=== PATIENT | female | born 1970 | race African-American/Black ===

== ENCOUNTER → 2016-10-06 10:56 | Day surgery (SDC) | payer MEDICARE, MEDICAID ==
--- NOTE | 2016-09-28 13:04 | HP ---
PREOPERATIVE HISTORY AND PHYSICAL: DATE OF OFFICE VISIT/ENCOUNTER: 09/28/16 - [facility] DATE OF SURGERY/ADMISSION: 10/06/16 ATTENDING SURGEON: Livia Jones MD PROCEDURE: Left wrist de Quervain's release. CHIEF COMPLAINT: Left wrist pain. HISTORY OF PRESENT ILLNESS: This is a 46-year-old female who has had pain at the radial aspect of her left wrist for approximately 5 months now. She gets an increase in pain with any repetitive use of the wrist. She has tried wrist braces in the past with minimal success and she is interested in pursuing more definitive treatment for this problem at this time in the form of a left wrist de Quervain's release. PAST MEDICAL HISTORY: 1. Prediabetes. 2. Asthma. 3. Hypertension. 4. History of Trichomonas. 5. GERD. 6. Morbid obesity. 7. Sleep apnea for which she uses a CPAP at night. 8. Anxiety/depression. 9. History of heart murmur. PAST SURGICAL HISTORY: Cyst excision from left breast. MEDICATIONS: 1. Albuterol sulfate 4 times daily p.r.n. 2. Amlodipine besylate 10 mg 1-1/2 tabs daily. 3. Anoro Ellipta 62.5/25 mcg one puff daily. 4. Buspirone/HCl 7.5 mg b.i.d. 5. Hydrochlorothiazide 25 mg daily. 6. Ibuprofen 600 mg t.i.d. p.r.n. 7. Lexapro 20 mg one tab daily. 8. Lisinopril 20 mg daily. 9. Loratadine 10 mg daily. 10. Lotrisone cream 0.5% as directed p.r.n. 11. Meloxicam 15 mg daily. 12. MiraLAX 17 g daily. 13. Rozerem 8 mg daily. 14. Tizanidine HCl 4 mg t.i.d. 15. Trazodone HCl 50 mg q.h.s. p.r.n. 16. Vicoprofen 7.5/200 mg q.8 hours p.r.n. pain. ALLERGIES: 1. PENICILLIN causes throat swelling. 2. TRAMADOL causes hives. 3. SHELLFISH. FAMILY MEDICAL HISTORY: Significant for colon cancer. SOCIAL HISTORY: The patient is a retired school nurse. She is a current smoker and smokes approximately 5 cigarettes a day. She has been doing this for the past 20 years. She also uses marijuana on a daily basis. Denies alcohol use. REVIEW OF SYSTEMS: General: Negative for fevers, chills, or night sweats. No known anesthesia problems. HEENT: Negative for headache, lightheadedness, or syncopal episodes. Integumentary: Negative for abrasions, lesions, or open wounds. Cardiothoracic: Negative for chest pain, palpitations, or edema. Positive for hypertension. Pulmonary: Positive for asthma. Positive for shortness of breath with exertion. GI: Positive for GERD. Negative for nausea , vomiting, diarrhea, or constipation. : Negative for nocturia, urinary frequency, urgency, history of UTIs, or kidney problems. Musculoskeletal: Positive for current complaint. Positive for arthritis. Neurological: Positive for anxiety/depression. Negative for paresthesias, numbness, history of seizure, stroke, or epilepsy. Endocrine: Positive for prediabetes. Negative for thyroid issues. Hematologic: Negative for easy bruising, anemia, excessive bleeding, or history of DVT. Infectious Disease: Positive for history of MRSA. Negative for hepatitis C and HIV. PHYSICAL EXAMINATION GENERAL: Well-developed, well-nourished 46-year-old female, in no acute distress. VITAL SIGNS: Height 5 feet 9-3/4 inches, weight 441 pounds, pulse rate 78, blood pressure 170/100. Retaken blood pressure 144/98. HEENT: Normocephalic, atraumatic. Pupils are equal, round, and reactive to light and accommodation. Extraocular movements are intact. Throat is clear. NECK: Supple. No palpable lymph nodes. PULMONARY: Lungs are clear to auscultation bilaterally. No wheezes, rales, or rhonchi. CARDIOTHORACIC: Regular rate and rhythm. S1, S2. Faint ejection murmur detected. No rubs or gallops. No edema. ABDOMEN: Positive bowel sounds, soft, and nontender. MUSCULOSKELETAL: On exam of the left wrist, she has tenderness to palpation along the first dorsal compartment. Increased pain from abduction, particularly against resistance. Positive Jacki's test. NEUROLOGIC: Alert and oriented x3. Cranial nerves II through XII are intact. Sensation is intact to light touch. IMPRESSION: Left wrist de Quervain's tenosynovitis. PLAN: The patient is scheduled to undergo a left wrist de Quervain's release with Dr. Jones on 10/06/16. She will return to the office 10 to 14 days postop for followup and suture removal. She has a supply of Vicoprofen that she used for pain as prescribed by Dr. Torre and she will use that for postoperative pain management. Additional medications will be prescribed if and when necessary. JOSE GÓMEZ [id number]/[facility] #: [id number] MTDD
[~2016-10-06 10:56] MED LIST: Acetaminophen TAB* 325 MG PO PRN; Buffered Lidocaine 1% SYRIN* 3 ML/SYR SYRINGE INTRADERM ONE; DiMENhydriNATE IV* 50 MG/ML VIAL IV PUSH PRN; HYDROcodone/ACETAMIN 5-325 MG* 1 TAB ONE; KETAMINE HCL* 50 MG/ML 10 ML VIAL ONE; Lidocaine 1% INJ* 10 MG/ML 30 ML SDV ONE; Midazolam* 1 MG/ML 2 ML VIAL (2 MG) ONE; Ondansetron INJ* 2 MG/ML VIAL IV PRN; fentaNYL* 50 MCG/ML 2 ML VIAL (100 MCG VIAL) ONE
[2016-10-06 14:56] VITALS: BP 135/75
--- NOTE | 2016-10-07 04:33 | OP ---
CC: Livia Jones MD OPERATIVE NOTE: DATE OF OPERATION: 10/06/16 DATE OF : 72 SURGEON: Livia Jones MD PROFESSOR OF LANGUAGES: JOSE Fitzpatrick ANESTHESIA: Local MAC. PRE-OP DIAGNOSIS: Left de Quervain's tenosynovitis. POST-OP DIAGNOSIS: Left de Quervain's tenosynovitis. OPERATIVE PROCEDURE: Left de Quervain's release. ESTIMATED BLOOD LOSS: Zero. TOURNIQUET TIME: About 10 minutes. INDICATIONS FOR PROCEDURE: Ally is a 46-year-old female with pain on the radial aspect of her left wrist for the past several months. She has failed conservative treatment and presents for Left de Q uervain's release. DESCRIPTION OF PROCEDURE: The patient was brought to the operative room and was given sedation anes thetic and a local infiltration of 10 cc of 1% plain lidocaine on the radial aspect of her left wris t. The skin of her left hand and forearm was prepped and draped in the usual sterile fashion. The hand and forearm were exsanguinated and tourniquet elevated to 250 mmHg. An incision was made on th e radial aspect of the wrist centered at the radial styloid. We dissected bluntly through the subcu taneous tissue. The branches of the radial sensory nerve were located and retracted by the surgical scheduler, Karlene Mcghee. The first dorsal compartment was incised longitudinally, completely rel easing the APL and EPB tendons, which were in good condition. The wound was irrigated and skin edge was reapproximated with 4-0 nylon suture. The wound was dressed with Xeroform, 4x4, Webril, and an Jam wrap. The patient tolerated the procedure well and was brought to the recovery room in good co ndition. [id number]/[facility] #: [id number]
== END | disposition home or self-care (01) ==
LOC: OREAST 10:56
PROVIDERS: ATTEND Orthopaedic Surgery
DX: M65.4 Radial styloid tenosynovitis [de Quervain] (principal); R73.03 Prediabetes; J45.909 Unspecified asthma, uncomplicated; I10 Essential (primary) hypertension; E66.01 Morbid (severe) obesity due to excess calories; G47.33 Obstructive sleep apnea (adult) (pediatric); F17.210 Nicotine dependence, cigarettes, uncomplicated; F12.90 Cannabis use, unspecified, uncomplicated
CPT/HCPCS: J2001; J2250; J3010

== ENCOUNTER 2016-11-08 17:59 | Emergency (ER) | payer MEDICARE, MEDICAID ==
[2016-11-08] MEDS ORDERED: Sulfamethox/Trimethoprim DS 800/160* TAB PO ONE (18:42)
[2016-11-08] MEDS ORDERED: amLODIPine TAB* 5 MG PO ONE (18:42)
[2016-11-08] MEDS ORDERED: Lisinopril TAB* 10 MG PO ONE (18:42)
--- NOTE | 2016-11-08 18:42 | ED ---
Skin Complaint - HPI Summary HPI Summary: 46F presents with abscess to left breast. States had cystlike structure there for a while and seemed over the past three days to get bigger and hurt. She states she sterilized a needle and incised it and she got drainage from it. She states that it improved after incising it but states she still feels that there is something there. She denies any fever or spreading redness. She had normal mammogram a couple months ago. she takes hydrocodone for pain. She also states she has not taken two of her bp meds today as she ran out. She denies any chest pain, SOB, or headache. - History of Current Complaint Chief Complaint: EDRashSkinAbscess Time Seen by Provider: 11/08/16 18:14 Stated Complaint: POSS SKIN INFECTION Pain Intensity: 8 - Allergy/Home Medications Allergies/Adverse Reactions: Allergies Allergy/AdvReac Type Severity Reaction Status Date / Time Tramadol Allergy Severe Swelling Verified 10/06/16 11:24 Penicillins Allergy Difficulty Verified 10/06/16 11:24 Breathing/Wheezing Shrimp Allergy Severe Swelling Uncoded 10/06/16 11:24 Of Face,Lips,& Throat PMH/Surg Hx/FS Hx/Imm Hx Endocrine/Hematology History: Reports: Hx Thyroid Disease - being checked Denies: Hx Sickle Cell Disease - TRATE Comment Only: Hx Diabetes - PRE- NO MEDS Cardiovascular History: Reports: Hx Hypertension - ON DAILY MED Denies: Hx Pacemaker/ICD, Other Cardiovascular Problems/Disorders Respiratory History: Reports: Hx Asthma - ON DAILY & PRN INHALERS, Hx Sleep Apnea - BEEN TESTED, NO EQUIPMENT YET Denies: Other Respiratory Problems/Disorders History: Reports: Other Problems/Disorders - urine being checked for blood Musculoskeletal History: Reports: Hx Arthritis - GENERALIZED Denies: Other Musculoskeletal History Sensory History: Reports: Hx Contacts or Glasses - ONLY CONTACTS, WILL BRING CASE Denies: Hx Hearing Aid Opthamlomology History: Reports: Hx Contacts or Glasses - ONLY CONTACTS, WILL BRING CASE Neurological History: Reports: Hx Headaches - with high bp, Hx Migraine - with high bp Denies: Other Neuro Impairments/Disorders Psychiatric History: Reports: Hx Anxiety, Hx Depression Denies: Hx Panic Disorder - Surgical History Surgery Procedure, Year, and Place: EARLY CYST OF VAGINA, STATES REMOVED IN ER IN [facility] UNDER ANESTHESIA Hx Anesthesia Reactions: No - Immunization History Date of Tetanus Vaccine: Unknown Date of Influenza Vaccine: None Infectious Disease History: Yes Infectious Disease History: Denies: Traveled Outside the [place] in Last 30 Days - Family History Known Family History: Positive: None - Social History Alcohol Use: None Substance Use Type: Reports: Marijuana Substance Use Comment - Amount & Last Used: Marijuana Occ - Unknown last time, WILL REFRAIN 2 DAYS PREOP Smoking Status (MU): Light Every Day Tobacco Smoker Type: Cigarettes Amount Used/How Often: ABOUT 1/2 PPD 20 YRS Have You Smoked in the Last Year: Yes Review of Systems Negative: Fever Negative: Chest Pain Negative: Shortness Of Breath Positive: Other - draining abscess of left breast All Other Systems Reviewed And Are Negative: Yes Physical Exam Triage Information Reviewed: Yes Vital Signs On Initial Exam: Initial Vitals Temp Pulse Resp BP 97.4 F 91 20 191/107 11/08/16 18:01 11/08/16 18:01 11/08/16 18:01 11/08/16 18:01 Vital Signs Reviewed: Yes Appearance: Positive: Well-Appearing Skin: Positive: Other - 1/4 open draining abscess of left breast with small amount of pus present, area of edema surrounding open area Head/Face: Positive: Normal Head/Face Inspection Eyes: Positive: Normal, Conjunctiva Clear Respiratory/Lung Sounds: Positive: Clear to Auscultation, Breath Sounds Present Cardiovascular: Positive: Normal, RRR Diagnostics - Vital Signs Vital Signs Temp Pulse Resp BP Pulse Ox 11/08/16 18:33 97.4 F 91 20 191/107 98 11/08/16 18:01 97.4 F 91 20 191/107 - Laboratory Lab Statement: Any lab studies that have been ordered have been reviewed, and results considered in the medical decision making process. Course/Dx - Course Course Of Treatment: 46F presents with draining abscess of left breast. she incised it herself. states that improved with incision but now feels that getting worst. no fever or spreading redness. on exam has open area in middle of abscess with small amount of pustular drainage with some surrounding edema with no area of loculation felt. will treat with bactrim and have continue warm soaks. gave bp meds and pressure dropped. will have follow up with primary about bp. patient understands and agrees with plan - Differential Diagnoses - Skin Complaint Differential Diagnoses: Abscess, Cellulitis, Other - HTN - Diagnoses Provider Diagnoses: Abscess of left breast, Hypertension Discharge - Discharge Plan Condition: Good Disposition: HOME Prescriptions: Lisinopril TAB* [Prinivil TAB 10 MG*] 20 mg PO DAILY #14 tab Sulfamethox/Trimethoprim DS* [Bactrim DS 800/160 TAB*] 1 tab PO BID #19 tab amLODIPine TAB* [Norvasc 5 mg TAB*] 10 mg PO DAILY #14 tab Patient Education Materials: Abscess (ED) Referrals: Corey Torre MD [Primary Care Provider] - Additional Instructions: Follow up with primary for blood pressure Take bactrim twice a day for 10 days, first dose given in ED Place warm compresses on area Take normal pain medication Return to ED if develop any fever, spreading redness, or any new or worsening symptoms
[2016-11-08 19:21] VITALS: BP 173/99
== END 2016-11-08 19:19 | disposition home or self-care (01) ==
LOC: ED 17:59
DX: N61.1 Abscess of the breast and nipple (principal); I10 Essential (primary) hypertension; F17.210 Nicotine dependence, cigarettes, uncomplicated; Z88.0 Allergy status to penicillin; Z88.8 Allergy status to other drugs, medicaments and biological substances
CPT/HCPCS: 99282; A9270-GY

== ENCOUNTER 2017-12-26 07:32 | Inpatient (IN) | payer MEDICARE ==
[~2017-12-26 07:32] MED LIST changes: -Acetaminophen TAB* 325 MG PO PRN; +Buffered Lidocaine 0.9% SYRIN* 5 ML/SYR SYRINGE INTRADERM ONE; -Buffered Lidocaine 1% SYRIN* 3 ML/SYR SYRINGE INTRADERM ONE; +Bupivacaine 0.5% SDV PF* 30ML VIAL ONE; -DiMENhydriNATE IV* 50 MG/ML VIAL IV PUSH PRN; +Famotidine IV* 10 MG/ML 2 ML (20 mg) IV ONE; -HYDROcodone/ACETAMIN 5-325 MG* 1 TAB ONE; -KETAMINE HCL* 50 MG/ML 10 ML VIAL ONE; -Lidocaine 1% INJ* 10 MG/ML 30 ML SDV ONE; +Metoclopramide TAB* 10 MG PO ONE; -Midazolam* 1 MG/ML 2 ML VIAL (2 MG) ONE; -Ondansetron INJ* 2 MG/ML VIAL IV PRN; -fentaNYL* 50 MCG/ML 2 ML VIAL (100 MCG VIAL) ONE
[2017-12-26] MEDS ORDERED: Heparin VIAL(*) 5000 UNITS/ML VIAL (FIVE THOUSAND) ONE (08:19)
[2017-12-26] MEDS ORDERED: Metoclopramide TAB* 10 MG ONE (08:19)
[2017-12-26] MEDS ORDERED: Famotidine IV* 10 MG/ML 2 ML (20 mg) ONE (08:19)
[2017-12-26] MEDS ORDERED: Ciprofloxacin 400MG IVPREMIX(* 400 MG/200 ML BAG ONE (08:20)
[2017-12-26] MEDS ORDERED: Clindamycin 900 MG IVPREMIX(* 900 MG/50 ML SDV IV ONE (08:20)
[2017-12-26] MEDS ORDERED: fentaNYL* 50 MCG/ML 5 ML VIAL (250 MCG VIAL) ONE (08:22)
[2017-12-26] MEDS ORDERED: Lidocaine 2% PF * 5 ML VIAL ONE (08:22)
[2017-12-26] MEDS ORDERED: Rocuronium* 10 MG/ML VIAL ONE (08:22)
[2017-12-26] MEDS ORDERED: Ondansetron ODT TAB* 4 MG ONE (08:22)
[2017-12-26] MEDS ORDERED: Propofol* 10 MG/ML 20 ML BTL IV PUSH ONE ×2 (08:22→09:51)
[2017-12-26] MEDS ORDERED: Dexamethasone IV* 4 MG/ML 1 ML (4 MG) ONE (08:22)
[2017-12-26] MEDS ORDERED: Ketorolac INJ* 30 MG/ML 1 ML VIAL ONE (08:22)
[2017-12-26] MEDS ORDERED: Midazolam* 1 MG/ML 5 ML VIAL (5 MG) ONE (08:22)
[2017-12-26] MEDS ORDERED: Midazolam* 1 MG/ML 2 ML VIAL (2 MG) ONE (09:28)
[2017-12-26] MEDS ORDERED: EPHEDrine (Pressors)* 50 MG/ML VIAL ONE (09:41)
[2017-12-26] MEDS ORDERED: Bupivacaine 0.5% SDV PF* 30ML VIAL ONE (10:07)
[2017-12-26] MEDS ORDERED: fentaNYL* 50 MCG/ML 2 ML VIAL (100 MCG VIAL) ONE ×5 (10:09→12:35)
[2017-12-26] MEDS ORDERED: Metoprolol Tartrate IV* 1 MG/ML 5 ML VIAL ONE (10:18)
[2017-12-26] MEDS ORDERED: DiMENhydriNATE IV* 50 MG/ML VIAL IV PUSH PRN (10:23)
[2017-12-26] MEDS ORDERED: Ondansetron INJ* 2 MG/ML VIAL IV PRN ×2 (10:23→11:27)
[2017-12-26] MEDS ORDERED: Naloxone* 0.4 MG/ML 1 ML VIAL IV PRN (10:23)
[2017-12-26] MEDS ORDERED: Levalbuterol 1.25MG/0.5ML NEB INH PRN (10:23)
[2017-12-26] MEDS ORDERED: Labetalol IV* 5 MG/ML 20 ML VIAL ONE (10:58)
[2017-12-26] MEDS ORDERED: HYDROmorphone INJ* 2 MG/ML CARPUJECT SYRINGE IV PRN (11:27)
[2017-12-26] MEDS ORDERED: Acetaminophen ADULT LIQ* 650 MG/20.3 ML UDC PO PRN (11:27)
[2017-12-26] MEDS ORDERED: diPHENhydraMINE IV* 50 MG/ML 1 ml VIAL (BENADRYL) SLOW PUSH PRN (11:27)
--- NOTE | 2017-12-26 11:27 | BRIEFOPN ---
Brief Operative Note - Surgery Procedures: Procedures Pre-OP Diagnoses: Clinically severe obesity Post-op Diagnosis: same Procedure: Laparoscopic sleeve gastrectomy Surgeon: Salo Asst: Reyna Anethesia: SHONDA Purvis EBL: minimal IVF: 1500cc LR Specimen: portion of stomach Drains: none
[2017-12-26] MEDS ORDERED: Albuterol HFA INHALER* 8 gm MDI INH PRN (11:32)
[2017-12-26] MEDS: fentaNYL* 50 MCG/ML 2 ML VIAL (100 MCG VIAL) IV PRN ×5 (11:54→12:48)
[2017-12-26] MEDS ORDERED: HYDROmorphone INJ* 2 MG/ML CARPUJECT SYRINGE ONE (13:10)
[2017-12-26] MEDS ORDERED: Enalaprilat IV* 1.25 MG/ML 2 ML VIAL (2.5 MG) ONE (13:55)
[2017-12-26] MEDS: Ketorolac INJ* 30 MG/ML 1 ML VIAL IV PRN ×2 (16:02→22:55)
[2017-12-26] MEDS: Heparin VIAL(*) 5000 UNITS/ML VIAL (FIVE THOUSAND) SUBCUT SCH ×2 (16:03→23:00)
[2017-12-26] MEDS: HYDROmorphone INJ* 2 MG/ML CARPUJECT SYRINGE IV PRN (20:03)
[2017-12-26] MEDS: Ondansetron 40 MG VIAL* 2 MG/ML 20 ML VIAL IV PRN (20:10)
[2017-12-27] MEDS ORDERED: Ketorolac INJ* 30 MG/ML 1 ML VIAL IM PRN (01:05)
[2017-12-27] MEDS ORDERED: HYDROcodone/ACET. 7.5/325 LIQ* 15 ML UDC PO ONE ×2 (05:20)
[2017-12-27] MEDS: HYDROcodone/ACET. 7.5/325 LIQ* 15 ML UDC PO PRN ×3 (05:30→20:33)
[2017-12-27] MEDS: HYDROcodone/ACET. 7.5/325 LIQ* 15 ML UDC ONE ×2 (05:33→06:58)
--- NOTE | 2017-12-27 05:34 | PN ---
Progress Note - Progress Note Date of Service: 12/27/17 SOAP: Subjective: No iv access, c/o abdo and back pain Objective: af hr 100 attempted R IJ and SC access failed Assessment: POD1 sleeve gastrectomy, no iv access Plan: oral lortab IM toradol
[2017-12-27] MEDS: Heparin VIAL(*) 5000 UNITS/ML VIAL (FIVE THOUSAND) SUBCUT SCH ×3 (05:55→22:01)
--- NOTE | 2017-12-27 06:29 | OP ---
CC: Dr. Torre; [facility] * DATE OF OPERATION: 12/26/17 - ROOM #[id number] DATE OF : 72 SURGEON: Kemar Leong MD MECHANICAL MAINTENANCE SUPERVISOR: JOSE Bryant ANESTHESIOLOGIST: Roderick Purvis MD ANESTHESIA: General anesthesia. PRE-OP DIAGNOSES: 1. Clinically severe obesity. 2. Hypertension. 3. Obstructive sleep apnea. POST-OP DIAGNOSES: 1. Clinically severe obesity. 2. Hypertension. 3. Obstructive sleep apnea. OPERATIVE PROCEDURE: Laparoscopic sleeve gastrectomy. ESTIMATED BLOOD LOSS: Minimal. IV FLUIDS: 1500 cc of crystalloid fluid given. SPECIMEN: Portion of stomach. DESCRIPTION OF PROCEDURE: The patient was identified in the preoperative area. I discussed the case with her. Consent was signed, where she was marked, brought to the operating room, placed on the operating table in the supine position. Preoperative antibiotics were given. Sequential devices were placed on bilateral lower extremities. General anesthesia was induced. The patient's abdomen was prepped and draped in the standard surgical fashion. A time-out was performed. Folds of the umbilicus were elevated anteriorly and a Veress needle was inserted into the abdominal cavity, which was then allowed to insufflate to a pressure of 15 mmHg. The patient tolerated the insufflation well. A 12-mm trocar was then placed in the upper midline midway between the xiphoid and umbilicus. The laparoscope was inserted through this and there was no evidence of injury from the trocar insertion or from the Veress needle. Additional trocars were then placed in the following position: 5 mm in the left upper quadrant, 12 mm in the upper quadrant. Attention was then towards the liver. We were able to reflect this anteriorly and see the gastroesophageal fat pad. At this point, we proceeded on. Additional 5-mm trocars were placed in the left lateral side and a Cecelia retractor was inserted through a subxiphoid incision and the liver was retracted anterior into the right, exposing the gastroesophageal fat pad. This fat pad was grasped and retracted towards the right lower quadrant. Blunt and sharp dissection was carried out to expose the left tom. Attention was then turned towards the lesser curvature. We had decompressed the stomach and removed the OG tube. The pylorus was identified and approximately 6 cm proximal to this, along the greater curvature, a retrogastric tunnel was made. We took the greater curvature vasculature with LigaSure device right up to the angle of His where we had previously dissected. Posterior attachments were similarly taken until the stomach could be completely rotated along its axis. There was no evidence of a hiatal hernia. We also dissected the fat pad more laterally to the lesser curvature to assist with our immediate staple line later. Next, a sleeve stomach was created with 60-mm purple BRET stapling device with the reinforcement strips starting at 6 cm proximal to the pylorus on the greater curvature and extending this towards the incisura. Prior to stapling this, a 40- Mongolian bougie was inserted into the distal stomach. The sleeve stomach was completed with additional staple loads staying close to the bougie, which was then removed. Staple line looked intact without any corkscrewing and of appropriate size. There was some oozing at the very first staple line along the greater curvature and this was controlled with a single Endoclip. Next, the transected portion of the stomach was then placed in an endoscopic retrieval bag and brought out through the right upper quadrant port site and passed off as specimen. This port site was then reapproximated at the fascial layer with a 0 Polysorb suture. The abdomen was allowed to collapse. Trocars were removed under direct vision and all 4 skin incisions were reapproximated with 4-0 Monocryl subcuticular sutures. Steri-Strips and sterile dressing were applied. The patient tolerated the procedure well, was woken up in the OR and transferred to the PACU in stable condition. [id number]/[facility] #: [id number] AJAY
--- NOTE | 2017-12-27 08:15 | RAD ---
INDICATION: Attempted line placement COMPARISON: April 09, 2013 TECHNIQUE: An AP portable view obtained at 0546 hours is submitted. FINDINGS: Bones/Soft Tissues: There are no acute bony findings. Cardiomediastinal: The cardiomediastinal silhouette is enlarged. . Lungs: There is diffuse prominence of interstitium with early alveolar change in the lung bases. Pleura: There are no pleural effusions. Other: None IMPRESSION: MODERATE VASCULAR CONGESTIVE CHANGES. NO EVIDENCE OF PNEUMOTHORAX.
[2017-12-27] MEDS: HYDROmorphone INJ* 2 MG/ML CARPUJECT SYRINGE IV PRN ×2 (09:37→12:12)
[2017-12-27] MEDS: Ketorolac INJ* 30 MG/ML 1 ML VIAL IV PRN (09:37)
[2017-12-27] MEDS: Ondansetron 40 MG VIAL* 2 MG/ML 20 ML VIAL IV PRN ×2 (09:39→20:38)
--- NOTE | 2017-12-27 09:54 | PN ---
Progress Note - Progress Note Date of Service: 12/27/17 Note: S: POD #1. Lost IV access last pm; unsuccessful attempt to place central line; IV replaced this a.m.. Pain in abd and back; some nausea (had dry heaves once last night; no vomiting this a.m.). Has not had her UGI yet. O: Vital Signs - 8 hr 12/27/17 12/27/17 12/27/17 02:24 05:30 05:42 Temperature 98.6 F Pulse Rate 104 95 Respiratory 27 24 32 Rate Blood Pressure 137/102 165/85 (mmHg) O2 Sat by Pulse 97 95 Oximetry 12/27/17 12/27/17 12/27/17 07:30 08:19 08:56 Temperature 98.1 F Pulse Rate 92 Respiratory 28 18 Rate Blood Pressure 149/77 (mmHg) O2 Sat by Pulse 98 95 Oximetry 12/27/17 09:37 Temperature Pulse Rate Respiratory 28 Rate Blood Pressure (mmHg) O2 Sat by Pulse Oximetry Intake and Output Last 24 Hours 12/25/17 12/26/17 12/27/17 12/28/17 06:59 06:59 06:59 06:59 Intake Total 2697 Output Total 1725 Balance 972 Weight 440 lb Intake: IV Fluids 2677 LR 2677 Oral 20 Output: Urine 1725 Other: Estimated Void Large # Voids 1 Gen: NAD Heart: reg Lungs: few scattered wheezes; otherwise clear Abd: +BS; lap sites clean and dry under dsgs; soft; incisional tenderness only A: s/p lap sleeve gastrectomy P: UGI this a.m.
[2017-12-27] MEDS: D5W 1/2 NS KCl 20 Meq 1000 ML* 1,000 ML IV SCH ×2 (12:12→20:54)
--- NOTE | 2017-12-27 13:56 | RAD ---
INDICATION: Status post gastric sleeve surgery evaluate for leak. COMPARISON: Comparison is made with a prior upper GI series from June 16, 2016. Technique: An upper GI series exam was performed with Gastrografin contrast. Approximately 2.4 minutes of intermittent fluoroscopic guidance were used during the exam. Findings: The esophageal peristalsis appeared normal. There is suggestion of a small hiatal hernia. The patient is status post gastric sleeve procedure surgery. The gastric mucosal pattern appeared slightly irregular consistent with the patient's recent surgery. The stomach emptied normally. There is no evidence for free intraperitoneal spillage of contrast. IMPRESSION: STATUS POST GASTRIC SLEEVE SURGERY. NO EVIDENCE FOR INTRAPERITONEAL LEAKAGE OF CONTRAST. CPT II Codes: G9500
[2017-12-28] MEDS ORDERED: Scopolamine 1.5 mg* PATCH ONE (00:19)
[2017-12-28] MEDS: Ondansetron 40 MG VIAL* 2 MG/ML 20 ML VIAL IV PRN (00:22)
[2017-12-28] MEDS: Ketorolac INJ* 30 MG/ML 1 ML VIAL IV PRN (00:34)
[2017-12-28] MEDS ORDERED: Scopolamine 1.5 mg* PATCH TRANSDERM ONE (01:00)
[2017-12-28] MEDS ORDERED: Ondansetron 40 MG VIAL* 2 MG/ML 20 ML VIAL IV PRN (01:00)
[2017-12-28] MEDS ORDERED: Metoclopramide IV* 5 MG/ML 2 ML VIAL IV PRN (02:20)
[2017-12-28] MEDS ORDERED: Metoclopramide IV* 5 MG/ML 2 ML VIAL ONE (02:27)
[2017-12-28] MEDS: D5W 1/2 NS KCl 20 Meq 1000 ML* 1,000 ML IV SCH (05:08)
[2017-12-28] MEDS: Heparin VIAL(*) 5000 UNITS/ML VIAL (FIVE THOUSAND) SUBCUT SCH ×2 (06:10→13:24)
[2017-12-28] MEDS: HYDROcodone/ACET. 7.5/325 LIQ* 15 ML UDC PO PRN ×2 (07:27→13:23)
--- NOTE | 2017-12-28 10:05 | PN ---
Progress Note - Progress Note Date of Service: 12/28/17 Note: S: POD #2. Main complaint is nausea. She states she was nauseated and coughing all night. She has been ambulating and had a BM this a.m. as well as passing flatus. Her po intake is still low (2 cups- 30 cc- per hour). She would like to go home. O: Vital Signs - 8 hr 12/28/17 12/28/17 12/28/17 04:16 04:32 07:20 Temperature 97.5 F 98.4 F Pulse Rate 64 89 Respiratory 20 16 Rate Blood Pressure 121/78 147/86 (mmHg) O2 Sat by Pulse 98 97 Oximetry 12/28/17 12/28/17 07:27 07:32 Temperature Pulse Rate Respiratory 18 16 Rate Blood Pressure (mmHg) O2 Sat by Pulse 97 Oximetry Intake and Output Last 24 Hours 12/26/17 12/27/17 12/28/17 12/29/17 06:59 06:59 06:59 06:59 Intake Total 2697 2560 90 Output Total 1725 200 Balance 972 2360 90 Weight 440 lb Intake: IV Fluids 2677 2470 D5W 1/2 NS 20 meq KCL 2112 LR 2677 358 Oral 20 90 90 Output: Urine 1725 200 Other: Estimated Void Large Medium # Bowel Movements 0 # Voids 1 25 Gen: somewhat sleepy; NAD Heart: reg Lungs: clear Abd: lap sites clean, dry; +BS; soft; incisional tenderness only A: s/p lap sleeve gastectomy w/ ongoing nausea and lack of adequate po intake P: emphasized the importance of oral hydration in order for her to be discharged safely. I also reviewed her other discharge instruction. Poss d/c later today pending adequate intake.
[2017-12-28 12:18] VITALS: BP 155/98
[2017-12-31] MEDS ORDERED: Scopolamine PATCH Remove* 1 NOTE MISC PATCH OFF ONE (01:00)
--- NOTE | 2018-01-03 08:55 | DS ---
CC: [facility]; Dr. Corey Torre * DISCHARGE SUMMARY: DATE OF ADMISSION: 12/26/17 DATE OF DISCHARGE: 12/28/17 HOSPITAL COURSE: Ms. Hernandez is a 47-year-old female worked up as an outpatient with diagnosis of clinically severe obesity, presented on the same day of surgery and underwent laparoscopic sleeve gastrectomy on 12/26/17. The patient's postoperative course was eventful in that she had nausea and abdominal pain. This was treated with narcotics and antinausea medications. On postoperative day 0 to 1, the patient lost IV access and after multiple placements of IV that blew, the patient underwent an attempt at a central line placement. This was ultimately not performed as we were unable to get access. The patient was ultimately started on p.o. pain meds at that time. She underwent placement of a midline and spent another night in the hospital where she received IV fluids that had been lost during the previous course that was without IV access. The patient underwent an upper GI study on postoperative day 1, which was within normal limits, and the patient was started on p.o. intake. She tolerated this well. By postoperative day 2, the patient was discharged home for planned followup and close followup in our offices at [facility] metabolic and Bariatric Surgery. The patient's questions were answered and she underwent multiple discussions about what to expect and what diets to perform. I encouraged her not to smoke, although the patient told me that she would smoke anyhow; this is unfortunate. I discussed with her the need to quit smoking and the possibility of poor outcomes in this early postoperative course. The patient understood my concerns and answered my questions appropriately and was ultimately discharged home for close followup with us. [id number]/[facility] #: [id number] AJAY
== END 2017-12-28 14:05 | disposition home or self-care (01) | DRG 621 ==
LOC: AA 07:32 → SSU 14:41
PROVIDERS: ADMIT Surgery; ATTEND Surgery
PROC: 0DB64Z3 Excision of Stomach, Percutaneous Endoscopic Approach, Vertical (ICD-10-PCS; principal; 2017-12-26 09:15)
DX: E66.01 Morbid (severe) obesity due to excess calories (principal); K59.00 Constipation, unspecified; G89.29 Other chronic pain; M25.569 Pain in unspecified knee; M54.2 Cervicalgia; M54.9 Dorsalgia, unspecified; G47.33 Obstructive sleep apnea (adult) (pediatric); Z68.44 Body mass index [BMI] 60.0-69.9, adult; I10 Essential (primary) hypertension; D57.3 Sickle-cell trait; F41.9 Anxiety disorder, unspecified; E11.40 Type 2 diabetes mellitus with diabetic neuropathy, unspecified; F32.9 Major depressive disorder, single episode, unspecified; R11.0 Nausea; G43.909 Migraine, unspecified, not intractable, without status migrainosus; J45.909 Unspecified asthma, uncomplicated; M06.9 Rheumatoid arthritis, unspecified; M19.90 Unspecified osteoarthritis, unspecified site; Z87.891 Personal history of nicotine dependence; Z80.9 Family history of malignant neoplasm, unspecified; Z83.3 Family history of diabetes mellitus; Z82.49 Family history of ischemic heart disease and other diseases of the circulatory system; Z88.0 Allergy status to penicillin; Z88.6 Allergy status to analgesic agent; Z91.013 Allergy to seafood; Z81.8 Family history of other mental and behavioral disorders; Z83.49 Family history of other endocrine, nutritional and metabolic diseases; Z86.14 Personal history of Methicillin resistant Staphylococcus aureus infection; Z97.5 Presence of (intrauterine) contraceptive device
CPT/HCPCS: 43775; 71045; 74246; 81025; 87641; 88307; A9270-GY; J0744; J1100; J1170; J1644; J1885; J2250; J2704; J2765; J3010; J3490

== ENCOUNTER 2018-03-19 21:11 | Emergency (ER) | payer MEDICARE ==
[2018-03-19] MEDS ORDERED: Ondansetron ODT TAB* 4 MG PO ONE (22:39)
[2018-03-19] MEDS ORDERED: NS 0.9% 1000 ML* 1,000 ML IV ONE (22:39)
--- NOTE | 2018-03-19 23:14 | ED ---
Abdominal Pain/Female - HPI Summary HPI Summary: Patient with history of bariatric surgery with Dr. Leong 12/26/17 complains of nausea vomiting and abdominal cramping since surgery, but worse in the past 3 days. Patient states she has not been able to keep down solid foods or liquids for the past 2 days. Complains of normal bowel movements until today, today she had diarrhea 3 times. Abdominal pain is epigastric, intermittent, described as a burning cramp. Patient states she saw Dr. Leong 1.5 weeks ago and described same symptoms to him, and was told to drink more water. Patient denies fever, cough, sore throat, CP, SOB, change in urine, vaginal symptoms. Medical history is prediabetic, HTN, OA, carpal tunnel. Denies prior cardiac or pulmonary disease history. Abdominal/pelvic 6 surgical history is bariatric surgery. - History of Current Complaint Chief Complaint: EDNauseaVomitDiarrh Stated Complaint: VOMITING/BODY ACHES Time Seen by Provider: 03/19/18 22:16 Hx Obtained From: Patient Onset/Duration: Gradual Onset Timing: Intermittent Episode Lasting Severity Initially: Moderate Severity Currently: Moderate Pain Intensity: 9 Pain Scale Used: 0-10 Numeric Location: Epigastric Radiates: No Character: Burning, Cramping Aggravating Factor(s): Food Alleviating Factor(s): Nothing Associated Signs and Symptoms: Positive: Nausea, Vomiting, Diarrhea Allergies/Adverse Reactions: Allergies Allergy/AdvReac Type Severity Reaction Status Date / Time shrimp Allergy Severe Swelling Verified 03/19/18 21:22 Of Face,Lips,& Throat tramadol Allergy Severe Swelling Verified 03/19/18 21:22 Penicillins Allergy Difficulty Verified 03/19/18 21:22 Breathing PMH/Surg Hx/FS Hx/Imm Hx Endocrine/Hematology History: Reports: Hx Thyroid Disease - being checked Denies: Hx Anticoagulant Therapy, Hx Sickle Cell Disease - TRATE Comment Only: Hx Diabetes - PRE- NO MEDS Cardiovascular History: Reports: Hx Hypertension - ON DAILY MED Denies: Hx Cardiac Arrest, Hx Pacemaker/ICD, Other Cardiovascular Problems/ Disorders Respiratory History: Reports: Hx Asthma - ON DAILY & PRN INHALERS, Hx Sleep Apnea - BEEN TESTED, NO EQUIPMENT YET Denies: Other Respiratory Problems/Disorders GI History: Denies: Other GI Disorders History: Reports: Other Problems/Disorders - urine being checked for blood Denies: Hx Dialysis Musculoskeletal History: Reports: Hx Arthritis - GENERALIZED, Hx Tendonitis - left wrist Denies: Other Musculoskeletal History Sensory History: Reports: Hx Contacts or Glasses - ONLY CONTACTS, WILL BRING CASE Denies: Hx Hearing Aid Opthamlomology History: Reports: Hx Contacts or Glasses - ONLY CONTACTS, WILL BRING CASE Neurological History: Reports: Hx Headaches - with high bp, Hx Migraine - with high bp Denies: Other Neuro Impairments/Disorders Psychiatric History: Reports: Hx Anxiety, Hx Depression, Other Psychiatric Issues/Disorders [place] [facility] [place], see psychiatrist Denies: Hx Panic Disorder - Surgical History Surgery Procedure, Year, and Place: EARLY CYST OF VAGINA, LEFT WRIST Hx Anesthesia Reactions: No - Immunization History Date of Tetanus Vaccine: Unknown Date of Influenza Vaccine: None Immunizations Up to Date: Yes Infectious Disease History: No Infectious Disease History: Reports: 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, 10 yrs ago , Hx Shingles - x2 Denies: Traveled Outside the [place] in Last 30 Days - Family History Known Family History: Positive: None - Social History Alcohol Use: None Substance Use Type: Reports: Marijuana Substance Use Comment - Amount & Last Used: Marijuana Occ - Unknown last time, WILL REFRAIN 2 DAYS PREOP Smoking Status (MU): Light Every Day Tobacco Smoker Type: Cigarettes Amount Used/How Often: ABOUT 1/2 PPD 20 YRS Have You Smoked in the Last Year: Yes Review of Systems Constitutional: Negative Eyes: Negative ENT: Negative Cardiovascular: Negative Respiratory: Negative Positive: Abdominal Pain, Vomiting, Diarrhea, Nausea Genitourinary: Negative Musculoskeletal: Negative Skin: Negative Neurological: Negative Psychological: Normal All Other Systems Reviewed And Are Negative: Yes Physical Exam - Summary Physical Exam Summary: Abdomen diffusely mildly tender, worse in the epigastrium Triage Information Reviewed: Yes Vital Signs On Initial Exam: Initial Vitals Temp Pulse Resp BP Pulse Ox 98.8 F 106 16 145/90 97 03/19/18 21:19 03/19/18 21:19 03/19/18 21:19 03/19/18 21:19 03/19/18 21:19 Vital Signs Reviewed: Yes Appearance: Positive: Well-Appearing Skin: Positive: Warm Head/Face: Positive: Normal Head/Face Inspection Eyes: Positive: Normal Neck: Positive: Supple Respiratory/Lung Sounds: Positive: Clear to Auscultation Cardiovascular: Positive: Normal Abdomen Description: Positive: Other: Musculoskeletal: Positive: Normal Neurological: Positive: Normal Psychiatric: Positive: Normal AVPU Assessment: Alert - Johnie Coma Scale Best Eye Response: 4 - Spontaneous Best Motor Response: 6 - Obeys Commands Best Verbal Response: 5 - Oriented Coma Scale Total: 15 Diagnostics - Vital Signs Vital Signs Temp Pulse Resp BP Pulse Ox 03/19/18 21:19 98.8 F 106 16 145/90 97 - Laboratory Result Diagrams: 03/19/18 23:32 03/20/18 00:35 Lab Statement: Any lab studies that have been ordered have been reviewed, and results considered in the medical decision making process. - CT ab/pel CT Interpretation: No Acute Changes CT Interpretation Completed By: Radiologist Abdominal Pain Fem Course/Dx - Course Course Of Treatment: Patient with history of bariatric surgery with Dr. Leong complains of nausea vomiting and abdominal cramping since surgery, but worse in the past 3 days. Patient states she has not been able to keep down solid foods or liquids for the past 2 days. Complains of normal bowel movements until today, today she had diarrhea 3 times. Abdominal pain is epigastric, intermittent, described as a burning cramp. Patient states she saw Dr. Leong 1.5 weeks ago and described same symptoms to him, and was told to drink more water. Patient denies fever, cough, sore throat, CP, SOB, change in urine, vaginal symptoms. Medical history is prediabetic, HTN, OA, carpal tunnel. Denies prior cardiac or pulmonary disease history. Abdominal/pelvic 6 surgical history is bariatric surgery. Physical exam:Abdomen diffusely mildly tender, worse in the epigastrium. Discussed patient with Dr. Gaston who recommended discharge home. Vital signs normal. Other than hypokalemia, labs unremarkable. Patient given 40 meQ of potassium here in ED. CT abdomen and pelvis with IV and oral contrast negative. Radiology does recommend follow-up with gynecology for IUD position. No active N/V here in the ED. Follow-up with original surgeon Dr. Leong. Rx for Zofran ODT. - Diagnoses Provider Diagnoses: Nausea & vomiting, Diarrhea, Abdominal cramping Discharge - Sign-Out/Discharge Documenting (check all that apply): Patient Departure - Discharge Plan Condition: Stable Disposition: HOME Prescriptions: Ondansetron ODT TAB* [Zofran 4 MG Odt TAB*] 4 mg PO Q8H PRN 4 Days #14 tab.odt PRN Reason: Nausea Patient Education Materials: Acute Nausea and Vomiting (ED), Acute Diarrhea (ED ), Abdominal Pain (ED) Referrals: Corey Torre MD [Primary Care Provider] - Additional Instructions: Follow up with ITEM REPAIR MANAGER to check position of IUD per results of CT. Follow-up with surgeon Dr. Lehman for postsurgical nausea and vomiting. Return to the ED for any new or worsening symptoms - Billing Disposition and Condition Condition: STABLE Disposition: Home
[2018-03-19 23:25] LABS: EGFR Non-African American 111.9 (>60)
[2018-03-19 23:42] LABS: ABS Basophils 0.1 10^3/ul (0-0.2); ABS Eosinophils 0.3 10^3/ul (0-0.6); ABS Monocytes 0.8 10^3/ul (0-0.8); ABS Neutrophils 4.7 10^3/ul (1.5-7.7); ABS Nucleated RBC 0 10^3/ul; Eosinophil % 2.9 % (0-6); Hematocrit 47 % (35-47); Hemoglobin 15.5 g/dl (12.0-16.0); Lymphocyte % 40.1 % (25-47); Mean Corpuscular HGB Conc 33 g/dl (31-36); Mean Corpuscular Hemoglobin 29 pg (27-31); Mean Corpuscular Volume 87 fL (80-97); Mean Platelet Volume 9.8 um3 (7.4-10.4); Nucleated Red Blood Cells % 0.1; Platelet Count 236 10^3/ul (150-450); Red Blood Count 5.39 10^6/ul (4.00-5.40); Red Cell Distribution Width 14 % (10.5-15); White Blood Count 9.9 10^3/ul (3.5-10.8)
[2018-03-20] MEDS ORDERED: Iodixanol* (CONTRAST) 320 MG/ML 100 ML SDV IV ONE (00:32)
--- NOTE | 2018-03-20 00:37 | PN ---
Progress Note - Progress Note Date of Service: 03/20/18 Note: US guidance IV placement: Pt did not have IV access I was asked by JOSE Gonsales to do it with US guidance. I recognized the brachial vein on the right AC fossa. 18G angiocath placed good blood, return good flush. Total time 15 minutes.
[2018-03-20] MEDS ORDERED: Potassium Chlor TAB* 20 MEQ TAB.ER PO ONE (02:22)
--- NOTE | 2018-03-20 03:07 | RAD ---
EXAM: CT Abdomen and Pelvis With Intravenous Contrast CLINICAL HISTORY: 47 years old, female; Signs and symptoms; Nausea and vomiting; Prior surgery; Surgery date: 1-6 months; Surgery type: Nausea/vomiting HX of bariatric SX december 2017; Additional info: N/v, HX bariatric surgery TECHNIQUE: Axial computed tomography images of the abdomen and pelvis with intravenous contrast. All CT scans at this facility use at least one of these dose optimization techniques: automated exposure control; mA and/or kV adjustment per patient size (includes targeted exams where dose is matched to clinical indication); or iterative reconstruction. Coronal and sagittal reformatted images were created and reviewed. CONTRAST: 141 mL of VISIPAQUE 320 administered intravenously. COMPARISON: PELVIC US PELVIC 07/05/2016 1:31 PM FINDINGS: Lung bases: Unremarkable. No mass. No consolidation. ABDOMEN: Liver: Unremarkable. No mass. Gallbladder and bile ducts: Distended gallbladder. No gallstones. No ductal dilation. Pancreas: Mild atrophy of the pancreas. No ductal dilation. Spleen: Unremarkable. No splenomegaly. Adrenals: Nodule in the left adrenal gland measuring 15 mm. Kidneys and ureters: Multiple nonobstructing stones in bilateral kidneys, left greater than right measuring up to 3 mm. No evidence of hydronephrosis. 2 cysts arising from the right kidney, largest one is measuring approximately 8.0 x 7.3 cm, and smaller one is measuring 15 mm. Stomach and bowel: Status post gastric sleeve surgery. No obstruction. No mucosal thickening. Diverticulosis without any CT evidence of diverticulitis. PELVIS: Appendix: No findings to suggest acute appendicitis. Bladder: Unremarkable. No mass. Reproductive: IUD is appearing to be low in the position within the lower uterine segment/upper cervix. DISTRICT MANAGER [employer] consult is recommended. ABDOMEN and PELVIS: Intraperitoneal space: Unremarkable. No free air. No significant fluid collection. Bones/joints: Degenerative changes. No acute fracture. No dislocation. Soft tissues: Unremarkable. Vasculature: Unremarkable. No abdominal aortic aneurysm. Lymph nodes: Unremarkable. No enlarged lymph nodes. IMPRESSION: Diverticulosis without any CT evidence of diverticulitis. No bowel dilatation or obstruction. IUD is appearing to be low in the position within the lower uterine segment/upper cervix. DISTRICT MANAGER [employer] consult is recommended. Nephrolithiasis, left greater than right. No hydronephrosis. Right renal cysts.
[2018-03-20 03:12] VITALS: BP 129/76
[2018-03-20] MEDS ORDERED: HYDROcodone/ACET. 7.5/325 LIQ* 15 ML UDC PO ONE ×2 (03:17→03:35)
== END 2018-03-20 03:45 | disposition home or self-care (01) ==
LOC: ED 21:11
DX: R11.2 Nausea with vomiting, unspecified (principal); R19.7 Diarrhea, unspecified; R10.817 Generalized abdominal tenderness; K57.30 Diverticulosis of large intestine without perforation or abscess without bleeding; N20.0 Calculus of kidney; Z97.5 Presence of (intrauterine) contraceptive device; I10 Essential (primary) hypertension; J45.909 Unspecified asthma, uncomplicated; Z98.84 Bariatric surgery status; Z88.5 Allergy status to narcotic agent; Z88.0 Allergy status to penicillin; Z91.013 Allergy to seafood; F17.210 Nicotine dependence, cigarettes, uncomplicated
CPT/HCPCS: 36415; 74177; 80053; 83605; 83690; 84702; 85025; 86140; 99282; A9270-GY; Q9967

== ENCOUNTER 2018-03-21 15:26 | Observation (INO) | payer MEDICARE ==
[2018-03-21] MEDS: Ondansetron INJ* 2 MG/ML VIAL IV PRN ×2 (16:25→20:21)
[2018-03-21] MEDS: HYDROmorphone INJ1* 1 MG/ML SYRINGE IV PRN ×2 (16:29→20:23)
[2018-03-21 16:44] LABS: ABS Basophils 0.1 10^3/ul (0-0.2); ABS Eosinophils 0.3 10^3/ul (0-0.6); ABS Lymphocytes 4.1 10^3/ul (1.0-4.8); ABS Monocytes 0.6 10^3/ul (0-0.8); ABS Neutrophils 3.8 10^3/ul (1.5-7.7); ABS Nucleated RBC 0 10^3/ul; Eosinophil % 3.9 % (0-6); Hematocrit 46 % (35-47); Hemoglobin 15.3 g/dl (12.0-16.0); Lymphocyte % 45.8 % (25-47); Mean Corpuscular HGB Conc 33 g/dl (31-36); Mean Corpuscular Hemoglobin 29 pg (27-31); Mean Corpuscular Volume 88 fL (80-97); Mean Platelet Volume 9.8 um3 (7.4-10.4); Nucleated Red Blood Cells % 0.3; Platelet Count 262 10^3/ul (150-450); Red Blood Count 5.28 10^6/ul (4.00-5.40); Red Cell Distribution Width 14 % (10.5-15)
[2018-03-21 17:03] LABS: EGFR Non-African American 116.5 (>60)
--- NOTE | 2018-03-21 21:10 | HP ---
CC: Dr. Leong; Dr. Torre * ADMISSION HISTORY AND PHYSICAL: DATE OF ADMISSION: 03/21/18 This patient was a direct admit from the [facility] on 03/21/18. LOCATION: The patient was examined on the short-stay surgical stay unit, room 352. ATTENDING SURGEON: Juan Tejada MD * (dictated by Betina Hsu NP). CHIEF COMPLAINT: Abdominal pain, nausea, and vomiting. HISTORY OF PRESENT ILLNESS: The patient is a 47-year-old female who is status post laparoscopic sleeve gastrectomy, 12/26/[address] Leong. She presented to the [facility] Emergency Department on 03/19/18 with complaints of nausea, vomiting, and epigastric pain; she also reported watery diarrhea and body aches. She had a CAT scan of the abdomen and pelvis which revealed diverticulosis. No diverticulitis. There was no free air and no obstruction. Her white blood cell count at that time was 9.9, her potassium was 3.1 and she received 40 mEq of potassium orally in the emergency department and was discharged home. Today, she saw her primary care provider, Dr. Torre and was vomiting in his office and was told to contact Dr. Leong and was eventually seen by Dr. Tejada at [facility] today. She states that the last time she ate was yesterday and it consisted of a few grapes and 2 bites of a bison burger. She states that over the past 2 weeks, she has been able to eat less than 1 meal per day and she has been persistently vomiting. She reports that her urine is dark, but she denies any dysuria. She states that starting yesterday, she has been having frequent watery brown stools. At present, she describes her abdominal pain at 7/10 and she is retching and dry heaving. She was sent from [facility] to [facility] today for IV hydration and pain management. PAST MEDICAL HISTORY: Significant for obesity, hypertension, prediabetes, sleep apnea and use of CPAP, anxiety and depression, generalized osteoarthritis , and asthma. PAST SURGICAL HISTORY: Laparoscopic sleeve gastrectomy, 12/26/17; carpal tunnel release. MEDICATIONS: 1. Clonidine patch which she applies weekly and is prescribed by Dr. Torre for hypertension. 2. Omeprazole 20 mg p.o. daily. 3. Liquid hydrocodone/acetaminophen 1 tablespoon 4 times a day p.r.n. 4. Zofran oral dissolving tablets 4 mg every 8 hours p.r.n. 5. Albuterol inhaler, none for the past 6 months. 6. Ventolin inhaler used about 1 month ago. She states that she has not taken any of her current medications for 3 days and she removed the clonidine patch on 03/17/18 and has not replaced it. ALLERGIES: SHRIMP, TRAMADOL, and PENICILLIN, all cause anaphylaxis. FAMILY HISTORY: Significant for diabetes, hypertension, heart disease, and colon cancer. SOCIAL HISTORY: She lives with her daughter. She denies the use of alcohol. She smokes 1 to 2 cigarettes per day. She is a retired school nurse. REVIEW OF SYSTEMS: Constitutional: She reports chills at home. No fever. She feels more tired than usual. Since her surgery in December, she has lost 86 pounds. Respiratory: No recent asthma flare-ups. No chronic cough. She has resumed smoking on the order of 1 to 2 cigarettes per day. Cardiovascular: She is treated for hypertension. She denies any chest pain or palpitations. She denies any history of myocardial infarction. Endocrine: She is prediabetic. Her blood sugar in the emergency department on 03/19/18 was 105. She does not do fingersticks at home. She denies any thyroid disease. Gastrointestinal: As described in history of present illness. Genitourinary: No dysuria, but her urine is dark. Musculoskeletal: Osteoarthritis in most joints and her back. Neurologic: No seizure disorder, no blurred vision. Hematologic: No easy bruising or bleeding. General: No history of deep vein thrombosis or pulmonary embolism. No previous anesthesia complications. PHYSICAL EXAMINATION GENERAL SURVEY: The patient is a 47-year-old morbidly obese female complaining of abdominal pain and is dry heaving. VITAL SIGNS: Height 5 feet 9-3/4 inches, weight 366 pounds. Blood pressure 140 /77, pulse 80 and regular, respiratory rate 18, and temperature 98.9 tympanic, O2 saturation on room air 95%. HEENT: Dry mucous membranes. NECK: Supple. No cervical lymphadenopathy. LUNGS: Breath sounds bilaterally clear and equal. HEART: Regular rate and rhythm. No murmurs or rubs appreciated. ABDOMEN: Obese. Multiple well-healed surgical scars. Active bowel sounds. Soft, nondistended. Exquisitely tender in the mid abdomen about 6 cm above the umbilicus and there is an area of firmness; she is generally tender from the epigastrium to the umbilicus. No obvious umbilical hernia. No obvious organomegaly, but exam is limited by body habitus. PELVIC EXAM: Deferred. RECTAL EXAM: Deferred. EXTREMITIES: Full range of motion. No skin ulcerations. No edema. NEUROLOGIC: Alert and oriented x3. SKIN: Warm, dry, and intact. LABORATORY DATA: White blood count today is 9. Chemistries are pending. IMPRESSION: Dehydration and abdominal pain, 3 months status post laparoscopic sleeve gastrectomy. PLAN: Observation, admission to short-stay surgical unit for IV hydration, pain management, antiemetics as needed. She will be n.p.o. except for ice chips. Her labs will be repeated tomorrow morning and further planning will be per Dr. Tejada and Dr. Leong. TIME SPENT: Seventy five minutes with greater than 50% in [id number] history taking and coordination of care. STANISLAV HSU NP [id number]/[facility] #: [id number] AJAY
[2018-03-22] MEDS: Ondansetron INJ* 2 MG/ML VIAL IV PRN (00:19)
[2018-03-22] MEDS: HYDROmorphone INJ1* 1 MG/ML SYRINGE IV PRN ×5 (00:20→15:06)
[2018-03-22 06:13] LABS: Hematocrit 41 % (35-47); Hemoglobin 13.6 g/dl (12.0-16.0); Mean Corpuscular HGB Conc 33 g/dl (31-36); Mean Corpuscular Hemoglobin 29 pg (27-31); Mean Corpuscular Volume 88 fL (80-97); Mean Platelet Volume 9.4 um3 (7.4-10.4); Platelet Count 212 10^3/ul (150-450); Red Blood Count 4.68 10^6/ul (4.00-5.40); Red Cell Distribution Width 14 % (10.5-15); White Blood Count 7.7 10^3/ul (3.5-10.8)
[2018-03-22 06:32] LABS: EGFR Non-African American 124.2 (>60)
[2018-03-22 06:35] LABS: ABS Basophils 0.1 10^3/ul (0-0.2); ABS Eosinophils 0.5 10^3/ul (0-0.6); ABS Lymphocytes 3.8 10^3/ul (1.0-4.8); ABS Monocytes 0.6 10^3/ul (0-0.8); ABS Neutrophils 2.8 10^3/ul (1.5-7.7); ABS Nucleated RBC 0 10^3/ul; Eosinophil % 6.2 % (0-6); Lymphocyte % 49.3 % (25-47); Nucleated Red Blood Cells % 0.2
[2018-03-22] MEDS ORDERED: Metoclopramide IV* 5 MG/ML 2 ML VIAL ONE (09:02)
[2018-03-22] MEDS ORDERED: Metoclopramide IV* 5 MG/ML 2 ML VIAL IV PRN (09:08)
[2018-03-22] MEDS: KCL 20 MEQ/100 ML IVPREMIX* 20 MEQ/100 ML BAG IV SCH ×3 (10:10→14:45)
--- NOTE | 2018-03-22 10:57 | RAD ---
INDICATION: Dysphasia x2 months status post sleeve gastrectomy. COMPARISON: Comparison is made with a prior study from December 27, 2017. Technique: A contrast upper GI series examination was performed. Approximately 2.3 minutes of intermittent fluoroscopic guidance were used during the exam. Findings: The esophageal peristalsis appeared normal. The patient is status post sleeve gastrectomy. There is a normal There is narrowing of the body and fundus of the stomach consistent with a normal postoperative appearance. There was no significant hold up of barium at the surgical site. The stomach emptied normally. There was no evidence for inflammatory change. No gastroesophageal reflux was noted. IMPRESSION: STATUS POST SLEEVE GASTRECTOMY WITHOUT EVIDENCE FOR OBSTRUCTION OR REFLUX. CPT II Codes: G9500
--- NOTE | 2018-03-22 11:43 | DS ---
CC: [facility]; Primary Care Doctor DISCHARGE SUMMARY: DATE OF ADMISSION: DATE OF DISCHARGE: 03/22/18 HOSPITAL COURSE: Ms. Hernandez is 2 months status post sleeve gastrectomy, who lost over 80 poun ds, who presented to our offices yesterday with complaints of difficulty keeping solid down. She was felt to likely benefit from a workup including upper GI and significant hydration. She was admitted for this purpose. (Currently, the WIB system is down. I cannot review her entire hospitalization, rather doing th is from the known facts). The patient was admitted to our service, started on IV fluids, and maintained n.p.o. status with the exception of ice chips. Hospital day 2, the patient continued to feel this complaint of difficult ti me with solid foods and even some liquids, would not tolerate protein drinks. She could drink tea an d other liquids. Solid, she can take chicken, sometimes a burger, but it would give her nausea. The patient complains of not having any energy. She was not doing any exercise. She did deny any fevers or chills. Denied any shortness of breath or chest pain. No leg pain. She was not taking pain med ications. The patient was sent for an upper GI on hospital day 2. These images were reviewed as well as the di scussion with the radiologist showed quick good clearance of contrast and no evidence of hernia. The patient was started on liquids that she tolerated and plan was for discharge home. PHYSICAL EXAMINATION: Performed on the day of discharge. She was febrile. Vital signs stable. Muc ous membranes moist. Lungs: Clear. Abdomen: Soft, nondistended, nontender. Significant redundant skin. The patient is morbidly obese. Extremities: Within normal limits. IMPRESSION: Two months status post sleeve gastrectomy, significant weight loss and poor eating habit s. I would recommend patient try multiple different foods to see what works for her. I did not see any reason for any dysphagia looking at the upper GI and rather feel that the patient is taking diffe rent food types that she can no longer tolerate. I have asked her to quit smoking altogether. She s ays she is having 1 to 2 cigarettes a day. Recommended close followup in our offices. She will go b ack with all her regular home medications. The patient is aware of the plan. [id number]/[facility] #: [id number]
[2018-03-22 14:03] VITALS: BP 145/81
== END 2018-03-22 18:15 | disposition home or self-care (01) ==
LOC: INTOOBSV 15:52 → SSU 15:52
PROVIDERS: ADMIT Surgery; ATTEND Surgery
DX: R10.9 Unspecified abdominal pain (principal); R11.2 Nausea with vomiting, unspecified; Z98.84 Bariatric surgery status; Z88.0 Allergy status to penicillin; Z88.8 Allergy status to other drugs, medicaments and biological substances; Z79.899 Other long term (current) drug therapy; I10 Essential (primary) hypertension; E66.01 Morbid (severe) obesity due to excess calories; R73.03 Prediabetes; F41.9 Anxiety disorder, unspecified; F32.9 Major depressive disorder, single episode, unspecified; J45.909 Unspecified asthma, uncomplicated; M15.9 Polyosteoarthritis, unspecified; F17.210 Nicotine dependence, cigarettes, uncomplicated
CPT/HCPCS: 36415; 74246; 80048; 80053; 85025; 86140; 86703; 96365; 96366; 96375; 96376; G0378; J1170; J2405; J2765; J3480

== ENCOUNTER 2018-06-10 14:20 | Inpatient (IN) | payer MEDICARE ==
[2018-06-10] MEDS ORDERED: Thiamine IV 100 MG, Folic Acid IV* 1 MG, Multiple Vitamin IV ADULT* 10 ML in NS 0.9% 10... IV ONE (15:30)
[2018-06-10] MEDS: Ondansetron INJ* 2 MG/ML VIAL IV PRN (17:26)
[2018-06-10] MEDS: HYDROmorphone INJ1* 1 MG/ML SYRINGE IV PRN ×2 (17:27→23:39)
[2018-06-10] MEDS: Pantoprazole IV* 40 MG IV SCH (18:23)
[2018-06-10 19:39] LABS: ABS Basophils 0.1 10^3/ul (0-0.2); ABS Eosinophils 0.1 10^3/ul (0-0.6); ABS Lymphocytes 4.6 10^3/ul (1.0-4.8); ABS Monocytes 0.9 10^3/ul (0-0.8); ABS Neutrophils 3.4 10^3/ul (1.5-7.7); ABS Nucleated RBC 0 10^3/ul; Eosinophil % 1.3 %; Hematocrit 45 % (35-47); Lymphocyte % 50.5 %; Mean Corpuscular HGB Conc 33 g/dl (31-36); Mean Corpuscular Hemoglobin 29 pg (27-31); Mean Corpuscular Volume 88 fL (80-97); Mean Platelet Volume 9.4 fL (7.4-10.4); Nucleated Red Blood Cells % 0; Platelet Count 235 10^3/ul (150-450); Red Blood Count 5.14 10^6/ul (4.00-5.40); Red Cell Distribution Width 15 % (10.5-15)
[2018-06-10 19:59] LABS: EGFR Non-African American 153.9 (>60)
[2018-06-10] MEDS: Metoclopramide IV* 5 MG/ML 2 ML VIAL IV PRN (20:27)
[2018-06-11] MEDS: HYDROmorphone INJ1* 1 MG/ML SYRINGE IV PRN ×5 (04:36→23:09)
[2018-06-11] MEDS: Metoclopramide IV* 5 MG/ML 2 ML VIAL IV PRN (04:36)
[2018-06-11 05:33] LABS: ABS Basophils 0.1 10^3/ul (0-0.2); ABS Eosinophils 0.1 10^3/ul (0-0.6); ABS Lymphocytes 4.1 10^3/ul (1.0-4.8); ABS Monocytes 0.6 10^3/ul (0-0.8); ABS Neutrophils 2.8 10^3/ul (1.5-7.7); ABS Nucleated RBC 0 10^3/ul; Eosinophil % 1.8 %; Hematocrit 42 % (35-47); Lymphocyte % 53.6 %; Mean Corpuscular HGB Conc 33 g/dl (31-36); Mean Corpuscular Hemoglobin 29 pg (27-31); Mean Corpuscular Volume 87 fL (80-97); Mean Platelet Volume 9.3 fL (7.4-10.4); Nucleated Red Blood Cells % 0.5; Platelet Count 204 10^3/ul (150-450); Red Blood Count 4.84 10^6/ul (4.00-5.40); Red Cell Distribution Width 15 % (10.5-15); White Blood Count 7.6 10^3/ul (3.5-10.8)
[2018-06-11] MEDS: Heparin VIAL(*) 5000 UNITS/ML VIAL (FIVE THOUSAND) SUBCUT SCH ×3 (05:56→23:13)
[2018-06-11] MEDS ORDERED: Potassium Phosphate IV* 15 MMOLE in NS 0.9% 250 ML* 250 ML IVPB ONE (07:46)
[2018-06-11] MEDS ORDERED: Polyethylene Glycol 3350* 17 GM PACKET PO PRN (07:47)
[2018-06-11] MEDS: Pantoprazole IV* 40 MG IV SCH (08:11)
[2018-06-11] MEDS: Ondansetron INJ* 2 MG/ML VIAL IV PRN ×3 (08:22→23:10)
[2018-06-11] MEDS ORDERED: fentaNYL* 50 MCG/ML 2 ML VIAL (100 MCG VIAL) ONE (15:03)
[2018-06-11] MEDS ORDERED: Midazolam* 1 MG/ML 10 ML VIAL (10 MG) ONE (15:03)
[2018-06-11] MEDS: Albuterol HFA INHALER* 8 gm MDI INH SCH ×2 (16:03→20:06)
--- NOTE | 2018-06-11 16:48 | PN ---
Progress Note - Progress Note Date of Service: 06/11/18 SOAP: Subjective: Pt seen and examined. Feeling better, wants to go home. Objective: Temp Pulse Resp BP Pulse Ox 98.4 F 67 16 136/87 98 06/11/18 11:36 06/11/18 11:36 06/11/18 14:15 06/11/18 11:36 06/11/18 11:36 a andox3, nad lungs clear abdo: soft/ ND/NT Labs noted, vitamin levels P US gallbladder sludge Assessment: Dysphagia s/p sleeve Plan: EGD today smoking cessation f/u labs
[2018-06-11] MEDS: KCL 20 MEQ/100 ML IVPREMIX* 20 MEQ/100 ML BAG IV SCH (23:15)
[2018-06-12] MEDS: Albuterol HFA INHALER* 8 gm MDI INH SCH ×2 (01:21→07:33)
[2018-06-12] MEDS: KCL 20 MEQ/100 ML IVPREMIX* 20 MEQ/100 ML BAG IV SCH (03:26)
[2018-06-12] MEDS: HYDROmorphone INJ1* 1 MG/ML SYRINGE IV PRN ×2 (05:14→09:17)
[2018-06-12] MEDS: Heparin VIAL(*) 5000 UNITS/ML VIAL (FIVE THOUSAND) SUBCUT SCH (05:15)
[2018-06-12 07:48] LABS: EGFR Non-African American 139.2 (>60)
[2018-06-12 08:57] VITALS: BP 130/87
[2018-06-12] MEDS: Pantoprazole IV* 40 MG IV SCH (09:17)
--- NOTE | 2018-06-12 09:38 | PRO ---
DATE: 06/11/18 - ROOM #353 REFERRING PHYSICIANS: Kemar Leong, Corey Torre * PROCEDURE: Upper gastrointestinal endoscopy and CLOtest mid-gastric body. INDICATION: This 47-year-old woman 6 months out from a gastric sleeve, now has episodes where she says "I cannot keep anything down." She will have nausea and vomiting that becomes progressive. She says today she has not had anything to eat in 4/5 days. She has not had a bowel movement either, though she is passing flatus. She says she has had now 2 admissions dehydrated with nausea and vomiting. She smokes marijuana daily and also smokes cigarette. ENDOSCOPIST: Dr. Patel. MEDICATIONS: Midazolam 13, fentanyl 100. FINDINGS: She is a morbidly obese woman, stated weight 320 (greatest weight 450 ), in no distress. She is endeavoring to make humor to lighten the situation. She was positioned left side down and moderate sedation induced with sequential doses of midazolam and fentanyl. She tolerated the exam well. EGD: Larynx - symmetric, limited views. Esophagus - easily entered and the mucosa is normal in the upper, mid, and lower esophagus with the EG junction at 40. It does appear little loose, though there are no erosions or scars or Palencia's change. There was no sliding hiatal hernia. Gastric sleeve - a gentle S curve encountered initially, but then after full exam, linear views were obtained. On the greater curvature a surgical ridge can be seen. There is no blood present. Rugal folds are somewhat distorted, but appeared present. A CLOtest taken of distal gastric body. The antrum appears normal. Duodenum - the pylorus and bulb appeared normal with some mild prominence of Lamin's glands. The third portion of the duodenum, there is a mobile 10 to 12 -mm polyp with an opening on the end. The mucosa of its broad peduncle is smooth, colored c/w the rest of the duodenum and the head of the polyp is just minimally irritated and appears consistent with the stalk. Bile was seen discharging from the opposite wall and thus this structure was not the major papilla. It was freely movable without any induration or distortion of the underlying wall. It did not appear a mucosal biopsy would be of value. The fourth portion of the duodenum appears normal. IMPRESSION: 1. Loose diaphragmatic hiatus. 2. Status post gastric sleeve - appears appropriate without obstruction. 3. Duodenal polyp - would suggest a recheck in 6 months. 4. Episodes of nausea and vomiting - cannabis and irregular compliance with medications is suspected. [id number]/[facility] #: [id number] [facility]
--- NOTE | 2018-06-13 05:38 | DS ---
CC : Dr. Corey Torre; Dr. Jason Patel; [facility]. * DISCHARGE SUMMARY: DATE OF ADMISSION: 06/10/18 DATE OF DISCHARGE: 06/12/18 ATTENDING SURGEON: Dr. Kemar Leong.* (DICTATED BY JOSE TO) HOSPITAL COURSE: Please refer to admission history and physical for admission details. The patient was admitted with dysphagia and dehydration. She was hypokalemic which was repleted. She improved over the 48-hour period of admission. She underwent abdominal ultrasound which did show some gallbladder sludge. She also underwent EGD on 06/11/[address] Patel. Findings included loose hiatus, but without esophageal inflammation or erosions. There was also noted to be a duodenal polyp which will be observed and planned for a recheck in 6 months. Other pertinent lab work included a vitamin D level of 11.2 for which she will be prescribed replacement (vitamin D2 50,000 units once weekly x8 weeks). Dr. Leong also switched her oral liquid hydrocodone/ acetaminophen to tablet form (same dosage) and a prescription was e-sent to her pharmacy. [facility] I-STOP was checked. The patient will contact [facility] for followup with Dr. Leong and also Dr. Patel's office for followup as well as Dr. Torre's office for ongoing pain management. IMPRESSION: Abdominal pain with dysphagia of undetermined etiology, improved. PLAN: Home today, see above. JOSE TO [id number]/[facility] #: [id number] [facility]
== END 2018-06-12 13:30 | disposition home or self-care (01) | DRG 392 ==
LOC: SSU 15:15 → OBSVTOIN 06-11 17:00
PROVIDERS: ADMIT Surgery; ATTEND Surgery
PROC: 0DB68ZX Excision of Stomach, Via Natural or Artificial Opening Endoscopic, Diagnostic (ICD-10-PCS; principal; 2018-06-11)
DX: R13.10 Dysphagia, unspecified (principal); Z68.42 Body mass index [BMI] 45.0-49.9, adult; E66.01 Morbid (severe) obesity due to excess calories; E86.0 Dehydration; E87.6 Hypokalemia; G47.33 Obstructive sleep apnea (adult) (pediatric); F17.210 Nicotine dependence, cigarettes, uncomplicated; I10 Essential (primary) hypertension; F41.8 Other specified anxiety disorders; F12.90 Cannabis use, unspecified, uncomplicated; E10.9 Type 1 diabetes mellitus without complications; M19.90 Unspecified osteoarthritis, unspecified site; M06.9 Rheumatoid arthritis, unspecified; K31.7 Polyp of stomach and duodenum; J45.909 Unspecified asthma, uncomplicated; Z79.1 Long term (current) use of non-steroidal anti-inflammatories (NSAID); Z98.84 Bariatric surgery status; Z79.899 Other long term (current) drug therapy; Z88.8 Allergy status to other drugs, medicaments and biological substances; Z88.0 Allergy status to penicillin; Z91.013 Allergy to seafood
CPT/HCPCS: 36415; 76700; 80048; 80053; 82306; 82542; 82608; 82746; 83690; 84207; 84425; 85025; 86140; 87077; 94640; 99156; 99157; A9270-GY; G0378; J1170; J1644; J2250; J2405; J2765; J3010; J3411; J3480

== ENCOUNTER 2018-07-29 00:51 | Emergency (ER) | payer MEDICARE ==
[2018-07-29] MEDS ORDERED: Metoclopramide IV* 5 MG/ML 2 ML VIAL IV SLOW PU ONE (01:11)
[2018-07-29] MEDS ORDERED: Pantoprazole IV* 40 MG IV ONE (01:11)
--- NOTE | 2018-07-29 01:12 | ED ---
GI/ HPI - HPI Summary HPI Summary: Patient is a 47 y/o F presenting to ED via ambulance with complaints of vomiting blood about an hour ago today. She also states that some blood came out of her nose as well. Patient reports that she vomited about three tissues worth of blood. No other episodes of vomiting are reported. Last bowel movement was yesterday and brown colored. In room, she denies nausea. Hx of gastric sleeve, rheumatoid arthritis. Patient reports 4-5/10 abdominal pain, but she characterizes this as her chronic level of abdominal pain. Dr. Leong is surgeon , she does not have GI. Home medications and allergies are reviewed. - History of Current Complaint Chief Complaint: EDGeneral Time Seen by Provider: 07/29/18 00:54 Stated Complaint: BLOOD IN VOMIT Hx Obtained From: Patient Onset/Duration: Started Hours Ago - 1 Current Severity: Moderate - 4-5/10 abdominal pain that is chronic Pain Intensity: 8 Associated Signs and Symptoms: Positive: Hematemesis, Other: - POSITIVE - EPISTAXIS. Negative: Nausea, Blood-Streaked Stool, Black Tarry Stool, Bright Red Blood w/Stool, Blood w/Stool Aggravating Factor(s): Nothing Alleviating Factor(s): Nothing - Additional Pertinent History Primary Care Physician: [id number] - Allergy/Home Medications Allergies/Adverse Reactions: Allergies Allergy/AdvReac Type Severity Reaction Status Date / Time shrimp Allergy Severe Swelling Verified 03/19/18 21:22 Of Face,Lips,& Throat tramadol Allergy Severe Swelling Verified 03/19/18 21:22 Penicillins Allergy Difficulty Verified 03/19/18 21:22 Breathing PMH/Surg Hx/FS Hx/Imm Hx Endocrine/Hematology History: Reports: Hx Diabetes - PRE- NO MEDS, Hx Sickle Cell Disease - TRATE Denies: Hx Anticoagulant Therapy, Hx Thyroid Disease - being checked Cardiovascular History: Reports: Hx Hypercholesterolemia, Hx Hypertension - ON DAILY MED Denies: Hx Cardiac Arrest, Hx Pacemaker/ICD, Other Cardiovascular Problems/ Disorders Respiratory History: Reports: Hx Asthma - ON DAILY & PRN INHALERS, Hx Sleep Apnea - BEEN TESTED, NO EQUIPMENT YET Denies: Other Respiratory Problems/Disorders GI History: Denies: Other GI Disorders History: Reports: Other Problems/Disorders - urine being checked for blood Denies: Hx Dialysis, Hx Renal Disease Musculoskeletal History: Reports: Hx Arthritis - GENERALIZED, Hx Back Problems - cervical, Hx Tendonitis - left wrist Denies: Other Musculoskeletal History Sensory History: Reports: Hx Contacts or Glasses - ONLY CONTACTS, WILL BRING CASE Denies: Hx Hearing Aid Opthamlomology History: Reports: Hx Contacts or Glasses - ONLY CONTACTS, WILL BRING CASE Neurological History: Reports: Hx Headaches - with high bp, Hx Migraine - with high bp Denies: Other Neuro Impairments/Disorders Psychiatric History: Reports: Hx Anxiety, Hx Depression, Other Psychiatric Issues/Disorders - in [facility] after son was killed, see psychiatrist Denies: Hx Panic Disorder - Surgical History Surgery Procedure, Year, and Place: EARLY CYST OF VAGINA, LEFT WRIST- carpal tunnel, gastric sleeve 12/2017 Hx Anesthesia Reactions: No - Immunization History Date of Tetanus Vaccine: Unknown Date of Influenza Vaccine: None Infectious Disease History: No Infectious Disease History: Reports: 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, last one 3 years ago, Hx Shingles - x2 Denies: Traveled Outside the [place] in Last 30 Days - Family History Known Family History: Negative: Blood Disorder - Social History Alcohol Use: None Substance Use Type: Reports: Marijuana Substance Use Comment - Amount & Last Used: Marijuana for pain control and appetite Smoking Status (MU): Light Every Day Tobacco Smoker Type: Cigarettes Amount Used/How Often: ABOUT 5 cigarettes per day Have You Smoked in the Last Year: Yes Review of Systems Positive: Epistaxis Positive: Abdominal Pain - 4-5/10 abdominal pain that is chronic, Vomiting - HEMATEMESIS . Negative: Nausea All Other Systems Reviewed And Are Negative: Yes Physical Exam - Summary Physical Exam Summary: VITAL SIGNS: Reviewed. GENERAL: Patient is a well-developed and morbidly obese FEMALE who is lying comfortable in the stretcher. Patient is not in any acute respiratory distress. HEAD AND FACE: No signs of trauma. No ecchymosis, hematomas or skull depressions. No sinus tenderness. EYES: PERRLA, EOMI x 2, No injected conjunctiva, no nystagmus. EARS: Hearing grossly intact. Ear canals and tympanic membranes are within normal limits. MOUTH: Oropharynx within normal limits. NECK: Supple, trachea is midline, no adenopathy, no JVD, no carotid bruit, no c- spine tenderness, neck with full ROM. CHEST: Symmetric, no tenderness at palpation LUNGS: Clear to auscultation bilaterally. No wheezing or crackles. CVS: Regular rate and rhythm, S1 and S2 present, no murmurs or gallops appreciated. ABDOMEN: Soft, non-tender. No signs of distention. No rebound no guarding, and no masses palpated. Bowel sounds are normal. EXTREMITIES: FROM in all major joints, no edema, no cyanosis or clubbing. NEURO: Alert and oriented x 3. No acute neurological deficits. Speech is normal and follows commands. SKIN: Dry and warm Triage Information Reviewed: Yes Vital Signs On Initial Exam: Initial Vitals Temp Pulse Resp BP Pulse Ox 98.2 F 88 16 141/103 100 07/29/18 00:53 07/29/18 00:53 07/29/18 00:53 07/29/18 00:53 07/29/18 00:53 Vital Signs Reviewed: Yes Diagnostics - Vital Signs Vital Signs Temp Pulse Resp BP Pulse Ox 07/29/18 00:53 98.2 F 88 16 141/103 100 - Laboratory Result Diagrams: 07/29/18 01:42 07/29/18 01:42 Lab Statement: Any lab studies that have been ordered have been reviewed, and results considered in the medical decision making process. GIGU Course/Dx - Course Course Of Treatment: Patient is a 47 y/o F presenting to ED via ambulance with complaints of vomiting blood about an hour ago today. She also states that some blood came out of her nose as well. Patient reports that she vomited about three tissues worth of blood. No other episodes of vomiting are reported. Last bowel movement was yesterday and brown colored. In room, she denies nausea. Hx of gastric sleeve, rheumatoid arthritis. Patient reports 4-5/10 abdominal pain, but she characterizes this as her chronic level of abdominal pain. Dr. Leong is surgeon, she does not have GI. On physical exam, patient is noted to be morbidly obese. Results of labs and tests were discussed with parents, parents are agreeable with discharge. Patient is hemodynamically stable, labowrk is not consistent with GI bleed, patient at baseline. She will be discharged to home. - Diagnoses Provider Diagnoses: Nausea & vomiting Discharge - Sign-Out/Discharge Documenting (check all that apply): Patient Departure - discharge - Discharge Plan Condition: Stable Disposition: HOME Patient Education Materials: Acute Nausea and Vomiting (ED) Referrals: Corey Torre MD [Primary Care Provider] - 2 Days Additional Instructions: RETURN TO ED WITH ANY NEW OR WORSENING SYMPTOMS. FOLLOW UP WITH PRIMARY CARE PHYSICIAN WITHIN 2 DAYS. - Attestation Statements Document Initiated by Scribe: Yes Documenting Scribe: ANT DAVIS Provider For Whom Sanjivibestela is Documenting (Include Credential): LAURENCE LERNER MD Scribe Attestation: IANT, scribed for LAURENCE LERNER MD on 07/29/18 at 0309. Status of Scribe Document: Ready
[2018-07-29 01:52] LABS: ABS Basophils 0 10^3/ul (0-0.2); ABS Eosinophils 0.2 10^3/ul (0-0.6); ABS Lymphocytes 3.9 10^3/ul (1.0-4.8); ABS Monocytes 0.7 10^3/ul (0-0.8); ABS Neutrophils 2.6 10^3/ul (1.5-7.7); ABS Nucleated RBC 0 10^3/ul; Eosinophil % 2.7 %; Hematocrit 44 % (35-47); Hemoglobin 14.8 g/dl (12.0-16.0); Lymphocyte % 52.3 %; Mean Corpuscular HGB Conc 34 g/dl (31-36); Mean Corpuscular Hemoglobin 30 pg (27-31); Mean Corpuscular Volume 89 fL (80-97); Nucleated Red Blood Cells % 0.2; Platelet Count 248 10^3/ul (150-450); Red Blood Count 4.98 10^6/ul (4.00-5.40); Red Cell Distribution Width 15 % (10.5-15); White Blood Count 7.5 10^3/ul (3.5-10.8)
[2018-07-29 02:00] LABS: Activated Partial Thrombo Time 30.7 seconds (26.0-36.3); INR 1.06 (0.77-1.02)
[2018-07-29] MEDS ORDERED: Morphine VIAL* 4 MG/ML VIAL (1 ml vial) IV ONE (02:02)
[2018-07-29 02:11] LABS: ALT 10 U/L (7-52); AST 21 U/L (13-39); Albumin/Globulin Ratio 0.8 (1-3); Alkaline Phosphatase 104 U/L (34-104); Amylase 38 U/L (29-103); Anion Gap 6 mmol/L (2-11); BUN/Creatinine Ratio 8.2 (8-20); Blood Urea Nitrogen 4 mg/dL (6-24); CO2 Carbon Dioxide 35 mmol/L (22-32); Calcium 8.8 mg/dL (8.6-10.3); Chloride 100 mmol/L (101-111); Globulin 3.7 g/dL (2-4); Glucose 100 mg/dL (70-100); Magnesium 1.4 mg/dL (1.9-2.7); Potassium 3.3 mmol/L (3.5-5.0); Sodium 141 mmol/L (135-145); Total Protein 6.7 g/dL (6.4-8.9)
[2018-07-29] MEDS ORDERED: Potassium Chloride LIQUID* 20 MEQ PACKET PO ONE (02:30)
[2018-07-29 03:33] VITALS: BP 141/93
== END 2018-07-29 03:33 | disposition home or self-care (01) ==
LOC: ED 00:51
DX: K92.0 Hematemesis (principal); Z88.0 Allergy status to penicillin; R73.03 Prediabetes; F17.210 Nicotine dependence, cigarettes, uncomplicated; R10.9 Unspecified abdominal pain; R04.0 Epistaxis
CPT/HCPCS: 36415; 80053; 82150; 83690; 83735; 85025; 85610; 85730; 86850; 86900; 86901; 96374; 96375; 99283; A9270-GY; J2270; J2765

== ENCOUNTER 2018-08-23 00:13 | Emergency (ER) | payer MEDICARE ==
[2018-08-23] MEDS ORDERED: Ondansetron INJ* 2 MG/ML VIAL IV ONE (01:46)
[2018-08-23] MEDS ORDERED: NS 0.9% 1000 ML** 2,000 ML IV ONE (01:46)
--- NOTE | 2018-08-23 01:51 | ED ---
Abdominal Pain/Female - HPI Summary HPI Summary: 47-year-old female presents with complaints of 3 days of nausea and vomiting. Associated with general malaise, bloating, lightheadedness, and subjective fever at the onset of symptoms. States she has been unable to tolerate any PO solids or fluids as she vomits after any intake. Also reports constipation secondary to her decreased intake. She has a history of a gastric sleeve by Dr. Leong on 12/2017. Reports some generalized abdominal pain however states this is consistent with discomfort she has had since her surgery. Denies hematemasis , diarrhea, blood in stool, melena, dysuria, frequency, urgency, or hematuria. - History of Current Complaint Chief Complaint: EDNauseaVomitDiarrh Stated Complaint: NAUSEA/VOMITING Time Seen by Provider: 08/23/18 01:40 Hx Obtained From: Patient Pain Intensity: 10 Allergies/Adverse Reactions: Allergies Allergy/AdvReac Type Severity Reaction Status Date / Time shrimp Allergy Severe Swelling Verified 08/23/18 00:16 Of Face,Lips,& Throat tramadol Allergy Severe Swelling Verified 08/23/18 00:16 Penicillins Allergy Difficulty Verified 08/23/18 00:16 Breathing PMH/Surg Hx/FS Hx/Imm Hx Endocrine/Hematology History: Reports: Hx Diabetes - PRE- NO MEDS, Hx Sickle Cell Disease - TRATE Denies: Hx Anticoagulant Therapy, Hx Thyroid Disease - being checked Cardiovascular History: Reports: Hx Hypercholesterolemia, Hx Hypertension - ON DAILY MED Denies: Hx Cardiac Arrest, Hx Pacemaker/ICD, Other Cardiovascular Problems/ Disorders Respiratory History: Reports: Hx Asthma - ON DAILY & PRN INHALERS, Hx Sleep Apnea - BEEN TESTED, NO EQUIPMENT YET Denies: Other Respiratory Problems/Disorders GI History: Denies: Other GI Disorders History: Reports: Other Problems/Disorders - Microscopic hematuria Denies: Hx Dialysis, Hx Renal Disease Musculoskeletal History: Reports: Hx Arthritis - GENERALIZED, Hx Back Problems - cervical, Hx Tendonitis - left wrist Denies: Other Musculoskeletal History Sensory History: Reports: Hx Contacts or Glasses - ONLY CONTACTS, WILL BRING CASE Denies: Hx Hearing Aid Opthamlomology History: Reports: Hx Contacts or Glasses - ONLY CONTACTS, WILL BRING CASE Neurological History: Reports: Hx Headaches - with high bp, Hx Migraine - with high bp Denies: Other Neuro Impairments/Disorders Psychiatric History: Reports: Hx Anxiety, Hx Depression, Other Psychiatric Issues/Disorders - in [facility] [place] after son was killed, see psychiatrist Denies: Hx Panic Disorder - Surgical History Surgery Procedure, Year, and Place: EARLY CYST OF VAGINA, LEFT WRIST- carpal tunnel, gastric sleeve 12/2017 Hx Anesthesia Reactions: No - Immunization History Date of Tetanus Vaccine: Unknown Date of Influenza Vaccine: None Infectious Disease History: No Infectious Disease History: Reports: 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, last one 3 years ago, Hx Shingles - x2 Denies: Traveled Outside the [place] in Last 30 Days - Family History Known Family History: Positive: None Negative: Blood Disorder - Social History Occupation: Unemployed Lives: With Family Alcohol Use: None Substance Use Type: Reports: Marijuana Substance Use Comment - Amount & Last Used: Marijuana for pain control and appetite Smoking Status (MU): Light Every Day Tobacco Smoker Type: Cigarettes Amount Used/How Often: ABOUT 5 cigarettes per day Have You Smoked in the Last Year: Yes Review of Systems Positive: Other - lightheadedness. Negative: Fever, Chills Negative: Palpitations, Chest Pain Negative: Shortness Of Breath, Cough Positive: Abdominal Pain - Chronic, Vomiting, Nausea. Negative: Diarrhea Negative: dysuria, frequency, flank pain, hematuria, urgency Musculoskeletal: Negative Skin: Negative Negative: Headache All Other Systems Reviewed And Are Negative: Yes Physical Exam - Summary Physical Exam Summary: GENERAL APPEARANCE: Alert and cooperative, obese, -[place] female who appears to be in no acute distress. THROAT: Oral cavity and pharynx normal. No inflammation, swelling, exudate, or lesions. Teeth and gingiva in good general condition. NECK: Neck supple, non-tender without lymphadenopathy. CARDIAC: Normal S1 and S2. No S3, S4 or murmurs. Rhythm is regular. There is no peripheral edema, cyanosis or pallor. Extremities are warm and well perfused. Capillary refill is less than 2 seconds. LUNGS: Clear to auscultation without rales, rhonchi, wheezing or diminished breath sounds. ABDOMEN: Positive bowel sounds. Soft, nondistended. Mild generalized tenderness especially to lower abdomen. No guarding or rebound. No masses or hepatosplenomegally. No CVA tenderness. MUSKULOSKELETAL: ROM intact to all extremities. No joint erythema or tenderness. Normal muscular development. SKIN: Skin normal color, texture and turgor with no lesions or eruptions. Triage Information Reviewed: Yes Vital Signs On Initial Exam: Initial Vitals Temp Pulse Resp BP Pulse Ox 98.4 F 88 18 133/93 95 08/23/18 00:14 08/23/18 00:14 08/23/18 00:14 08/23/18 00:14 08/23/18 00:14 Vital Signs Reviewed: Yes Diagnostics - Vital Signs Vital Signs Temp Pulse Resp BP Pulse Ox 08/23/18 01:35 85 98 08/23/18 00:14 98.4 F 88 18 133/93 95 - Laboratory Result Diagrams: 08/23/18 01:57 08/23/18 01:57 Lab Statement: Any lab studies that have been ordered have been reviewed, and results considered in the medical decision making process. Re-Evaluation - Re-Evaluation First Eval Re-Evaluation Time: 06:30 Comment: Re-eval at 0630, discussed the CAT scan results with the patient. Patient likely has cholelithiasis without cholecystitis. Patient still states she has pain, mainly in the lower abd, leading me to think it is not due to her cholelithiasis. Patient states that she has not had a bowel movement for the last 3-4 days. She is likely constipation. Patient will be treated with magnesium citrate and dulcolax suppository. Abdominal Pain Fem Course/Dx - Course Course Of Treatment: 47-year-old female presents with complaints of 3 days of nausea and vomiting. Associated with general malaise, bloating, lightheadedness , and subjective fever at the onset of symptoms. States she has been unable to tolerate any PO solids or fluids as she vomits after any intake. Also reports constipation secondary to her decreased intake. She has a history of a gastric sleeve by Dr. Leong on 12/2017. Reports some generalized abdominal pain however states this is consistent with discomfort she has had since her surgery. Denies hematemasis, diarrhea, blood in stool, melena, dysuria, frequency, urgency, or hematuria. Afebrile. VSS. Labs were obtained showing evidence of dehydration and hypokalemia. Patient ordered IVF, KCl 10 meq IV x 2, KCl 40 meq PO, ondansetron 4 mg IV for nausea, and morphine 2 mg IV for pain. Will place order for CT abd/pelv to r/o obstruction. Nursing reports difficulty establishing IV therefore the above orders were still pending at time of sign out. Case discussed with Dr. Gaston and signed at to him at 02:40. - Diagnoses Differential Diagnosis: Positive: Bowel Obstruction, Constipation, Gall Bladder Disease, Pancreatitis, Renal Colic, Other - Gastric sleeve complication Provider Diagnoses: Abdominal pain, Cholelithiasis, Constipated Discharge - Sign-Out/Discharge Documenting (check all that apply): Sign-Out Patient Signing out patient TO: Viktor Gaston - Sign out at 02:40 Patient Received Moderate/Deep Sedation with Procedure: No - Discharge Plan Condition: Stable Disposition: HOME Patient Education Materials: Constipation (ED) Referrals: Jakob Eaton MD [Medical Doctor] - 08/26/18 Corey Torre MD [Primary Care Provider] - 2 Days Additional Instructions: Return to the ED for any new or worsening symptoms. - Billing Disposition and Condition Condition: STABLE Disposition: Home
[2018-08-23 02:06] LABS: ABS Basophils 0.1 10^3/ul (0-0.2); ABS Eosinophils 0 10^3/ul (0-0.6); ABS Monocytes 0.7 10^3/ul (0-0.8); ABS Neutrophils 3.8 10^3/ul (1.5-7.7); ABS Nucleated RBC 0 10^3/ul; Eosinophil % 0.5 %; Hematocrit 52 % (35-47); Hemoglobin 17.2 g/dl (12.0-16.0); Lymphocyte % 39.4 %; Mean Corpuscular HGB Conc 33 g/dl (31-36); Mean Corpuscular Hemoglobin 30 pg (27-31); Mean Corpuscular Volume 89 fL (80-97); Mean Platelet Volume 9.4 fL (7.4-10.4); Nucleated Red Blood Cells % 0.6; Platelet Count 271 10^3/ul (150-450); Red Blood Count 5.79 10^6/ul (4.00-5.40); Red Cell Distribution Width 15 % (10.5-15); White Blood Count 7.6 10^3/ul (3.5-10.8)
[2018-08-23 02:27] LABS: ALT 22 U/L (7-52); AST 36 U/L (13-39); Albumin 3.7 g/dL (3.2-5.2); Alkaline Phosphatase 77 U/L (34-104); Anion Gap 10 mmol/L (2-11); BUN/Creatinine Ratio 9.3 (8-20); Blood Urea Nitrogen 5 mg/dL (6-24); CO2 Carbon Dioxide 35 mmol/L (22-32); Calcium 9.1 mg/dL (8.6-10.3); Chloride 95 mmol/L (101-111); EGFR African American 147.1 (>60); EGFR Non-African American 121.5 (>60); Globulin 3.8 g/dL (2-4); Glucose 111 mg/dL (70-100); Potassium 2.8 mmol/L (3.5-5.0); Sodium 140 mmol/L (135-145); Total Protein 7.5 g/dL (6.4-8.9)
[2018-08-23] MEDS ORDERED: Morphine VIAL* 10 MG/ML 1 ML VIAL IV ONE (02:49)
[2018-08-23] MEDS ORDERED: Metoclopramide IV* 5 MG/ML 2 ML VIAL IV SLOW PU ONE (03:04)
[2018-08-23] MEDS ORDERED: Metoclopramide IV* 5 MG/ML 2 ML VIAL ONE (03:05)
[2018-08-23] MEDS: KCL 10 MEQ/50 ML IVPREMIX* 10 MEQ/50 ML BAG IV SCH ×2 (03:25→07:28)
[2018-08-23] MEDS ORDERED: Iodixanol* (CONTRAST) 320 MG/ML 100 ML SDV IV ONE (03:43)
[2018-08-23] MEDS: Potassium Chloride LIQUID* 20 MEQ PACKET PO ONE ×2 (03:44→07:30)
[2018-08-23] MEDS ORDERED: Bisacodyl SUPP* 10 MG SUPP PR ONE (06:29)
[2018-08-23] MEDS ORDERED: Magnesium CITRATE* 300 ML BTL PO ONE (06:29)
--- NOTE | 2018-08-23 06:41 | ED ---
Progress - Progress Note Progress Note: CT Abd/Pel reveals, per radiologist, IMPRESSION: 1. There is sludge noted within the gallbladder. 2. Status post gastric sleeve. ED physician has reviewed this report. Re-Evaluation - Re-Evaluation First Eval Re-Evaluation Time: 06:30 Comment: Re-eval at 0630, discussed the CAT scan results with the patient. Patient likely has cholelithiasis without cholecystitis. Patient still states she has pain, mainly in the lower abd, leading me to think it is not due to her cholelithiasis. Patient states that she has not had a bowel movement for the last 3-4 days. She is likely constipation. Patient will be treated with magnesium citrate and dulcolax suppository. Course/Dx - Course Course Of Treatment: Re-eval at 0630, discussed the CAT scan results with the patient. Patient likely has cholelithiasis without cholecystitis. Patient still states she has pain, mainly in the lower abd, leading me to think it is not due to her cholelithiasis. Patient states that she has not had a bowel movement for the last 3-4 days. She is likely constipation. Patient will be treated with magnesium citrate and dulcolax suppository. Patient will be discharged with a dx of abd pain, cholelithiasis, constipation. Patient is advised to follow up with Dr. Eaton (Surgery) on 08/26/2018. The patient is agreeable with this plan. - Diagnoses Provider Diagnoses: Abdominal pain, Cholelithiasis, Constipated Discharge - Sign-Out/Discharge Documenting (check all that apply): Patient Departure Patient Received Moderate/Deep Sedation with Procedure: No - Discharge Plan Condition: Stable Disposition: HOME Patient Education Materials: Constipation (ED) Referrals: Corey Torre MD [Primary Care Provider] - 2 Days Jakob Eaton MD [Medical Doctor] - 08/26/18 Additional Instructions: Return to the ED for any new or worsening symptoms. - Attestation Statements Document Initiated by Scribe: Yes Documenting Scribe: Caroline Bender Provider For Whom Guillermo is Documenting (Include Credential): Viktor Gaston MD Scribe Attestation: Mikael, Caroline Bender, scribed for Viktor Gaston MD on 08/23/18 at 0643. Status of Scribe Document: Ready
[2018-08-23 08:00] VITALS: BP 132/74
== END 2018-08-23 07:50 | disposition home or self-care (01) ==
LOC: ED 00:13
DX: R10.9 Unspecified abdominal pain (principal); K80.20 Calculus of gallbladder without cholecystitis without obstruction; K59.00 Constipation, unspecified
CPT/HCPCS: 36415; 74177; 80053; 83605; 83690; 85025; 99284; A9270-GY; J2270; J2405; J2765; J3480; Q9967

== ENCOUNTER 2018-09-09 02:12 | Inpatient (IN) | payer MEDICARE ==
[2018-09-09] MEDS ORDERED: Ketorolac INJ* 30 MG/ML 1 ML VIAL IV PUSH ONE (02:49)
--- NOTE | 2018-09-09 02:49 | ED ---
Neurological HPI - HPI Summary HPI Summary: This patient is a 48 year old F brought in by ambulance to ED with a chief complaint of weakness since about 30 minutes ago. The patient states that she was getting out of a hot tub when her knees collapsed and she couldnt get back up. Since the fall, she cannot bear her own weight. The CC is described as having pain everywhere, spasms in her abdomen, and the pain is like a sharp needle stick. The patient rates the pain 9/10 in severity. Symptoms aggravated by nothing. Symptoms alleviated by nothing. Patient reports numbness in bilateral hands and fingers. Patient denies urinary sx. She was in [place] and was admitted for 3 days last week (09/01-09/04) for vomiting. - History of Current Complaint Chief Complaint: EDWeakness Stated Complaint: BACK PAIN Time Seen by Provider: 09/09/18 02:21 Hx Obtained From: Patient Onset/Duration: Sudden Onset, Started minutes ago - 30 minutes ago, Still Present Timing: Constant Onset Severity: Severe Current Severity: Severe - 9/10 Neurological Deficit Location: RLE, LLE Pain Intensity: 9 Pain Scale Used: 0-10 Numeric Aggravating: Nothing Alleviating: Nothing Associated Signs and Symptoms: Positive: Weakness, Numbness - Additional Pertinent History Primary Care Physician: [id number] - Allergy/Home Medications Allergies/Adverse Reactions: Allergies Allergy/AdvReac Type Severity Reaction Status Date / Time shrimp Allergy Severe Swelling Verified 08/23/18 00:16 Of Face,Lips,& Throat tramadol Allergy Severe Swelling Verified 08/23/18 00:16 Penicillins Allergy Difficulty Verified 08/23/18 00:16 Breathing Home Medications: Home Medications HYDROcodone/ACET. 7.5/325 LIQ* [Lortab Elixir 7.5/325 per 15 ml *] 15 ml PO QID PRN 09/09/18 [History Confirmed 09/09/18] Pantoprazole Sodium [Protonix] 40 mg PO BID 09/09/18 [History Confirmed 09/09/18 ] Ranitidine TAB (NF) [Zantac TAB (NF)] 150 mg PO BID 09/09/18 [History Confirmed 09/09/18] Sucralfate TAB* [Carafate*] 1 gm PO QID 09/09/18 [History Confirmed 09/09/18] PMH/Surg Hx/FS Hx/Imm Hx Endocrine/Hematology History: Reports: Hx Diabetes - PRE- NO MEDS, Hx Sickle Cell Disease - TRATE Denies: Hx Anticoagulant Therapy, Hx Thyroid Disease - being checked Cardiovascular History: Reports: Hx Hypercholesterolemia, Hx Hypertension - ON DAILY MED Denies: Hx Cardiac Arrest, Hx Pacemaker/ICD, Other Cardiovascular Problems/ Disorders Respiratory History: Reports: Hx Asthma - ON DAILY & PRN INHALERS, Hx Sleep Apnea - BEEN TESTED, NO EQUIPMENT YET Denies: Other Respiratory Problems/Disorders GI History: Denies: Other GI Disorders History: Reports: Other Problems/Disorders - Microscopic hematuria Denies: Hx Dialysis, Hx Renal Disease Musculoskeletal History: Reports: Hx Arthritis - GENERALIZED, Hx Back Problems - cervical, Hx Tendonitis - left wrist Denies: Other Musculoskeletal History Sensory History: Reports: Hx Contacts or Glasses - ONLY CONTACTS, WILL BRING CASE Denies: Hx Hearing Aid Opthamlomology History: Reports: Hx Contacts or Glasses - ONLY CONTACTS, WILL BRING CASE Neurological History: Reports: Hx Headaches - with high bp, Hx Migraine - with high bp Denies: Other Neuro Impairments/Disorders Psychiatric History: Reports: Hx Anxiety, Hx Depression, Other Psychiatric Issues/Disorders - [place] [facility] [place], see psychiatrist Denies: Hx Panic Disorder - Surgical History Surgery Procedure, Year, and Place: EARLY CYST OF VAGINA, LEFT WRIST- carpal tunnel, gastric sleeve 12/2017 Hx Anesthesia Reactions: No - Immunization History Date of Tetanus Vaccine: Unknown Date of Influenza Vaccine: None Infectious Disease History: No Infectious Disease History: Reports: 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, last one 3 years ago, Hx Shingles - x2 Denies: Traveled Outside the [place] in Last 30 Days - Family History Known Family History: Negative: Blood Disorder - Social History Alcohol Use: None Substance Use Type: Reports: Marijuana Substance Use Comment - Amount & Last Used: Marijuana for pain control and appetite Smoking Status (MU): Light Every Day Tobacco Smoker Type: Cigarettes Amount Used/How Often: ABOUT 5 cigarettes per day Have You Smoked in the Last Year: Yes Review of Systems Positive: no symptoms reported Positive: Other - has pain everywhere and spasms in her abdomen Positive: Weakness - LE weakness, cannot bear her own weight, Numbness - bilateral hands and fingers All Other Systems Reviewed And Are Negative: Yes Physical Exam - Summary Physical Exam Summary: VITAL SIGNS: Reviewed. GENERAL: Patient is a well-developed and nourished FEMALE who is lying comfortable in the stretcher. Patient is not in any acute respiratory distress. HEAD AND FACE: No signs of trauma. No ecchymosis, hematomas or skull depressions. No sinus tenderness. EYES: PERRLA, EOMI x 2, No injected conjunctiva, no nystagmus. EARS: Hearing grossly intact. Ear canals and tympanic membranes are within normal limits. MOUTH: Oropharynx within normal limits. NECK: Supple, trachea is midline, no adenopathy, no JVD, no carotid bruit, no c- spine tenderness, neck with full ROM. CHEST: Symmetric, no tenderness at palpation LUNGS: Clear to auscultation bilaterally. No wheezing or crackles. CVS: Regular rate and rhythm, S1 and S2 present, no murmurs or gallops appreciated. ABDOMEN: Soft, non-tender. No signs of distention. No rebound no guarding, and no masses palpated. Bowel sounds are normal. EXTREMITIES: No edema, no cyanosis or clubbing. NEURO: Alert and oriented x 3. Speech is normal and follows commands. Has bilateral LE weakness. Bilateral LE sensory loss. Decreased sensation in upper extremities SKIN: Dry and warm Triage Information Reviewed: Yes Vital Signs On Initial Exam: Initial Vitals Temp Pulse Resp BP Pulse Ox 98.9 F 85 18 160/120 98 09/09/18 02:17 09/09/18 02:17 09/09/18 02:17 09/09/18 02:17 09/09/18 02:17 Vital Signs Reviewed: Yes Diagnostics - Vital Signs Vital Signs Temp Pulse Resp BP Pulse Ox 09/09/18 02:18 89 100 09/09/18 02:17 98.9 F 90 18 160/120 100 - Laboratory Result Diagrams: 09/09/18 02:59 09/09/18 04:20 Lab Statement: Any lab studies that have been ordered have been reviewed, and results considered in the medical decision making process. - CT L-spine CT CT Interpretation Completed By: Radiologist Summary of CT Findings: 1. No acute findings. 2. Congenital spinal canal stenosis with superimposed degenerative spondylosis result in diffuse severe central spinal canal stenosis and severe bilateral neural foraminal narrowing. Dr. Gaston has reviewed this radiology report. - EKG 0558 Cardiac Rate: NL - 84 BPM EKG Rhythm: Sinus Rhythm Summary of EKG Findings: ST depression in the antereseptal leads but also has non-specific T-wave changes. Re-Evaluation - Re-Evaluation First Eval Re-Evaluation Time: 05:42 Comment: The patient reports that she still cannot walk. Upon repeat exam, the patient was moving her legs while on the stretcher. Course/Dx - Course Assessment/Plan: This patient is a 48 year old F brought in by ambulance to ED with a chief complaint of weakness since about 30 minutes ago. The patient states that she was getting out of a hot tub when her knees collapsed and she couldnt get back up. Since the fall, she cannot bear her own weight. Post void residual is 0. In the ED course, the patient was given Toradol, potassium chloride, and magnesium sulfate. CT L-spine reveals 1. No acute findings. 2. Congenital spinal canal stenosis with superimposed degenerative spondylosis result in diffuse severe central spinal canal stenosis and severe bilateral neural foraminal narrowing. Spoke with Dr. Henry who accepts the patient for admission. EKG done at [address] depression in the antereseptal leads but also has non-specific T-wave changes. - Diagnoses Provider Diagnoses: Hypomagnesemia, Hypokalemia, Weakness - Physician Notifications Discussed Care Of Patient With: Raquel Henry Time Discussed With Above Provider: 05:46 Instructed by Provider To: Admit As Inpatient Discharge - Sign-Out/Discharge Documenting (check all that apply): Patient Departure - admit Patient Received Moderate/Deep Sedation with Procedure: No - Discharge Plan Condition: Stable Disposition: ADMITTED TO [facility] Referrals: Corey Torre MD [Primary Care Provider] - - Billing Disposition and Condition Condition: STABLE Disposition: Admitted to [facility] - Attestation Statements Document Initiated by Guillermo: Yes Documenting Scribe: Alexander Bender Provider For Whom Guillermo is Documenting (Include Credential): MD Sanjiv Arvizuibestela Attestation: Alexander Youssef scribed for Viktor Gaston MD on 09/09/18 at 0624. Scribe Documentation Reviewed: Yes Provider Attestation: The documentation as recorded by the Alexander renner accurately reflects the service I personally performed and the decisions made by me, Viktor Gaston MD Status of Scribe Document: Viewed
[2018-09-09 04:18] LABS: Urine Appearance Cloudy; Urine Bacteria Absent (Absent); Urine Bilirubin Negative (Negative); Urine Blood 1+ (Negative); Urine Color Amber; Urine Glucose Negative (Negative); Urine Ketones Negative (Negative); Urine Nitrite Negative (Negative); Urine Protein Negative (Negative); Urine Red Blood Cell Absent (Absent); Urine Specific Gravity 1.019 (1.010-1.030); Urine Squamous Epithelial Cell Present (Absent); Urine Urobilinogen Positive (Negative); Urine White Blood Cell Absent (Absent)
[2018-09-09 04:30] LABS: ABS Basophils 0.1 10^3/ul (0-0.2); ABS Eosinophils 0.1 10^3/ul (0-0.6); ABS Lymphocytes 2.4 10^3/ul (1.0-4.8); ABS Monocytes 0.9 10^3/ul (0-0.8); ABS Neutrophils 4.1 10^3/ul (1.5-7.7); ABS Nucleated RBC 0 10^3/ul; Eosinophil % 0.7 %; Hematocrit 44 % (35-47); Hemoglobin 14.5 g/dl (12.0-16.0); Lymphocyte % 31.6 %; Mean Corpuscular HGB Conc 33 g/dl (31-36); Mean Corpuscular Hemoglobin 29 pg (27-31); Mean Corpuscular Volume 89 fL (80-97); Mean Platelet Volume 8.5 fL (7.4-10.4); Nucleated Red Blood Cells % 0.2; Platelet Count 251 10^3/ul (150-450); Red Blood Count 4.97 10^6/ul (4.00-5.40); Red Cell Distribution Width 15 % (10.5-15); White Blood Count 7.5 10^3/ul (3.5-10.8)
[2018-09-09 04:36] LABS: INR 1.02 (0.77-1.02)
[2018-09-09 04:45] LABS: C Reactive Protein 9.6 mg/L (<8.01); Calcium 8.2 mg/dL (8.6-10.3); EGFR African American 176.2 (>60); EGFR Non-African American 145.6 (>60); Magnesium 1.2 mg/dL (1.9-2.7); Total Bilirubin 1.2 mg/dL (0.2-1.0)
[2018-09-09 04:50] LABS: Potassium 2.7 mmol/L (3.5-5.0)
[2018-09-09] MEDS ORDERED: KCL 10 MEQ/50 ML IVPREMIX* 10 MEQ/50 ML BAG IV ONE ×2 (04:51→05:49)
[2018-09-09] MEDS ORDERED: Magnesium Sulfate 2 GM IV* 2 GM/50 ML BAG IVPB ONE ×2 (04:52→07:45)
[2018-09-09] MEDS: Potassium Chlor TAB* 20 MEQ TAB.ER PO ONE ×2 (05:12→05:14)
[2018-09-09] MEDS ORDERED: Potassium Chloride LIQUID* 20 MEQ PACKET PO ONE ×2 (05:18→09:31)
[2018-09-09] MEDS ORDERED: Morphine VIAL* 10 MG/ML 1 ML VIAL IV ONE (08:13)
[2018-09-09] MEDS ORDERED: Ondansetron INJ* 2 MG/ML VIAL IV ONE (08:13)
[2018-09-09] MEDS ORDERED: Albuterol HFA INHALER* 8 gm MDI INH PRN (09:31)
[2018-09-09] MEDS ORDERED: Ondansetron ODT TAB* 4 MG PO PRN (09:32)
[2018-09-09] MEDS ORDERED: oxyCODONE TAB* 5 MG TAB PO PRN (09:44)
[2018-09-09] MEDS: KCL 20 MEQ/100 ML IVPREMIX* 20 MEQ/100 ML BAG IV SCH ×3 (09:58→15:15)
[2018-09-09] MEDS: Famotidine TAB* 20 MG PO SCH ×2 (12:23→21:14)
--- NOTE | 2018-09-09 13:23 | HP ---
HISTORY AND PHYSICAL: DATE OF ADMISSION: 09/09/18 ADMITTING PROVIDER: Khalif Parikh MD PRIMARY CARE PROVIDER: Dr. Torre. CHIEF COMPLAINT: Multiple recent falls; numbness from her lower face downward, which is new; abdominal tightness; chronic nausea and vomiting since her gastric bypass surgery. HISTORY OF PRESENT ILLNESS: Ally Elias is a 48-year-old female with past medical history of obesity, status post laparoscopic sleeve gastrectomy on 12/26/17; prediabetes; obstructive sleep apnea, on CPAP; anxiety and depression ; asthma; osteoarthritis in her bilateral knees. She has had multiple presentations to the emergency room for nausea, vomiting, and found to have electrolyte disturbances, these have not resulted in admissions. She recently was in [facility] between 09/01/18 and 09/04/18, again with vomiting and relates that she had what sounds like an EGD that found some pyloric stenosis and a hiatal hernia, the pyloric stenosis had a balloon procedure performed on it. Two days ago, she fell and again the day of presentation to the emergency room, she again fell transitioning from a walker to the car. She also attested to decreased sensation below her neck downward with numbness and tingling. She sat in a hot tub prior to the admission and upon exiting needed to be supported to the ground by her daughter due to her legs giving out. She was transported via EMS [place] [facility] [place] [facility] where she was found to have potassium of 2.7 and magnesium of 1.2. She had a CT of her lumbar spine without contrast which showed impression of congenital spinal canal stenosis with superimposed degenerative spondylosis resulted in diffuse severe central spinal canal stenosis and severe bilateral neural foraminal narrowing and she was referred to the hospitalist service for admission (though of note she initially wanted to be transported directly back to [facility] given recent admission there but after discussion with ED physician Dr. Garcia they decided to admit here, one reason being the potential need for Neurosurgery evaluation which is not available at [facility]). Neurosurgeon Dr. Pascal has been consulted for further evaluation of her falls, numbness and weakness. She has been refusing oral potassium supplementation given history of nausea and vomiting at [place] with these medications. She has gotten IV magnesium supplementation started. She denies any fevers, did have some shortness of breath and a thick productive cough. She is afebrile. Heart rate is high at 98. She is satting well on room air, but desatted when she was asleep and was put on supplemental oxygen. She is not tachypneic. No chest x-ray has been obtained yet, but that has just been ordered. PAST MEDICAL HISTORY: Obesity, status post sleeve gastrectomy in [place] [address] Leong; prediabetes; obstructive sleep apnea, on CPAP; anxiety; depression; asthma; osteoarthritis worse in the bilateral knees "with no cartilage." Current smoker. MEDICATIONS: Include: 1. MiraLAX 17 g p.o. daily p.r.n. 2. Hydrocodone/acetaminophen 7.5/325 mg liquid 15 mL p.o. 4 times a day. p.r.n. 3. Carafate 1 g p.o. 4 times a day. 4. Cholecalciferol 50,000 units p.o. weekly. 5. Epinephrine 1000 injection p.r.n. 6. ProAir 2 puffs inhaled daily with meals b.i.d. 7. Zantac 150 mg p.o. b.i.d. 8. Protonix 40 mg p.o. b.i.d. 9. Zofran 4 mg p.o. q.3 hours p.r.n. ALLERGIES: SHRIMP (angioedema), TRAMADOL (swelling of stomach), PENICILLIN ( hives, though is listed as difficulty breathing in the EMR). FAMILY HISTORY: Diabetes, hypertension, heart disease, and colon cancer. SOCIAL HISTORY: The patient is a current smoker. Denies drug or alcohol use. Smokes 3 to 4 cigarettes a day, trying to quit. Her medical surrogate is her daughter, Brian Elias. She desires to be a full code. REVIEW OF SYSTEMS: A complete 10-point review of systems is negative except as per HPI. PHYSICAL EXAMINATION GENERAL APPEARANCE: No acute distress. VITAL SIGNS: Temperature 98.9, heart rate between 85 and 98, respiratory rate between 14 and 21, satting 97% on room air, blood pressure 160/120, currently 153/107. HEENT: Normocephalic, atraumatic. Pupils are equal, round and reactive to light. Extraocular motions with left>right nystagmus with associated blurry vision. No oropharynx, lesions or erythema. NECK: Supple. No cervical lymphadenopathy. LUNGS: Anteriorly clear to auscultation without wheezing, rales or rhonchi. CARDIOVASCULAR: Regular rate and rhythm. No murmurs, rubs or gallops. ABDOMEN: Soft, nontender, but using heat pads and feels "numb" with spasming. No rebound, no guarding. EXTREMITIES: Warm, well perfused. No peripheral edema. NEURO: The patient attested numbness everywhere from face (V2,v3) all the way down to her toes. She is more numb in her calves and distal thighs than she is in her feet. She has brisk hip and knee flexion response to Babinski testing bilaterally. . Her channel lip wetter strength is 5/5 bilaterally. Nystagmus left more than right going as above with blurry vision. Otherwise, cranial nerves II through XII intact. DIAGNOSTIC STUDIES/LAB DATA: White count 7.5, hemoglobin 14.5, hematocrit 44, platelets 251. INR 1.02. Sodium 137, potassium 2.7, chloride 96, carbon dioxide 36, BUN 6, creatinine 0.46, glucose 100, magnesium 1.2. Total bili 1.20 , AST 21, ALT 25, alk phos 55. Troponin 0.00. CRP 9.6, albumin 3.0, lipase canceled. UA 1+ blood. Positive urobilinogen. Calcium oxalate present. Imaging: Lumbar spine without contrast showing degenerative spinal canal stenosis with superimposed degenerative spondylosis resulted in diffuse severe central spinal canal stenosis and severe bilateral neural foraminal narrowing. No acute findings. EKG demonstrates normal sinus rhythm, Q wave and T-wave inversions in III and aVF. She has some ST depressions at V1 through V2 with T- wave inversions. ASSESSMENT AND PLAN: Ally Elias is a 48-year-old female with past medical history of obesity, status post sleeve gastrectomy, but complicated by recurrent nausea, vomiting, electrolyte disturbances, and now recently what sounds like pyloric stenosis, status post balloon dilation approximately a week ago at [facility]. She is presenting with 2 recent falls and 2 days of worse numbness, tingling and decreased strength especially in the legs, but attests to numbness/paraesthesia from her neck and lower face downward. We have consulted with neurosurgeon, Dr. Pascal and he has agreed to see her. She likely will need further MRI spinal imaging but will defer to his evaluation. We are going to replace her electrolytes with aggressive magnesium and potassium supplementation. We will repeat the troponin. She attest to some shortness of breath, but denies chest pain, has some chronic ischemic changes on EKG. For her pain control, she said she does better with oxycodone tabs she originally had been getting rather than the Lortab liquid supplements. We will get Physical Therapy to see her. For DVT prophylaxis, heparin 5000 t.i.d. starting later today after neurosurgery evaluation for further imaging of the spine. For her obstructive sleep apnea, we will give her CPAP. Repeat BMP and magnesium labs in the afternoon. Continue her meds of Zofran, MiraLAX, ranitidine if available and Carafate. For her asthma, we will give her albuterol 2 puffs q.6 hours p.r.n. She will need a full liquid diet. She is a full code. Medical surrogate is her daughter, Brian Elias. [id number]/CPS #: [id number] AJAY
[2018-09-09] MEDS: Sucralfate TAB* 1 GM PO SCH ×3 (13:54→21:14)
[2018-09-09] MEDS: oxyCODONE TAB* 5 MG TAB PO PRN ×2 (17:26→21:17)
[2018-09-09 19:54] LABS: Calcium 8.1 mg/dL (8.6-10.3); EGFR Non-African American 132.2 (>60); Magnesium 1.8 mg/dL (1.9-2.7); Potassium 3.6 mmol/L (3.5-5.0)
[2018-09-09] MEDS: Heparin VIAL(*) 5000 UNITS/ML VIAL (FIVE THOUSAND) SUBCUT SCH (21:14)
[2018-09-10] MEDS: oxyCODONE TAB* 5 MG TAB PO PRN ×5 (02:27→22:04)
[2018-09-10] MEDS: Heparin VIAL(*) 5000 UNITS/ML VIAL (FIVE THOUSAND) SUBCUT SCH ×3 (05:59→22:16)
[2018-09-10] MEDS ORDERED: Magnesium Sulfate 2 GM IV* 2 GM/50 ML BAG IVPB ONE (07:09)
[2018-09-10 08:04] LABS: BUN/Creatinine Ratio 12.5 (8-20); EGFR Non-African American 171.1 (>60); Potassium 3.2 mmol/L (3.5-5.0)
[2018-09-10] MEDS: Famotidine TAB* 20 MG PO SCH ×2 (08:40→22:05)
[2018-09-10] MEDS: Sucralfate TAB* 1 GM PO SCH ×4 (08:41→22:04)
[2018-09-10] MEDS ORDERED: Potassium Chloride LIQUID* 20 MEQ PACKET PO ONE (10:00)
[2018-09-10] MEDS: KCL 20 MEQ/100 ML IVPREMIX* 20 MEQ/100 ML BAG IV SCH ×2 (10:28→14:22)
[2018-09-10] MEDS ORDERED: Thiamine IV* 500 MG in NS 0.9% 250 ML* 250 ML IV ONE (13:27)
--- NOTE | 2018-09-10 13:35 | PN ---
Subjective Date of Service: 09/10/18 Interval History: still with significant back pain and requesting more opiods often. spasming like pain in abdomen since yesterday numbness from neck down still. vomited once. Of not vitamin b1 was very low at 40 when checked back in Jun 2018, down from previous wnl in 2017 of 126. nystagmus continues. dysemetric with finger to nose. arms flailing all around eye closed pronator drift exam neurology consulted. thiamine 500mg IV ordered q8. Objective Active Medications: Albuterol (Ventolin Hfa Inhaler*) 2 puff INH Q6H PRN PRN Reason: SOB/WHEEZING Famotidine (Pepcid Tab*) 20 mg PO BID [facility]; Protocol Last Admin: 09/10/18 08:40 Dose: 20 mg Heparin Sodium (Porcine) (Heparin Vial(*)) 5,000 units SUBCUT Q8HR [facility] Last Admin: 09/10/18 12:25 Dose: 5,000 units Thiamine HCl 500 mg/ Sodium (Chloride) 255 mls @ 255 mls/hr IV ONCE ONE Stop: 09/10/18 14:26 Ondansetron HCl (Zofran Odt Tab*) 4 mg PO Q3HR PRN PRN Reason: NAUSEA/VOMITING Oxycodone HCl (Roxycodone Tab*) 5 mg PO Q4H PRN PRN Reason: PAIN Last Admin: 09/10/18 12:25 Dose: 5 mg Polyethylene Glycol/Electrolytes (Miralax*) 17 gm PO DAILY PRN PRN Reason: CONSTIPATION Sucralfate (Carafate*) 1 gm PO QID [facility] Last Admin: 09/10/18 12:25 Dose: 1 gm Vital Signs - 8 hr 09/10/18 09/10/18 09/10/18 07:52 08:40 11:23 Pulse Rate 83 Respiratory 18 16 16 Rate Blood Pressure 160/102 (mmHg) O2 Sat by Pulse 98 Oximetry 09/10/18 12:25 Pulse Rate Respiratory 18 Rate Blood Pressure (mmHg) O2 Sat by Pulse Oximetry Oxygen Devices in Use Now: Nasal Cannula Appearance: mild discomfort noted. frustrated. Eyes: No Scleral Icterus Ears/Nose/Mouth/Throat: NL Teeth, Lips, Gums Neck: NL Appearance and Movements; NL JVP Respiratory: Symmetrical Chest Expansion and Respiratory Effort, Clear to Auscultation Cardiovascular: NL Sounds; No Murmurs; No JVD Abdominal: NL Sounds; No Tenderness; No Distention, No Hepatosplenomegaly Extremities: No Edema Skin: No Rash or Ulcers Neurological: Alert and Oriented x 3, - - dysmetric on FTN b/l. horizontal nystagmus worse on rightward eye movements. numbness (not complete) near knees and stomach. worse dorsiflexion on left. Nutrition: Taking PO's Result Diagrams: 09/09/18 02:59 09/10/18 07:27 Additional Lab and Data: Laboratory Results - last 24 hr 09/10/18 09/10/18 07:27 13:34 Sodium 137 Potassium 3.2 L Chloride 96 L Carbon Dioxide 34 H Anion Gap 7 BUN 5 L Creatinine 0.40 L Est GFR ( Amer) 207.0 Est GFR (Non-Af Amer) 171.1 BUN/Creatinine Ratio 12.5 Glucose 92 Calcium 8.0 L Magnesium 2.0 Vitamin B12 594 Microbiology and Other Data: Microbiology 09/09/18 10:05 Sputum Expectorated Gram Stain - Final 09/09/18 20:02 Nasal Nasal Screen MRSA (PCR) - Final Mrsa Not Detected Assess/Plan/Problems-Billing Assessment: 48 year old female [facility] morbid obesity s/p sleeve gastrectomy December 2017, chronic back pains, lumbar stenosis, recurrentlnausea & electrolyte disturbance, recent pyloric stenosis balloon dilation(last week at [place], not yet confirmed). Presenting with 2 falls, acute and progressive numbness from shoulders down. Evidence of severe electrolyte and vitamin deficiencies concerning for thiamine associated paraesthesia, nystagmus. Getting IV thiamine load. some multilevel neuroforaminal narrowing and spinal stenosis. Unable to ambulate. - Patient Problems (1) Thiamine deficiency neuropathy Current Visit: Yes Status: Acute Code(s): E51.11 - DRY ALEXANDERIBERI SNOMED Code(s): 82698677 Comment: she had low levels of thiamine 40 back in June. It was normal ( 127)back in Mar 2017 and while taking a multivitamin per Dr. Rondon's note, did not containe thiamine. Greatly appreicate assistance of Dr. Rondon of Neurology. Starting IV thiamine 500mg IV q8 for 3 days, then 250mg IV q12 for 2 days then 100mg po daily. There was a shortage here in the hospital (only 900mg total but Fred had 5000mg total that pharmacy will attempt to acquire. Vitamin B6 supplementation for low level of that. f/u level that was drawn prior to supplementation. b12 okay. (2) Back pain Current Visit: Yes Status: Acute Code(s): M54.9 - DORSALGIA, UNSPECIFIED SNOMED Code(s): 723768581 Comment: oxycodone 5mg q4h prn. (3) Hypomagnesemia Current Visit: Yes Status: Acute Code(s): E83.42 - HYPOMAGNESEMIA SNOMED Code(s): 619143995 Comment: replete to >2. (4) Hypokalemia Current Visit: Yes Status: Acute Code(s): E87.6 - HYPOKALEMIA SNOMED Code( s): 66978906 Comment: Replete to >4 (5) Intestinal malabsorption following gastrectomy Current Visit: Yes Status: Acute Code(s): K91.2 - POSTSURGICAL MALABSORPTION , NOT ELSEWHERE CLASSIFIED; Z90.3 - ACQUIRED ABSENCE OF STOMACH [PART OF] SNOMED Code(s): 297602330 Comment: will need close follow-up with Dr. Leong as outpatient. Don't see that she followed up with him after the June discharge in [facility] records. (6) Nausea & vomiting Current Visit: Yes Status: Acute Code(s): R11.2 - NAUSEA WITH VOMITING, UNSPECIFIED SNOMED Code(s): 04671185 Comment: zofran prn. (7) Falls Current Visit: Yes Status: Acute Comment: f/u esteves spine MRI and MRI brain. PT f/u Neurosurgery recs. (8) Morbid obesity Current Visit: Yes Status: Acute Code(s): E66.01 - MORBID (SEVERE) OBESITY DUE TO EXCESS CALORIES SNOMED Code(s): 108980077 (9) DVT prophylaxis Current Visit: Yes Status: Acute Code(s): GZS2840 - SNOMED Code(s): 728957488 Comment: heparing 5000 TID (10) LEONARD (obstructive sleep apnea) Current Visit: Yes Status: Acute Code(s): G47.33 - OBSTRUCTIVE SLEEP APNEA ( ADULT) (PEDIATRIC) SNOMED Code(s): 34670509 Comment: CPAP if aggreeable. (11) Anxiety and depression Current Visit: Yes Status: Acute Code(s): F41.9 - ANXIETY DISORDER, UNSPECIFIED; F32.9 - MAJOR DEPRESSIVE DISORDER, SINGLE EPISODE, UNSPECIFIED SNOMED Code(s): 79754507 (12) Abdominal pain Current Visit: Yes Status: Acute Code(s): R10.9 - UNSPECIFIED ABDOMINAL PAIN SNOMED Code(s): 91112175 Comment: continue protonix, carafate, pepcid. try to get records from [facility] last week. more spasming like pain, potentilally related to paraesthesias. add senna cherelle and colace prn to miralax. last BM yesterday. (13) Unable to ambulate Current Visit: Yes Status: Acute Code(s): R26.2 - DIFFICULTY IN WALKING, NOT ELSEWHERE CLASSIFIED SNOMED Code(s): 688408500 Comment: continue PT, may need Herb and likely will need SNF f/u Neurosurgery recs and MRIs replete vitamins as above. Status and Disposition: medicine inpatient. will need IV thiamine for 5 days. Likely will need SNF placement. Attending: Khalif Parikh
[2018-09-10] MEDS ORDERED: oxyCODONE TAB* 5 MG TAB PO ONE (14:28)
--- NOTE | 2018-09-10 20:54 | CONSULT ---
Consult Consult: Neurosurgery Consult Date of Admission: 09/09/18 Date of Consult: 09/10/18 Referring Provider: Dr. Parikh Reason for Consult: Back pain and weakness HPI: This is a 48 year old female with past medical history significant for who presented to [facility] with complaint of recent onset weakness and falls. She states that over the past week she has been to the emergency department several times with nausea and vomiting and has also been admitted to [facility]. She states that 2 days ago, she began experiencing numbness/tingling in the bilateral feet which travelled up the legs, up the back and into the upper back and arms. She now complains of numbness/tingling sensation from the lips distally to the feet, pins and needles sensation in the lower extremities. She also reports back pain and travelling down the lower extremities, right equal to left. The pain travels up her back to the neck and to the occiput. She experiences occasional episodes of shooting pain in the arms which resolve without treatment. She reports numbness/tingling of all fingers and decreased dexterity and coordination. She reports weakness in the upper and lower extremities. In the past 1-2 weeks she has fallen 3 times, states that her legs just give out and she falls to the ground. Most recently, she was getting out of a jacuzzi tub when her legs gave out and she landed on her knees. She has typically been able to ambulate well with assistance of a walker until these recent falls and weakness. After the most recent fall, she presented to [facility] for evaluation. Reports dizziness related to vision but denies vision change or blurred vision. Past Medical History: 1. Obesity 2. Anxiety 3. Depression 4. Osteoarthritis 5. Sleep apnea Past Surgical History: 1. Sleeve gastrectomy- 2018 Dr. Leong Medications: Albuterol (Ventolin Hfa Inhaler*) 2 puff INH Q6H PRN PRN Reason: SOB/WHEEZING Famotidine (Pepcid Tab*) 20 mg PO BID [facility]; Protocol Last Admin: 09/10/18 08:40 Dose: 20 mg Heparin Sodium (Porcine) (Heparin Vial(*)) 5,000 units SUBCUT Q8HR [facility] Last Admin: 09/10/18 12:25 Dose: 5,000 units Thiamine HCl 500 mg/ Sodium (Chloride) 255 mls @ 255 mls/hr IV Q8HR [facility] Stop: 09/12/18 06:59 Ketorolac Tromethamine (Toradol Inj*) 15 mg IV PUSH Q6H PRN PRN Reason: PAIN Ondansetron HCl (Zofran Odt Tab*) 4 mg PO Q3HR PRN PRN Reason: NAUSEA/VOMITING Oxycodone HCl (Roxycodone Tab*) 5 mg PO Q4H PRN PRN Reason: PAIN Last Admin: 09/10/18 17:15 Dose: 5 mg Polyethylene Glycol/Electrolytes (Miralax*) 17 gm PO DAILY PRN PRN Reason: CONSTIPATION Pyridoxine HCl (Vitamin B6 Tab*) 100 mg PO DAILY [facility] Sucralfate (Carafate*) 1 gm PO QID [facility] Last Admin: 09/10/18 17:15 Dose: 1 gm Allergies: shrimp Allergy (Severe, Verified 08/23/18 00:16) Swelling Of Face,Lips,& Throat tramadol Allergy (Severe, Verified 08/23/18 00:16) Swelling Penicillins Allergy (Verified 08/23/18 00:16) Difficulty Breathing Social history: Patient is a current smoker. She is a Mandaeism. ROS: Reports dizziness related to vision, mild headache, shortness of breath, abdominal cramping, constipation. Denies fever, chills, recent illness, poor appetite, lightheadedness, blurred vision, slurred speech, tinnitus, hearing loss, chest pain, diarrhea, blood in stool Physical Exam: Vital Signs: Temp Pulse Resp BP Pulse Ox 98.0 F 90 20 143/83 98 09/10/18 19:46 09/10/18 19:46 09/10/18 19:46 09/10/18 19:46 09/10/18 19:46 General: Obese female, sitting up in bed, NAD HEENT: Head is normocephalic and atraumatic. PERRL, EOMI. Nystagmus with all directions of gaze, causes dizziness. Gross hearing intact. Moist mucus membranes. CV: Radial and pedal pulses intact and equal Lungs: Breathing is nonlabored. Productive cough Abdomen: The abdomen is obese, nondistended, nontender. Neuro: CN II-XII intact. Nystagmus with all directions of gaze, causes dizziness. Speech is clear. Able to answer questions appropriately. Strength upper extremities 4/5. 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 Dexterity of bilateral hands is poor. Strength lower extremities 3 to 5/5. Sensation diminished to upper and lower extremities bilaterally. Finger to nose coordination is slow and poor. No pronator drift. Hoffmans negative. DTR Extremities: No edema Assessment and Plan: This is a 48 year old female with history of sleeve gastrectomy in 2018 and recent onset numbness/tingling from the neck down and weakness causing falls. Weakness, numbness and nystagmus appreciated on exam. MRI brain, cervical, thoracic and lumbar have been ordered. Discussed the case with Dr. Pascal and Dr. Parikh. Recommend neurology consult, possible metabolic cause. Will follow up on MRIs.
--- NOTE | 2018-09-10 22:01 | CONS ---
NEUROLOGY CONSULTATION NOTE: DATE OF CONSULT: 09/10/18 CONSULTING PROVIDER: Dr. Khalif Parikh. REASON FOR CONSULT: Paresthesias. CHIEF COMPLAINT: Multiple recent falls, numbness in the lower extremities reaching up to the shoulder region bilaterally. HISTORY OF PRESENT ILLNESS: Mrs. Ally Gabriel is a pleasant 48-year-old right - handed female who is status post laparoscopic sleeve gastrectomy on 12/26/17, who lost over 200 pounds in less than 8 months, who also has obstructive sleep apnea, on CPAP, anxiety and depression, who presents with initially intermittent numbness and tingling sensation in the hands and feet, but over the last 48 hours, she has had constant paresthesias in the upper and lower extremities. Initially, the numbness started after she fell. She had a mechanical fall. It is unclear if the paresthesias started before the fall or subsequent to the fall. However, she does note a significant change of symptoms since the fall 2 days ago. The numbness initially started in the feet and rapidly ascended to the upper extremity. Her daughter stated that she has had abnormal movements of the eye before the fall, which was 3 days ago. Her eyes jerked right and left spontaneously. The patient does not take any vitamin supplementation in the past. She was recently, approximately 4 months ago, was put on a multivitamin that she was taking regularly, but it did not contain vitamin B1. Interestingly, her vitamin B1 was checked in June 2018 and it was significantly low at 40 and her pyridoxic acid was less than 2 on 09/23. She has a vitamin B12 level checked recently, which was 594. Her biggest concern today is the paresthesias. She denied any shortness of breath. She has significant weakness in the proximal lower extremities. She is unable to ambulate due to the severe weakness. She apparently went to [facility] in the past and then presented here to be evaluated for lumbar spine surgery given her spinal stenosis. The patient does complain of new back pain after her fall. She denied any loss of consciousness. She denied any head injuries. PAST MEDICAL HISTORY: Obesity, status post sleeve gastrectomy in December 2017, prediabetes, obstructive sleep apnea, anxiety, depression, asthma, osteoarthritis, and current ongoing smoking. MEDICATIONS: Include: 1. MiraLAX 17 g p.o. daily p.r.n. 2. Hydrocodone/acetaminophen 7.5/325 four times daily as needed. 3. Carafate 1 g p.o. 4 times a day. 4. Vitamin D supplements. 5. Epinephrine 1000 injection p.r.n. 6. ProAir 2 puffs inhaled with meals. 7. Zantac 150 mg p.o. b.i.d. 8. Protonix 40 mg p.o. b.i.d. 9. Zofran 4 mg p.o. every 3 hours p.r.n. ALLERGIES: To SHRIMP, TRAMADOL, PENICILLIN. FAMILY HISTORY: Diabetes, hypertension, and colon cancer. SOCIAL HISTORY: The patient is a smoker. She denied any alcohol use. Her daughter, Brian Elias, is the medical surrogate. REVIEW OF SYSTEMS: A 14-point review of systems was obtained, otherwise negative except for what is mentioned in the HPI. PHYSICAL EXAM: Vitals: Temperature of 98.0, pulse 90, respiratory rate 18, oxygen saturation 94, and blood pressure 143/83. General: Well-nourished, well -developed, obese female, in no acute distress. Head: Normocephalic, atraumatic. Eyes: Conjunctivae/corneas are clear. Neck: Supple and symmetrical, with no carotid bruits. Lungs are clear to auscultation bilaterally. Cardiovascular: Regular rate and rhythm, with normal S1, S2. Extremities: Normal range of motion. Skin: No skin lesions or laceration. Psychiatric: Affect is broad and normal mood. Neurological Examination: Mental Status: Awake, alert, oriented to person, place, time, and general circumstance. Speech and language including special naming, repetition, and comprehension were assessed and found to be normal. Cranial Nerves: She has constant horizontal nystagmus on both sides. Sensation is intact on her forehead, cheeks, and jaw bilaterally. Pupils are equal, round, and reactive to light. No facial asymmetry. Tongue is symmetrical and midline, with no atrophy or fasciculation. Motor Examination: She has proprioception loss in the upper extremities. She has neck extension that is 5, shoulder range of motion is full, shoulder abduction is 5/5, elbow flexion 5/5, extension 5/5, wrist flexion and extension 5/5, finger flexion and extension 4/5 bilaterally. Hip flexion is 2/2, abduction 4/4, knee flexion 4/4, extension 4/4, ankle dorsiflexion 4/4, plantarflexion 4/4, great toe extension 3/3. Reflexes trace throughout the brachioradialis, biceps, triceps, absent at the patella and ankle bilaterally, plantarflexor/flexor. Sensation is absent to vibration at the great toes and significantly diminished at the medial malleolus at 4 seconds bilaterally. She has intact proprioception at the great toes. Coordination: [id number] and rapid alternating movements are normal. Gait was not assessed. DIAGNOSTIC STUDIES/LAB DATA: She had labs, imaging, and other diagnostic tests and she had a CT of the lumbar spine completed on 09/09/18 that showed congenital spinal stenosis with superimposed degenerative spondylosis resulting in diffuse, severe central spinal canal stenosis and severe bilateral neuroforaminal narrowing. ASSESSMENT: 1. Ms. Gabriel is a 48-year-old very pleasant female who is status post gastric surgery, who has known vitamin B1 and B6 deficiency (from labs completed June 2018), who presents with acute to subacute onset of upper and lower extremity paresthesias as well as neurological findings of severe neuropathy and nystagmus on examination. I suspect the patient has vitamin B1 deficiency given the combination of ophthalmoparesis and severe neuropathy. Vitamin B6 deficiency is also playing a role here. Her lower extremity weakness that is proximal can also be related to her spinal stenosis, but clearly the proprioception loss in the upper extremities do not localize to the lumbar spine region. Therefore, the patient may have multiple comorbid processes that are contributing to her neurological deficits. I doubt that this is acute inflammatory demyelinating polyneuropathy given that she has a known nutritional deficiency. 2. Degenerative disk of the lumbar spine with severe spinal canal stenosis. 3. Obesity. 4. Anxiety and depression. PLAN/RECOMMENDATIONS: Please immediately start IV thiamine 500 mg every 8 hours for 3 consecutive days, then 250 mg every 12 hours for 2 consecutive days , and then continue 100 mg daily. Also, please start vitamin B6 supplements ( started her on pyridoxine 100 mg daily). Please order an MRI of the brain, cervical, lumbar, and thoracic spine to evaluate for demyelinating process, which I highly doubt she has, and also to assess the degree of lumbar spinal stenosis. The MRI of the brain will help evaluate for any white matter changes in the medial thalamus or the mammillary body consistent with our diagnosis of vitamin B1 deficiency. Repeat a vitamin B1 level (send before the thiamine infusion). Please continue neuro checks every 4 hours. This is an unfortunate diagnosis as nutritional neuropathy typically is an irreversible process despite adequate repletion. Unless she continues to progress or does not get better, then we will assess for doing a lumbar puncture to evaluate for an inflammatory neuropathy, but I doubt that this is going to be needed. Please consult Neurosurgery to help with the compression abnormality in the lumbar spine. We will closely monitor the patient with you. Defer the constipation to the primary team. TREATMENT PLAN: I spent a total of 75 minutes of which more than 50% was spent obtaining history, examining the patient, education and counseling, and discussing the treatment plan as mentioned above. [id number]/CPS #: [id number] MTDD
[2018-09-10] MEDS: Pyridoxine TAB* 50 MG PO SCH (22:05)
[2018-09-10] MEDS: Thiamine IV* 500 MG in NS 0.9% 250 ML* 250 ML IV SCH (22:59)
[2018-09-11] MEDS: Ketorolac INJ* 15 MG/ML 1 ML VIAL IV PUSH PRN ×2 (01:15→08:35)
[2018-09-11] MEDS: oxyCODONE TAB* 5 MG TAB PO PRN ×6 (03:33→21:26)
[2018-09-11] MEDS: Heparin VIAL(*) 5000 UNITS/ML VIAL (FIVE THOUSAND) SUBCUT SCH ×3 (05:39→21:30)
[2018-09-11] MEDS: Thiamine IV* 500 MG in NS 0.9% 250 ML* 250 ML IV SCH ×3 (05:39→21:30)
[2018-09-11 05:47] LABS: BUN/Creatinine Ratio 14.6 (8-20); Calcium 7.9 mg/dL (8.6-10.3); EGFR African American 201.2 (>60); EGFR Non-African American 166.3 (>60); Magnesium 1.7 mg/dL (1.9-2.7); Potassium 3.4 mmol/L (3.5-5.0)
[2018-09-11] MEDS ORDERED: Magnesium Sulfate IV* 3 GM in NS 0.9% 100 ML* 100 ML IVPB ONE (07:10)
--- NOTE | 2018-09-11 08:29 | PN ---
Progress Note - Progress Note Date of Service: 09/11/18 SOAP: Subjective: [Pt with numbness/tingling from mouth to toes Complains of pain in back up to occiput and occasionally in upper and lower extremities Has not been able to get up out of bed to ambulate Started treatment with thiamine yesterday Reports numbness/tingling unchanged. MRI brain, cervical, thoracic and lumbar obtained yesterday, reviewed ] Objective: [ Vital Signs: Temp Pulse Resp BP Pulse Ox 98.3 F 85 18 155/99 99 09/11/18 02:10 09/11/18 02:10 09/11/18 05:44 09/11/18 02:10 09/11/18 02:10 General: Sitting up on bedside, uncomfortable with pain. Neuro: Nystagmus, coordination and hand dexterity improving. Decreased sensation persistent. ] Assessment: [Pt with numbness/tingling from toes to mouth and history of sleeve gastrectomy in 2018, likely vitamin deficiency. MRI brain, cervical, thoracic and lumbar spine reviewed showing lumbar stenosis and degenerative disc disease, no explanation for the severity of her numbness. Discussed with the patient and her daughter.] Plan: [1. May follow up with Dr. Pascal outpatient for further evaluation and treatment of lumbar stenosis 2. PT evaluation ]
[2018-09-11] MEDS: Polyethylene Glycol 3350* 17 GM PACKET PO PRN (08:48)
[2018-09-11] MEDS: Potassium Chloride LIQUID* 20 MEQ PACKET PO SCH ×2 (08:48→14:45)
[2018-09-11] MEDS: Pyridoxine TAB* 50 MG PO SCH (08:52)
[2018-09-11] MEDS: Senna TAB PO SCH (08:52)
[2018-09-11] MEDS: Docusate CAP* 100 MG PO PRN ×2 (08:52→21:37)
[2018-09-11] MEDS: Sucralfate TAB* 1 GM PO SCH ×4 (08:52→21:27)
[2018-09-11] MEDS: Famotidine TAB* 20 MG PO SCH ×2 (08:52→21:27)
[2018-09-11] MEDS: Gabapentin CAP(*) 300 MG PO SCH ×2 (11:51→21:26)
[2018-09-11 12:09] LABS: C Reactive Protein 26.41 mg/L (<8.01)
[2018-09-11] MEDS ORDERED: Gabapentin CAP(*) 100 MG PO SCH ×2 (14:00→21:00)
--- NOTE | 2018-09-11 14:47 | PN ---
Subjective Date of Service: 09/11/18 Length of Stay: 2 Days Neurology is following for acute neuropathy. Interval History: The nystagmus improved significantly after IV thiamine treatment. She still reports "slight jerking of the eyes" when looking towards the left. Her pain is worse today. She has bilateral upper and lower extremity burning pins and needle type of pain. This is non-radiating and constant. She has muscle ache in the deltoids bilaterally. She has extremity spasms. She has chronic low back pain. NCS of the lower extremities and left arm- There is electrodiagnostic evidence of moderate, length-dependent, sensorimotor , axonal polyneuropathy without any conduction block or dispersion. Review of Systems: Denied CP, SOB, or palpitations. Objective Active Medications: Albuterol (Ventolin Hfa Inhaler*) 2 puff INH Q6H PRN PRN Reason: SOB/WHEEZING Docusate Sodium (Colace Cap*) 100 mg PO BID PRN PRN Reason: CONSTIPATION Last Admin: 09/11/18 08:52 Dose: 100 mg Famotidine (Pepcid Tab*) 20 mg PO BID [facility]; Protocol Last Admin: 09/11/18 08:52 Dose: 20 mg Gabapentin (Neurontin Cap(*)) 300 mg PO BID [facility] Last Admin: 09/11/18 11:51 Dose: 300 mg Heparin Sodium (Porcine) (Heparin Vial(*)) 5,000 units SUBCUT Q8HR [facility] Last Admin: 09/11/18 05:39 Dose: 5,000 units Heparin Sodium (Porcine) (Heparin Flush Picc/Ml/Cvc(*)) 1 - 3 ml FLUSH 0600, 1800 [facility]; Protocol Last Admin: 09/11/18 11:33 Dose: Not Given Thiamine HCl 500 mg/ Sodium (Chloride) 255 mls @ 255 mls/hr IV Q8HR [facility] Stop: 09/12/18 06:59 Last Admin: 09/11/18 05:39 Dose: 255 mls/hr Ketorolac Tromethamine (Toradol Inj*) 15 mg IV PUSH Q6H PRN PRN Reason: PAIN Last Admin: 09/11/18 08:35 Dose: 15 mg Ondansetron HCl (Zofran Odt Tab*) 4 mg PO Q3HR PRN PRN Reason: NAUSEA/VOMITING Oxycodone HCl (Roxycodone Tab*) 5 mg PO Q3H PRN PRN Reason: PAIN Last Admin: 09/11/18 11:46 Dose: 5 mg Polyethylene Glycol/Electrolytes (Miralax*) 17 gm PO DAILY PRN PRN Reason: CONSTIPATION Last Admin: 09/11/18 08:48 Dose: 17 gm Pyridoxine HCl (Vitamin B6 Tab*) 100 mg PO DAILY [facility] Last Admin: 09/11/18 08:52 Dose: 100 mg Senna (Senokot Tab*) 1 tab PO DAILY [facility] Last Admin: 09/11/18 08:52 Dose: 1 tab Sucralfate (Carafate*) 1 gm PO QID [facility] Last Admin: 09/11/18 08:52 Dose: 1 gm Vital Signs 09/10/18 09/10/18 09/10/18 14:56 15:20 17:14 Temperature 98.6 F Pulse Rate 91 Respiratory 16 18 16 Rate Blood Pressure 141/105 (mmHg) O2 Sat by Pulse 94 Oximetry 09/10/18 09/10/18 09/10/18 17:15 19:20 19:46 Temperature 98.0 F Pulse Rate 90 Respiratory 16 18 20 Rate Blood Pressure 143/83 (mmHg) O2 Sat by Pulse 98 Oximetry 09/10/18 09/10/18 09/11/18 22:04 23:49 00:16 Temperature 98.3 F Pulse Rate 83 Respiratory 18 18 16 Rate Blood Pressure 142/89 (mmHg) O2 Sat by Pulse 97 Oximetry 09/11/18 09/11/18 09/11/18 02:10 03:33 05:44 Temperature 98.3 F Pulse Rate 85 Respiratory 18 18 18 Rate Blood Pressure 155/99 (mmHg) O2 Sat by Pulse 99 Oximetry 09/11/18 09/11/18 09/11/18 06:32 08:00 08:34 Temperature 98.1 F Pulse Rate 92 Respiratory 18 16 14 Rate Blood Pressure 139/92 (mmHg) O2 Sat by Pulse 100 Oximetry 09/11/18 09/11/18 09/11/18 11:46 11:48 11:51 Temperature Pulse Rate Respiratory 14 14 14 Rate Blood Pressure (mmHg) O2 Sat by Pulse Oximetry 09/11/18 09/11/18 12:02 14:36 Temperature 98.3 F Pulse Rate 84 Respiratory 20 16 Rate Blood Pressure 148/99 (mmHg) O2 Sat by Pulse 97 Oximetry Intake and Output Last 24 Hours 09/09/18 09/10/18 09/11/18 09/12/18 06:59 06:59 06:59 06:59 Intake Total 50 940 765 975 Output Total 50 Balance 0 940 765 975 Weight 280 lb 284 lb 9.6 oz 284 lb 9.6 oz Intake: IV Fluids 50 350 255 IVPB 725 Oral 590 40 720 Output: Urine 50 Other: Estimated Void Medium # Voids 1 0 Oxygen Devices in Use Now: Nasal Cannula Neurology Exam: General: Well nourished, well developed, and in no acute distress HEENT: Normocephelic/atraumstic, sclera anicteric, mucous membranes moist Neck: Supple Chest: Clear to auscultation bilaterally Cardiovascular: Regular rate and rhythm without murmurs, rubs, gallops Extremities: No clubbing, cyanosis, or edema Neurological Findings: Awake, alert, and oriented to person, place, and time. Speech: fluent without dysarthric, repetition intact Cranial Nerve: PERRL, EOM intact, no facial asymmetry. She has a constant, rotatory, horizontal nystagmus towards the right. = Motor: 2/5 bilateral lower extremity proximal weakness. She has 4/5 strength in the distal lower extremity, 3/5 finger abduction, 4/5 wrist flexion and extension bilaterally. Reduced tone throughout. Sensation: distal to proximal sensory gradient demarcated at the knees bilaterally. Reflexes: trace throughout, and absent at the lower extremities bilaterally. Coordination: sensory proprioception loss in space but overall she is able to do finger to nose bilaterally. Absent vibration at the toes. Gait: n/a Result Diagrams: 09/09/18 02:59 09/11/18 04:58 Additional Lab and Data: Laboratory Results - last 24 hr 09/10/18 09/10/18 07:27 13:34 Sodium 137 Potassium 3.2 L Chloride 96 L Carbon Dioxide 34 H Anion Gap 7 BUN 5 L Creatinine 0.40 L Est GFR ( Amer) 207.0 Est GFR (Non-Af Amer) 171.1 BUN/Creatinine Ratio 12.5 Glucose 92 Calcium 8.0 L Magnesium 2.0 Vitamin B12 594 Microbiology and Other Data: Microbiology 09/09/18 10:05 Sputum Expectorated Gram Stain - Final 09/09/18 20:02 Nasal Nasal Screen MRSA (PCR) - Final Mrsa Not Detected Assessment/Plan 1. 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 NCS did not show any evidence of demyelinating neuropathy and normal F wave responses. It would be extremely unusual for her to have superimposed inflammatory neuropathy. The known low level of B1 and B6 in addition to the partial response to thiamine is diagnostic. We will closely monitor. 2. Degenerative disc disease of the L spine with multilevel spinal canal narrowing- neurosurgery recommends outpatient follow-up. 3. Elevated CRP- unclear etiology. The level was nearly normal few days ago. Unlikely to be vasculitic neuropathy given the diffuse onset of symptoms. Pending ESR. Recommendations: - Started gabapentin 300 mg twice daily. May increase the dose by 300 every 3 days until her pain improves. - Pending B1 level - Continue aggressive high dose thiamine supplementation via IV. - If symptoms progress, or she develops any respiratory insufficiency, then consider an LP to evaluate for elevated protein or infectious causes. She denied any shortness of breath. - Ordered ESR, copper, vitamin E, NAOMY, SSA-SSB, and Lyme - PT/OT evaluate and treat. She should get out of bed to chair 2-3 times a day. - Neuro checks every 4 hours. - Continue supportive care Time spent: 30 minutes of which >50% spent discussing counseling and education regarding the above mentioned diagnosis. Partial recovery may take up to 6 months.
--- NOTE | 2018-09-11 16:59 | PN ---
Subjective Date of Service: 09/11/18 Interval History: Pt complaint of pain in the arms, shoulders in addition to the back pain. As if returning sensation after slept on arm. Coughing up some yellow sputum. Does not feel like toradol was effective last night. Afebrile. No acute events overnight. Objective Active Medications: Albuterol (Ventolin Hfa Inhaler*) 2 puff INH Q6H PRN PRN Reason: SOB/WHEEZING Cyclobenzaprine HCl (Flexeril Tab*) 5 mg PO TID [facility] Docusate Sodium (Colace Cap*) 100 mg PO BID PRN PRN Reason: CONSTIPATION Last Admin: 09/11/18 08:52 Dose: 100 mg Famotidine (Pepcid Tab*) 20 mg PO BID [facility]; Protocol Last Admin: 09/11/18 08:52 Dose: 20 mg Gabapentin (Neurontin Cap(*)) 300 mg PO BID [facility] Last Admin: 09/11/18 11:51 Dose: 300 mg Heparin Sodium (Porcine) (Heparin Vial(*)) 5,000 units SUBCUT Q8HR [facility] Last Admin: 09/11/18 14:45 Dose: 5,000 units Heparin Sodium (Porcine) (Heparin Flush Picc/Ml/Cvc(*)) 1 - 3 ml FLUSH 0600, 1800 [facility]; Protocol Last Admin: 09/11/18 11:33 Dose: Not Given Thiamine HCl 500 mg/ Sodium (Chloride) 255 mls @ 255 mls/hr IV Q8HR [facility] Stop: 09/13/18 06:59 Last Admin: 09/11/18 15:15 Dose: 255 mls/hr Thiamine HCl 250 mg/ Sodium (Chloride) 102.5 mls @ 205 mls/hr IV Q12HR [facility] Stop: 09/15/18 09:29 Ketorolac Tromethamine (Toradol Inj*) 15 mg IV PUSH Q6H PRN PRN Reason: PAIN Last Admin: 09/11/18 08:35 Dose: 15 mg Ondansetron HCl (Zofran Odt Tab*) 4 mg PO Q3HR PRN PRN Reason: NAUSEA/VOMITING Oxycodone HCl (Roxycodone Tab*) 5 mg PO Q3H PRN PRN Reason: PAIN Last Admin: 09/11/18 14:45 Dose: 5 mg Polyethylene Glycol/Electrolytes (Miralax*) 17 gm PO DAILY PRN PRN Reason: CONSTIPATION Last Admin: 09/11/18 08:48 Dose: 17 gm Pyridoxine HCl (Vitamin B6 Tab*) 100 mg PO DAILY [facility] Last Admin: 09/11/18 08:52 Dose: 100 mg Senna (Senokot Tab*) 1 tab PO DAILY [facility] Last Admin: 09/11/18 08:52 Dose: 1 tab Sucralfate (Carafate*) 1 gm PO QID [facility] Last Admin: 09/11/18 14:45 Dose: 1 gm Vital Signs - 8 hr 09/11/18 09/11/18 09/11/18 11:46 11:48 11:51 Temperature Pulse Rate Respiratory 14 14 14 Rate Blood Pressure (mmHg) O2 Sat by Pulse Oximetry 09/11/18 09/11/18 09/11/18 12:02 13:19 14:36 Temperature 98.3 F 96.2 F Pulse Rate 84 100 Respiratory 20 16 Rate Blood Pressure 148/99 156/98 (mmHg) O2 Sat by Pulse 97 99 Oximetry 09/11/18 09/11/18 14:45 14:59 Temperature Pulse Rate 89 Respiratory 16 Rate Blood Pressure 146/100 (mmHg) O2 Sat by Pulse 100 Oximetry Oxygen Devices in Use Now: Nasal Cannula Appearance: NAD Ears/Nose/Mouth/Throat: NL Teeth, Lips, Gums Respiratory: Symmetrical Chest Expansion and Respiratory Effort, Clear to Auscultation Cardiovascular: NL Sounds; No Murmurs; No JVD, RRR Neurological: Alert and Oriented x 3, - - can barely feel moderate pressure touch in medial calves b/l. still flailing arms with pronator drift. Nutrition: Taking PO's Result Diagrams: 09/09/18 02:59 09/11/18 04:58 Additional Lab and Data: Laboratory Results - last 24 hr 09/11/18 09/11/18 04:58 04:58 ESR 3 Sodium 137 Potassium 3.4 L Chloride 97 L Carbon Dioxide 35 H Anion Gap 5 BUN 6 Creatinine 0.41 L Est GFR ( Amer) 201.2 Est GFR (Non-Af Amer) 166.3 BUN/Creatinine Ratio 14.6 Glucose 89 Calcium 7.9 L Magnesium 1.7 L C-Reactive Protein 26.41 H Microbiology and Other Data: Microbiology 09/09/18 10:05 Sputum Expectorated Gram Stain - Final 09/09/18 20:02 Nasal Nasal Screen MRSA (PCR) - Final Mrsa Not Detected Assess/Plan/Problems-Billing 1. 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 NCS did not show any evidence of demyelinating neuropathy and normal F wave responses. It would be extremely unusual for her to have superimposed inflammatory neuropathy. The known low level of B1 and B6 in addition to the partial response to thiamine is diagnostic. We will closely monitor. 2. Degenerative disc disease of the L spine with multilevel spinal canal narrowing- neurosurgery recommends outpatient follow-up. 3. Elevated CRP- unclear etiology. The level was nearly normal few days ago. Unlikely to be vasculitic neuropathy given the diffuse onset of symptoms. Pending ESR. Recommendations: - Started gabapentin 300 mg twice daily. May increase the dose by 300 every 3 days until her pain improves. - Pending B1 level - Continue aggressive high dose thiamine supplementation via IV. - If symptoms progress, or she develops any respiratory insufficiency, then consider an LP to evaluate for elevated protein or infectious causes. She denied any shortness of breath. - Ordered ESR, copper, vitamin E, NAOMY, SSA-SSB, and Lyme - PT/OT evaluate and treat. She should get out of bed to chair 2-3 times a day. - Neuro checks every 4 hours. - Continue supportive care Time spent: 30 minutes of which >50% spent discussing counseling and education regarding the above mentioned diagnosis. Partial recovery may take up to 6 months. - Patient Problems (1) Thiamine deficiency neuropathy Current Visit: Yes Status: Acute Code(s): E51.11 - DRY KETTYI SNOMED Code(s): 09421402 Comment: she had low levels of thiamine 40 back in June. It was normal ( 127)back in Mar 2017 and while taking a multivitamin per Dr. Rondon's note, did not containe thiamine. Greatly appreicate assistance of Dr. Rondon of Neurology. Starting IV thiamine 500mg IV q8 for 3 days, then 250mg IV q12 for 2 days then 100mg po daily. There was a shortage here in the hospital (only 900mg total but Fred had 5000mg total that pharmacy will attempt to acquire. Vitamin B6 supplementation for low level of that. f/u level that was drawn prior to supplementation. b12 okay. There is neuropathic component of pain, starting gabapentin 300mg BID can uptitrate in coming days. She also has requested muscle relaxer as she feels tight. adding flexeril 5mg TID EMG done today. no evidence of inflammatory polyneuropathy. (2) Back pain Current Visit: Yes Status: Acute Code(s): M54.9 - DORSALGIA, UNSPECIFIED SNOMED Code(s): 321510037 Comment: oxycodone 5mg q4h prn. (3) Hypomagnesemia Current Visit: Yes Status: Acute Code(s): E83.42 - HYPOMAGNESEMIA SNOMED Code(s): 774263314 Comment: replete to >2. (4) Hypokalemia Current Visit: Yes Status: Acute Code(s): E87.6 - HYPOKALEMIA SNOMED Code( s): 47613703 Comment: Replete to >4 (5) Intestinal malabsorption following gastrectomy Current Visit: Yes Status: Acute Code(s): K91.2 - POSTSURGICAL MALABSORPTION , NOT ELSEWHERE CLASSIFIED; Z90.3 - ACQUIRED ABSENCE OF STOMACH [PART OF] SNOMED Code(s): 789214675 Comment: will need close follow-up with Dr. Leong as outpatient. Don't see that she followed up with him after the June discharge [facility]. Dr. Rondon has added Copper and vitamin E levels. (6) Nausea & vomiting Current Visit: Yes Status: Acute Code(s): R11.2 - NAUSEA WITH VOMITING, UNSPECIFIED SNOMED Code(s): 08153696 Comment: zofran prn. improved (7) Falls Current Visit: Yes Status: Acute Comment: f/u esteves spine MRI and MRI brain. PT f/u Neurosurgery recs. (8) Morbid obesity Current Visit: Yes Status: Acute Code(s): E66.01 - MORBID (SEVERE) OBESITY DUE TO EXCESS CALORIES SNOMED Code(s): 281131890 (9) DVT prophylaxis Current Visit: Yes Status: Acute Code(s): ZPY2471 - SNOMED Code(s): 248905728 Comment: heparin 5000 TID (10) LEONARD (obstructive sleep apnea) Current Visit: Yes Status: Acute Code(s): G47.33 - OBSTRUCTIVE SLEEP APNEA ( ADULT) (PEDIATRIC) SNOMED Code(s): 27367846 Comment: CPAP if aggreeable. (11) Anxiety and depression Current Visit: Yes Status: Acute Code(s): F41.9 - ANXIETY DISORDER, UNSPECIFIED; F32.9 - MAJOR DEPRESSIVE DISORDER, SINGLE EPISODE, UNSPECIFIED SNOMED Code(s): 54917673 (12) Abdominal pain Current Visit: Yes Status: Acute Code(s): R10.9 - UNSPECIFIED ABDOMINAL PAIN SNOMED Code(s): 31588595 Comment: continue protonix, carafate, pepcid. [facility] more spasming like pain, potentilally related to paraesthesias. continue senna cherelle and colace prn to miralax. last BM 2 days ago (13) Unable to ambulate Current Visit: Yes Status: Acute Code(s): R26.2 - DIFFICULTY IN WALKING, NOT ELSEWHERE CLASSIFIED SNOMED Code(s): 518288095 Comment: continue PT, may need Herb and likely will need SNF f/u Neurosurgery recs and MRIs replete vitamins as above. PMRU referral placed. Status and Disposition: medicine inpatient. will need IV thiamine for 5 total days (through Sunday AM). Likely will need SNF vs PMRU placement.
[2018-09-11] MEDS: Cyclobenzaprine TAB* 10 MG PO SCH ×2 (17:58→21:27)
[2018-09-12] MEDS: oxyCODONE TAB* 5 MG TAB PO PRN ×3 (05:48→20:03)
[2018-09-12] MEDS: Heparin VIAL(*) 5000 UNITS/ML VIAL (FIVE THOUSAND) SUBCUT SCH ×2 (05:49→13:37)
[2018-09-12] MEDS: Thiamine IV* 500 MG in NS 0.9% 250 ML* 250 ML IV SCH ×3 (05:49→22:48)
[2018-09-12 07:30] LABS: BUN/Creatinine Ratio 19.5 (8-20); Calcium 8.1 mg/dL (8.6-10.3); EGFR African American 201.2 (>60); EGFR Non-African American 166.3 (>60); Magnesium 1.8 mg/dL (1.9-2.7); Potassium 4.2 mmol/L (3.5-5.0)
[2018-09-12] MEDS: Pyridoxine TAB* 50 MG PO SCH (07:35)
[2018-09-12] MEDS: Polyethylene Glycol 3350* 17 GM PACKET PO PRN (07:35)
[2018-09-12] MEDS: Gabapentin CAP(*) 300 MG PO SCH ×2 (07:35→20:04)
[2018-09-12] MEDS: Sucralfate TAB* 1 GM PO SCH ×4 (07:36→20:04)
[2018-09-12] MEDS: Cyclobenzaprine TAB* 10 MG PO SCH ×2 (07:36→13:34)
[2018-09-12] MEDS: Senna TAB PO SCH (07:36)
[2018-09-12] MEDS: Famotidine TAB* 20 MG PO SCH ×2 (07:36→20:04)
[2018-09-12] MEDS: Docusate CAP* 100 MG PO PRN (07:36)
--- NOTE | 2018-09-12 11:42 | PN ---
Subjective Date of Service: 09/12/18 Length of Stay: 3 Days Neurology is following for neuropathy. Interval History: She is sleepy this morning. She has no shortness of breath. She feels the same with more control of the burning pain. She has no headache or visual disturbance. She is coughing this morning. She has yellow colored phlegm. She is afebrile. I reviewed the MRI of the brain. There is subtle non-specific T2 hyperintensity in the white matter with some changes along the medial part of the thalamus. This is not clearly seen though. Review of Systems: Denied CP, SOB, or palpitations. Objective Active Medications: Albuterol (Ventolin Hfa Inhaler*) 2 puff INH Q6H PRN PRN Reason: SOB/WHEEZING Cyclobenzaprine HCl (Flexeril Tab*) 5 mg PO TID [facility] Last Admin: 09/12/18 07:36 Dose: 5 mg Docusate Sodium (Colace Cap*) 100 mg PO BID PRN PRN Reason: CONSTIPATION Last Admin: 09/12/18 07:36 Dose: 100 mg Famotidine (Pepcid Tab*) 20 mg PO BID [facility]; Protocol Last Admin: 09/12/18 07:36 Dose: 20 mg Gabapentin (Neurontin Cap(*)) 300 mg PO BID [facility] Last Admin: 09/12/18 07:35 Dose: 300 mg Heparin Sodium (Porcine) (Heparin Vial(*)) 5,000 units SUBCUT Q8HR [facility] Last Admin: 09/12/18 05:49 Dose: 5,000 units Heparin Sodium (Porcine) (Heparin Flush Picc/Ml/Cvc(*)) 1 - 3 ml FLUSH 0600, 1800 [facility]; Protocol Last Admin: 09/12/18 07:06 Dose: 1 ml Thiamine HCl 500 mg/ Sodium (Chloride) 255 mls @ 255 mls/hr IV Q8HR [facility] Stop: 09/13/18 06:59 Last Admin: 09/12/18 05:49 Dose: 255 mls/hr Thiamine HCl 250 mg/ Sodium (Chloride) 102.5 mls @ 205 mls/hr IV Q12HR [facility] Stop: 09/15/18 09:29 Ketorolac Tromethamine (Toradol Inj*) 15 mg IV PUSH Q6H PRN PRN Reason: PAIN Last Admin: 09/11/18 08:35 Dose: 15 mg Ondansetron HCl (Zofran Odt Tab*) 4 mg PO Q3HR PRN PRN Reason: NAUSEA/VOMITING Oxycodone HCl (Roxycodone Tab*) 5 mg PO Q3H PRN PRN Reason: PAIN Last Admin: 09/12/18 05:48 Dose: 5 mg Polyethylene Glycol/Electrolytes (Miralax*) 17 gm PO DAILY PRN PRN Reason: CONSTIPATION Last Admin: 09/12/18 07:35 Dose: 17 gm Pyridoxine HCl (Vitamin B6 Tab*) 100 mg PO DAILY [facility] Last Admin: 09/12/18 07:35 Dose: 100 mg Senna (Senokot Tab*) 1 tab PO DAILY [facility] Last Admin: 09/12/18 07:36 Dose: 1 tab Sucralfate (Carafate*) 1 gm PO QID [facility] Last Admin: 09/12/18 07:36 Dose: 1 gm Vital Signs 09/12/18 09/12/18 09/12/18 08:00 08:20 11:14 Temperature 98.1 F 97.1 F Pulse Rate 85 96 Respiratory 16 20 24 Rate Blood Pressure 150/99 140/103 (mmHg) O2 Sat by Pulse 100 98 Oximetry Intake and Output Last 24 Hours 09/10/18 09/11/18 09/12/18 09/13/18 06:59 06:59 06:59 06:59 Intake Total 606 682 8702 330 Balance 110 544 9290 330 Weight 284 lb 9.6 oz 284 lb 9.6 oz Intake: IV Fluids 350 315 NS (0.9%) 60 IVPB 725 560 Thiamine 560 Oral 746 43 7826 330 Other: Estimated Void Medium Large # Bowel Movements 1 Estimated Stool Amount Large # Voids 1 0 1 Oxygen Devices in Use Now: None Neurology Exam: General: Well nourished, well developed, and in no acute distress HEENT: Normocephelic/atraumatic, sclera anicteric, mucous membranes moist Neck: Supple Chest: Clear to auscultation bilaterally Cardiovascular: Regular rate and rhythm without murmurs, rubs, gallops Extremities: No clubbing, cyanosis, or edema. No hammer toes or high arches \ Neurological Findings: Awake, alert, and oriented to person, place, and time. Speech: fluent without dysarthric, repetition intact Cranial Nerve: PERRL, EOM intact, no facial asymmetry. Mild end gaze horizontal nystagmus to the left. Motor: 2/5 bilateral lower extremity proximal weakness. She has 4-/5 strength in the distal lower extremity. In the upper extremity, she has 4-/5 to shoulder abduction, 4/5 elbow flexion and extension, 4/5 wrist flexion and extension, and 3/5 finger abduction bilaterally. Reduced tone throughout. Sensation: distal to proximal sensory gradient demarcated at the knees bilaterally. Absent vibration at the toes. Intact vibration at the medial malleolus. Reflexes: trace throughout, and absent at the lower extremities bilaterally. Coordination: sensory proprioception loss in space but overall she is able to do finger to nose bilaterally. Absent vibration at the toes. Gait: n/a Result Diagrams: 09/09/18 02:59 09/12/18 06:49 Additional Lab and Data: Laboratory Results - last 24 hr 09/11/18 09/11/18 04:58 04:58 ESR 3 Sodium 137 Potassium 3.4 L Chloride 97 L Carbon Dioxide 35 H Anion Gap 5 BUN 6 Creatinine 0.41 L Est GFR ( Amer) 201.2 Est GFR (Non-Af Amer) 166.3 BUN/Creatinine Ratio 14.6 Glucose 89 Calcium 7.9 L Magnesium 1.7 L C-Reactive Protein 26.41 H Microbiology and Other Data: Microbiology 09/09/18 10:05 Sputum Expectorated Gram Stain - Final 09/09/18 20:02 Nasal Nasal Screen MRSA (PCR) - Final Mrsa Not Detected Assessment/Plan 1. 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 NCS did not show any evidence of demyelinating neuropathy and normal F wave responses. It would be extremely unusual for her to have a superimposed inflammatory neuropathy. The known low level of B1 and B6 in additifon to the partial response to thiamine is diagnostic. We will closely monitor. She appears to have increase in weakness in the proximal lower extremity, but I suspect this could be due to being slightly drowsy and not providing full effort on examination. 2. Degenerative disc disease of the L spine with multilevel spinal canal narrowing- neurosurgery recommends outpatient follow-up. 3. Elevated CRP- unclear etiology. Normal ESR. The level was nearly normal few days ago. Unlikely, to be vasculitic neuropathy given the diffuse onset of symptoms. Recommendations: - Continue gabapentin 300 mg twice daily. She seems more drowsy since starting gabapentin so I don't recommend increasing the dose. - Pending B1, vitamin E, NAOMY, SSA-SSB, and Lyme - Continue aggressive high dose thiamine supplementation via IV. After finishing the high dose thiamine, continue her on 100 mg PO daily. - If symptoms progress, or she develops any respiratory symptoms, then consider an LP to evaluate for elevated protein or infectious causes. She denied any shortness of breath at this time. Ordered NIF and FVC testing x 1 today to get a baseline. - PT/OT evaluate and treat. She should get out of bed to chair 2-3 times a day. - Neuro checks every 4 hours. - Continue supportive care Dr. Zamora will be covering the neurology service tomorrow. I will kindly ask him to see the patient and provide any further recommendations.
--- NOTE | 2018-09-12 16:03 | PN ---
Subjective Date of Service: 09/12/18 Interval History: Reports weakness "all over" but most pronounced in the legs, and she is still unable to walk. Also reports numbness everywhere but worse over fingers, buttocks, and legs. States that symptoms are always the worst upon wakening but begin to improve after bathing and moving around in the AM. Still with productive cough from "cold air" - denies fevers, dyspnea, chest pain. Objective Active Medications: Albuterol (Ventolin Hfa Inhaler*) 2 puff INH Q6H PRN PRN Reason: SOB/WHEEZING Enoxaparin Sodium (Lovenox(*)) 40 mg SUBCUT Q24H [facility] Famotidine (Pepcid Tab*) 20 mg PO BID [facility]; Protocol Last Admin: 09/12/18 07:36 Dose: 20 mg Gabapentin (Neurontin Cap(*)) 300 mg PO BID [facility] Last Admin: 09/12/18 07:35 Dose: 300 mg Thiamine HCl 500 mg/ Sodium (Chloride) 255 mls @ 255 mls/hr IV Q8HR [facility] Stop: 09/13/18 06:59 Last Admin: 09/12/18 13:34 Dose: 255 mls/hr Thiamine HCl 250 mg/ Sodium (Chloride) 102.5 mls @ 205 mls/hr IV Q12HR [facility] Stop: 09/15/18 09:29 Ketorolac Tromethamine (Toradol Inj*) 15 mg IV PUSH Q6H PRN PRN Reason: PAIN Last Admin: 09/11/18 08:35 Dose: 15 mg Ondansetron HCl (Zofran Odt Tab*) 4 mg PO Q6HR [facility] Oxycodone HCl (Roxycodone Tab*) 5 mg PO Q6H PRN PRN Reason: PAIN Polyethylene Glycol/Electrolytes (Miralax*) 17 gm PO DAILY PRN PRN Reason: CONSTIPATION Last Admin: 09/12/18 07:35 Dose: 17 gm Pyridoxine HCl (Vitamin B6 Tab*) 100 mg PO DAILY [facility] Last Admin: 09/12/18 07:35 Dose: 100 mg Senna (Senokot Tab*) 1 tab PO DAILY [facility] Last Admin: 09/12/18 07:36 Dose: 1 tab Sucralfate (Carafate*) 1 gm PO QID [facility] Last Admin: 09/12/18 13:35 Dose: 1 gm Vital Signs - 8 hr 09/12/18 09/12/18 09/12/18 08:00 08:20 09:30 Temperature 98.1 F Pulse Rate 85 Respiratory 16 20 16 Rate Blood Pressure 150/99 (mmHg) O2 Sat by Pulse 100 Oximetry 09/12/18 09/12/18 09/12/18 11:14 13:32 13:34 Temperature 97.1 F Pulse Rate 96 97 Respiratory 24 16 16 Rate Blood Pressure 140/103 147/100 (mmHg) O2 Sat by Pulse 98 100 Oximetry 09/12/18 13:35 Temperature Pulse Rate Respiratory 16 Rate Blood Pressure (mmHg) O2 Sat by Pulse Oximetry Oxygen Devices in Use Now: None Appearance: well appearing, reclining in bed, speaking in full sentences Ears/Nose/Mouth/Throat: Mucous Membranes Moist Neck: No Thyroid Enlargement, Masses Respiratory: Symmetrical Chest Expansion and Respiratory Effort, Clear to Auscultation Cardiovascular: NL Sounds; No Murmurs; No JVD, RRR Abdominal: NL Sounds; No Tenderness; No Distention Extremities: No Edema Neurological: Alert and Oriented x 3 - ankle flex/ex 2/5 b/l; LE hip flexion 1/ 5 b/l; elbow flex/ex 3/5 b/l Result Diagrams: 09/09/18 02:59 09/12/18 06:49 Assess/Plan/Problems-Billing Ms. Gabriel is a 48 year old woman with obesity s/p sleeve gastrectomy 12/2017 c /b recurrent nausea/vomiting and possibly pyloric stenosis?, LEONARD on CPAP, anxiety/depression, asthma, knee OA b/l, who presented with weakness, numbness, and inability to ambulate in the context of B1 deficiency and electrolyte abnormalities. - Patient Problems (1) Thiamine deficiency neuropathy Comment: Low levels of thiamine (40) back in June after DC outpatient vitamin. EMG without no evidence of inflammatory polyneuropathy. - appreicate assistance of Dr. Rondon of Neurology - continue IV thiamine 500mg IV q8 for 3 days total, then 250mg IV q12 for 2 days (finish 3/10 AM) then 100mg po daily - Vitamin B6 supplementation for low level as outpatient, level here pending ( drawn prior to supplementation) - cont gabapentin 300mg bid for neuropathic component of pain (chronic back pain ) - STOP STANDING CYCLOBENZAPRINE - could be contributing to weakness and drowsiness - Pending B1, vitamin E, NAOMY, copper, and Lyme - If symptoms progress, or she develops any respiratory symptoms, then consider an LP to evaluate for elevated protein or infectious causes. She denied any shortness of breath at this time. F/u NIF and FVC testing to get a baseline. - PT/OT evaluate and treat. She should get out of bed to chair 2-3 times a day. (2) Unable to ambulate Comment: - continue PT, may need Herb and likely will need SNF - replete vitamins as above. - PMRU referral placed. (3) Abdominal pain Current Visit: Yes Status: Acute Code(s): R10.9 - UNSPECIFIED ABDOMINAL PAIN SNOMED Code(s): 50138098 Comment: continue protonix, carafate, pepcid. try to get records from [place] [facility] last week. more spasming like pain, potentilally related to paraesthesias. continue senna / miralax (4) Hypokalemia Current Visit: Yes Comment: monitor BMP and replete K to >4 (5) Hypomagnesemia Current Visit: Yes Comment: replete to >2. (6) Intestinal malabsorption following gastrectomy Comment: - will need close follow-up with Dr. Leong as outpatient - Copper and vitamin E levels. (7) Morbid obesity Current Visit: Yes Comment: s/p sleeve gastrectomy, cont diet/exercise (8) Nausea & vomiting Current Visit: Yes Status: Acute Comment: largely resolve, can cont ondansetron prn (9) LEONARD (obstructive sleep apnea) Current Visit: Yes Comment: daughter brought in CPAP machine (10) DVT prophylaxis Current Visit: Yes Comment: switch to Lovenox daily Status and Disposition: medicine inpatient. will need IV thiamine for 5 total days (through 3/10 AM). Likely will need SNF vs PMRU placement given motor deficits.
[2018-09-12 16:25] LABS: Anti SSA/RO Antibody <0.2 U; SS-B/La Antibody 0.8 U
[2018-09-12] MEDS ORDERED: Ondansetron ODT TAB* 4 MG PO PRN (16:27)
[2018-09-12] MEDS ORDERED: Magnesium Sulfate 2 GM IV* 2 GM/50 ML BAG IVPB ONE (16:39)
[2018-09-12] MEDS ORDERED: Ondansetron ODT TAB* 4 MG PO SCH (18:00)
[2018-09-12 18:19] LABS: Copper Level 1.06 mcg/mL (0.75-1.45)
[2018-09-12] MEDS ORDERED: NS 0.9% 250 ML* 250 ML ONE (19:55)
[2018-09-12] MEDS: Enoxaparin(*) 40 MG/0.4 ML SYR SUBCUT SCH (20:03)
[2018-09-13] MEDS: oxyCODONE TAB* 5 MG TAB PO PRN ×4 (02:56→21:54)
[2018-09-13] MEDS: Thiamine IV* 500 MG in NS 0.9% 250 ML* 250 ML IV SCH (05:31)
[2018-09-13 07:34] LABS: BUN/Creatinine Ratio 19.1 (8-20); Calcium 8.1 mg/dL (8.6-10.3); EGFR African American 171.9 (>60); Magnesium 1.8 mg/dL (1.9-2.7); Potassium 4.3 mmol/L (3.5-5.0)
[2018-09-13] MEDS ORDERED: Magnesium Sulfate 2 GM IV* 2 GM/50 ML BAG IVPB ONE (08:17)
[2018-09-13] MEDS: Pyridoxine TAB* 50 MG PO SCH (09:06)
[2018-09-13] MEDS: Sucralfate TAB* 1 GM PO SCH ×4 (09:06→20:53)
[2018-09-13] MEDS: Famotidine TAB* 20 MG PO SCH ×2 (09:07→20:52)
[2018-09-13] MEDS: Senna TAB PO SCH (09:07)
[2018-09-13] MEDS: Calcium/Vitamin D TAB 250/125* TAB PO SCH ×2 (09:07→20:53)
[2018-09-13] MEDS: Gabapentin CAP(*) 300 MG PO SCH ×2 (09:08→20:53)
[2018-09-13] MEDS: Ketorolac INJ* 15 MG/ML 1 ML VIAL IV PUSH PRN ×3 (09:14→21:54)
[2018-09-13] MEDS ORDERED: Polyethylene Glycol 3350* 17 GM PACKET PO PRN (12:30)
[2018-09-13] MEDS ORDERED: Glycerin ADULT SUPP PR ONE (12:32)
--- NOTE | 2018-09-13 12:42 | PN ---
Subjective Interval History: Pt reports few small hard stools this AM and requests more laxatives - states she hasn't had a BM since before admission (although 1 "large" documented yesterday). Reports that she is surprised that she hasn't had to vomit in days - this makes her happy. Cough improved. Refuses to have IV placed or mid-line used for further IV vitamins - thinks they are painful to her muscles. Objective Active Medications: Albuterol (Ventolin Hfa Inhaler*) 2 puff INH Q6H PRN PRN Reason: SOB/WHEEZING Calcium/Vitamin D (Oscal D Tab 250/125*) 1 tab PO BID [facility] Last Admin: 09/13/18 09:07 Dose: 1 tab Enoxaparin Sodium (Lovenox(*)) 40 mg SUBCUT Q24H [facility] Last Admin: 09/12/18 20:03 Dose: 40 mg Famotidine (Pepcid Tab*) 20 mg PO BID [facility]; Protocol Last Admin: 09/13/18 09:07 Dose: 20 mg Gabapentin (Neurontin Cap(*)) 300 mg PO BID [facility] Last Admin: 09/13/18 09:08 Dose: 300 mg Guaifenesin/Dextromethorphan (Robitussin Dm Sugar Free*) 10 ml PO Q6H PRN PRN Reason: COUGH Ketorolac Tromethamine (Toradol Inj*) 15 mg IV PUSH Q6H PRN PRN Reason: PAIN Last Admin: 09/13/18 09:14 Dose: 15 mg Magnesium Oxide (Magox 400 Tab*) 800 mg PO DAILY [facility] Ondansetron HCl (Zofran Odt Tab*) 4 mg PO Q6HR PRN PRN Reason: NAUSEA Oxycodone HCl (Roxycodone Tab*) 5 mg PO Q6H PRN PRN Reason: PAIN Last Admin: 09/13/18 09:08 Dose: 5 mg Polyethylene Glycol/Electrolytes (Miralax*) 17 gm PO BID PRN PRN Reason: CONSTIPATION Pyridoxine HCl (Vitamin B6 Tab*) 100 mg PO DAILY [facility] Last Admin: 09/13/18 09:06 Dose: 100 mg Senna (Senokot Tab*) 1 tab PO DAILY [facility] Last Admin: 09/13/18 09:07 Dose: 1 tab Sucralfate (Carafate*) 1 gm PO QID [facility] Last Admin: 09/13/18 09:06 Dose: 1 gm Thiamine HCl (Vitamin B-1 Tab*) 100 mg PO DAILY [facility] Vital Signs - 8 hr 09/13/18 09/13/18 09/13/18 05:30 05:34 09:08 Temperature 98.6 F Pulse Rate 104 Respiratory 18 18 20 Rate Blood Pressure 120/87 (mmHg) O2 Sat by Pulse 86 Oximetry 09/13/18 09/13/18 09:16 11:30 Temperature 98.3 F Pulse Rate 95 98 Respiratory 18 Rate Blood Pressure 145/89 (mmHg) O2 Sat by Pulse 96 94 Oximetry Oxygen Devices in Use Now: None Appearance: well appearing reclined in chair Ears/Nose/Mouth/Throat: Mucous Membranes Moist Neck: No Thyroid Enlargement, Masses Respiratory: Clear to Auscultation Cardiovascular: NL Sounds; No Murmurs; No JVD, RRR Abdominal: NL Sounds; No Tenderness; No Distention - obese Extremities: No Edema Neurological: Alert and Oriented x 3 - 3/5 strength in LEs, 4/5 in UEs b/l Result Diagrams: 09/09/18 02:59 09/13/18 06:54 Additional Lab and Data: Laboratory Results - last 24 hr Assess/Plan/Problems-Billing Ms. Gabriel is a 48 year old woman with obesity s/p sleeve gastrectomy 12/2017 c /b recurrent nausea/vomiting and possibly pyloric stenosis resulting in micronutrient deficiencies, LEONARD on CPAP, anxiety/depression, asthma, knee OA b/l , who presented with weakness, numbness, and inability to ambulate in the context of B1 deficiency and electrolyte abnormalities. - Patient Problems (1) Thiamine deficiency neuropathy Comment: Low levels of thiamine (40) back in June after stopping outpatient oral supplements - level pending here. EMG without evidence of inflammatory polyneuropathy. - appreicate assistance of Dr. Rondon of Neurology - pt refusing IV thiamine and understands risks of doing so, will switch to PO 100mg bid (received thiamine 500mg IV for 7 doses) - Vitamin B6 supplementation for low level as outpatient - cont gabapentin 300mg bid for neuropathic component of pain (chronic back pain ) - If symptoms progress, or she develops any respiratory symptoms, then consider an LP to evaluate for elevated protein or infectious causes. She denied any shortness of breath at this time. F/u NIF and FVC testing to get a baseline. (2) Unable to ambulate Comment: - continue PT, vitamin supplementation - PMRU referral placed. (3) Abdominal pain Current Visit: Yes Status: Acute Code(s): R10.9 - UNSPECIFIED ABDOMINAL PAIN SNOMED Code(s): 46657675 Comment: - continue PPI, carafate, famotidine - cont bowel regimen - glycerine supp today for hard stools (4) Intestinal malabsorption following gastrectomy Comment: Vitamin B12 and copper normal. - will need close follow-up with Dr. Leong as outpatient - vitamin E level and B1 level pending - cont to supplement with Vit D, Ca, and Mg (5) Hypokalemia Current Visit: Yes Comment: Likely from poor PO and frequent vomiting since bariatric surgery. - monitor BMP and replete K to >4 (6) Morbid obesity Current Visit: Yes Comment: s/p sleeve gastrectomy, cont diet/exercise (7) Nausea & vomiting Current Visit: Yes Status: Acute Comment: largely resolved, can cont ondansetron prn (8) LEONARD (obstructive sleep apnea) Current Visit: Yes Comment: encourage nightly CPAP - poor adherence (9) DVT prophylaxis Current Visit: Yes Comment: Lovenox daily Status and Disposition: Medicine inpatient. No longer in IV medications - to rehab when accepted.
[2018-09-13] MEDS ORDERED: Magnesium Oxide TAB* 400 MG PO SCH (13:00)
[2018-09-13] MEDS ORDERED: Thiamine TAB* 100 MG TAB PO SCH (13:00)
--- NOTE | 2018-09-13 20:35 | CONS ---
CC: Dr. Leong * NEUROLOGY CONSULTATION FOLLOWUP: DATE OF FOLLOWUP: 09/13/18 HOSPITALIST: Dr. Parikh. LOCATION: She is an inpatient, 410. CHIEF COMPLAINT: Numbness and pain. INTERVAL HISTORY: Since yesterday, Ally notes some improvement in that she can lift her legs up. She still has a lot of pain in her feet and legs and her hands. She does not have any complaints about her vision. MEDICATIONS: Reviewed and she is on: 1. Thiamine 100 mg p.o. q. day, she refused IV thiamine. 2. Sucralfate 1 g p.o. q.i.d. 3. Pyridoxine 100 mg p.o. q. day. 4. Oxycodone 5 mg p.o. q.6 hours p.r.n. 5. Magnesium oxide 800 mg p.o. q. day. 6. Gabapentin 300 mg p.o. b.i.d. 7. Lovenox 40 mg subcu q.24 hours. 8. Pepcid 20 mg p.o. b.i.d. PHYSICAL EXAMINATION: She is obese. Temperature 98.6, blood pressure 129/87, heart rate 98 and regular. Respiratory rate is 16 and oxygen saturation is 95% on room air. Neurological Exam: Eye movements are a little bit saccadic, but is full and no nystagmus. Facial musculature is strong and speech is clear. Fine motor exam: She has resistive strength proximally and distally in the upper extremities. She has trace biceps reflexes, but I cannot get any other reflexes. She seems to have pseudoathetosis in the upper extremities and also some dysmetria on finger-to- nose maneuver bilaterally. Fairly inconsistent, however. She is alert but has a poor understanding of her syndrome. She talks about her hernia and some other issues and indicates that she was not aware that she was supposed to take vitamins. IMPRESSION: Wernicke's syndrome, which is resolving. She really should be on parenteral vitamins, but it looks like she did get at least five bags of 500 mg dose. I have put in orders to recheck her thiamine and vitamin B6 levels. Dr. Rondon will be back on service tomorrow. [id number]/[facility] #: [id number] [facility]
[2018-09-13] MEDS: Cyclobenzaprine TAB* 10 MG PO PRN (20:52)
[2018-09-13] MEDS: Enoxaparin(*) 40 MG/0.4 ML SYR SUBCUT SCH (20:52)
[2018-09-13] MEDS ORDERED: Thiamine IV* 250 MG in NS 0.9% 100 ML* 100 ML IV SCH (21:00)
[2018-09-14 00:21] LABS: Vitamin E 11.4 mg/L (5.5 - 17.0)
[2018-09-14] MEDS: oxyCODONE TAB* 5 MG TAB PO PRN ×3 (06:01→21:07)
[2018-09-14] MEDS: Ketorolac INJ* 15 MG/ML 1 ML VIAL IV PUSH PRN ×3 (06:01→21:08)
[2018-09-14 08:27] LABS: BUN/Creatinine Ratio 18.4 (8-20); Calcium 7.9 mg/dL (8.6-10.3); EGFR African American 163.8 (>60); EGFR Non-African American 135.4 (>60); Magnesium 1.6 mg/dL (1.9-2.7); Potassium 4.1 mmol/L (3.5-5.0)
[2018-09-14] MEDS: Gabapentin CAP(*) 300 MG PO SCH ×3 (09:16→21:08)
[2018-09-14] MEDS: Calcium/Vitamin D TAB 250/125* TAB PO SCH ×2 (09:16→21:07)
[2018-09-14] MEDS: Famotidine TAB* 20 MG PO SCH ×2 (09:17→21:07)
[2018-09-14] MEDS: Sucralfate TAB* 1 GM PO SCH ×4 (09:17→21:07)
[2018-09-14] MEDS: Senna TAB PO SCH (09:17)
[2018-09-14] MEDS: Cyclobenzaprine TAB* 10 MG PO PRN ×2 (09:17→17:41)
[2018-09-14] MEDS: Pyridoxine TAB* 50 MG PO SCH (09:18)
[2018-09-14] MEDS: Magnesium Oxide TAB* 400 MG PO SCH ×2 (11:53→21:07)
[2018-09-14] MEDS: Thiamine TAB* 100 MG TAB PO SCH ×2 (11:53→21:08)
--- NOTE | 2018-09-14 12:47 | PN ---
Subjective Date of Service: 09/14/18 Length of Stay: 5 Days Neurology is following for polyneuropathy. Interval History: Ms. Gabriel numbness and burning presentation persists in the hands. She is wearing a black glove to minimize the symptoms. She still has significant proximal lower extremity weakness. She had trouble standing today. Repeat thiamine level 31 (L). Review of Systems: Denied CP, SOB, or palpitations. Objective Active Medications: Albuterol (Ventolin Hfa Inhaler*) 2 puff INH Q6H PRN PRN Reason: SOB/WHEEZING Calcium/Vitamin D (Oscal D Tab 250/125*) 1 tab PO BID [facility] Last Admin: 09/14/18 09:16 Dose: 1 tab Cyclobenzaprine HCl (Flexeril Tab*) 10 mg PO TID PRN PRN Reason: SPASMS Last Admin: 09/14/18 09:17 Dose: 10 mg Enoxaparin Sodium (Lovenox(*)) 40 mg SUBCUT Q24H [facility] Last Admin: 09/13/18 20:52 Dose: 40 mg Famotidine (Pepcid Tab*) 20 mg PO BID [facility]; Protocol Last Admin: 09/14/18 09:17 Dose: 20 mg Gabapentin (Neurontin Cap(*)) 300 mg PO BID [facility] Last Admin: 09/14/18 09:16 Dose: 300 mg Guaifenesin/Dextromethorphan (Robitussin Dm Sugar Free*) 10 ml PO Q6H PRN PRN Reason: COUGH Ketorolac Tromethamine (Toradol Inj*) 15 mg IV PUSH Q6H PRN PRN Reason: PAIN Last Admin: 09/14/18 06:01 Dose: 15 mg Magnesium Oxide (Magox 400 Tab*) 800 mg PO BID [facility] Last Admin: 09/14/18 11:53 Dose: 800 mg Ondansetron HCl (Zofran Odt Tab*) 4 mg PO Q6HR PRN PRN Reason: NAUSEA Oxycodone HCl (Roxycodone Tab*) 5 mg PO Q6H PRN PRN Reason: PAIN Last Admin: 09/14/18 12:01 Dose: 5 mg Polyethylene Glycol/Electrolytes (Miralax*) 17 gm PO BID PRN PRN Reason: CONSTIPATION Pyridoxine HCl (Vitamin B6 Tab*) 100 mg PO DAILY [facility] Last Admin: 09/14/18 09:18 Dose: 100 mg Senna (Senokot Tab*) 1 tab PO DAILY [facility] Last Admin: 09/14/18 09:17 Dose: 1 tab Sucralfate (Carafate*) 1 gm PO QID [facility] Last Admin: 09/14/18 09:17 Dose: 1 gm Thiamine HCl (Vitamin B-1 Tab*) 100 mg PO BID [facility] Last Admin: 09/14/18 11:53 Dose: 100 mg Vital Signs 09/14/18 09/14/18 09/14/18 08:00 08:03 09:16 Temperature Pulse Rate Respiratory 20 20 20 Rate Blood Pressure (mmHg) O2 Sat by Pulse Oximetry 09/14/18 09/14/18 09/14/18 09:17 12:01 12:17 Temperature 98.2 F Pulse Rate 96 Respiratory 20 20 18 Rate Blood Pressure 140/99 (mmHg) O2 Sat by Pulse 100 Oximetry Intake and Output Last 24 Hours 09/12/18 09/13/18 09/14/18 09/15/18 06:59 06:59 06:59 07:59 Intake Total 2425 1610 1380 240 Output Total 200 Balance 2425 1610 1180 240 Intake: IV Fluids 315 NS (0.9%) 60 IVPB 560 Thiamine 560 Oral 1550 1610 1380 240 Output: Urine 200 Other: Estimated Void Large Medium Large Date of Last Bowel [id number] Movement # Bowel Movements 1 0 Estimated Stool Amount Large Small # Voids 1 3 1 Oxygen Devices in Use Now: None Neurology Exam: General: Well nourished, well developed, obese female in no acute distress. HEENT: Normocephelic/atraumatic, sclera anicteric, mucous membranes moist Neck: Supple Chest: Clear to auscultation bilaterally Cardiovascular: Regular rate and rhythm without murmurs, rubs, gallops Extremities: No clubbing, cyanosis, or edema Neurological Findings: Awake, alert, and oriented to person, place, and time. Speech: fluent without dysarthric, repetition intact Cranial Nerve: PERRL, EOM intact, no facial asymmetry. No nystagmus. Motor: 3-/5 bilateral lower extremity proximal weakness. She has 4/5 strength in the distal lower extremity, 3/5 finger abduction, 4/5 wrist flexion and extension bilaterally. Reduced tone throughout. Sensation: distal to proximal sensory gradient demarcated at the knees bilaterally. Reflexes: trace throughout, and absent at the lower extremities bilaterally. Coordination: sensory proprioception loss in space but overall she is able to do finger to nose bilaterally. Absent vibration at the toes. Gait: n/a Result Diagrams: 09/09/18 02:59 09/14/18 07:38 Additional Lab and Data: Assessment/Plan 1. Nutritional, painful, polyneuropathy due to vitamin B1 deficiency-Continue thiamine 100 mg and pyridoxine 100 mg daily. Increased gabapentin to 300 mg three times daily. May continue to increase gabapentin every 2 days until a maintenance dose of 600 mg three times daily, or the patient's painful paresthesia improves. Follow-up with neurology as an outpatient in 4-6 weeks. We will arrange an appointment. She will benefit from short term rehabilitation. 2. Degenerative disc disease of the L spine with multilevel spinal canal narrowing- neurosurgery recommends outpatient follow-up. I will sign off but please contact us for any questions or concerns.
--- NOTE | 2018-09-14 19:01 | PN ---
Subjective Interval History: Feeling stronger. Cough improved. Thiamine (taken on admission) resulted 31 -> neurology ok with patient on PO supplement now. Started on muscle relaxants overnight - will again DC. Not only are they not indicated for her complaint, but she continues to have muscle weakness and fatigue, which are know and common side effects of cyclobenzeprine. Objective Active Medications: Albuterol (Ventolin Hfa Inhaler*) 2 puff INH Q6H PRN PRN Reason: SOB/WHEEZING Calcium/Vitamin D (Oscal D Tab 250/125*) 1 tab PO BID [facility] Last Admin: 09/14/18 09:16 Dose: 1 tab Enoxaparin Sodium (Lovenox(*)) 40 mg SUBCUT Q24H [facility] Last Admin: 09/13/18 20:52 Dose: 40 mg Famotidine (Pepcid Tab*) 20 mg PO BID [facility]; Protocol Last Admin: 09/14/18 09:17 Dose: 20 mg Gabapentin (Neurontin Cap(*)) 300 mg PO TID [facility] Last Admin: 09/14/18 13:21 Dose: 300 mg Guaifenesin/Dextromethorphan (Robitussin Dm Sugar Free*) 10 ml PO Q6H PRN PRN Reason: COUGH Ketorolac Tromethamine (Toradol Inj*) 15 mg IV PUSH Q6H PRN PRN Reason: PAIN Last Admin: 09/14/18 15:38 Dose: 15 mg Magnesium Oxide (Magox 400 Tab*) 800 mg PO BID [facility] Last Admin: 09/14/18 11:53 Dose: 800 mg Ondansetron HCl (Zofran Odt Tab*) 4 mg PO Q6HR PRN PRN Reason: NAUSEA Oxycodone HCl (Roxycodone Tab*) 5 mg PO Q6H PRN PRN Reason: PAIN Last Admin: 09/14/18 12:01 Dose: 5 mg Polyethylene Glycol/Electrolytes (Miralax*) 17 gm PO BID PRN PRN Reason: CONSTIPATION Pyridoxine HCl (Vitamin B6 Tab*) 100 mg PO DAILY [facility] Last Admin: 09/14/18 09:18 Dose: 100 mg Senna (Senokot Tab*) 1 tab PO DAILY [facility] Last Admin: 09/14/18 09:17 Dose: 1 tab Sucralfate (Carafate*) 1 gm PO QID [facility] Last Admin: 09/14/18 17:41 Dose: 1 gm Thiamine HCl (Vitamin B-1 Tab*) 100 mg PO BID [facility] Last Admin: 09/14/18 11:53 Dose: 100 mg Vital Signs - 8 hr 09/14/18 09/14/18 09/14/18 11:30 12:01 12:17 Temperature 98.2 F Pulse Rate 96 Respiratory 20 20 18 Rate Blood Pressure 140/99 (mmHg) O2 Sat by Pulse 100 Oximetry 09/14/18 09/14/18 09/14/18 13:06 13:21 14:00 Temperature Pulse Rate Respiratory 20 20 20 Rate Blood Pressure (mmHg) O2 Sat by Pulse Oximetry 09/14/18 09/14/18 09/14/18 15:25 16:12 17:41 Temperature 98 F Pulse Rate 98 Respiratory 20 20 20 Rate Blood Pressure 151/81 (mmHg) O2 Sat by Pulse 91 Oximetry Oxygen Devices in Use Now: None Appearance: comfortable, NAD, reclining in chair Ears/Nose/Mouth/Throat: Mucous Membranes Moist Respiratory: Clear to Auscultation Abdominal: NL Sounds; No Tenderness; No Distention Extremities: No Edema Neurological: - - 3-4/5 strength bilateral LE, 3/5 finger abduction, 4/5 wrist flexion/extension bl; [id number] intact Result Diagrams: 09/09/18 02:59 09/14/18 07:38 Additional Lab and Data: Microbiology and Other Data: Microbiology 09/09/18 10:05 Sputum Expectorated Gram Stain - Final 09/09/18 20:02 Nasal Nasal Screen MRSA (PCR) - Final Mrsa Not Detected Assess/Plan/Problems-Billing Ms. Gabriel is a 48 year old woman with obesity s/p sleeve gastrectomy 12/2017 c /b recurrent nausea/vomiting and possibly pyloric stenosis resulting in micronutrient deficiencies, LEONARD on CPAP, anxiety/depression, asthma, knee OA b/l , who presented with weakness, numbness, and inability to ambulate in the context of B1 deficiency and electrolyte abnormalities. - Patient Problems (1) Thiamine deficiency neuropathy Comment: Thiamine level very low. EMG without evidence of inflammatory polyneuropathy. - appreicate assistance of Dr. Rondon of Neurology - now signed off an recommending GILMAR and f/u in Neuro clinic in 4-6 weeks - cont thiamine PO 100mg bid (received thiamine 500mg IV for 7 doses) - Vitamin B6 supplementation for low level as outpatient - cont gabapentin 300mg tid for neuropathic component of pain (chronic back pain ) - If symptoms progress, or she develops any respiratory symptoms, then consider an LP to evaluate for elevated protein or infectious causes. She denied any shortness of breath at this time. F/u NIF and FVC testing to get a baseline. (2) Unable to ambulate Comment: - continue PT, vitamin supplementation - PMRU referral placed. (3) Abdominal pain Comment: h/o possible pyloric stenosis after bariatric surgery? Nausea/vomiting resolved during admission. - continue PPI, carafate, famotidine - cont bowel regimen (4) Intestinal malabsorption following gastrectomy Comment: Vitamin B12 and copper normal. - will need close follow-up with Dr. Leong as outpatient - cont to supplement with Vit D, Ca, and Mg (5) Hypokalemia Comment: Likely from poor PO and frequent vomiting since bariatric surgery. - monitor BMP and replete K to >4 (6) Morbid obesity Comment: s/p sleeve gastrectomy, cont diet/exercise (7) LEONARD (obstructive sleep apnea) Comment: encourage nightly CPAP - poor adherence (8) DVT prophylaxis Comment: Lovenox daily Status and Disposition: Medicine inpatient. No longer in IV medications - to rehab when accepted. F/u in Neuro clinic.
[2018-09-14] MEDS: GuaiFENesin DM sugar free* 5 ML UDC PO PRN (21:06)
[2018-09-14] MEDS: Enoxaparin(*) 40 MG/0.4 ML SYR SUBCUT SCH (23:00)
[2018-09-15] MEDS: Ketorolac INJ* 15 MG/ML 1 ML VIAL IV PUSH PRN ×3 (05:43→22:19)
[2018-09-15] MEDS: Gabapentin CAP(*) 300 MG PO SCH (08:03)
[2018-09-15] MEDS: Senna TAB PO SCH (08:04)
[2018-09-15] MEDS: Magnesium Oxide TAB* 400 MG PO SCH ×2 (08:04→20:00)
[2018-09-15] MEDS: Calcium/Vitamin D TAB 250/125* TAB PO SCH ×2 (08:05→20:01)
[2018-09-15] MEDS: Sucralfate TAB* 1 GM PO SCH ×4 (08:05→20:01)
[2018-09-15] MEDS: Thiamine TAB* 100 MG TAB PO SCH ×2 (08:05→20:01)
[2018-09-15] MEDS: Famotidine TAB* 20 MG PO SCH ×2 (08:06→20:00)
[2018-09-15] MEDS: GuaiFENesin DM sugar free* 5 ML UDC PO PRN (08:08)
[2018-09-15] MEDS: Pyridoxine TAB* 50 MG PO SCH (08:10)
[2018-09-15 09:35] LABS: BUN/Creatinine Ratio 15.2 (8-20); Calcium 8.3 mg/dL (8.6-10.3); EGFR African American 176.2 (>60); EGFR Non-African American 145.6 (>60); Magnesium 1.6 mg/dL (1.9-2.7); Potassium 4.2 mmol/L (3.5-5.0)
--- NOTE | 2018-09-15 11:20 | PN ---
Subjective Date of Service: 09/15/18 Interval History: HD#5 on 09/15 48 year old woman with obesity s/p sleeve gastrectomy 12/2017 c/b recurrent nausea/vomiting and possibly pyloric stenosis resulting in micronutrient deficiencies, Overnight no acute events, VSS, good UOP and +BM in last 24 hours. Labs reviewed, stable chronic hypomag This morning seen at bedside with her daughter. Pt is up in chair and is tearful at time of interview from being overwhelmed but overall positive about getting treated, and having some relief of her dizziness. still has c/o blt hand parasthesias, worse in UE > LE. Also c/o some incontinence, 2/2 not being able to mobilize quickly. We discuss rehabilitation is the next step. Tolerating diet with minimal pain, though not ambulating at all. No CP, resp complaints. GI and MSK as per prior. Being evaluated for PMRU Objective Active Medications: Albuterol (Ventolin Hfa Inhaler*) 2 puff INH Q6H PRN PRN Reason: SOB/WHEEZING Calcium/Vitamin D (Oscal D Tab 250/125*) 1 tab PO BID [facility] Last Admin: 09/15/18 08:05 Dose: 1 tab Enoxaparin Sodium (Lovenox(*)) 40 mg SUBCUT Q24H [facility] Last Admin: 09/14/18 23:00 Dose: 40 mg Famotidine (Pepcid Tab*) 20 mg PO BID [facility]; Protocol Last Admin: 09/15/18 08:06 Dose: 20 mg Gabapentin (Neurontin Cap(*)) 300 mg PO TID [facility] Last Admin: 09/15/18 08:03 Dose: 300 mg Guaifenesin/Dextromethorphan (Robitussin Dm Sugar Free*) 10 ml PO Q6H PRN PRN Reason: COUGH Last Admin: 09/15/18 08:08 Dose: 10 ml Ketorolac Tromethamine (Toradol Inj*) 15 mg IV PUSH Q6H PRN PRN Reason: PAIN Last Admin: 09/15/18 05:43 Dose: 15 mg Magnesium Oxide (Magox 400 Tab*) 800 mg PO BID [facility] Last Admin: 09/15/18 08:04 Dose: 800 mg Ondansetron HCl (Zofran Odt Tab*) 4 mg PO Q6HR PRN PRN Reason: NAUSEA Oxycodone HCl (Roxycodone Tab*) 5 mg PO Q12H PRN PRN Reason: PAIN Last Admin: 09/14/18 21:07 Dose: 5 mg Polyethylene Glycol/Electrolytes (Miralax*) 17 gm PO BID PRN PRN Reason: CONSTIPATION Pyridoxine HCl (Vitamin B6 Tab*) 100 mg PO DAILY [facility] Last Admin: 09/15/18 08:10 Dose: 100 mg Senna (Senokot Tab*) 1 tab PO DAILY [facility] Last Admin: 09/15/18 08:04 Dose: 1 tab Sucralfate (Carafate*) 1 gm PO QID [facility] Last Admin: 09/15/18 08:05 Dose: 1 gm Thiamine HCl (Vitamin B-1 Tab*) 100 mg PO BID [facility] Last Admin: 09/15/18 08:05 Dose: 100 mg Vital Signs - 8 hr 09/15/18 09/15/18 09/15/18 03:25 08:00 08:02 Temperature 97.7 F 98.2 F Pulse Rate 96 106 Respiratory 16 18 20 Rate Blood Pressure 151/94 140/97 (mmHg) O2 Sat by Pulse 98 97 Oximetry 09/15/18 08:03 Temperature Pulse Rate Respiratory 20 Rate Blood Pressure (mmHg) O2 Sat by Pulse Oximetry Oxygen Devices in Use Now: None Appearance: Woman in no acute distress lying in chair Eyes: No Scleral Icterus, PERRLA Neck: NL Appearance and Movements; NL JVP Respiratory: Symmetrical Chest Expansion and Respiratory Effort, Clear to Auscultation Cardiovascular: NL Sounds; No Murmurs; No JVD, RRR Abdominal: - - Soft TTP epigastric NABS non distended Lymphatic: No Cervical Adenopathy Extremities: No Edema Neurological: Alert and Oriented x 3, - - 4/5 wrist flexion, finger strength 4/5 , sensation diminshed blt in distal ext Result Diagrams: 09/09/18 02:59 09/15/18 08:55 Additional Lab and Data: Microbiology and Other Data: Microbiology 09/09/18 10:05 Sputum Expectorated Gram Stain - Final 09/09/18 20:02 Nasal Nasal Screen MRSA (PCR) - Final Mrsa Not Detected Assess/Plan/Problems-Billing 48 year old woman with obesity s/p sleeve gastrectomy 12/2017 c/b recurrent nausea/vomiting and possibly pyloric stenosis resulting in micronutrient deficiencies, LEONARD on CPAP, anxiety/depression, asthma, knee OA b/l, who presented with weakness, numbness, and inability to ambulate in the context of B1 deficiency and electrolyte abnormalities. - Patient Problems (1) Intestinal malabsorption following gastrectomy Current Visit: Yes Status: Acute Code(s): K91.2 - POSTSURGICAL MALABSORPTION , NOT ELSEWHERE CLASSIFIED; Z90.3 - ACQUIRED ABSENCE OF STOMACH [PART OF] SNOMED Code(s): 954866356 Comment: Vitamin B12 and copper normal. - will need close follow-up with Dr. Leong as outpatient - cont to supplement with Vit D, Ca, and Mg (2) Thiamine deficiency neuropathy Current Visit: Yes Status: Acute Code(s): E51.11 - DRY BERIBERI SNOMED Code(s): 69206111 Comment: Thiamine level very low. EMG without evidence of inflammatory polyneuropathy. - appreicate assistance of Dr. Rondon of Neurology - now signed off an recommending GILMAR and f/u in Neuro clinic in 4-6 weeks - cont thiamine PO 100mg bid (received thiamine 500mg IV for 7 doses) - Vitamin B6 supplementation for low level as outpatient - cont gabapentin 300mg tid for neuropathic component of pain (chronic back pain ) - If symptoms progress, or she develops any respiratory symptoms, then consider an LP to evaluate for elevated protein or infectious causes. She denied any shortness of breath at this time. F/u NIF and FVC testing to get a baseline. (3) Hypomagnesemia Current Visit: Yes Status: Acute Code(s): E83.42 - HYPOMAGNESEMIA SNOMED Code(s): 461129997 Comment: replete to >2. Currently on 800 PO BID (4) Hypokalemia Current Visit: Yes Status: Acute Code(s): E87.6 - HYPOKALEMIA SNOMED Code( s): 56797904 Comment: Likely from poor PO and frequent vomiting since bariatric surgery. - monitor BMP and replete K to >4 (5) Distal paresthesia Current Visit: Yes Status: Acute Code(s): R20.2 - PARESTHESIA OF SKIN SNOMED Code(s): 94942089 Comment: Result of Vitamin Def. --Gababentin 300mg TID-> uptitrate to 400mg TID --Minimize narcotic --Capsacin cream to hands PRN --Consider Duloxetine if continues to bother her (6) Anxiety and depression Current Visit: Yes Status: Acute Code(s): F41.9 - ANXIETY DISORDER, UNSPECIFIED; F32.9 - MAJOR DEPRESSIVE DISORDER, SINGLE EPISODE, UNSPECIFIED SNOMED Code(s): 12450661 Comment: Not on any medications, consider Duloxetine for dual effect with parasthesia (7) Abdominal pain Current Visit: Yes Status: Acute Code(s): R10.9 - UNSPECIFIED ABDOMINAL PAIN SNOMED Code(s): 39259172 Comment: h/o possible pyloric stenosis after bariatric surgery? Nausea/ vomiting resolved during admission. - continue PPI, carafate, famotidine - cont bowel regimen (8) LEONARD (obstructive sleep apnea) Current Visit: Yes Status: Acute Code(s): G47.33 - OBSTRUCTIVE SLEEP APNEA ( ADULT) (PEDIATRIC) SNOMED Code(s): 13702932 Comment: encourage nightly CPAP - poor adherence (9) DVT prophylaxis Current Visit: Yes Status: Acute Code(s): YCD0489 - SNOMED Code(s): 640787473 Comment: Lovenox daily (10) Full code status Current Visit: Yes Status: Acute Code(s): Z78.9 - OTHER SPECIFIED HEALTH STATUS SNOMED Code(s): 951364328 Status and Disposition: Medicine inpatient. No longer in IV medications - to rehab when accepted. F/u in Neuro clinic.
[2018-09-15] MEDS: oxyCODONE TAB* 5 MG TAB PO PRN (12:07)
[2018-09-15] MEDS ORDERED: Capsaicin 0.025% CREAM* 60 GM TOPICAL PRN (12:36)
[2018-09-15] MEDS: Gabapentin CAP(*) 400 MG PO SCH ×2 (13:12→20:01)
[2018-09-15] MEDS ORDERED: Acetaminophen TAB* 325 MG PO PRN (18:23)
[2018-09-15] MEDS ORDERED: oxyCODONE TAB* 5 MG TAB PO PRN (18:25)
[2018-09-15] MEDS: Enoxaparin(*) 40 MG/0.4 ML SYR SUBCUT SCH (20:00)
[2018-09-16] MEDS ORDERED: HYDROmorphone INJ1* 1 MG/ML SYRINGE IV SLOW PU PRN (02:51)
[2018-09-16] MEDS: Ketorolac INJ* 15 MG/ML 1 ML VIAL IV PUSH PRN (06:09)
[2018-09-16] MEDS: GuaiFENesin DM sugar free* 5 ML UDC PO PRN (06:15)
[2018-09-16 07:00] LABS: BUN/Creatinine Ratio 15.6 (8-20); Calcium 8.1 mg/dL (8.6-10.3); EGFR African American 180.7 (>60); EGFR Non-African American 149.3 (>60); Magnesium 1.5 mg/dL (1.9-2.7); Phosphorus 3.3 mg/dL (2.5-5.0)
[2018-09-16] MEDS ORDERED: oxyCODONE TAB* 5 MG TAB PO PRN (08:18)
--- NOTE | 2018-09-16 08:22 | PN ---
Subjective Date of Service: 09/16/18 Interval History: HD#6 on 09/16 48 year old woman with obesity s/p sleeve gastrectomy 12/2017 c/b recurrent nausea/vomiting and possibly pyloric stenosis resulting in micronutrient deficiencies, Overnight no acute events, VSS, though HTN this morning, good UOP and +BM in last 24 hours. Got PRN dilaudid overnight for stomach pain, d/c this AM Labs reviewed, stable chronic hypomag This morning seen at bedside. Pt complains of pain and we reorient to goals of mobility. Will liberalize her PO pain medications but no further IV pain medications in prep for rehab. Expectant mgmt. Pain is in blt hands and feet also with chronic stomach pain 2/2 to her known pylorus. No further neuro c/o, no chest pain, GI as above, denies complaints. Being evaluated for PMRU, she is happy to accept. Objective Active Medications: Acetaminophen (Tylenol Tab*) 650 mg PO Q6H PRN PRN Reason: PAIN - ABDOMINAL Albuterol (Ventolin Hfa Inhaler*) 2 puff INH Q6H PRN PRN Reason: SOB/WHEEZING Calcium/Vitamin D (Oscal D Tab 250/125*) 1 tab PO BID [facility] Last Admin: 09/15/18 20:01 Dose: 1 tab Capsaicin (Zostrix 0.025% Cream*) 1 applic TOPICAL DAILY PRN PRN Reason: PAIN Last Admin: 09/16/18 03:28 Dose: 1 applic Enoxaparin Sodium (Lovenox(*)) 40 mg SUBCUT Q24H [facility] [place] Last Admin: 09/15/18 20:00 Dose: 40 mg Famotidine (Pepcid Tab*) 20 mg PO BID [facility]; Protocol Last Admin: 09/15/18 20:00 Dose: 20 mg Gabapentin (Neurontin Cap(*)) 400 mg PO TID [facility] [place] Last Admin: 09/15/18 20:01 Dose: 400 mg Guaifenesin/Dextromethorphan (Robitussin Dm Sugar Free*) 10 ml PO Q6H PRN PRN Reason: COUGH Last Admin: 09/16/18 06:15 Dose: 10 ml Hydromorphone HCl (Dilaudid Inj1s*) 0.5 mg IV SLOW PU Q6H PRN PRN Reason: PAIN Stop: 09/18/18 02:50 Last Admin: 09/16/18 03:29 Dose: 0.5 mg Ketorolac Tromethamine (Toradol Inj*) 15 mg IV PUSH Q6H PRN PRN Reason: PAIN Last Admin: 09/16/18 06:09 Dose: 15 mg Magnesium Oxide (Magox 400 Tab*) 800 mg PO BID [facility] [place] Last Admin: 09/15/18 20:00 Dose: 800 mg Ondansetron HCl (Zofran Odt Tab*) 4 mg PO Q6HR PRN PRN Reason: NAUSEA Oxycodone HCl (Roxycodone Tab*) 7.5 mg PO Q12H PRN PRN Reason: PAIN Last Admin: 09/15/18 20:02 Dose: 7.5 mg Polyethylene Glycol/Electrolytes (Miralax*) 17 gm PO BID PRN PRN Reason: CONSTIPATION Pyridoxine HCl (Vitamin B6 Tab*) 100 mg PO DAILY [facility] [place] Last Admin: 09/15/18 08:10 Dose: 100 mg Senna (Senokot Tab*) 1 tab PO DAILY [facility] [place] Last Admin: 09/15/18 08:04 Dose: 1 tab Sucralfate (Carafate*) 1 gm PO QID [facility] [place] Last Admin: 09/15/18 20:01 Dose: 1 gm Thiamine HCl (Vitamin B-1 Tab*) 100 mg PO BID [facility] [place] Last Admin: 09/15/18 20:01 Dose: 100 mg Vital Signs - 8 hr 09/16/18 09/16/18 03:29 03:53 Temperature 98.2 F Pulse Rate 108 Respiratory 18 20 Rate Blood Pressure 161/91 (mmHg) O2 Sat by Pulse 98 Oximetry Oxygen Devices in Use Now: None Appearance: labile woman on interview at times but no acute distress, obese, slightly disheveled Eyes: No Scleral Icterus, PERRLA Neck: NL Appearance and Movements; NL JVP, Trachea Midline Respiratory: Symmetrical Chest Expansion and Respiratory Effort, Clear to Auscultation Cardiovascular: NL Sounds; No Murmurs; No JVD, RRR Abdominal: - - TTP epigastric, soft ND Lymphatic: No Cervical Adenopathy Extremities: No Edema, - - 4/5 wrist flexion, 4/5 finger to finger strength Skin: No Rash or Ulcers Neurological: Alert and Oriented x 3 Result Diagrams: 09/09/18 02:59 09/16/18 06:24 Additional Lab and Data: Microbiology and Other Data: Microbiology 09/09/18 10:05 Sputum Expectorated Gram Stain - Final 09/09/18 20:02 Nasal Nasal Screen MRSA (PCR) - Final Mrsa Not Detected Assess/Plan/Problems-Billing 48 year old woman with obesity s/p sleeve gastrectomy 12/2017 c/b recurrent nausea/vomiting and possibly pyloric stenosis resulting in micronutrient deficiencies, LEONARD on CPAP, anxiety/depression, asthma, knee OA b/l, who presented with weakness, numbness, and inability to ambulate in the context of B1 deficiency and electrolyte abnormalities. - Patient Problems (1) Intestinal malabsorption following gastrectomy Current Visit: Yes Status: Acute Code(s): K91.2 - POSTSURGICAL MALABSORPTION , NOT ELSEWHERE CLASSIFIED; Z90.3 - ACQUIRED ABSENCE OF STOMACH [PART OF] SNOMED Code(s): 358821079 Comment: Vitamin B12 and copper normal. - will need close follow-up with Dr. Leong as outpatient - cont to supplement with Vit D, Ca, and Mg (2) Thiamine deficiency neuropathy Current Visit: Yes Status: Acute Code(s): E51.11 - DRY BERIBERI SNOMED Code(s): 45799638 Comment: Thiamine level very low. EMG without evidence of inflammatory polyneuropathy. - appreicate assistance of Dr. Rondon of Neurology - now signed off an recommending GILMAR and f/u in Neuro clinic in 4-6 weeks - cont thiamine PO 100mg bid (received thiamine 500mg IV for 7 doses) - Vitamin B6 supplementation for low level as outpatient - cont gabapentin 600mg tid for neuropathic component of pain (chronic back pain ) - If symptoms progress, or she develops any respiratory symptoms, then consider an LP to evaluate for elevated protein or infectious causes. She denied any shortness of breath at this time. F/u NIF and FVC testing to get a baseline. (3) Hypomagnesemia Current Visit: Yes Status: Acute Code(s): E83.42 - HYPOMAGNESEMIA SNOMED Code(s): 399803701 Comment: replete to >2. Currently on 800 PO BID, perpetual current hypomag and may continue to be so until other 'lyte abn improved (4) Hypokalemia Current Visit: Yes Status: Acute Code(s): E87.6 - HYPOKALEMIA SNOMED Code( s): 68887412 Comment: Likely from poor PO and frequent vomiting since bariatric surgery. - monitor BMP and replete K to >4 (5) Distal paresthesia Current Visit: Yes Status: Acute Code(s): R20.2 - PARESTHESIA OF SKIN SNOMED Code(s): 23047403 Comment: Result of Vitamin Def. --Gababentin 400mg TID-> uptitrate to 600mg TID, room to uptitrate PRN --Minimize narcotic, sto pIV and can try 7.5mg TID PRN --Capsacin cream to hands PRN --Trial Duloxetine (6) Anxiety and depression Current Visit: Yes Status: Acute Code(s): F41.9 - ANXIETY DISORDER, UNSPECIFIED; F32.9 - MAJOR DEPRESSIVE DISORDER, SINGLE EPISODE, UNSPECIFIED SNOMED Code(s): 16798068 Comment: Trial low dose Duloxetine 20mg (7) Abdominal pain Current Visit: Yes Status: Acute Code(s): R10.9 - UNSPECIFIED ABDOMINAL PAIN SNOMED Code(s): 56440837 Comment: h/o possible pyloric stenosis after bariatric surgery? Nausea/ vomiting resolved during admission. - continue carafate, famotidine - cont bowel regimen (8) Hypertension Current Visit: Yes Status: Acute Code(s): I10 - ESSENTIAL (PRIMARY) HYPERTENSION SNOMED Code(s): 33794898 Comment: Start Amlodipine 5mg PO daily on 09/16 (9) LEONARD (obstructive sleep apnea) Current Visit: Yes Status: Acute Code(s): G47.33 - OBSTRUCTIVE SLEEP APNEA ( ADULT) (PEDIATRIC) SNOMED Code(s): 05679765 Comment: encourage nightly CPAP - poor adherence (10) DVT prophylaxis Current Visit: Yes Status: Acute Code(s): WVF9874 - SNOMED Code(s): 770388923 Comment: Lovenox daily (11) Full code status Current Visit: Yes Status: Acute Code(s): Z78.9 - OTHER SPECIFIED HEALTH STATUS SNOMED Code(s): 357461138 Status and Disposition: To rehab when accepted. F/u in Neuro clinic.
[2018-09-16] MEDS: Gabapentin CAP(*) 400 MG PO SCH (08:58)
[2018-09-16] MEDS ORDERED: amLODIPine TAB* 5 MG PO SCH (09:00)
[2018-09-16 09:14] VITALS: BP 161/110
[2018-09-16] MEDS: Magnesium Oxide TAB* 400 MG PO SCH (09:45)
[2018-09-16] MEDS: Senna TAB PO SCH (09:46)
[2018-09-16] MEDS: Sucralfate TAB* 1 GM PO SCH (09:46)
[2018-09-16] MEDS: Thiamine TAB* 100 MG TAB PO SCH (09:48)
[2018-09-16] MEDS: Pyridoxine TAB* 50 MG PO SCH (09:48)
[2018-09-16] MEDS: Calcium/Vitamin D TAB 250/125* TAB PO SCH (09:48)
[2018-09-16] MEDS: Famotidine TAB* 20 MG PO SCH (10:15)
[2018-09-16] MEDS ORDERED: DULoxetine DR CAP* 20 MG CAP.DR PO SCH (11:00)
--- NOTE | 2018-09-16 12:53 | DS ---
DISCHARGE SUMMARY: DATE OF ADMISSION: 09/09/18 DATE OF DISCHARGE: 09/16/18 DISPOSITION: Stable to be discharged to [facility] Unit. PRIMARY CARE PROVIDER: Dr. Torre. PRIMARY DIAGNOSES: 1. Weakness secondary to vitamin B1 deficiency. 2 Vitamin B6 deficiency. 3. Status post gastric sleeve in December 2017. 4. Hypomagnesemia. 5. Hypokalemia. 6. Hypocalcemia. SECONDARY DIAGNOSES: 1. Degenerative disk disease. 2. Chronic lumbar back pain. 3. Obesity. 4. Anxiety. 5. Depression. MEDICATIONS ON DISCHARGE: 1. Acetaminophen 650 mg p.o. q.6 hours p.r.n. 2. Albuterol inhaler 2 puffs inhaled daily p.r.n. t.i.d. 3. Amlodipine 5 mg p.o. daily. 4. Calcium/vitamin D 250/125 one tab p.o. b.i.d. 5. Capsaicin cream 1 application topically to bilateral hands and feet p.r.n. t.i.d. 6. Duloxetine 20 mg p.o. daily. 7. Gabapentin 600 mg p.o. t.i.d. 8. Magnesium 800 mg p.o. b.i.d. 9. Ondansetron 4 mg p.o. q.4 hours p.r.n. 10. Oxycodone 7.5 mg p.o. q.8 hours. 11. Polyethylene glycol 17 g p.o. daily p.r.n. for constipation. 12. Paroxetine 100 mg p.o. daily. 13. Ranitidine 150 mg p.o. b.i.d. 14. Senna 1 tab p.o. daily. 15. Sucralfate 1 g p.o. 4 times a day. 16. Thiamine 100 mg p.o. b.i.d. 17. Epinephrine 1 dose injection daily p.r.n. for severe allergy. 18. Ergocalciferol 50,000 units p.o. weekly. New medications on this hospitalization include the addition of: 1. Amlodipine 5 mg p.o. daily. 2. Capsaicin cream to bilateral hands and feet. 3. Duloxetine 20 mg p.o. daily. 4. Gabapentin 600 mg p.o. t.i.d. 5. Calcium/vitamin D 250/125 one tab p.o. b.i.d. 6. Magnesium oxide 800 mg p.o. b.i.d. 7. Oxycodone 7.5 mg p.o. q.8 hours p.r.n. for severe pain. 8. Paroxetine 100 mg p.o. daily. 9. Thiamine 100 mg p.o. b.i.d. Changes of medication include also the discontinuation of: 1. Omeprazole 40 mg p.o. b.i.d. for possible contribution to vitamin B1 and B6 deficiency causing her weakness and paresthesias. 2. Discontinuation of home hydrocodone in favor of oxycodone. HOSPITAL COURSE AND PRESENTATION OF ILLNESS: A 48-year-old female with the above past medical history, presented to the emergency room on 09/09/18 with the chief complaint of progressive weakness, nausea, vomiting, and electrolyte disturbances. She had a history of multiple presentations for the same, although did not have focal weakness or vision changes. On this presentation, she had significant paresthesias and was unable to support herself from standing acutely. In the emergency room, she was found to have a potassium of 2.7 and a magnesium of 1.2. Other vitamin levels including thiamine, B1 and B6 were drawn, although she has known deficiencies in B6 from the past, although not B1. Neurology was consulted for her acute weakness, which showed degenerative spondylosis and diffuse central spinal canal stenosis, although no cord impingement. Neurosurgery was initially consulted in the emergency room, although they felt there was no acute surgical intervention. Patient had reported that she had been receiving her oral vitamin supplementation because she had nausea and vomiting as a side effect to these. She was admitted to the hospitalist service with a diagnosis of weakness and electrolyte disturbances along with persistent nausea and vomiting. Her hospital course by problem is as follows: 1. Electrolyte deficiencies secondary to gastric sleeve procedure done in December 2017. Patient is admittedly nonadherent to some of her oral supplementations secondary to recurrent nausea and vomiting likely from pyloric stenosis. Her B12 level was checked, which was 594. Her BUN level was checked and it was significantly low at 40. Her pyridoxic acid was less than 2 prior to this admission. Neurology was consulted. He felt that she had acute B1 deficiency given her combination of severe neuropathy and ophthalmoparesis. She was started on high dose IV thiamine and then transitioned to oral high dose thiamine, which will be continued on until levels are checked as an outpatient and show improvement. Furthermore, she had hypokalemia, hypomagnesemia, hypocalcemia and will be continued on higher dose supplementations and encouraged her to continue these oral supplementations in the setting of her recent gastric sleeve. Furthermore, her proton pump inhibitor was discontinued for thoughts that might have been contributing to her B6 or B1 deficiency. 2. Degenerative disk of the lumbar spine with severe spinal canal stenosis. Neurosurgery felt that there was no acute neurosurgical intervention, although she is willing to start physical therapy and will continue to follow with her chronic low back pain. She was started on duloxetine 20 mg p.o. daily, gabapentin t.i.d., as well as changes in her pain medications were made prior to her discharge to [facility] where her pain management may continue to be focused on with an emphasis on managing neuropathic pain. 3. Anxiety and depression. Mild anxiety and depression in this hospitalization. Although Cymbalta was started as above, it did not significantly get in the way of her care. 4. LEONARD. Patient is noncompliant on her CPAP at home and was encouraged to use here also. Continued to decline q.h.s. CPAP for known LEONARD. 5. Obesity with BMI of 42. Patient was continued to recommend post-gastric sleeve diet with frequent small meals and protein rich. She has continued to have trouble with this secondary to her recurrent nausea and vomiting. 6. Nausea and vomiting and likely pyloric stenosis. Famotidine and sucralfate were started Again, encouragement with dietary followup. She can follow with her bariatric surgeon as an outpatient to continue to try to optimize the outcomes of this procedure. She was tolerating p.o. and having normal bowel movements on the day of discharge with p.r.n. antiemetics and H2 blockers. On day of discharge, patient is accepted for continued rehabilitation in the setting of acute B1 deficiency as well as known electrolyte deficiencies contributing to acute weakness and chronic low back pain in the setting of severe spinal canal stenosis with no acute neurosurgical intervention to our [facility] unit which she happily accepts. Her family is in agreement with this plan. DATA COLLECTED ON THIS HOSPITALIZATION: A brain MRI was completed on 09/10/18. No acute intracranial abnormality and mild chronic small vessel ischemic disease was seen. Lumbar spine CT was done on 09/09/18, shows congenital spinal canal stenosis with superimposed degenerative spondylosis and diffuse severe central spinal canal stenosis and severe bilateral neural foraminal narrowing. Thoracic, lumbar and cervical spine MRI was completed on 09/10/18, which showed again mild multilevel cervical spondylopathy with no cord impingement. Chest x-ray was completed on 09/09/18, showed no evidence of acute intrathoracic disease. Labs done on the day of discharge include a BMP that show a chloride of 100, creatinine of 0.45, calcium at 8.1, which is considered her baseline and has been her baseline throughout this hospitalization and magnesium is 1.5. ITEMS TO FOLLOW UP ON POST DISCHARGE: 1. Electrolyte abnormalities. Patient will need repeat B12 and B1 levels in 1 to 2 months with outpatient primary care after she is stable from a rehabilitation standpoint. She will continue high dose supplementation. She understands this may need to be adjusted if further issues arrive or unable to obtain stable levels, could re-consult Neurology or discuss the role of IV infusions in the future. 2. Persistent nausea and vomiting and pyloric stenosis in the setting of gastric sleeve in December 2017. Patient will follow up with her outpatient bariatric surgeon and continue to attempt to adhere to the post-gastric sleeve diet, which includes frequent small protein-rich meals and small amounts of fluids. Continue her H2 blockers. Currently, her PPI has been discontinued in the setting of possible contribution to B1 or B6 deficiency. On the day of discharge, the patient is ambulating, tolerating p.o. and toileting herself. She is eager work with rehabilitation to continue increasing her strength. Her physical exam is documented in her progress note from 09/16/18, which is only remarkable for 4/5 strength in wrist flexion and [id number], but otherwise 5/5 strength. Her sensation is diminished bilaterally with distal portions of her limbs more affected than proximal. TIME SPENT: Forty-five minutes spent on the planning of this discharge though over half of that spent at the bedside of the patient providing direct patient care. She and her family are agreement with the plan to discharge to [facility] and have no further questions. If there are any questions about the care received during this hospitalization, please do not hesitate to reach out. [id number]/CPS #: [id number] [facility]
[2018-09-16] MEDS ORDERED: Gabapentin CAP(*) 300 MG PO SCH (14:00)
== END 2018-09-16 11:20 | DRG 394 ==
LOC: ED 02:12 → MED 09:29 → OBSVTOIN 09-11 10:02 → MED 09-16 09:11 → PMRU 09-16 09:11
PROVIDERS: ADMIT Internal Medicine; ATTEND Internal Medicine
PROC: 02HV33Z Insertion of Infusion Device into Superior Vena Cava, Percutaneous Approach (ICD-10-PCS; principal; 2018-09-11)
DX: K95.89 Other complications of other bariatric procedure (principal); E51.11 Dry beriberi; K91.2 Postsurgical malabsorption, not elsewhere classified; K31.1 Adult hypertrophic pyloric stenosis; Z68.41 Body mass index [BMI] 40.0-44.9, adult; E51.9 Thiamine deficiency, unspecified; Y65.8 Other specified misadventures during surgical and medical care; Y73.3 Surgical instruments, materials and gastroenterology and urology devices (including sutures) associated with adverse incidents; E53.1 Pyridoxine deficiency; D57.3 Sickle-cell trait; I10 Essential (primary) hypertension; E78.00 Pure hypercholesterolemia, unspecified; J45.909 Unspecified asthma, uncomplicated; G47.33 Obstructive sleep apnea (adult) (pediatric); F17.210 Nicotine dependence, cigarettes, uncomplicated; E83.42 Hypomagnesemia; E87.6 Hypokalemia; G62.9 Polyneuropathy, unspecified; H55.09 Other forms of nystagmus; R29.6 Repeated falls; G89.29 Other chronic pain; M48.061 Spinal stenosis, lumbar region without neurogenic claudication; E66.01 Morbid (severe) obesity due to excess calories; M47.816 Spondylosis without myelopathy or radiculopathy, lumbar region; R20.2 Paresthesia of skin; M17.0 Bilateral primary osteoarthritis of knee; G43.909 Migraine, unspecified, not intractable, without status migrainosus; F41.9 Anxiety disorder, unspecified; F32.9 Major depressive disorder, single episode, unspecified; Z98.84 Bariatric surgery status; Z88.6 Allergy status to analgesic agent; Z88.0 Allergy status to penicillin; Y92.9 Unspecified place or not applicable; Z80.0 Family history of malignant neoplasm of digestive organs; Z83.3 Family history of diabetes mellitus; Z82.49 Family history of ischemic heart disease and other diseases of the circulatory system; Z91.013 Allergy to seafood; Z86.14 Personal history of Methicillin resistant Staphylococcus aureus infection; E83.51 Hypocalcemia; Z91.14 Patient's other noncompliance with medication regimen
CPT/HCPCS: 36415; 70551; 71045; 72131; 72141; 72146; 72148; 80048; 80053; 81003; 81015; 82525; 82542; 82550; 82607; 83735; 83880; 84100; 84207; 84425; 84446; 84484; 85025; 85610; 85652; 86038; 86140; 86235; 86618; 87070; 87077; 87186; 87205; 87641; 93005; 94150; 95911; 99285; A9270-GY; G0378; G8978-GP-CM; G8979-GP-CI; G8987-GO-CL; G8988-GO-CI; J1170; J1644; J1650; J1885; J2270; J2405; J3411; J3475; J3480

== ENCOUNTER 2018-09-16 09:46 | Inpatient (IN) | payer MEDICARE ==
[2018-09-16] MEDS: Acetaminophen TAB* 325 MG PO PRN (13:40)
[2018-09-16] MEDS: Sucralfate TAB* 1 GM PO SCH ×3 (13:41→20:29)
[2018-09-16] MEDS: Gabapentin CAP(*) 400 MG PO SCH ×2 (13:41→20:30)
[2018-09-16] MEDS: oxyCODONE TAB* 5 MG TAB PO PRN (18:16)
[2018-09-16] MEDS ORDERED: Mouth Piece, Nicotine* 1 EACH CARTRIDGE INH ONE (19:30)
--- NOTE | 2018-09-16 19:42 | HP ---
ADMISSION HISTORY AND PHYSICAL: DATE OF ADMISSION: 09/16/18 REASON FOR ADMISSION: B1 deficiency neuropathy. HISTORY OF PRESENT ILLNESS: Ally Elias is a 48-year-old female. She has a history significant for obesity. In December of 2017, she had a laparoscopic sleeve gastrectomy done. She has had difficulties since the surgery with being able to eat properly and with nausea. She did have an upper GI done in March of 2018. She also had another procedure done in June. The patient developed some pins and needles in her feet in June. She had seen her primary care doctor. She was already taking pain medications because she has chronic pain in her neck as well as both knees. She was not allowed to take NSAIDs after her surgery and has osteoarthritis affecting both knees. The patient came to the hospital acutely on 09/09/18. At that time, she was having multiple falls at home and was having difficulty with nausea and vomiting. She was also having trouble with her memory. She came to the hospital and was admitted because of weakness in both lower extremities as well as numbness in both legs. She was admitted and had MRIs of her cervical, thoracic and lumbar spine as well as her brain. She had a neurology consultation done with Dr. Rondon. Dr. Rondon felt that the patient likely had a polyneuropathy secondary to vitamin B1 deficiency. The patient also had ophthalmoparesis. The patient' s MRIs did show that she had multilevel spondylopathy with possible compression of the bilateral L5 nerve roots. There was some concern for Guillain[place], so the patient had EMG studies done as well. EMG studies showed an extensive polyneuropathy, but the nerve conduction studies did not show any evidence of demyelinating neuropathy. Given that the patient had nystagmus, it was felt that the B1 deficiency likely explained her symptoms. She was given vitamin B1 infusions and her encephalopathy and nystagmus got better. The patient had some difficulties with pain and was started on gabapentin for this. She had previously been on opioids for pain in her knees and her back as mentioned and could not take NSAIDs because of her previous gastric sleeve. After supplementation with intravenous thiamine, the patient's B1 level still remained low. It was recommended that she continue on oral supplements indefinitely. The patient had weakness in both her legs and her arms as a result of her polyneuropathy. She was felt to have physical therapy and occupational therapy needs. She is now being admitted for inpatient rehab so that she might return to independent living. PAST MEDICAL HISTORY: Significant for obesity, prediabetes, and obstructive sleep apnea. She also has bilateral osteoarthritis of her knees as well as back pain. CURRENT MEDICATIONS: Include: 1. Norvasc. 2. Lovenox for DVT prophylaxis. 3. Pepcid. 4. Neurontin. 5. Magnesium oxide. 6. Oxycodone. 7. Vitamin B6. 8. Vitamin B1. 9. Carafate. ALLERGIES: To TRAMADOL and PENICILLIN. SOCIAL HISTORY: The patient lives in a 1-story apartment with her daughter. She was a smoker prior to admission, did not drink alcohol. She has not had a cigarette in a week. REVIEW OF SYSTEMS: The patient reports no current shortness of breath or chest pain. PHYSICAL EXAMINATION VITAL SIGNS: The patient's temperature is 98.2, blood pressure is 134/89, pulse is 100, respirations 16. HEENT: Her extraocular movements are intact. Tongue is midline. NECK: Supple. LUNGS: Sound clear to auscultation bilaterally. HEART: Sounds are regular. S1 and S2 were audible. ABDOMEN: Soft and nontender. EXTREMITIES: Peripheral pulses were intact. Muscle tone seemed to be normal. NEUROLOGIC: She had diminished sensation in her legs and in her hands. Muscle strength was about 4/5 throughout. FUNCTIONAL EXAM: She transfers with max assist. ASSESSMENT: 1. B1 deficiency polyneuropathy. 2. Status post gastric sleeve surgery. PLAN: Integrate her into a comprehensive and therapeutic rehab program with the following goals: 1. Physical Therapy will see the patient. They are going to work on functional transfer training, ambulation training with a walker. 2. Occupational Therapy will see the patient, work on her activities of daily living including toileting and toilet transfers. 3. Lovenox for DVT prophylaxis. 4. Adequate analgesia including gabapentin. She cannot have NSAIDs. She was on hydrocodone before, so we will continue the oxycodone she started upstairs. 5. Her bowels will be regulated. 6. Continue Pepcid and Carafate for her chronic nausea and vomiting. 7. shipping services sales representative will be closely involved to make sure that any services and equipment the patient requires are in place prior to discharge. 8. Family training as appropriate. 9. Home with appropriate services. ESTIMATED LENGTH OF STAY: 3 to 4 weeks. [id number]/CPS #: [id number] [facility]
[2018-09-16] MEDS: Famotidine TAB* 20 MG PO SCH (20:29)
[2018-09-16] MEDS: Magnesium Oxide TAB* 400 MG PO SCH (20:29)
[2018-09-16] MEDS: Thiamine TAB* 100 MG TAB PO SCH (20:29)
[2018-09-16] MEDS: Enoxaparin(*) 40 MG/0.4 ML SYR SUBCUT SCH (20:31)
[2018-09-16] MEDS: Nicotine Inhaler* 10 MG AMP INH PRN (20:31)
[2018-09-16] MEDS: Hydrocortisone SUPP* 25 MG SUPP (2.5%) PR PRN (22:23)
[2018-09-17] MEDS: oxyCODONE TAB* 5 MG TAB PO PRN ×5 (00:25→21:36)
[2018-09-17] MEDS: Acetaminophen TAB* 325 MG PO PRN ×4 (02:04→23:40)
[2018-09-17] MEDS: GuaiFENesin DM sugar free* 5 ML UDC PO PRN ×2 (04:18→18:10)
[2018-09-17] MEDS: amLODIPine TAB* 5 MG PO SCH (08:34)
[2018-09-17] MEDS: Gabapentin CAP(*) 400 MG PO SCH ×3 (08:34→19:47)
[2018-09-17] MEDS: Famotidine TAB* 20 MG PO SCH ×2 (08:34→19:48)
[2018-09-17] MEDS: Magnesium Oxide TAB* 400 MG PO SCH ×2 (08:35→19:47)
[2018-09-17] MEDS: Thiamine TAB* 100 MG TAB PO SCH ×2 (08:36→19:47)
[2018-09-17] MEDS: Pyridoxine TAB* 50 MG PO SCH (10:07)
[2018-09-17] MEDS: Sucralfate TAB* 1 GM PO SCH ×4 (10:07→19:47)
--- NOTE | 2018-09-17 12:42 | PMRUTEAM ---
PMRU: Team Meeting Current Status: Nursing: Current Status Skin Deviations [Chest Tele Rash rash] Bladder Current Status Continent - EZ stand to bathroom Bowel Current Status Continent - EZ stand to bathroom Nutrition Current Status Needs help opening items - no assistance needed with eating - eats most meals Medication Current Status Reinforcement needed for pain medication management Physical Therapy: Current Status Bed Mobility Assistance Mod Assist Transfer Mobility Assistance Independent Transfer/Bed Mobility EZ Stand Recommended Devices Ambulation Assistance Unable Ambulation Assistive Devices Rolling Walker Stairs Assistance Not Tested Wheelchair Distance (ft) 50 Occupational Therapy: Current Status Upper Body Dressing Supervision,Min Assist Lower Body Dressing Total Assist,2 Person Assist Bathing Mod Assist,2 Person Assist Toileting Total Assist,2 Person Assist Toilet Transfer Total Assist,2 Person Assist Eating Independent,Supervision Rec Therapy: Current Status Summary of Assessment and Recreation and leisure assessment complete and pt. Clinical Impression is aware of services. Pt. identified with numerous interests and excitement to engage in them prior on the unit. Pt. interested in regular recreation groups/sessions. Treatment Goals Pt. will engage in recreation and leisure while on the unit. Treatment Plan Provide services and encourage involvement. Social Work: Current Status Discharge Plan return home with home care svs and family support Potential for Family Training pt's daughter is involved and attentive Anticipated Discharge Home Destination Discharge With home care svs and family support Nutrition: Current Status Monitoring new adm; full nutrition assessment planned per protocol. Initial goals as outlined below. Goals: Physical Therapy: Initial Goals Bed Mobility Assistance Independent Transfer Mobility Assistance Independent Transfer/Bed Mobility Rolling Walker Recommended Devices Ambulation Independent Ambulation Recommended Devices Rolling Walker Ambulation Distance 150 Wheelchair Propulsion Ability Independent Stairs Assistance Independent Stair Recommended Devices Two Rails Number of Stairs 5 Physical Therapy: Updated Goals Transfer/Bed Mobility EZ Stand Recommended Devices Occupational Therapy: Initial Goals Goals to be Completed in (Days 21-28 ) Upper Body Bathing Routine Modified Independent with Lower Body Bathing Routine Supervision/Set Up Upper Body Dressing Routine Independent Lower Body Dressing Routine Minimal Contact Assist Toilet Hygeine and Clothing Minimal Contact Assist Management Routine Toilet Transfer Routine Supervision/Set Up Tub Transfer Routine Minimal Contact Assist Functional Transfers for ADL Supervision/Set Up Grooming Routine Modified Independent with Feeding Routine Modified Independent with Nursing: Goals Bladder Goal Independent Bowel Goal Independent Nutrition Goal Independent Medication Goal Independent with medications Nutrition: Goals Intervention Goals 1. Pt will tolerate PO without GI distress (N/V) 2. Intake will support planned wt loss while meeting protein needs 3. Electrolytes will remain WNL with appropriate repletion Social Work: Goals Discharge Plan return home with home care svs and family support Potential for Family Training pt's daughter is involved and attentive Anticipated Discharge Home Destination Discharge With home care svs and family support Care Plan: Care Plan Discharge Planning - Improve/Maintain Start: 09/16/18 19:35 Freq: DAILY Status: Active Target: Protocol: Activity Type Activity Date Activity User E-Sign Co-Sign Detail Recorded Client Recorded Date Recorded By Document 09/17/18 02:29 [id number] 09/17/18 02:30 [id number] 09/17/18 02:29 PMRU Outcome: Discharge Planning Update Patient Family No Outcome/Goals Demonstrates Understanding of Discharge Plan Education-Improve/Maintain Start: 09/16/18 19:35 Freq: QSHIFT Status: Active Target: Protocol: Activity Type Activity Date Activity User E-Sign Co-Sign Detail Recorded Client Recorded Date Recorded By Document 09/17/18 02:29 [id number] 09/17/18 02:30 [id number] 09/17/18 02:29 PMRU Outcome: Education Outcome/Goals Demonstrate/ Verbalize Understanding of Written Discharge Instructions Demonstrates Skills Encourage Questions /GI-Improve/Maintain Start: 09/16/18 19:35 Freq: QSHIFT Status: Active Target: Protocol: Activity Type Activity Date Activity User E-Sign Co-Sign Detail Recorded Client Recorded Date Recorded By Document 09/17/18 02:29 [id number] 09/17/18 02:30 [id number] 09/17/18 02:29 PMRU Outcome: Genitourinary/ Gastrointestinal Genitourinary- Outcome/Goals Maintain/ Achieve Urinary Continence Gastrointestinal-Outcome/Goals Maintain/ Achieve Bowel Regularity in Accordance with Pt's Baseline Prevent Constipation Mobility- Improve/Maintain Start: 09/16/18 19:20 Freq: DAILY Status: Active Target: Protocol: Activity Type Activity Date Activity User E-Sign Co-Sign Detail Recorded Client Recorded Date Recorded By Document 09/16/18 19:20 [id number] 09/16/18 19:21 [id number] 09/16/18 19:20 PMRU Outcome: Mobility Physical Therapy Evaluation and Yes Treatment Activity OOB with Assistance Yes WBAT Yes Device Yes Assistance Yes Patient to be seen 5x/wk for 60-120 min/ Therex day for: Mobility Training Gait Training W/C Mobility Balance Outcome/Goals Maintain/ Achieve Baseline Mobility Status Improve Mobility Status Demonstrates Proper Use of Assistive Devices Free from Complications of Immobility Bed Mobility Yes: independent Transfers Yes: independent with rollign walker Gait x ft Yes: independent with rolling walker 150' Up/Down Stairs Yes: independent up down 5 stairs with 2 rails. Neurological- Improve/Maintain Start: 09/16/18 19:35 Freq: QSHIFT Status: Active Target: Protocol: Activity Type Activity Date Activity User E-Sign Co-Sign Detail Recorded Client Recorded Date Recorded By Document 09/17/18 02:29 [id number] 09/17/18 02:30 [id number] 09/17/18 02:29 PMRU Outcome: Neurological Weakness/Aphasia Weakness Outcome/Goals Maintain/ Achieve Baseline Neurological Status Improve Neurological Status Maintain/ Improve Strength/ROM Safety- Improve/Maintain Start: 09/16/18 19:35 Freq: QSHIFT Status: Active Target: Protocol: Activity Type Activity Date Activity User E-Sign Co-Sign Detail Recorded Client Recorded Date Recorded By Document 09/17/18 02:29 [id number] 09/17/18 02:30 [id number] 09/17/18 02:29 PMRU Outcome: Safety Outcome/Goals Remain Free of Injury or Harm Prevent Falls/ Injury Medicine Note: Length of Stay: 30 days Anticipated Discharge Destination: Home Tentative Discharge Date: October 17, 2018 Discharged to: Home
--- NOTE | 2018-09-17 18:14 | PN ---
Progress Note Date of Service: 09/17/18 Note: JONH CAMARA was visited. Therapy notes read and reviewed. She was discussed in interdisciplinary team rounds. She has definitely made improvements since her B1 treatment. She does complain of knee pain bilaterally. She had fallen on her knees prior to admission. Current Medications: Active Medications Generic Name Dose Route Start Last Admin Trade Name Freq PRN Reason Stop Dose Admin Acetaminophen 650 mg 09/16/18 12:43 09/17/18 16:59 Tylenol Tab* PO 650 mg Q6H PRN Administration FEVER/PAIN Amlodipine Besylate 5 mg 09/17/18 09:00 09/17/18 08:34 Norvasc Tab* PO 5 mg DAILY JUAN Administration Enoxaparin Sodium 40 mg 09/16/18 20:00 09/16/18 20:31 Lovenox(*) SUBCUT 40 mg Q24H JUAN Administration Famotidine 20 mg 09/16/18 21:00 09/17/18 08:34 Pepcid Tab* PO 20 mg BID JUAN Administration Gabapentin 400 mg 09/16/18 14:00 09/17/18 13:44 Neurontin Cap(*) PO 400 mg TID JUAN Administration Guaifenesin/Dextromethorphan 10 ml 09/16/18 16:29 09/17/18 04:18 Robitussin Dm Sugar Free* PO 10 ml Q6H PRN Administration COUGH Hydrocortisone 25 mg 09/16/18 19:16 09/16/18 22:23 Anusol Hc Supp* [place] 25 mg BID PRN Administration hemorrhoid Magnesium Oxide 400 mg 09/16/18 21:00 09/17/18 08:35 Magox 400 Tab* PO 400 mg BID JUAN Administration Nicotine 10 mg 09/16/18 19:16 09/16/18 20:31 Nicotine Inhaler* INH 10 mg Q2H PRN Administration CRAVING Oxycodone HCl 5 mg 09/17/18 13:21 09/17/18 16:58 Roxycodone Tab* PO 5 mg Q4H PRN Administration PAIN - MODERATE TO SEVERE Pyridoxine HCl 100 mg 09/17/18 09:00 09/17/18 10:07 Vitamin B6 Tab* PO 100 mg DAILY JUAN Administration Sucralfate 1 gm 09/16/18 13:00 09/17/18 16:59 Carafate* PO 1 gm QID JUAN Administration Thiamine HCl 100 mg 09/16/18 21:00 09/17/18 08:36 Vitamin B-1 Tab* PO 100 mg BID JUAN Administration Vital Signs: Vital Signs Temp Pulse Resp BP Pulse Ox 98.2 F 102 18 152/96 99 09/17/18 06:43 09/17/18 06:43 09/17/18 16:58 09/17/18 06:43 09/17/18 08:00 Exam: HEENT: EOMI LUNGS: CLear bilaterally HEART: Regular rhythm ABDOMEN: Soft +BS EXTREMITIES: Pain over knees, Pulses intact NEUROLOGIC: A&O. Decreased sensation in hands and feet. Muscle strength about 4/ 5 in legs Assessment/Plan: 1. B1 Deficiency Polyneuropathy: Daily Thiamine. No longer encephalopathic. PT/ OT 2. S/P Gastric Sleeve: Eating better 3. Analgesia: Oxycodone/Gabapentin. May need to increase gabapentin to 600 4. DVT Prophylaxis: Lovenox 5. Advance Directives: Full code 09/17/18 18:14 09/17/18 18:16
[2018-09-17] MEDS: Enoxaparin(*) 40 MG/0.4 ML SYR SUBCUT SCH (19:50)
[2018-09-17] MEDS: Hydrocortisone SUPP* 25 MG SUPP (2.5%) PR PRN (21:38)
[2018-09-18] MEDS: oxyCODONE TAB* 5 MG TAB PO PRN ×5 (02:14→20:48)
[2018-09-18 05:30] LABS: ABS Basophils 0.1 10^3/ul (0-0.2); ABS Eosinophils 0.1 10^3/ul (0-0.6); ABS Monocytes 0.7 10^3/ul (0-0.8); ABS Nucleated RBC 0 10^3/ul; Eosinophil % 0.8 %; Hematocrit 41 % (35-47); Hemoglobin 13.3 g/dl (12.0-16.0); Lymphocyte % 58.8 %; Mean Corpuscular HGB Conc 33 g/dl (31-36); Mean Corpuscular Hemoglobin 29 pg (27-31); Mean Corpuscular Volume 90 fL (80-97); Mean Platelet Volume 8.2 fL (7.4-10.4); Nucleated Red Blood Cells % 0.2; Platelet Count 310 10^3/ul (150-450); Red Blood Count 4.51 10^6/ul (4.00-5.40); Red Cell Distribution Width 16 % (10.5-15); White Blood Count 6.7 10^3/ul (3.5-10.8)
[2018-09-18] MEDS: Acetaminophen TAB* 325 MG PO PRN ×3 (05:41→18:18)
[2018-09-18 05:52] LABS: Albumin 2.9 g/dL (3.2-5.2); BUN/Creatinine Ratio 17.1 (8-20); Calcium 8.3 mg/dL (8.6-10.3); EGFR African American 201.2 (>60); EGFR Non-African American 166.3 (>60); Potassium 4.1 mmol/L (3.5-5.0); Total Bilirubin 0.5 mg/dL (0.2-1.0); Total Protein 5.9 g/dL (6.4-8.9)
[2018-09-18] MEDS: Gabapentin CAP(*) 400 MG PO SCH ×3 (08:54→20:41)
[2018-09-18] MEDS: Famotidine TAB* 20 MG PO SCH ×2 (08:54→20:41)
[2018-09-18] MEDS: amLODIPine TAB* 5 MG PO SCH (08:54)
[2018-09-18] MEDS: Sucralfate TAB* 1 GM PO SCH ×4 (08:55→20:42)
[2018-09-18] MEDS: Thiamine TAB* 100 MG TAB PO SCH ×2 (08:55→20:44)
[2018-09-18] MEDS: Magnesium Oxide TAB* 400 MG PO SCH ×2 (08:55→20:42)
[2018-09-18] MEDS: Pyridoxine TAB* 50 MG PO SCH (08:55)
[2018-09-18] MEDS: GuaiFENesin DM sugar free* 5 ML UDC PO PRN (12:07)
[2018-09-18] MEDS ORDERED: Polyethylene Glycol 3350* 17 GM PACKET PO PRN (18:44)
--- NOTE | 2018-09-18 18:58 | PN ---
Progress Note Date of Service: 09/18/18 Note: JONH CAMARA was visited. Therapy notes read and reviewed. She notes constipation which is a problem. She tells me she normally takes Miralax scheduled at home. Current Medications: Active Medications Generic Name Dose Route Start Last Admin Trade Name Freq PRN Reason Stop Dose Admin Acetaminophen 650 mg 09/16/18 12:43 09/18/18 18:18 Tylenol Tab* PO 650 mg Q6H PRN Administration FEVER/PAIN Amlodipine Besylate 5 mg 09/17/18 09:00 09/18/18 08:54 Norvasc Tab* PO 5 mg DAILY JUAN Administration Cyclobenzaprine HCl 10 mg 09/18/18 18:56 Flexeril Tab* PO BID PRN SPASMS Docusate Sodium 100 mg 09/18/18 21:00 Colace Cap* PO BID JUAN Enoxaparin Sodium 40 mg 09/16/18 20:00 09/17/18 19:50 Lovenox(*) SUBCUT 40 mg Q24H JUAN Administration Famotidine 20 mg 09/16/18 21:00 09/18/18 08:54 Pepcid Tab* PO 20 mg BID JUAN Administration Gabapentin 400 mg 09/16/18 14:00 09/18/18 14:51 Neurontin Cap(*) PO 400 mg TID JUAN Administration Guaifenesin/Dextromethorphan 10 ml 09/16/18 16:29 09/18/18 12:07 Robitussin Dm Sugar Free* PO 10 ml Q6H PRN Administration COUGH Hydrocortisone 25 mg 09/16/18 19:16 09/17/18 21:38 Anusol Hc Supp* [place] 25 mg BID PRN Administration hemorrhoid Magnesium Oxide 400 mg 09/16/18 21:00 09/18/18 08:55 Magox 400 Tab* PO 400 mg BID JUAN Administration Nicotine 10 mg 09/16/18 19:16 09/16/18 20:31 Nicotine Inhaler* INH 10 mg Q2H PRN Administration CRAVING Oxycodone HCl 5 mg 09/17/18 13:21 09/18/18 16:57 Roxycodone Tab* PO 5 mg Q4H PRN Administration PAIN - MODERATE TO SEVERE Polyethylene Glycol/Electrolytes 17 gm 09/19/18 09:00 Miralax* PO DAILY JUAN Pyridoxine HCl 100 mg 09/17/18 09:00 03/13/19 08:55 Vitamin B6 Tab* PO 100 mg DAILY JUAN Administration Sucralfate 1 gm 09/16/18 13:00 09/18/18 16:57 Carafate* PO 1 gm QID JUAN Administration Thiamine HCl 100 mg 09/16/18 21:00 09/18/18 08:55 Vitamin B-1 Tab* PO 100 mg BID JUAN Administration Vital Signs: Vital Signs Temp Pulse Resp BP Pulse Ox 98.5 F 119 18 146/106 100 09/18/18 16:02 09/18/18 16:02 09/18/18 16:57 09/18/18 16:02 09/18/18 16:02 Lab Results: Laboratory Results - last 24 hr 09/18/18 09/18/18 04:50 04:50 WBC 6.7 RBC 4.51 Hgb 13.3 Hct 41 MCV 90 MCH 29 MCHC 33 RDW 16 H Plt Count 310 MPV 8.2 Neut % (Auto) 29.2 Lymph % (Auto) 58.8 Jay % (Auto) 10.1 Eos % (Auto) 0.8 Baso % (Auto) 1.1 Absolute Neuts (auto) 2.0 Absolute Lymphs (auto) 4.0 Absolute Monos (auto) 0.7 Absolute Eos (auto) 0.1 Absolute Basos (auto) 0.1 Absolute Nucleated RBC 0 Nucleated RBC % 0.2 Sodium 142 Potassium 4.1 Chloride 102 Carbon Dioxide 31 Anion Gap 9 BUN 7 Creatinine 0.41 L Est GFR ( Amer) 201.2 Est GFR (Non-Af Amer) 166.3 BUN/Creatinine Ratio 17.1 Glucose 87 Calcium 8.3 L Total Bilirubin 0.50 AST 36 ALT 28 Alkaline Phosphatase 74 Total Protein 5.9 L Albumin 2.9 L Globulin 3.0 Albumin/Globulin Ratio 1.0 Exam: HEENT: EOMI LUNGS: CLear bilaterally HEART: Regular rhythm ABDOMEN: Soft +BS EXTREMITIES: Pain over knees, Pulses intact NEUROLOGIC: A&O. Decreased sensation in hands and feet. Muscle strength about 4/ 5 in legs Assessment/Plan: 1. B1 Deficiency Polyneuropathy: Daily Thiamine. No longer encephalopathic. PT/ OT 2. S/P Gastric Sleeve: Eating better 3. Analgesia: Oxycodone/Gabapentin. May need to increase gabapentin to 600. Add flexeril 4. DVT Prophylaxis: Lovenox 5. Advance Directives: Full code 6. Constipation: Miralax and Colace 09/18/18 18:58
[2018-09-18] MEDS: Cyclobenzaprine TAB* 10 MG PO PRN (19:29)
--- NOTE | 2018-09-18 20:40 | PN ---
Progress Note - Progress Note Date of Service: 09/18/18 SOAP: Subjective: Pt seen and chart reviewed. Tolerating diet. Sitting with daughter. Hands continue to hurt. She is concerned that her fall to her knees may have led to a fracture and would like xrays Objective: af vss tolerating PO meds reviewed Assessment: Thiamine defiency 2ary to bariatric surgery; neurologic changes We talked about her admission in June after being seen in my office. SHe felt that I wasn't listening to her when she couldn't toelrate diet. Plan: Continue PO Will follow intermittently
[2018-09-18] MEDS: Docusate CAP* 100 MG PO SCH (20:42)
[2018-09-18] MEDS: Enoxaparin(*) 40 MG/0.4 ML SYR SUBCUT SCH (20:45)
[2018-09-19] MEDS: oxyCODONE TAB* 5 MG TAB PO PRN ×5 (01:09→21:52)
[2018-09-19] MEDS: Acetaminophen TAB* 325 MG PO PRN ×4 (01:24→23:32)
[2018-09-19] MEDS: GuaiFENesin DM sugar free* 5 ML UDC PO PRN ×2 (01:29→23:56)
[2018-09-19] MEDS: Cyclobenzaprine TAB* 10 MG PO PRN ×2 (05:21→19:32)
[2018-09-19] MEDS: Pyridoxine TAB* 50 MG PO SCH (08:16)
[2018-09-19] MEDS: amLODIPine TAB* 5 MG PO SCH (08:16)
[2018-09-19] MEDS: Famotidine TAB* 20 MG PO SCH ×2 (08:16→21:50)
[2018-09-19] MEDS: Docusate CAP* 100 MG PO SCH ×2 (08:16→21:49)
[2018-09-19] MEDS: Thiamine TAB* 100 MG TAB PO SCH ×2 (08:16→21:49)
[2018-09-19] MEDS: Magnesium Oxide TAB* 400 MG PO SCH ×2 (08:16→21:49)
[2018-09-19] MEDS: Gabapentin CAP(*) 400 MG PO SCH ×3 (08:17→21:50)
[2018-09-19] MEDS: Polyethylene Glycol 3350* 17 GM PACKET PO SCH (08:25)
[2018-09-19] MEDS: Sucralfate TAB* 1 GM PO SCH ×5 (09:00→23:32)
--- NOTE | 2018-09-19 18:28 | PN ---
Progress Note Date of Service: 09/19/18 Note: JONH CAMARA was visited. Therapy notes read and reviewed. She had a mildly productive cough this evening. I ordered a chest x-ray which was negative. No fever. Otherwise ok. She also had x-rays of her knees. Results pending. Current Medications: Active Medications Generic Name Dose Route Start Last Admin Trade Name Freq PRN Reason Stop Dose Admin Acetaminophen 650 mg 09/16/18 12:43 09/19/18 16:18 Tylenol Tab* PO 650 mg Q6H PRN Administration FEVER/PAIN Amlodipine Besylate 5 mg 09/17/18 09:00 09/19/18 08:16 Norvasc Tab* PO 5 mg DAILY JUAN Administration Cyclobenzaprine HCl 10 mg 09/18/18 18:56 09/19/18 05:21 Flexeril Tab* PO 10 mg BID PRN Administration SPASMS Docusate Sodium 100 mg 09/18/18 21:00 09/19/18 08:16 Colace Cap* PO 100 mg BID JUAN Administration Enoxaparin Sodium 40 mg 09/16/18 20:00 09/18/18 20:45 Lovenox(*) SUBCUT 40 mg Q24H JUAN Administration Famotidine 20 mg 09/16/18 21:00 09/19/18 08:16 Pepcid Tab* PO 20 mg BID JUAN Administration Gabapentin 400 mg 09/16/18 14:00 09/19/18 16:17 Neurontin Cap(*) PO 400 mg TID JUAN Administration Guaifenesin/Dextromethorphan 10 ml 09/16/18 16:29 09/19/18 01:29 Robitussin Dm Sugar Free* PO 10 ml Q6H PRN Administration COUGH Hydrocortisone 25 mg 09/16/18 19:16 09/17/18 21:38 Anusol Hc Supp* [place] 25 mg BID PRN Administration hemorrhoid Magnesium Oxide 400 mg 09/16/18 21:00 09/19/18 08:16 Magox 400 Tab* PO 400 mg BID JUAN Administration Nicotine 10 mg 09/16/18 19:16 09/16/18 20:31 Nicotine Inhaler* INH 10 mg Q2H PRN Administration CRAVING Oxycodone HCl 5 mg 09/17/18 13:21 09/19/18 17:56 Roxycodone Tab* PO 5 mg Q4H PRN Administration PAIN - MODERATE TO SEVERE Polyethylene Glycol/Electrolytes 17 gm 09/19/18 09:00 09/19/18 08:25 Miralax* PO Not Given DAILY [facility] Pyridoxine HCl 100 mg 09/17/18 09:00 09/19/18 08:16 Vitamin B6 Tab* PO 100 mg DAILY JUAN Administration Sucralfate 1 gm 09/19/18 11:30 09/19/18 16:18 Carafate* PO 1 gm 0630,1130,1630,2100 JUAN Administration Thiamine HCl 100 mg 09/16/18 21:00 09/19/18 08:16 Vitamin B-1 Tab* PO 100 mg BID JUAN Administration Vital Signs: Vital Signs Temp Pulse Resp BP Pulse Ox 98.4 F 116 16 133/75 100 09/19/18 16:27 09/19/18 16:27 09/19/18 18:16 09/19/18 16:27 09/19/18 17:30 Exam: HEENT: EOMI LUNGS: CLear bilaterally HEART: Regular rhythm ABDOMEN: Soft +BS EXTREMITIES: Pain over knees, Pulses intact NEUROLOGIC: A&O. Decreased sensation in hands and feet. Muscle strength about 4/ 5 in legs Assessment/Plan: 1. B1 Deficiency Polyneuropathy: Daily Thiamine. No longer encephalopathic. PT/ OT 2. S/P Gastric Sleeve: Eating better 3. Analgesia: Oxycodone/Gabapentin. Will increase gabapentin to 500 TID. Flexeril not all that effective 4. DVT Prophylaxis: Lovenox 5. Advance Directives: Full code 6. Constipation: Miralax and Colace 09/19/18 18:28 09/19/18 18:29
[2018-09-19] MEDS: Enoxaparin(*) 40 MG/0.4 ML SYR SUBCUT SCH (19:33)
[2018-09-19] MEDS ORDERED: Gabapentin CAP(*) 400 MG PO SCH (21:00)
[2018-09-19] MEDS: Gabapentin CAP(*) 100 MG PO SCH (21:49)
[2018-09-20] MEDS: oxyCODONE TAB* 5 MG TAB PO PRN ×5 (03:20→20:42)
[2018-09-20] MEDS: Acetaminophen TAB* 325 MG PO PRN ×3 (05:30→20:49)
[2018-09-20] MEDS: Sucralfate TAB* 1 GM PO SCH ×4 (06:18→21:11)
[2018-09-20] MEDS: Gabapentin CAP(*) 400 MG PO SCH ×3 (07:25→20:41)
[2018-09-20] MEDS: Gabapentin CAP(*) 100 MG PO SCH ×3 (07:26→20:40)
[2018-09-20] MEDS: Polyethylene Glycol 3350* 17 GM PACKET PO SCH (07:32)
[2018-09-20] MEDS: GuaiFENesin DM sugar free* 5 ML UDC PO PRN (07:59)
[2018-09-20] MEDS: Famotidine TAB* 20 MG PO SCH ×2 (08:01→20:41)
[2018-09-20] MEDS: Docusate CAP* 100 MG PO SCH ×2 (08:01→20:40)
[2018-09-20] MEDS: Pyridoxine TAB* 50 MG PO SCH (08:02)
[2018-09-20] MEDS: Magnesium Oxide TAB* 400 MG PO SCH ×2 (08:02→20:40)
[2018-09-20] MEDS: Thiamine TAB* 100 MG TAB PO SCH ×2 (08:02→20:40)
[2018-09-20] MEDS: amLODIPine TAB* 5 MG PO SCH (08:02)
--- NOTE | 2018-09-20 10:27 | PN ---
Progress Note Date of Service: 09/20/18 Note: JONH CAMARA was visited. Nursing and therapy notes read and reviewed. No chest pain, shortness of breath or abdominal pain. She thinks some sensation in her hands is improving and her arms are stronger. She expressed to OT some memory issues yesterday. Current Medications: Active Medications Generic Name Dose Route Start Last Admin Trade Name Freq PRN Reason Stop Dose Admin Acetaminophen 650 mg 09/16/18 12:43 09/20/18 05:30 Tylenol Tab* PO 650 mg Q6H PRN Administration FEVER/PAIN Amlodipine Besylate 5 mg 09/17/18 09:00 09/20/18 08:02 Norvasc Tab* PO 5 mg DAILY JUAN Administration Cyclobenzaprine HCl 10 mg 09/18/18 18:56 09/19/18 19:32 Flexeril Tab* PO 10 mg BID PRN Administration SPASMS Docusate Sodium 100 mg 09/18/18 21:00 09/20/18 08:01 Colace Cap* PO 100 mg BID JUAN Administration Enoxaparin Sodium 40 mg 09/16/18 20:00 09/19/18 19:33 Lovenox(*) SUBCUT 40 mg Q24H JUAN Administration Famotidine 20 mg 09/16/18 21:00 09/20/18 08:01 Pepcid Tab* PO 20 mg BID JUAN Administration Gabapentin 400 mg 09/19/18 21:00 09/20/18 07:25 Neurontin Cap(*) PO 400 mg TID JUAN Administration Gabapentin 100 mg 09/19/18 21:00 09/20/18 07:26 Neurontin Cap(*) PO 100 mg TID JUAN Administration Guaifenesin/Dextromethorphan 10 ml 09/16/18 16:29 09/20/18 07:59 Robitussin Dm Sugar Free* PO 10 ml Q6H PRN Administration COUGH Hydrocortisone 25 mg 09/16/18 19:16 09/17/18 21:38 Anusol Hc Supp* [place] 25 mg BID PRN Administration hemorrhoid Magnesium Oxide 400 mg 09/16/18 21:00 09/20/18 08:02 Magox 400 Tab* PO 400 mg BID JUAN Administration Nicotine 10 mg 09/16/18 19:16 09/16/18 20:31 Nicotine Inhaler* INH 10 mg Q2H PRN Administration CRAVING Oxycodone HCl 5 mg 09/17/18 13:21 09/20/18 07:25 Roxycodone Tab* PO 5 mg Q4H PRN Administration PAIN - MODERATE TO SEVERE Polyethylene Glycol/Electrolytes 17 gm 09/19/18 09:00 09/20/18 07:32 Miralax* PO 17 gm DAILY JUAN Administration Pyridoxine HCl 100 mg 09/17/18 09:00 09/20/18 08:02 Vitamin B6 Tab* PO 100 mg DAILY JUAN Administration Sucralfate 1 gm 09/19/18 11:30 09/20/18 06:18 Carafate* PO 1 gm 0630,1130,1630,2100 JUAN Administration Thiamine HCl 100 mg 09/16/18 21:00 09/20/18 08:02 Vitamin B-1 Tab* PO 100 mg BID JUAN Administration Vital Signs: Vital Signs Temp Pulse Resp BP Pulse Ox 98.5 F 107 16 152/72 97 09/20/18 04:20 09/20/18 04:20 09/20/18 07:26 09/20/18 05:45 09/20/18 04:20 Exam: GENERAL: No acute distress. alert and appropriate. LUNGS: clear to auscultation bilaterally HEART: Regular rate and rhythm ABDOMEN: + bowel sounds, soft, non-tender, non-distended EXTREMITIES: No edema. NEUROLOGIC: CN II-XII intact. Impaired sensation x4. Motor 4/5 BUE and BLE. Assessment/Plan: 1. Vitamin B1 Deficiency Polyneuropathy: Daily Thiamine. No longer encephalopathic but patient expresses some memory concerns. Will ask speech to evaluate. Continue PT/OT 2. S/P Gastric Sleeve: Eating better 3. Analgesia: Oxycodone/Gabapentin. Gabapentin to 500 TID. Flexeril prn. 4. DVT Prophylaxis: Lovenox 5. Advance Directives: Full code 6. Constipation: Miralax and Colace 09/20/18 10:27
[2018-09-20] MEDS: Enoxaparin(*) 40 MG/0.4 ML SYR SUBCUT SCH (20:39)
[2018-09-21] MEDS: oxyCODONE TAB* 5 MG TAB PO PRN ×4 (02:25→20:17)
[2018-09-21] MEDS: GuaiFENesin DM sugar free* 5 ML UDC PO PRN (02:28)
[2018-09-21] MEDS: Acetaminophen TAB* 325 MG PO PRN ×2 (02:30→08:44)
[2018-09-21] MEDS: Cyclobenzaprine TAB* 10 MG PO PRN ×2 (04:25→19:45)
[2018-09-21] MEDS: Sucralfate TAB* 1 GM PO SCH ×4 (06:35→20:17)
[2018-09-21] MEDS: amLODIPine TAB* 5 MG PO SCH (08:25)
[2018-09-21] MEDS: Pyridoxine TAB* 50 MG PO SCH (08:26)
[2018-09-21] MEDS: Magnesium Oxide TAB* 400 MG PO SCH ×2 (08:26→20:18)
[2018-09-21] MEDS: Docusate CAP* 100 MG PO SCH ×2 (08:26→20:17)
[2018-09-21] MEDS: Thiamine TAB* 100 MG TAB PO SCH ×2 (08:26→20:18)
[2018-09-21] MEDS: Famotidine TAB* 20 MG PO SCH ×2 (08:26→20:17)
[2018-09-21] MEDS: Gabapentin CAP(*) 100 MG PO SCH (08:27)
[2018-09-21] MEDS: Gabapentin CAP(*) 400 MG PO SCH (08:30)
[2018-09-21] MEDS ORDERED: Lidocaine 4% TOPICAL* 50 ML TOP.SOLN TOPICAL PRN (10:14)
--- NOTE | 2018-09-21 10:37 | PN ---
Progress Note Date of Service: 09/21/18 Note: JONH CAMARA was visited. Nursing and therapy notes read and reviewed. Did not sleep well last night due to shooting pains in her fingers. No chest pain, shortness of breath or abdominal pain. Does not feel sedated from gabapentin and she believes it works best when given with tylenol. She does not feel oxycodone helps at all. In the past had tongue swelling with tramadol. Tolerates flexeril. Current Medications: Active Medications Generic Name Dose Route Start Last Admin Trade Name Freq PRN Reason Stop Dose Admin Acetaminophen 650 mg 09/21/18 12:00 Tylenol Tab* PO 08,12,17,22 JUAN Amlodipine Besylate 5 mg 09/17/18 09:00 09/21/18 08:25 Norvasc Tab* PO 5 mg DAILY JUAN Administration Cyclobenzaprine HCl 10 mg 09/18/18 18:56 09/21/18 04:25 Flexeril Tab* PO 10 mg BID PRN Administration SPASMS Docusate Sodium 100 mg 09/18/18 21:00 09/21/18 08:26 Colace Cap* PO 100 mg BID JUAN Administration Enoxaparin Sodium 40 mg 09/16/18 20:00 09/20/18 20:39 Lovenox(*) SUBCUT 40 mg Q24H JUAN Administration Famotidine 20 mg 09/16/18 21:00 09/21/18 08:26 Pepcid Tab* PO 20 mg BID JUAN Administration Gabapentin 600 mg 09/21/18 12:00 Neurontin Cap(*) PO ,, JUAN Gabapentin 300 mg 09/21/18 17:00 Neurontin Cap(*) PO 1700 JUAN Guaifenesin/Dextromethorphan 10 ml 09/16/18 16:29 09/21/18 02:28 Robitussin Dm Sugar Free* PO 10 ml Q6H PRN Administration COUGH Hydrocortisone 25 mg 09/16/18 19:16 09/17/18 21:38 Anusol Hc Supp* [place] 25 mg BID PRN Administration hemorrhoid Lidocaine HCl 1 applic 09/21/18 10:14 Lidocaine 4% Topical* TOPICAL TID PRN hand pain Magnesium Oxide 400 mg 09/16/18 21:00 09/21/18 08:26 Magox 400 Tab* PO 400 mg BID JUAN Administration Nicotine 10 mg 09/16/18 19:16 09/16/18 20:31 Nicotine Inhaler* INH 10 mg Q2H PRN Administration CRAVING Oxycodone HCl 5 mg 09/17/18 13:21 09/21/18 06:35 Roxycodone Tab* PO 5 mg Q4H PRN Administration PAIN - MODERATE TO SEVERE Polyethylene Glycol/Electrolytes 17 gm 09/19/18 09:00 09/20/18 07:32 Miralax* PO 17 gm DAILY JUAN Administration Pyridoxine HCl 100 mg 09/17/18 09:00 09/21/18 08:26 Vitamin B6 Tab* PO 100 mg DAILY JUAN Administration Sucralfate 1 gm 09/19/18 11:30 09/21/18 06:35 Carafate* PO 1 gm 0630,1130,1630,2100 JUAN Administration Thiamine HCl 100 mg 09/16/18 21:00 09/21/18 08:26 Vitamin B-1 Tab* PO 100 mg BID JUAN Administration Vital Signs: Vital Signs Temp Pulse Resp BP Pulse Ox 98.2 F 108 18 152/82 99 09/21/18 05:42 09/21/18 05:42 09/21/18 08:30 09/21/18 05:42 09/21/18 05:42 Exam: GENERAL: No acute distress. alert and appropriate. LUNGS: clear to auscultation bilaterally HEART: Regular rate and rhythm ABDOMEN: + bowel sounds, soft, non-tender, non-distended EXTREMITIES: No edema. NEUROLOGIC: CN II-XII intact. Impaired sensation x4. Motor 4/5 BUE and BLE. Assessment/Plan: 1. Vitamin B1 Deficiency Polyneuropathy: Daily Thiamine. No longer encephalopathic but patient expresses some memory concerns. Pending speech evaluation. Continue PT/OT 2. S/P Gastric Sleeve: Eating better 3. Analgesia: Oxycodone/Gabapentin. Change gabapentin to QID dosing. Will give 3 doses today at 600mg and one at 300mg. If tolerated will increase to 600mg qid. Flexeril prn. Topical lidocaine to hands prn. Consider night amitriptyline (I d/w with pharmacist tramadol allergy. Since tolerating flexeril, unlikely allergic to TCA moieties in other meds) 4. DVT Prophylaxis: Lovenox 5. Advance Directives: Full code 6. Constipation: Miralax and Colace 09/21/18 10:35
[2018-09-21] MEDS: Polyethylene Glycol 3350* 17 GM PACKET PO SCH (10:42)
[2018-09-21] MEDS ORDERED: Lidocaine 2% JELLY* 6 ML JELLY TOPICAL PRN (10:54)
[2018-09-21] MEDS: Gabapentin CAP(*) 300 MG PO SCH ×2 (11:50→22:04)
[2018-09-21] MEDS: Acetaminophen TAB* 325 MG PO SCH ×3 (11:51→22:05)
[2018-09-21] MEDS ORDERED: Gabapentin CAP(*) 300 MG PO SCH (17:00)
[2018-09-21] MEDS: Enoxaparin(*) 40 MG/0.4 ML SYR SUBCUT SCH (20:19)
[2018-09-22] MEDS: oxyCODONE TAB* 5 MG TAB PO PRN ×5 (02:32→23:50)
[2018-09-22] MEDS: Cyclobenzaprine TAB* 10 MG PO PRN ×2 (03:58→20:19)
[2018-09-22] MEDS: Sucralfate TAB* 1 GM PO SCH ×4 (06:15→21:05)
[2018-09-22] MEDS: Gabapentin CAP(*) 300 MG PO SCH ×4 (07:46→21:52)
[2018-09-22] MEDS: Acetaminophen TAB* 325 MG PO SCH ×4 (07:46→21:51)
[2018-09-22] MEDS: Magnesium Oxide TAB* 400 MG PO SCH ×2 (08:09→21:05)
[2018-09-22] MEDS: Docusate CAP* 100 MG PO SCH ×2 (08:09→21:05)
[2018-09-22] MEDS: Pyridoxine TAB* 50 MG PO SCH (08:09)
[2018-09-22] MEDS: amLODIPine TAB* 5 MG PO SCH (08:10)
[2018-09-22] MEDS: Thiamine TAB* 100 MG TAB PO SCH ×2 (08:10→21:05)
[2018-09-22] MEDS: Famotidine TAB* 20 MG PO SCH ×2 (08:10→21:05)
[2018-09-22] MEDS: Polyethylene Glycol 3350* 17 GM PACKET PO SCH (08:12)
--- NOTE | 2018-09-22 10:38 | PN ---
Progress Note Date of Service: 09/22/18 Note: JONH CAMARA was visited. Therapy notes read and reviewed. She slept for a few solid hours last night. Gabapentin lasts longer when taken with tylenol. Yesterday jaw got stuck and painful. It is better now. Does not have normal sensation in mouth/teeth. Current Medications: Active Medications Generic Name Dose Route Start Last Admin Trade Name Freq PRN Reason Stop Dose Admin Acetaminophen 650 mg 09/21/18 12:00 09/22/18 07:46 Tylenol Tab* PO 650 mg 08,,, JUAN Administration Amlodipine Besylate 5 mg 09/17/18 09:00 09/22/18 08:10 Norvasc Tab* PO 5 mg DAILY JUAN Administration Cyclobenzaprine HCl 10 mg 09/18/18 18:56 09/22/18 03:58 Flexeril Tab* PO 10 mg BID PRN Administration SPASMS Docusate Sodium 100 mg 09/18/18 21:00 09/22/18 08:09 Colace Cap* PO 100 mg BID JUAN Administration Enoxaparin Sodium 40 mg 09/16/18 20:00 09/21/18 20:19 Lovenox(*) SUBCUT 40 mg Q24H JUAN Administration Famotidine 20 mg 09/16/18 21:00 09/22/18 08:10 Pepcid Tab* PO 20 mg BID JUAN Administration Gabapentin 600 mg 09/22/18 12:00 Neurontin Cap(*) PO ,,, JUAN Guaifenesin/Dextromethorphan 10 ml 09/16/18 16:29 09/21/18 02:28 Robitussin Dm Sugar Free* PO 10 ml Q6H PRN Administration COUGH Hydrocortisone 25 mg 09/16/18 19:16 09/17/18 21:38 Anusol Hc Supp* [place] 25 mg BID PRN Administration hemorrhoid Lidocaine HCl 1 applic 09/21/18 10:54 09/21/18 11:53 Lidocaine 2% Jelly* TOPICAL 1 applic TID PRN Administration hand pain Magnesium Oxide 400 mg 09/16/18 21:00 09/22/18 08:09 Magox 400 Tab* PO 400 mg BID JUAN Administration Nicotine 10 mg 09/16/18 19:16 09/16/18 20:31 Nicotine Inhaler* INH 10 mg Q2H PRN Administration CRAVING Oxycodone HCl 5 mg 09/17/18 13:21 09/22/18 06:17 Roxycodone Tab* PO 5 mg Q4H PRN Administration PAIN - MODERATE TO SEVERE Polyethylene Glycol/Electrolytes 17 gm 09/19/18 09:00 09/22/18 08:12 Miralax* PO Not Given DAILY JUAN Pyridoxine HCl 100 mg 09/17/18 09:00 09/22/18 08:09 Vitamin B6 Tab* PO 100 mg DAILY JUAN Administration Sucralfate 1 gm 09/19/18 11:30 09/22/18 06:15 Carafate* PO 1 gm 0630,1130,1630,2100 JUAN Administration Thiamine HCl 100 mg 09/16/18 21:00 09/22/18 08:10 Vitamin B-1 Tab* PO 100 mg BID JUAN Administration Vital Signs: Vital Signs Temp Pulse Resp BP Pulse Ox 98.3 F 104 18 148/99 94 09/22/18 06:16 09/22/18 06:16 09/22/18 10:22 09/22/18 06:16 09/22/18 06:16 Exam: GENERAL: No acute distress. alert and appropriate. LUNGS: clear to auscultation bilaterally HEART: Regular rhythm and has been slightly tachy. No change. ABDOMEN: + bowel sounds, soft, non-tender, non-distended EXTREMITIES: No edema. NEUROLOGIC: CN II-XII intact. Impaired sensation x4. Motor 4/5 BUE and BLE. Assessment/Plan: 1. Vitamin B1 Deficiency Polyneuropathy: Daily Thiamine. No longer encephalopathic but patient expresses some memory concerns. Pending speech evaluation. Continue PT/OT 2. S/P Gastric Sleeve: Eating better 3. Analgesia: Oxycodone/Gabapentin/Tylenol. Change gabapentin to 600mg QID dosing. Flexeril prn. Topical lidocaine to hands not that helpful so will d/c. Consider night amitriptyline (I d/w with pharmacist tramadol allergy. Since tolerating flexeril, unlikely allergic to TCA moieties in other meds) 4. DVT Prophylaxis: Lovenox 5. Advance Directives: Full code 6. Constipation: Miralax and Colace 09/22/18 10:37
[2018-09-22] MEDS: Enoxaparin(*) 40 MG/0.4 ML SYR SUBCUT SCH (19:29)
[2018-09-23] MEDS: Cyclobenzaprine TAB* 10 MG PO PRN ×2 (03:21→15:12)
[2018-09-23] MEDS: oxyCODONE TAB* 5 MG TAB PO PRN ×4 (04:04→19:28)
[2018-09-23] MEDS: Sucralfate TAB* 1 GM PO SCH ×4 (05:23→21:48)
[2018-09-23] MEDS: Acetaminophen TAB* 325 MG PO SCH ×4 (06:35→21:49)
[2018-09-23] MEDS: Gabapentin CAP(*) 300 MG PO SCH ×4 (06:35→21:49)
[2018-09-23] MEDS: amLODIPine TAB* 5 MG PO SCH (10:10)
[2018-09-23] MEDS: Famotidine TAB* 20 MG PO SCH ×2 (10:10→21:48)
[2018-09-23] MEDS: Docusate CAP* 100 MG PO SCH ×2 (10:10→21:48)
[2018-09-23] MEDS: Magnesium Oxide TAB* 400 MG PO SCH ×2 (10:10→21:48)
[2018-09-23] MEDS: Pyridoxine TAB* 50 MG PO SCH (10:11)
[2018-09-23] MEDS: Thiamine TAB* 100 MG TAB PO SCH ×2 (10:11→21:48)
[2018-09-23] MEDS: Polyethylene Glycol 3350* 17 GM PACKET PO SCH (10:20)
--- NOTE | 2018-09-23 17:24 | PN ---
Progress Note Date of Service: 09/23/18 Note: JONH CAMARA was visited. Therapy notes read and reviewed. She still complains of a burning pain in her fingers and her hands. Notes spasms in arms. Current Medications: Active Medications Generic Name Dose Route Start Last Admin Trade Name Freq PRN Reason Stop Dose Admin Acetaminophen 650 mg 09/21/18 12:00 09/23/18 16:48 Tylenol Tab* PO 650 mg ,,, JUAN Administration Amlodipine Besylate 5 mg 09/17/18 09:00 09/23/18 10:10 Norvasc Tab* PO 5 mg DAILY JUAN Administration Cyclobenzaprine HCl 10 mg 09/23/18 17:19 Flexeril Tab* PO Q8H PRN SPASMS Docusate Sodium 100 mg 09/18/18 21:00 09/23/18 10:10 Colace Cap* PO 100 mg BID JUAN Administration Enoxaparin Sodium 40 mg 09/16/18 20:00 09/22/18 19:29 Lovenox(*) SUBCUT 40 mg Q24H JUAN Administration Famotidine 20 mg 09/16/18 21:00 09/23/18 10:10 Pepcid Tab* PO 20 mg BID JUAN Administration Gabapentin 600 mg 09/22/18 12:00 09/23/18 16:48 Neurontin Cap(*) PO 600 mg ,,, JUAN Administration Guaifenesin/Dextromethorphan 10 ml 09/16/18 16:29 09/21/18 02:28 Robitussin Dm Sugar Free* PO 10 ml Q6H PRN Administration COUGH Hydrocortisone 25 mg 09/16/18 19:16 09/17/18 21:38 Anusol Hc Supp* [place] 25 mg BID PRN Administration hemorrhoid Magnesium Oxide 400 mg 09/16/18 21:00 09/23/18 10:10 Magox 400 Tab* PO 400 mg BID JUAN Administration Nicotine 10 mg 09/16/18 19:16 09/16/18 20:31 Nicotine Inhaler* INH 10 mg Q2H PRN Administration CRAVING Nortriptyline HCl 10 mg 09/23/18 21:00 Pamelor Cap* PO BEDTIME JUAN Oxycodone HCl 5 mg 09/17/18 13:21 09/23/18 15:07 Roxycodone Tab* PO 5 mg Q4H PRN Administration PAIN - MODERATE TO SEVERE Polyethylene Glycol/Electrolytes 17 gm 09/19/18 09:00 09/23/18 10:20 Miralax* PO 17 gm DAILY JUAN Administration Pyridoxine HCl 100 mg 09/17/18 09:00 09/23/18 10:11 Vitamin B6 Tab* PO 100 mg DAILY JUAN Administration Sucralfate 1 gm 09/23/18 16:00 09/23/18 16:44 Carafate* PO 1 gm 0630,1100,1600,2100 JUAN Administration Thiamine HCl 100 mg 09/16/18 21:00 09/23/18 10:11 Vitamin B-1 Tab* PO 100 mg BID JUAN Administration Vital Signs: Vital Signs Temp Pulse Resp BP Pulse Ox 98.5 F 115 16 142/97 100 09/23/18 16:15 09/23/18 16:15 09/23/18 16:48 09/23/18 16:15 09/23/18 16:15 Exam: GENERAL: No acute distress. alert and appropriate. LUNGS: clear to auscultation bilaterally HEART: Regular rhythm and has been slightly tachy. ABDOMEN: + bowel sounds, soft, non-tender, non-distended EXTREMITIES: No edema. NEUROLOGIC: CN II-XII intact. Impaired sensation in hands and feet, ankles. Motor 4+/5 BUE and BLE. Assessment/Plan: 1. Vitamin B1 Deficiency Polyneuropathy: Daily Thiamine. No longer encephalopathic . Speech found minor deficits with memory and attention. Continue PT/OT 2. S/P Gastric Sleeve: Eating better 3. Analgesia: Oxycodone/Gabapentin/Tylenol. Change gabapentin to 600mg QID dosing. Flexeril prn. Will try Pamelor at night 4. DVT Prophylaxis: Lovenox 5. Advance Directives: Full code 6. Constipation: Miralax and Colace 09/23/18 17:25 09/23/18 17:27
[2018-09-23] MEDS: Enoxaparin(*) 40 MG/0.4 ML SYR SUBCUT SCH (21:48)
[2018-09-23] MEDS: Nortriptyline CAP* 10 MG PO SCH (21:48)
[2018-09-24] MEDS: oxyCODONE TAB* 5 MG TAB PO PRN ×5 (00:05→20:16)
[2018-09-24] MEDS: Cyclobenzaprine TAB* 10 MG PO PRN ×3 (00:05→18:45)
[2018-09-24] MEDS: Sucralfate TAB* 1 GM PO SCH ×4 (06:16→20:16)
[2018-09-24] MEDS: Acetaminophen TAB* 325 MG PO SCH ×4 (07:54→21:55)
[2018-09-24] MEDS: Gabapentin CAP(*) 300 MG PO SCH ×4 (07:55→21:54)
[2018-09-24] MEDS: Famotidine TAB* 20 MG PO SCH ×2 (07:56→20:16)
[2018-09-24] MEDS: Magnesium Oxide TAB* 400 MG PO SCH ×2 (07:57→20:16)
[2018-09-24] MEDS: Thiamine TAB* 100 MG TAB PO SCH ×2 (07:57→20:16)
[2018-09-24] MEDS: Pyridoxine TAB* 50 MG PO SCH (07:57)
[2018-09-24] MEDS: amLODIPine TAB* 5 MG PO SCH (07:57)
[2018-09-24] MEDS: Docusate CAP* 100 MG PO SCH ×2 (07:57→20:16)
[2018-09-24] MEDS: Polyethylene Glycol 3350* 17 GM PACKET PO SCH ×2 (08:00→16:30)
--- NOTE | 2018-09-24 12:48 | PMRUTEAM ---
PMRU: Team Meeting Current Status: Nursing: Current Status Skin Deviations [Chest Tele Rash rash] Skin Deviation Description [ healed Chest Tele rash] Bladder Current Status Continent - EZ stand to bathroom Bowel Current Status Continent - EZ stand to bathroom Nutrition Current Status Needs help opening items - no assistance needed with eating - eats most meals Medication Current Status Reinforcement needed for pain medication management Physical Therapy: Current Status Bed Mobility Assistance Supervision Transfer Mobility Assistance Total Assist,2 or More Person Assist Transfer/Bed Mobility EZ Stand Recommended Devices Transfer Mobility Comment min to mod A x 1 to 2 sit to stand Ambulation Assistance Contact Guard Assist Ambulation Assistive Devices Rolling Walker Number of Feet Patient 35' and 40' using 4 wheeled cardiac w/w. Ambulated Ambulation Comment Ataxic modified reciprocal type gait. Stairs Assistance Not Tested Curb Not Tested Wheelchair Distance (ft) 50 Occupational Therapy: Current Status Upper Body Dressing Supervision Lower Body Dressing Min Assist,Mod Assist,2 Person Assist Lower Body Dressing Progress Darryl supine, modA with assist x 2 in standing Bathing Mod Assist,2 Person Assist Toileting Total Assist,2 Person Assist Toileting Progress assistance level varies Toilet Transfer Total Assist,2 Person Assist Toilet Transfer Progress EZ stand Shower Transfer Total Assist,2 Person Assist Shower Transfer Progress EZ stand w/c to/from shower chair Eating Supervision Rec Therapy: Current Status Summary of Assessment and Recreation therapy assessment complete and pt. is Clinical Impression aware of services. Pt. has been engaged in regular leisure activities in the afternoon with freelance writer and independently. Treatment Goals Pt. will engage in recreation and leisure while on the unit. Treatment Plan Provide services and encourage involvement. Social Work: Current Status Discharge Plan Return home with home care svs and family support Potential for Family Training pt's daughter is involved and supportive Anticipated Discharge Home Destination Discharge With home care svs and family support Nutrition: Current Status Monitoring pt w/variable po intake, but overall improving ( avg 85-90% for past three days). Regular diet appropriate, although she is within one year of gastric bypass, so low fat, low sugar foods should be encouraged (pt recently requested fried fish and Scottish fries from cafeteria, which was not allowed). Per original H&P, she was taking a multivitamin that did NOT contain thiamine (B1) post-bariatric surgery. Her levels of B1 and B6 were rather low on 06/10/18 (40, <2, respectively). She is now accepting appropriate supplementation daily (see above). Also consuming foods that contain both vitamins. Daily BMs since 09/19. Appears to be meeting goals as outlined below. Speech: Current Status Assessment Patient is progressing as expected. Patient acknowledged and demonstrated understanding of memory encoding techniques. Speech Current Status Goal 1 Mild Goals: Physical Therapy: Initial Goals Bed Mobility Assistance Independent Transfer Mobility Assistance Independent Transfer/Bed Mobility Rolling Walker Recommended Devices Ambulation Independent Ambulation Recommended Devices Rolling Walker Ambulation Distance 150 Wheelchair Propulsion Ability Independent Stairs Assistance Independent Stair Recommended Devices Two Rails Number of Stairs 5 Physical Therapy: Updated Goals Bed Mobility Assistance Independent Transfer Mobility Assistance Independent Transfer/Bed Mobility Rolling Walker,EZ Stand Recommended Devices Ambulation Assistance Independent Ambulation Distance (ft) 150 Wheelchair Propulsion Ability Independent Stairs Assistance Independent Stairs Recommended Devices Two Rails Number of Stairs 5 Occupational Therapy: Initial Goals Goals to be Completed in (Days 21-28 ) Upper Body Bathing Routine Modified Independent with Lower Body Bathing Routine Supervision/Set Up Upper Body Dressing Routine Independent Lower Body Dressing Routine Minimal Contact Assist Toilet Hygeine and Clothing Minimal Contact Assist Management Routine Toilet Transfer Routine Supervision/Set Up Tub Transfer Routine Minimal Contact Assist Functional Transfers for ADL Supervision/Set Up Grooming Routine Modified Independent with Feeding Routine Modified Independent with Nursing: Goals Bladder Goal Independent Bowel Goal Independent Nutrition Goal Independent Medication Goal Independent with medications Nutrition: Goals Intervention Goals 1. pt will tolerate po intake without GI distress (N/V) 2. adequate po intake to support planned wt loss while meeting protein needs 3. achieve and maintain serum electrolytes WNL 4. regulated bowel pattern without constipation ( or diarrhea) Speech: Goals Speech Goal 1 Memory Speech Evaluation Status Goal Mild 1 Speech Current Status Goal 1 Mild Goal 1 Comments Memory Goals: Long-Term Memory Goal: Pt will use compensatory strategies to encode and retrieve 5/5 new items after delay of 30 minutes, Independently, for independence in mobility safety, ADLs and community access. Status: progressing as expected Short-term Memory Goal: Pt will use compensatory strategies to encode and retrieve 4/4 new items after delay of 5 minutes, given Moderate skilled instruction and cueing. Status: progressing as expected STOCK RANCH SUPERVISOR presented auditory list of related word pairs and instructed patient in use of Immediate recall and Spaced retrieval method. Patient encoded and recalled 10 word pairs with 95% accuracy and moderate cueing, faded to 100% wiht minimal cueing . STOCK RANCH SUPERVISOR modified instruction for patient to encode 6 pictures by use of associated word or personal story, and Immediate and Spaced Retrieval. Patient encoded and recalled 5/6 I'ly and 6/6 given minimal cueing. Speech Goal 2 Problem solving Speech Goal 2 Comments Problem Solving Goals: Long-Term Goal: Pt will use compensatory strategies to solve moderately complex routine problems, with 100% accuracy, Independently, for personal safety and ADLs such as shopping, time and money management. Status: progressing as expected Short-Term Goal: Pt will use compensatory strategies to solve simple routine problems, with 80% accuracy, given Moderate skilled instruction and cueing, for personal safety and ADLs such as shopping, time and money management. Status: progressing as expected Social Work: Goals Discharge Plan Return home with home care svs and family support Potential for Family Training pt's daughter is involved and supportive Anticipated Discharge Home Destination Discharge With home care svs and family support Care Plan: Care Plan ADL's - Improve/Maintain Start: 09/16/18 19:35 Freq: DAILY Status: Active Target: Protocol: Activity Type Activity Date Activity User E-Sign Co-Sign Detail Recorded Client Recorded Date Recorded By Document 09/20/18 11:11 [id number] 09/20/18 11:11 [id number] 09/20/18 11:11 PMRU Outcome: ADL's/ADL Transfers Orders/Interventions Occupational Therapy Evaluation & Treatment Communication Tool in Patient Room Device Yes Address Deficits Secondary To: neuropathy Patient to receive OT 5x/wk for 60-120 Therex min/day Self Care Management Group Therapy UE/LE ADL's with Assist Yes: setup UB, Darryl LB ADL Transfers with Assist Yes: supervision Toileting: Transfers,Clothing Management Yes: Darryl ,Hygeine w/Assist Light Kitchen/Laundry w/Assist No Progression Toward Outcome/Goals Progressing Outcome/Goals Met Pt participated well in treatment session, did well with multiple transfers using EZ stand and completion of shower seated on shower bench this date. Communication-Improve/Maintain Start: 09/21/18 14:59 Freq: DAILY Status: Active Target: Protocol: Activity Type Activity Date Activity User E-Sign Co-Sign Detail Recorded Client Recorded Date Recorded By Document 09/22/18 23:09 [id number] [id number] 09/22/18 23:09 [id number] 09/22/18 23:09 PMRU Outcome: Communication/Cognitive Status Other Outcomes/Goals Memory Goals: Long-Term Memory Goal: Pt will use compensatory strategies to encode and retrieve 5/5 new items after delay of 30 minutes, Independently, for independence in mobility safety, ADLs and community access. Status: Goal established Short-term Memory Goal: Pt will use compensatory strategies to encode and retrieve 4/4 new items after delay of 5 minutes, given Moderate skilled instruction and cueing. Status: Goal establishedProb zev Solving Goals: Long-Term Goal: Pt will use compensatory strategies to solve moderately complex routine problems, with 100% accuracy, Independently, for personal safety and ADLs such as shopping, time and money management. Status: Goal established Short-Term Goal : Pt will use compensatory strategies to solve simple routine problems, with 80% accuracy, given Moderate skilled instruction and cueing, for personal safety and ADLs such as shopping, time and money management. Status: Goal established Progression Toward Outcomes/Goals Progressing Discharge Planning - Improve/Maintain Start: 09/16/18 19:35 Freq: DAILY Status: Active Target: Protocol: Activity Type Activity Date Activity User E-Sign Co-Sign Detail Recorded Client Recorded Date Recorded By Document 09/24/18 00:07 [id number] 09/24/18 00:07 [id number] 09/24/18 00:07 PMRU Outcome: Discharge Planning Update Patient Family No Outcome/Goals Demonstrates Understanding of Discharge Plan Progression Toward Outcome/Goals Progressing Education-Improve/Maintain Start: 09/16/18 19:35 Freq: QSHIFT Status: Active Target: Protocol: Activity Type Activity Date Activity User E-Sign Co-Sign Detail Recorded Client Recorded Date Recorded By Document 09/23/18 20:00 [id number] [email or web address] 09/23/18 20:37 [id number] 09/23/18 20:00 PMRU Outcome: Education Outcome/Goals Encourage Questions Progression Toward Outcome/Goals Progressing /GI-Improve/Maintain Start: 09/16/18 19:35 Freq: QSHIFT Status: Active Target: Protocol: Activity Type Activity Date Activity User E-Sign Co-Sign Detail Recorded Client Recorded Date Recorded By Document 09/23/18 20:00 [id number] 09/23/18 20:37 [id number] 09/23/18 20:00 PMRU Outcome: Genitourinary/ Gastrointestinal Genitourinary- Outcome/Goals Maintain/ Achieve Adequate Urinary Output Remain Free of Hospital- Acquired UTI Gastrointestinal-Outcome/Goals Maintain/ Achieve Bowel Regularity in Accordance with Pt's Baseline Prevent Constipation Progression Toward Outcome/Goals - Progressing Progression Toward Outcome/Goals - GI Progressing Mobility- Improve/Maintain Start: 09/16/18 19:20 Freq: DAILY Status: Active Target: Protocol: Activity Type Activity Date Activity User E-Sign Co-Sign Detail Recorded Client Recorded Date Recorded By Document 09/16/18 19:20 [id number] 09/16/18 19:21 [id number] 09/16/18 19:20 PMRU Outcome: Mobility Physical Therapy Evaluation and Yes Treatment Activity OOB with Assistance Yes WBAT Yes Device Yes Assistance Yes Patient to be seen 5x/wk for 60-120 min/ Therex day for: Mobility Training Gait Training W/C Mobility Balance Outcome/Goals Maintain/ Achieve Baseline Mobility Status Improve Mobility Status Demonstrates Proper Use of Assistive Devices Free from Complications of Immobility Bed Mobility Yes: independent Transfers Yes: independent with rollign walker Gait x ft Yes: independent with rolling walker 150' Up/Down Stairs Yes: independent up down 5 stairs with 2 rails. Neurological- Improve/Maintain Start: 09/16/18 19:35 Freq: QSHIFT Status: Active Target: Protocol: Activity Type Activity Date Activity User E-Sign Co-Sign Detail Recorded Client Recorded Date Recorded By Document 09/23/18 20:00 [id number] 09/23/18 20:37 [id number] 09/23/18 20:00 PMRU Outcome: Neurological Weakness/Aphasia Weakness Outcome/Goals Prevent Avoidable Neurological Decline Maintain/ Improve Strength/ROM Progression Toward Outcome/Goals Progressing Safety- Improve/Maintain Start: 09/16/18 19:35 Freq: QSHIFT Status: Active Target: Protocol: Activity Type Activity Date Activity User E-Sign Co-Sign Detail Recorded Client Recorded Date Recorded By Document 09/23/18 20:00 [id number] 09/23/18 20:37 [id number] 09/23/18 20:00 PMRU Outcome: Safety Outcome/Goals Remain Free of Injury or Harm Cooperates with Safety Measures for Least Restrictive Environment Prevent Falls/ Injury Progression Toward Outcome/Goals Progressing Medicine Note: Length of Stay: 3 1/2 weeks Anticipated Discharge Destination: Home Tentative Discharge Date: 10/17/18 Discharged to: Home
--- NOTE | 2018-09-24 17:11 | PN ---
Progress Note Date of Service: 09/24/18 Note: JONH CAMARA was visited. Therapy notes read and reviewed. She was discussed in interdisciplinary rounds. Continues to complain of hand pain and sometimes knee pain. Will add Voltaren Gel to the knees. On gabapentin and Pamelor for nerve pain. She is definitely getting stronger. Current Medications: Active Medications Generic Name Dose Route Start Last Admin Trade Name Freq PRN Reason Stop Dose Admin Acetaminophen 650 mg 09/21/18 12:00 09/24/18 17:05 Tylenol Tab* PO 650 mg ,,, JUAN Administration Amlodipine Besylate 5 mg 09/17/18 09:00 09/24/18 07:57 Norvasc Tab* PO 5 mg DAILY JUAN Administration Cyclobenzaprine HCl 10 mg 09/23/18 17:19 09/24/18 10:24 Flexeril Tab* PO 10 mg Q8H PRN Administration SPASMS Docusate Sodium 100 mg 09/18/18 21:00 09/24/18 07:57 Colace Cap* PO 100 mg BID JUAN Administration Enoxaparin Sodium 40 mg 09/16/18 20:00 09/23/18 21:48 Lovenox(*) SUBCUT 40 mg Q24H JUAN Administration Famotidine 20 mg 09/16/18 21:00 09/24/18 07:56 Pepcid Tab* PO 20 mg BID JUAN Administration Gabapentin 600 mg 09/22/18 12:00 09/24/18 17:03 Neurontin Cap(*) PO 600 mg ,,, JUAN Administration Guaifenesin/Dextromethorphan 10 ml 09/16/18 16:29 09/21/18 02:28 Robitussin Dm Sugar Free* PO 10 ml Q6H PRN Administration COUGH Hydrocortisone 25 mg 09/16/18 19:16 09/17/18 21:38 Anusol Hc Supp* [place] 25 mg BID PRN Administration hemorrhoid Magnesium Oxide 400 mg 09/16/18 21:00 09/24/18 07:57 Magox 400 Tab* PO 400 mg BID JUAN Administration Nicotine 10 mg 09/16/18 19:16 09/16/18 20:31 Nicotine Inhaler* INH 10 mg Q2H PRN Administration CRAVING Nortriptyline HCl 10 mg 09/23/18 21:00 09/23/18 21:48 Pamelor Cap* PO 10 mg BEDTIME JUAN Administration Oxycodone HCl 5 mg 09/17/18 13:21 09/24/18 15:36 Roxycodone Tab* PO 5 mg Q4H PRN Administration PAIN - MODERATE TO SEVERE Polyethylene Glycol/Electrolytes 17 gm 09/19/18 09:00 09/24/18 16:30 Miralax* PO 17 gm DAILY JUAN Administration Pyridoxine HCl 100 mg 09/17/18 09:00 09/24/18 07:57 Vitamin B6 Tab* PO 100 mg DAILY JUAN Administration Sucralfate 1 gm 09/23/18 16:00 09/24/18 16:29 Carafate* PO 1 gm 0630,1100,1600,2100 JUAN Administration Thiamine HCl 100 mg 09/16/18 21:00 09/24/18 07:57 Vitamin B-1 Tab* PO 100 mg BID JUAN Administration Vital Signs: Vital Signs Temp Pulse Resp BP Pulse Ox 97.6 F 113 16 122/94 99 09/24/18 16:54 09/24/18 16:54 09/24/18 17:03 09/24/18 16:54 09/24/18 16:54 Exam: GENERAL: No acute distress. alert and appropriate. LUNGS: clear to auscultation bilaterally HEART: Regular rhythm and has been slightly tachy. ABDOMEN: + bowel sounds, soft, non-tender, non-distended EXTREMITIES: No edema. NEUROLOGIC: CN II-XII intact. Impaired sensation in hands and feet, ankles. Motor 4+/5 BUE and BLE. Assessment/Plan: 1. Vitamin B1 Deficiency Polyneuropathy: Daily Thiamine. No longer encephalopathic . Speech found minor deficits with memory and attention. Continue PT/OT 2. S/P Gastric Sleeve: Eating better 3. Analgesia: Oxycodone/Gabapentin/Tylenol. Change gabapentin to 600mg QID dosing. Flexeril prn. Pamelor at night 4. DVT Prophylaxis: Lovenox 5. Advance Directives: Full code 6. Constipation: Miralax and Colace 09/24/18 17:11
[2018-09-24] MEDS: Enoxaparin(*) 40 MG/0.4 ML SYR SUBCUT SCH (20:16)
[2018-09-24] MEDS: Nortriptyline CAP* 10 MG PO SCH (20:16)
[2018-09-25] MEDS: Cyclobenzaprine TAB* 10 MG PO PRN ×2 (03:46→12:01)
[2018-09-25] MEDS: oxyCODONE TAB* 5 MG TAB PO PRN ×5 (03:46→22:58)
[2018-09-25] MEDS: Sucralfate TAB* 1 GM PO SCH ×4 (04:53→21:09)
[2018-09-25 05:23] LABS: Hematocrit 37 % (33-41); Hemoglobin 12.2 g/dL (12.0-16.0); Mean Corpuscular HGB Conc 33 g/dL (31-36); Mean Corpuscular Hemoglobin 30 pg (27-31); Mean Corpuscular Volume 91 fL (80-97); Mean Platelet Volume 7.9 fL (7.4-10.4); Platelet Count 334 10^3/uL (150-450); Red Blood Count 4.12 10^6 /uL (3.70-4.87); Red Cell Distribution Width 16 % (10.5-15); White Blood Count 6.8 10^3/uL (3.5-10.8)
[2018-09-25 05:33] LABS: Albumin/Globulin Ratio 1.1 (1-3); BUN/Creatinine Ratio 17.8 (8-20); Calcium 8.4 mg/dL (8.6-10.3); EGFR African American 180.7 (>60); EGFR Non-African American 149.3 (>60); Globulin 2.8 g/dL (2-4); Potassium 3.7 mmol/L (3.5-5.0); Total Bilirubin 0.5 mg/dL (0.2-1.0); Total Protein 5.8 g/dL (6.4-8.9)
[2018-09-25 05:40] LABS: ABS Basophils 0.1 10^3/ul (0-0.2); ABS Eosinophils 0.1 10^3/ul (0-0.6); ABS Lymphocytes 4.2 10^3/ul (1.0-4.8); ABS Monocytes 0.6 10^3/ul (0-0.8); ABS Neutrophils 1.8 10^3/ul (1.5-7.7); ABS Nucleated RBC 0 10^3/ul; Eosinophil % 1.5 %; Lymphocyte % 62.1 %; Nucleated Red Blood Cells % 0.1
[2018-09-25] MEDS: Gabapentin CAP(*) 300 MG PO SCH ×4 (06:29→21:10)
[2018-09-25] MEDS: Acetaminophen TAB* 325 MG PO SCH ×4 (06:30→21:10)
[2018-09-25] MEDS: amLODIPine TAB* 5 MG PO SCH (08:08)
[2018-09-25] MEDS: Magnesium Oxide TAB* 400 MG PO SCH ×2 (08:08→21:09)
[2018-09-25] MEDS: Docusate CAP* 100 MG PO SCH ×2 (08:08→21:09)
[2018-09-25] MEDS: Famotidine TAB* 20 MG PO SCH ×2 (08:08→21:09)
[2018-09-25] MEDS: Thiamine TAB* 100 MG TAB PO SCH ×2 (08:09→21:08)
[2018-09-25] MEDS: Pyridoxine TAB* 50 MG PO SCH (08:09)
[2018-09-25] MEDS: Polyethylene Glycol 3350* 17 GM PACKET PO SCH (08:11)
--- NOTE | 2018-09-25 17:56 | PN ---
Progress Note Date of Service: 09/25/18 Note: JONH CAMARA was visited. Therapy notes read and reviewed. Continuing to work hard. Tolerating Pamelor. Will increase to 25 mg at HS Current Medications: Active Medications Generic Name Dose Route Start Last Admin Trade Name Freq PRN Reason Stop Dose Admin Acetaminophen 650 mg 09/21/18 12:00 09/25/18 16:56 Tylenol Tab* PO 650 mg ,,, JUAN Administration Amlodipine Besylate 5 mg 09/17/18 09:00 09/25/18 08:08 Norvasc Tab* PO 5 mg DAILY JUAN Administration Cyclobenzaprine HCl 10 mg 09/23/18 17:19 09/25/18 12:01 Flexeril Tab* PO 10 mg Q8H PRN Administration SPASMS Docusate Sodium 100 mg 09/18/18 21:00 09/25/18 08:08 Colace Cap* PO 100 mg BID JUAN Administration Enoxaparin Sodium 40 mg 09/16/18 20:00 09/24/18 20:16 Lovenox(*) SUBCUT 40 mg Q24H JUAN Administration Famotidine 20 mg 09/16/18 21:00 09/25/18 08:08 Pepcid Tab* PO 20 mg BID JUAN Administration Gabapentin 600 mg 09/22/18 12:00 09/25/18 16:56 Neurontin Cap(*) PO 600 mg ,,, JUAN Administration Guaifenesin/Dextromethorphan 10 ml 09/16/18 16:29 09/21/18 02:28 Robitussin Dm Sugar Free* PO 10 ml Q6H PRN Administration COUGH Hydrocortisone 25 mg 09/16/18 19:16 09/17/18 21:38 Anusol Hc Supp* SD 25 mg BID PRN Administration hemorrhoid Magnesium Oxide 400 mg 09/16/18 21:00 09/25/18 08:08 Magox 400 Tab* PO 400 mg BID JUAN Administration Nicotine 10 mg 09/16/18 19:16 09/16/18 20:31 Nicotine Inhaler* INH 10 mg Q2H PRN Administration CRAVING Nortriptyline HCl 25 mg 09/25/18 21:00 Pamelor Cap* PO BEDTIME JUAN Oxycodone HCl 5 mg 09/17/18 13:21 09/25/18 14:16 Roxycodone Tab* PO 5 mg Q4H PRN Administration PAIN - MODERATE TO SEVERE Polyethylene Glycol/Electrolytes 17 gm 09/19/18 09:00 09/25/18 08:11 Miralax* PO Not Given DAILY JUAN Pyridoxine HCl 100 mg 09/17/18 09:00 09/25/18 08:09 Vitamin B6 Tab* PO 100 mg DAILY JUAN Administration Sucralfate 1 gm 09/23/18 16:00 09/25/18 16:14 Carafate* PO 1 gm 0630,1100,1600,2100 JUAN Administration Thiamine HCl 100 mg 09/16/18 21:00 09/25/18 08:09 Vitamin B-1 Tab* PO 100 mg BID JUAN Administration Vital Signs: Vital Signs Temp Pulse Resp BP Pulse Ox 98.6 F 116 18 140/102 99 09/25/18 15:13 09/25/18 15:13 09/25/18 16:56 09/25/18 15:13 09/25/18 15:41 Lab Results: Laboratory Results - last 24 hr 09/25/18 09/25/18 04:46 04:46 WBC 6.8 RBC 4.12 Hgb 12.2 Hct 37 MCV 91 MCH 30 MCHC 33 RDW 16 H Plt Count 334 MPV 7.9 Neut % (Auto) 26.2 Lymph % (Auto) 62.1 [place] % (Auto) 9.2 Eos % (Auto) 1.5 Baso % (Auto) 1.0 Absolute Neuts (auto) 1.8 Absolute Lymphs (auto) 4.2 Absolute Monos (auto) 0.6 Absolute Eos (auto) 0.1 Absolute Basos (auto) 0.1 Absolute Nucleated RBC 0 Nucleated RBC % 0.1 Sodium 137 Potassium 3.7 Chloride 102 Carbon Dioxide 32 Anion Gap 3 BUN 8 Creatinine 0.45 L Est GFR ( Amer) 180.7 Est GFR (Non-Af Amer) 149.3 BUN/Creatinine Ratio 17.8 Glucose 101 H Calcium 8.4 L Total Bilirubin 0.50 AST 33 ALT 27 Alkaline Phosphatase 73 Total Protein 5.8 L Albumin 3.0 L Globulin 2.8 Albumin/Globulin Ratio 1.1 Exam: GENERAL: No acute distress. alert and appropriate. LUNGS: clear to auscultation bilaterally HEART: Regular rhythm and has been slightly tachy. ABDOMEN: + bowel sounds, soft, non-tender, non-distended EXTREMITIES: No edema. NEUROLOGIC: CN II-XII intact. Impaired sensation in hands and feet, ankles. Motor 4+/5 BUE and BLE. Assessment/Plan: 1. Vitamin B1 Deficiency Polyneuropathy: Daily Thiamine. Continue PT/OT 2. S/P Gastric Sleeve: Eating better 3. Analgesia: Oxycodone/Gabapentin/Tylenol. Change gabapentin to 600mg QID dosing. Flexeril prn. Pamelor at night, increase to 25 mg 4. DVT Prophylaxis: Lovenox 5. Advance Directives: Full code 6. Constipation: Miralax and Colace 09/25/18 17:57
[2018-09-25] MEDS: Nortriptyline CAP* 25 MG PO SCH (21:09)
[2018-09-25] MEDS: Enoxaparin(*) 40 MG/0.4 ML SYR SUBCUT SCH (21:11)
[2018-09-26] MEDS: Cyclobenzaprine TAB* 10 MG PO PRN ×3 (00:16→20:01)
[2018-09-26] MEDS: Sucralfate TAB* 1 GM PO SCH ×4 (05:39→22:03)
[2018-09-26] MEDS: oxyCODONE TAB* 5 MG TAB PO PRN ×4 (05:39→20:00)
[2018-09-26] MEDS: Acetaminophen TAB* 325 MG PO SCH ×4 (09:16→22:03)
[2018-09-26] MEDS: Gabapentin CAP(*) 300 MG PO SCH ×4 (09:17→22:03)
[2018-09-26] MEDS: amLODIPine TAB* 5 MG PO SCH (09:18)
[2018-09-26] MEDS: Cholecalciferol TAB* 1000 UNITS PO SCH (09:19)
[2018-09-26] MEDS: Famotidine TAB* 20 MG PO SCH ×2 (09:19→21:12)
[2018-09-26] MEDS: Docusate CAP* 100 MG PO SCH ×2 (09:19→21:12)
[2018-09-26] MEDS: Magnesium Oxide TAB* 400 MG PO SCH ×2 (09:19→21:12)
[2018-09-26] MEDS: Thiamine TAB* 100 MG TAB PO SCH ×2 (09:20→21:12)
[2018-09-26] MEDS: Polyethylene Glycol 3350* 17 GM PACKET PO SCH (09:20)
[2018-09-26] MEDS: Pyridoxine TAB* 50 MG PO SCH (09:26)
--- NOTE | 2018-09-26 19:33 | PN ---
Progress Note Date of Service: 09/26/18 Note: JONH CAMARA was visited. Therapy notes read and reviewed. I observed the patient in the parallel bars and she was able to walk with pain. Able to stand for a few seconds with hands off the bars. Current Medications: Active Medications Generic Name Dose Route Start Last Admin Trade Name Freq PRN Reason Stop Dose Admin Acetaminophen 650 mg 09/21/18 12:00 09/26/18 17:33 Tylenol Tab* PO 650 mg ,,,22 JUAN Administration Amlodipine Besylate 5 mg 09/17/18 09:00 09/26/18 09:18 Norvasc Tab* PO 5 mg DAILY JUAN Administration Cholecalciferol 1,000 units 09/26/18 09:00 09/26/18 09:19 Vitamin D Tab* PO 1,000 units DAILY JUAN Administration Cyclobenzaprine HCl 10 mg 09/23/18 17:19 09/26/18 09:21 Flexeril Tab* PO 10 mg Q8H PRN Administration SPASMS Docusate Sodium 100 mg 09/18/18 21:00 09/26/18 09:19 Colace Cap* PO 100 mg BID JUAN Administration Enoxaparin Sodium 40 mg 09/16/18 20:00 09/25/18 21:11 Lovenox(*) SUBCUT 40 mg Q24H JUAN Administration Famotidine 20 mg 09/16/18 21:00 09/26/18 09:19 Pepcid Tab* PO 20 mg BID JUAN Administration Gabapentin 600 mg 09/22/18 12:00 09/26/18 17:34 Neurontin Cap(*) PO 600 mg ,,,22 JUAN Administration Guaifenesin/Dextromethorphan 10 ml 09/16/18 16:29 09/21/18 02:28 Robitussin Dm Sugar Free* PO 10 ml Q6H PRN Administration COUGH Hydrocortisone 25 mg 09/16/18 19:16 09/17/18 21:38 Anusol Hc Supp* SD 25 mg BID PRN Administration hemorrhoid Magnesium Oxide 400 mg 09/16/18 21:00 09/26/18 09:19 Magox 400 Tab* PO 400 mg BID JUAN Administration Nicotine 10 mg 09/16/18 19:16 09/16/18 20:31 Nicotine Inhaler* INH 10 mg Q2H PRN Administration CRAVING Nortriptyline HCl 25 mg 09/25/18 21:00 09/25/18 21:09 Pamelor Cap* PO 25 mg BEDTIME JUAN Administration Oxycodone HCl 5 mg 09/17/18 13:21 09/26/18 15:42 Roxycodone Tab* PO 5 mg Q4H PRN Administration PAIN - MODERATE TO SEVERE Polyethylene Glycol/Electrolytes 17 gm 09/19/18 09:00 09/26/18 09:20 Miralax* PO Not Given DAILY JUAN Pyridoxine HCl 100 mg 09/17/18 09:00 09/26/18 09:26 Vitamin B6 Tab* PO 100 mg DAILY JUAN Administration Sucralfate 1 gm 09/23/18 16:00 09/26/18 15:42 Carafate* PO 1 gm 0630,1100,1600,2100 JUAN Administration Thiamine HCl 100 mg 09/16/18 21:00 09/26/18 09:20 Vitamin B-1 Tab* PO 100 mg BID JUAN Administration Vital Signs: Vital Signs Temp Pulse Resp BP Pulse Ox 98.0 F 106 16 117/80 96 09/26/18 16:50 09/26/18 16:50 09/26/18 17:45 09/26/18 16:50 09/26/18 16:50 Exam: GENERAL: No acute distress. alert and appropriate. LUNGS: clear to auscultation bilaterally HEART: Regular rhythm and has been slightly tachy. ABDOMEN: + bowel sounds, soft, non-tender, non-distended EXTREMITIES: No edema. NEUROLOGIC: CN II-XII intact. Impaired sensation in hands and feet, ankles. Motor 4+/5 BUE and BLE. Assessment/Plan: 1. Vitamin B1 Deficiency Polyneuropathy: Daily Thiamine. Continue PT/OT 2. S/P Gastric Sleeve: Eating better 3. Analgesia: Oxycodone/Gabapentin/Tylenol. Change gabapentin to 600mg QID dosing. Flexeril prn. Pamelor at night, increase to 25 mg 4. DVT Prophylaxis: Lovenox 5. Advance Directives: Full code 6. Constipation: Miralax and Colace 09/26/18 19:33
[2018-09-26] MEDS: Enoxaparin(*) 40 MG/0.4 ML SYR SUBCUT SCH (20:03)
[2018-09-26] MEDS: Nortriptyline CAP* 25 MG PO SCH (21:12)
[2018-09-27] MEDS: oxyCODONE TAB* 5 MG TAB PO PRN ×5 (00:48→20:05)
[2018-09-27] MEDS: Cyclobenzaprine TAB* 10 MG PO PRN ×2 (05:22→13:25)
[2018-09-27] MEDS: Sucralfate TAB* 1 GM PO SCH ×4 (05:22→22:04)
[2018-09-27] MEDS: Acetaminophen TAB* 325 MG PO SCH ×4 (07:40→22:06)
[2018-09-27] MEDS: Gabapentin CAP(*) 300 MG PO SCH ×4 (07:41→22:05)
[2018-09-27] MEDS: Magnesium Oxide TAB* 400 MG PO SCH ×2 (09:12→22:04)
[2018-09-27] MEDS: Pyridoxine TAB* 50 MG PO SCH (09:12)
[2018-09-27] MEDS: Thiamine TAB* 100 MG TAB PO SCH ×2 (09:13→22:03)
[2018-09-27] MEDS: Famotidine TAB* 20 MG PO SCH ×2 (09:13→22:04)
[2018-09-27] MEDS: Docusate CAP* 100 MG PO SCH ×2 (09:13→22:04)
[2018-09-27] MEDS: Cholecalciferol TAB* 1000 UNITS PO SCH (09:13)
[2018-09-27] MEDS: amLODIPine TAB* 5 MG PO SCH (09:13)
[2018-09-27] MEDS: Polyethylene Glycol 3350* 17 GM PACKET PO SCH (11:24)
--- NOTE | 2018-09-27 20:05 | PN ---
Progress Note Date of Service: 09/27/18 Note: JONH CAMARA was visited. Therapy notes read and reviewed. She complains of pain in her fingertips and her chest and her jaw. She is having trouble sleeping. Current Medications: Active Medications Generic Name Dose Route Start Last Admin Trade Name Freq PRN Reason Stop Dose Admin Acetaminophen 650 mg 09/21/18 12:00 09/27/18 17:06 Tylenol Tab* PO 650 mg ,,, JUAN Administration Amlodipine Besylate 5 mg 09/17/18 09:00 09/27/18 09:13 Norvasc Tab* PO 5 mg DAILY JUAN Administration Cholecalciferol 1,000 units 09/26/18 09:00 09/27/18 09:13 Vitamin D Tab* PO 1,000 units DAILY JUAN Administration Cyclobenzaprine HCl 10 mg 09/23/18 17:19 09/27/18 13:25 Flexeril Tab* PO 10 mg Q8H PRN Administration SPASMS Docusate Sodium 100 mg 09/18/18 21:00 09/27/18 09:13 Colace Cap* PO 100 mg BID JUAN Administration Enoxaparin Sodium 40 mg 09/16/18 20:00 09/26/18 20:03 Lovenox(*) SUBCUT 40 mg Q24H JUAN Administration Famotidine 20 mg 09/16/18 21:00 09/27/18 09:13 Pepcid Tab* PO 20 mg BID JUAN Administration Gabapentin 600 mg 09/22/18 12:00 09/27/18 17:07 Neurontin Cap(*) PO 600 mg ,,, JUAN Administration Guaifenesin/Dextromethorphan 10 ml 09/16/18 16:29 09/21/18 02:28 Robitussin Dm Sugar Free* PO 10 ml Q6H PRN Administration COUGH Hydrocortisone 25 mg 09/16/18 19:16 09/17/18 21:38 Anusol Hc Supp* NE 25 mg BID PRN Administration hemorrhoid Magnesium Oxide 400 mg 09/16/18 21:00 09/27/18 09:12 Magox 400 Tab* PO 400 mg BID JUAN Administration Nicotine 10 mg 09/16/18 19:16 09/16/18 20:31 Nicotine Inhaler* INH 10 mg Q2H PRN Administration CRAVING Nortriptyline HCl 25 mg 09/25/18 21:00 09/26/18 21:12 Pamelor Cap* PO 25 mg BEDTIME JUAN Administration Oxycodone HCl 5 mg 09/17/18 13:21 09/27/18 16:05 Roxycodone Tab* PO 5 mg Q4H PRN Administration PAIN - MODERATE TO SEVERE Polyethylene Glycol/Electrolytes 17 gm 09/19/18 09:00 09/27/18 11:24 Miralax* PO Not Given DAILY JUAN Pyridoxine HCl 100 mg 09/17/18 09:00 09/27/18 09:12 Vitamin B6 Tab* PO 100 mg DAILY JUAN Administration Sucralfate 1 gm 09/23/18 16:00 09/27/18 16:06 Carafate* PO 1 gm 0630,1100,1600,2100 JUAN Administration Thiamine HCl 100 mg 09/16/18 21:00 09/27/18 09:13 Vitamin B-1 Tab* PO 100 mg BID JUAN Administration Vital Signs: Vital Signs Temp Pulse Resp BP Pulse Ox 98.6 F 115 16 123/86 100 09/27/18 14:56 09/27/18 14:56 09/27/18 17:07 09/27/18 14:56 09/27/18 14:56 Exam: GENERAL: No acute distress. alert and appropriate. LUNGS: clear to auscultation bilaterally HEART: Regular rhythm and has been slightly tachy. ABDOMEN: + bowel sounds, soft, non-tender, non-distended EXTREMITIES: No edema. NEUROLOGIC: CN II-XII intact. Impaired sensation in hands and feet, ankles. Motor 4+/5 BUE and BLE. Assessment/Plan: 1. Vitamin B1 Deficiency Polyneuropathy: Daily Thiamine. Continue PT/OT 2. S/P Gastric Sleeve: Eating better 3. Analgesia: Oxycodone/Gabapentin/Tylenol. Change gabapentin to 600mg QID dosing. Flexeril prn. Pamelor at night, increase to 50 mg 4. DVT Prophylaxis: Lovenox 5. Advance Directives: Full code 6. Constipation: Miralax and Colace 09/27/18 20:05
[2018-09-27] MEDS: Enoxaparin(*) 40 MG/0.4 ML SYR SUBCUT SCH (20:12)
[2018-09-27] MEDS: Nortriptyline CAP* 25 MG PO SCH (22:03)
[2018-09-28] MEDS: Cyclobenzaprine TAB* 10 MG PO PRN ×3 (02:25→18:55)
[2018-09-28] MEDS: oxyCODONE TAB* 5 MG TAB PO PRN ×4 (02:25→18:55)
[2018-09-28] MEDS: Sucralfate TAB* 1 GM PO SCH ×4 (06:06→20:55)
[2018-09-28] MEDS: Famotidine TAB* 20 MG PO SCH ×2 (08:08→20:53)
[2018-09-28] MEDS: Cholecalciferol TAB* 1000 UNITS PO SCH (08:08)
[2018-09-28] MEDS: Acetaminophen TAB* 325 MG PO SCH ×4 (08:09→22:15)
[2018-09-28] MEDS: Magnesium Oxide TAB* 400 MG PO SCH ×2 (08:09→20:53)
[2018-09-28] MEDS: Gabapentin CAP(*) 300 MG PO SCH ×4 (08:10→22:15)
[2018-09-28] MEDS: amLODIPine TAB* 5 MG PO SCH (08:10)
[2018-09-28] MEDS: Docusate CAP* 100 MG PO SCH ×2 (08:10→20:53)
[2018-09-28] MEDS: Polyethylene Glycol 3350* 17 GM PACKET PO SCH (08:10)
[2018-09-28] MEDS: Thiamine TAB* 100 MG TAB PO SCH ×2 (08:16→20:54)
[2018-09-28] MEDS: Pyridoxine TAB* 50 MG PO SCH (08:16)
--- NOTE | 2018-09-28 15:55 | PN ---
Progress Note Date of Service: 09/28/18 Note: JONH CAMARA was visited. Therapy notes read and reviewed. She notes again she has had a hard time sleeping. May try Methadone at night which might give her more relief from neuropathic pain. Current Medications: Active Medications Generic Name Dose Route Start Last Admin Trade Name Freq PRN Reason Stop Dose Admin Acetaminophen 650 mg 09/21/18 12:00 09/28/18 12:38 Tylenol Tab* PO 650 mg ,,, JUAN Administration Amlodipine Besylate 5 mg 09/17/18 09:00 09/28/18 08:10 Norvasc Tab* PO 5 mg DAILY JUAN Administration Cholecalciferol 1,000 units 09/26/18 09:00 09/28/18 08:08 Vitamin D Tab* PO 1,000 units DAILY JUAN Administration Cyclobenzaprine HCl 10 mg 09/23/18 17:19 09/28/18 11:08 Flexeril Tab* PO 10 mg Q8H PRN Administration SPASMS Docusate Sodium 100 mg 09/18/18 21:00 09/28/18 08:10 Colace Cap* PO 100 mg BID JUAN Administration Enoxaparin Sodium 40 mg 09/16/18 20:00 09/27/18 20:12 Lovenox(*) SUBCUT 40 mg Q24H JUAN Administration Famotidine 20 mg 09/16/18 21:00 09/28/18 08:08 Pepcid Tab* PO 20 mg BID JUAN Administration Gabapentin 600 mg 09/22/18 12:00 09/28/18 12:37 Neurontin Cap(*) PO 600 mg ,,, JUAN Administration Guaifenesin/Dextromethorphan 10 ml 09/16/18 16:29 09/21/18 02:28 Robitussin Dm Sugar Free* PO 10 ml Q6H PRN Administration COUGH Hydrocortisone 25 mg 09/16/18 19:16 09/17/18 21:38 Anusol Hc Supp* [place] 25 mg BID PRN Administration hemorrhoid Magnesium Oxide 400 mg 09/16/18 21:00 09/28/18 08:09 Magox 400 Tab* PO 400 mg BID JUAN Administration Nicotine 10 mg 09/16/18 19:16 09/16/18 20:31 Nicotine Inhaler* INH 10 mg Q2H PRN Administration CRAVING Nortriptyline HCl 50 mg 09/27/18 21:00 09/27/18 22:03 Pamelor Cap* PO 50 mg BEDTIME JUAN Administration Oxycodone HCl 5 mg 09/17/18 13:21 09/28/18 14:47 Roxycodone Tab* PO 5 mg Q4H PRN Administration PAIN - MODERATE TO SEVERE Polyethylene Glycol/Electrolytes 17 gm 09/19/18 09:00 09/28/18 08:10 Miralax* PO Not Given DAILY JUAN Pyridoxine HCl 100 mg 09/17/18 09:00 09/28/18 08:16 Vitamin B6 Tab* PO 100 mg DAILY JUAN Administration Sucralfate 1 gm 09/23/18 16:00 09/28/18 11:05 Carafate* PO 1 gm 0630,1100,1600,2100 JUAN Administration Thiamine HCl 100 mg 09/16/18 21:00 09/28/18 08:16 Vitamin B-1 Tab* PO 100 mg BID JUAN Administration Vital Signs: Vital Signs Temp Pulse Resp BP Pulse Ox 98.1 F 113 16 133/92 98 09/28/18 06:00 09/28/18 06:00 09/28/18 14:47 09/28/18 06:00 09/28/18 06:00 Exam: GENERAL: No acute distress. alert and appropriate. LUNGS: clear to auscultation bilaterally HEART: Regular rhythm and has been slightly tachy. ABDOMEN: + bowel sounds, soft, non-tender, non-distended EXTREMITIES: No edema. NEUROLOGIC: CN II-XII intact. Impaired sensation in hands and feet, ankles. Motor 4+/5 BUE and BLE. Assessment/Plan: 1. Vitamin B1 Deficiency Polyneuropathy: Daily Thiamine. Continue PT/OT 2. S/P Gastric Sleeve: Eating better 3. Analgesia: Oxycodone/Gabapentin/Tylenol. Gabapentin 600mg QID. Flexeril prn. Pamelor at night, increased to 50 mg 4. DVT Prophylaxis: Lovenox 5. Advance Directives: Full code 6. Constipation: Miralax and Colace 09/28/18 15:55
[2018-09-28] MEDS: Enoxaparin(*) 40 MG/0.4 ML SYR SUBCUT SCH (19:41)
[2018-09-28] MEDS: Nortriptyline CAP* 25 MG PO SCH (20:52)
[2018-09-29] MEDS: oxyCODONE TAB* 5 MG TAB PO PRN ×5 (00:50→19:22)
[2018-09-29] MEDS: Cyclobenzaprine TAB* 10 MG PO PRN ×2 (05:38→14:07)
[2018-09-29] MEDS: Sucralfate TAB* 1 GM PO SCH ×4 (05:39→20:31)
[2018-09-29] MEDS: Gabapentin CAP(*) 300 MG PO SCH ×4 (07:41→22:19)
[2018-09-29] MEDS: Acetaminophen TAB* 325 MG PO SCH ×4 (07:42→22:18)
[2018-09-29] MEDS: Polyethylene Glycol 3350* 17 GM PACKET PO SCH ×2 (08:04→08:15)
[2018-09-29] MEDS: Famotidine TAB* 20 MG PO SCH ×2 (08:05→20:31)
[2018-09-29] MEDS: Cholecalciferol TAB* 1000 UNITS PO SCH (08:05)
[2018-09-29] MEDS: amLODIPine TAB* 5 MG PO SCH (08:05)
[2018-09-29] MEDS: Magnesium Oxide TAB* 400 MG PO SCH ×2 (08:06→20:31)
[2018-09-29] MEDS: Docusate CAP* 100 MG PO SCH ×2 (08:06→20:32)
[2018-09-29] MEDS: Thiamine TAB* 100 MG TAB PO SCH ×2 (08:07→20:31)
[2018-09-29] MEDS: Pyridoxine TAB* 50 MG PO SCH (09:50)
--- NOTE | 2018-09-29 19:06 | PN ---
Progress Note Date of Service: 09/29/18 Note: JONH CAMARA was visited. Therapy notes read and reviewed. Still with a lot of pain in her hands and feet. The meds don't seem to be helping. Current Medications: Active Medications Generic Name Dose Route Start Last Admin Trade Name Freq PRN Reason Stop Dose Admin Acetaminophen 650 mg 09/21/18 12:00 09/29/18 17:12 Tylenol Tab* PO 650 mg ,,, JUAN Administration Amlodipine Besylate 5 mg 09/17/18 09:00 09/29/18 08:05 Norvasc Tab* PO 5 mg DAILY JUAN Administration Cholecalciferol 1,000 units 09/26/18 09:00 09/29/18 08:05 Vitamin D Tab* PO 1,000 units DAILY JUAN Administration Cyclobenzaprine HCl 10 mg 09/23/18 17:19 09/29/18 14:07 Flexeril Tab* PO 10 mg Q8H PRN Administration SPASMS Docusate Sodium 100 mg 09/18/18 21:00 09/29/18 08:06 Colace Cap* PO 100 mg BID JUAN Administration Enoxaparin Sodium 40 mg 09/16/18 20:00 09/28/18 19:41 Lovenox(*) SUBCUT 40 mg Q24H JUAN Administration Famotidine 20 mg 09/16/18 21:00 09/29/18 08:05 Pepcid Tab* PO 20 mg BID JUAN Administration Gabapentin 600 mg 09/22/18 12:00 09/29/18 17:11 Neurontin Cap(*) PO 600 mg ,,, JUAN Administration Guaifenesin/Dextromethorphan 10 ml 09/16/18 16:29 09/21/18 02:28 Robitussin Dm Sugar Free* PO 10 ml Q6H PRN Administration COUGH Hydrocortisone 25 mg 09/16/18 19:16 09/17/18 21:38 Anusol Hc Supp* [place] 25 mg BID PRN Administration hemorrhoid Magnesium Oxide 400 mg 09/16/18 21:00 09/29/18 08:06 Magox 400 Tab* PO 400 mg BID JUAN Administration Nicotine 10 mg 09/16/18 19:16 09/16/18 20:31 Nicotine Inhaler* INH 10 mg Q2H PRN Administration CRAVING Nortriptyline HCl 50 mg 09/27/18 21:00 09/28/18 20:52 Pamelor Cap* PO 50 mg BEDTIME JUAN Administration Oxycodone HCl 5 mg 09/17/18 13:21 09/29/18 14:07 Roxycodone Tab* PO 5 mg Q4H PRN Administration PAIN - MODERATE TO SEVERE Polyethylene Glycol/Electrolytes 17 gm 09/19/18 09:00 09/29/18 08:15 Miralax* PO Not Given DAILY JUAN Pyridoxine HCl 100 mg 09/17/18 09:00 09/29/18 09:50 Vitamin B6 Tab* PO 100 mg DAILY JUAN Administration Sucralfate 1 gm 09/23/18 16:00 09/29/18 16:24 Carafate* PO 1 gm 0630,1100,1600,2100 JUAN Administration Thiamine HCl 100 mg 09/16/18 21:00 09/29/18 08:07 Vitamin B-1 Tab* PO 100 mg BID JUAN Administration Vital Signs: Vital Signs Temp Pulse Resp BP Pulse Ox 98.4 F 113 18 130/94 99 09/29/18 16:25 09/29/18 16:25 09/29/18 17:17 09/29/18 16:25 09/29/18 17:17 Exam: GENERAL: No acute distress. alert and appropriate. LUNGS: clear to auscultation bilaterally HEART: Regular rhythm and has been slightly tachy. ABDOMEN: + bowel sounds, soft, non-tender, non-distended EXTREMITIES: No edema. NEUROLOGIC: CN II-XII intact. Impaired sensation in hands and feet, ankles. Motor 4+/5 BUE and BLE. Assessment/Plan: 1. Vitamin B1 Deficiency Polyneuropathy: Daily Thiamine. Continue PT/OT 2. S/P Gastric Sleeve: Eating better 3. Analgesia: Oxycodone/Gabapentin/Tylenol. Gabapentin 600mg QID. Flexeril prn. Pamelor at night, increased to 50 mg. She may benefit from methadone due to its NMDA activity. Will try it tonight 4. DVT Prophylaxis: Lovenox 5. Advance Directives: Full code 6. Constipation: Miralax and Colace 09/28/18 15:55 09/29/18 19:06
[2018-09-29] MEDS: Enoxaparin(*) 40 MG/0.4 ML SYR SUBCUT SCH (19:22)
[2018-09-29] MEDS: Methadone TAB* 10 MG PO SCH (20:32)
[2018-09-29] MEDS: Nortriptyline CAP* 25 MG PO SCH (20:35)
[2018-09-30] MEDS: Cyclobenzaprine TAB* 10 MG PO PRN ×2 (02:25→19:45)
[2018-09-30] MEDS: oxyCODONE TAB* 5 MG TAB PO PRN ×4 (02:25→19:39)
[2018-09-30] MEDS: Sucralfate TAB* 1 GM PO SCH ×4 (05:58→21:29)
[2018-09-30] MEDS: Cholecalciferol TAB* 1000 UNITS PO SCH (08:10)
[2018-09-30] MEDS: Pyridoxine TAB* 50 MG PO SCH (08:11)
[2018-09-30] MEDS: Magnesium Oxide TAB* 400 MG PO SCH ×2 (08:11→21:29)
[2018-09-30] MEDS: Thiamine TAB* 100 MG TAB PO SCH ×2 (08:11→21:29)
[2018-09-30] MEDS: amLODIPine TAB* 5 MG PO SCH (08:11)
[2018-09-30] MEDS: Famotidine TAB* 20 MG PO SCH ×2 (08:11→21:27)
[2018-09-30] MEDS: Methadone TAB* 10 MG PO SCH ×2 (08:11→21:25)
[2018-09-30] MEDS: Docusate CAP* 100 MG PO SCH ×2 (08:11→21:29)
[2018-09-30] MEDS: Gabapentin CAP(*) 300 MG PO SCH ×4 (08:14→21:30)
[2018-09-30] MEDS: Acetaminophen TAB* 325 MG PO SCH ×4 (08:14→21:26)
[2018-09-30] MEDS: Polyethylene Glycol 3350* 17 GM PACKET PO SCH (08:19)
--- NOTE | 2018-09-30 17:42 | PN ---
Progress Note Date of Service: 09/30/18 Note: JONH CAMARA was visited. Therapy notes read and reviewed. The methadone seems to have helped her pain more nataliia other things that have been tried Current Medications: Active Medications Generic Name Dose Route Start Last Admin Trade Name Freq PRN Reason Stop Dose Admin Acetaminophen 650 mg 09/21/18 12:00 09/30/18 16:10 Tylenol Tab* PO 650 mg ,,, JUAN Administration Amlodipine Besylate 5 mg 09/17/18 09:00 09/30/18 08:11 Norvasc Tab* PO 5 mg DAILY JUAN Administration Cholecalciferol 1,000 units 09/26/18 09:00 09/30/18 08:10 Vitamin D Tab* PO 1,000 units DAILY JUAN Administration Cyclobenzaprine HCl 10 mg 09/23/18 17:19 09/30/18 02:25 Flexeril Tab* PO 10 mg Q8H PRN Administration SPASMS Docusate Sodium 100 mg 09/18/18 21:00 09/30/18 08:11 Colace Cap* PO 100 mg BID JUAN Administration Enoxaparin Sodium 40 mg 09/16/18 20:00 09/29/18 19:22 Lovenox(*) SUBCUT 40 mg Q24H JUAN Administration Famotidine 20 mg 09/16/18 21:00 09/30/18 08:11 Pepcid Tab* PO 20 mg BID JUAN Administration Gabapentin 600 mg 09/22/18 12:00 09/30/18 16:09 Neurontin Cap(*) PO 600 mg ,,, JUAN Administration Guaifenesin/Dextromethorphan 10 ml 09/16/18 16:29 09/21/18 02:28 Robitussin Dm Sugar Free* PO 10 ml Q6H PRN Administration COUGH Hydrocortisone 25 mg 09/16/18 19:16 09/17/18 21:38 Anusol Hc Supp* [place] 25 mg BID PRN Administration hemorrhoid Magnesium Oxide 400 mg 09/16/18 21:00 09/30/18 08:11 Magox 400 Tab* PO 400 mg BID JUAN Administration Methadone HCl 5 mg 09/29/18 21:00 09/30/18 08:11 Dolophine Tab* PO 5 mg BID JUAN Administration Nicotine 10 mg 09/16/18 19:16 09/16/18 20:31 Nicotine Inhaler* INH 10 mg Q2H PRN Administration CRAVING Nortriptyline HCl 50 mg 09/27/18 21:00 09/29/18 20:35 Pamelor Cap* PO 50 mg BEDTIME JUAN Administration Oxycodone HCl 5 mg 09/17/18 13:21 09/30/18 11:25 Roxycodone Tab* PO 5 mg Q4H PRN Administration PAIN - MODERATE TO SEVERE Polyethylene Glycol/Electrolytes 17 gm 09/19/18 09:00 09/30/18 08:19 Miralax* PO Not Given DAILY JUAN Pyridoxine HCl 100 mg 09/17/18 09:00 09/30/18 08:11 Vitamin B6 Tab* PO 100 mg DAILY JUAN Administration Sucralfate 1 gm 09/23/18 16:00 09/30/18 16:09 Carafate* PO 1 gm 0630,1100,1600,2100 JUAN Administration Thiamine HCl 100 mg 09/16/18 21:00 09/30/18 08:11 Vitamin B-1 Tab* PO 100 mg BID JUAN Administration Vital Signs: Vital Signs Temp Pulse Resp BP Pulse Ox 98.7 F 112 18 138/98 99 09/30/18 15:59 09/30/18 15:59 09/30/18 16:09 09/30/18 15:59 09/30/18 16:36 Exam: GENERAL: No acute distress. alert and appropriate. LUNGS: clear to auscultation bilaterally HEART: Regular rhythm and has been slightly tachy. ABDOMEN: + bowel sounds, soft, non-tender, non-distended EXTREMITIES: No edema. NEUROLOGIC: CN II-XII intact. Impaired sensation in hands and feet, ankles. Motor 4+/5 BUE and BLE. Assessment/Plan: 1. Vitamin B1 Deficiency Polyneuropathy: Daily Thiamine. Continue PT/OT 2. S/P Gastric Sleeve: Eating better 3. Analgesia: Oxycodone/Gabapentin/Tylenol. Methadone 5 BID 4. DVT Prophylaxis: Lovenox 5. Advance Directives: Full code 6. Constipation: Miralax and Colace 09/30/18 17:42
[2018-09-30] MEDS: Enoxaparin(*) 40 MG/0.4 ML SYR SUBCUT SCH (19:41)
[2018-09-30] MEDS: Nortriptyline CAP* 25 MG PO SCH (21:27)
[2018-10-01] MEDS: oxyCODONE TAB* 5 MG TAB PO PRN ×5 (01:12→18:40)
[2018-10-01] MEDS: Cyclobenzaprine TAB* 10 MG PO PRN ×3 (05:55→22:19)
[2018-10-01] MEDS: Sucralfate TAB* 1 GM PO SCH ×4 (05:55→20:15)
[2018-10-01] MEDS: Cholecalciferol TAB* 1000 UNITS PO SCH (08:29)
[2018-10-01] MEDS: Thiamine TAB* 100 MG TAB PO SCH ×2 (08:30→20:15)
[2018-10-01] MEDS: Pyridoxine TAB* 50 MG PO SCH (08:30)
[2018-10-01] MEDS: Famotidine TAB* 20 MG PO SCH ×2 (08:30→20:14)
[2018-10-01] MEDS: Docusate CAP* 100 MG PO SCH ×2 (08:30→20:14)
[2018-10-01] MEDS: Magnesium Oxide TAB* 400 MG PO SCH ×2 (08:30→20:15)
[2018-10-01] MEDS: Acetaminophen TAB* 325 MG PO SCH ×4 (08:30→21:51)
[2018-10-01] MEDS: amLODIPine TAB* 5 MG PO SCH (08:30)
[2018-10-01] MEDS: Methadone TAB* 10 MG PO SCH ×2 (08:31→20:13)
[2018-10-01] MEDS: Gabapentin CAP(*) 300 MG PO SCH ×4 (08:31→21:50)
[2018-10-01] MEDS: Polyethylene Glycol 3350* 17 GM PACKET PO SCH (08:32)
--- NOTE | 2018-10-01 12:58 | PMRUTEAM ---
PMRU: Team Meeting Current Status: Nursing: Current Status Skin Deviations [Chest Tele Rash rash] Skin Deviation Description [ Skin intact Chest Tele rash] Bladder Current Status Continent - Two assist to bathroom with wheelchair to follow Bowel Current Status Continent - Two assist to bathroom wheelchair to follow Nutrition Current Status Independent Medication Current Status Can verbalize information about medication schedule Physical Therapy: Current Status Bed Mobility Assistance Independent Transfer Mobility Assistance Contact Guard Assist,Min Assist,2 or More Person Assist Transfer/Bed Mobility Rolling Walker Recommended Devices Transfer Mobility Comment min to mod A x 1 to 2 sit to stand Ambulation Assistance Contact Guard Assist,2 or More Person Assist Ambulation Assistive Devices Rolling Walker Number of Feet Patient 150 Ambulated Ambulation Comment Ataxic modified reciprocal type gait. Stairs Assistance Not Tested Curb Not Tested Wheelchair Distance (ft) 50 Occupational Therapy: Current Status Upper Body Dressing Supervision Lower Body Dressing Min Assist,2 Person Assist Lower Body Dressing Progress Darryl supine, modA with assist x 2 in standing Bathing Mod Assist Toileting Total Assist,2 Person Assist Toileting Progress assistance level varies Toilet Transfer Min Assist,2 Person Assist Toilet Transfer Progress SPT to commode vs. walking to bathroom with w/c follow Shower Transfer Min Assist,2 Person Assist Shower Transfer Progress SPT w/c to/from shower bench Eating Independent Rec Therapy: Current Status Summary of Assessment and Pt. has been very active in recreation both Clinical Impression independently and with her daughter and/or staff. Pt. has primarily been beading, creating bracelets to sell at a "street fair" style event she is coordinating with staff to plan. Pt. is highly motivated. Treatment Goals Pt. will continue engaging in recreation while on the unit. Treatment Plan Continue providing recreation services. Social Work: Current Status Discharge Plan return home with home care svs and family support Potential for Family Training pt's daughter is involved and attentive Anticipated Discharge Home Destination Discharge With VNS and family support Nutrition: Current Status Monitoring Eating 75-100% of meals independently; regular BMS noted q2-3 days - last BM 09/29. Receives colace and Miralax daily; Miralax declined by pt this morning. Appears to be making progress/meeting goals - will continue to follow, but no changes to suggest at this time. Speech: Current Status Assessment Patient demonstrated verbal understanding and independent use of compensatory strategies to encode and recall new information; and to read, summarize, and later recall main points of written information. In initial testing, patient had demonstrated mild cognitive deficits in attention, memory, and visuospatial skills. Patient had generally been quick and accurate, but made intermittent errors related to impulsivity. During this week, patient has demonstrated the ability to show restraint, and learn and consistently follow safety precautions and sequences accurately. 3 days pf treatment were provided as per plan of care, and patient has met her goals. Discharge speech therapy. Speech Current Status Goal 1 Mild Goals: Physical Therapy: Initial Goals Bed Mobility Assistance Independent Transfer Mobility Assistance Independent Transfer/Bed Mobility Rolling Walker Recommended Devices Ambulation Independent Ambulation Recommended Devices Rolling Walker Ambulation Distance 150 Wheelchair Propulsion Ability Independent Stairs Assistance Independent Stair Recommended Devices Two Rails Number of Stairs 5 Physical Therapy: Updated Goals Bed Mobility Assistance Independent Transfer Mobility Assistance Independent Transfer/Bed Mobility Rolling Walker,EZ Stand Recommended Devices Ambulation Assistance Independent Ambulation Distance (ft) 150 Wheelchair Propulsion Ability Independent Stairs Assistance Independent Stairs Recommended Devices Two Rails Number of Stairs 5 Occupational Therapy: Initial Goals Goals to be Completed in (Days 21-28 ) Upper Body Bathing Routine Modified Independent with Lower Body Bathing Routine Supervision/Set Up Upper Body Dressing Routine Independent Lower Body Dressing Routine Minimal Contact Assist Toilet Hygeine and Clothing Minimal Contact Assist Management Routine Toilet Transfer Routine Supervision/Set Up Tub Transfer Routine Minimal Contact Assist Functional Transfers for ADL Supervision/Set Up Grooming Routine Modified Independent with Feeding Routine Modified Independent with Nursing: Goals Bladder Goal Independent Bowel Goal Independent Nutrition Goal Independent Medication Goal Independent with medications Nutrition: Goals Intervention Goals 1. pt will tolerate po intake without GI distress (N/V) 2. adequate po intake to support planned wt loss while meeting protein needs 3. achieve and maintain serum electrolytes WNL 4. regulated bowel pattern without constipation ( or diarrhea) Speech: Goals Speech Goal 1 Memory Speech Evaluation Status Goal Mild 1 Speech Current Status Goal 1 Mild Goal 1 Comments Memory Goals: Long-Term Memory Goal: Pt will use compensatory strategies to encode and retrieve 5/5 new items after delay of 30 minutes, Independently, for independence in mobility safety, ADLs and community access. Status: Met Short-term Memory Goal: Pt will use compensatory strategies to encode and retrieve 4/4 new items after delay of 5 minutes, given Moderate skilled instruction and cueing. Status: Met WHALE FISHERMAN I'ly recalled two methods of attending to new information to encode and recall, as previously instructed. Patient I'ly verbalized the reading comprehension and retention strategy of briefly summarizing aloud after reading each 2-3 sentences . Speech Goal 2 Problem solving Speech Goal 2 Comments Problem Solving Goals: Long-Term Goal: Pt will use compensatory strategies to solve moderately complex routine problems, with 100% accuracy, Independently, for personal safety and ADLs such as shopping, time and money management. Status: Met Short-Term Goal: Pt will use compensatory strategies to solve simple routine problems, with 80% accuracy, given Moderate skilled instruction and cueing, for personal safety and ADLs such as shopping, time and money management. Status: Met. WHALE FISHERMAN addressed visuospatial skills bu introducing the puzzle game of Hex. Hex requires patient to connect a line of Xs across a field of hexagonal spaces, while preventing her opponent from doong so first. Given 4 games on 3x3 and 4x4 salazar, patient quickly recognized and followed a winning strategy. When first advanced to a 4x4 game, patient placed Xs that allowed her opponent to win , but patient never repeated her errors and demonstrated the ability to win each time she moved first. Social Work: Goals Discharge Plan return home with home care svs and family support Potential for Family Training pt's daughter is involved and attentive Anticipated Discharge Home Destination Discharge With VNS and family support Care Plan: Care Plan ADL's - Improve/Maintain Start: 09/16/18 19:35 Freq: DAILY Status: Active Target: Protocol: Activity Type Activity Date Activity User E-Sign Co-Sign Detail Recorded Client Recorded Date Recorded By Document 09/30/18 15:55 [id number] 09/30/18 15:55 [id number] 09/30/18 15:55 PMRU Outcome: ADL's/ADL Transfers Orders/Interventions Occupational Therapy Evaluation & Treatment Communication Tool in Patient Room Device Yes Address Deficits Secondary To: neuropathy Patient to receive OT 5x/wk for 60-120 Therex min/day Self Care Management Group Therapy UE/LE ADL's with Assist Yes: setup UB, Darryl LB ADL Transfers with Assist Yes: supervision Toileting: Transfers,Clothing Management Yes: Darryl ,Hygeine w/Assist Light Kitchen/Laundry w/Assist No Progression Toward Outcome/Goals Progressing Outcome/Goals Met Pt participated well in treatment session, able to complete shower transfer with Darryl x 2 instead of EZ stand and tolerated well. Communication-Improve/Maintain Start: 09/21/18 14:59 Freq: DAILY Status: Active Target: Protocol: Activity Type Activity Date Activity User E-Sign Co-Sign Detail Recorded Client Recorded Date Recorded By Document 10/01/18 03:37 [id number] 10/01/18 03:38 [id number] 10/01/18 03:37 PMRU Outcome: Communication/Cognitive Status Outcome/Goals Makes Needs Known Effectively Other Outcomes/Goals Memory Goals: Long-Term Memory Goal: Pt will use compensatory strategies to encode and retrieve 5/5 new items after delay of 30 minutes, Independently, for independence in mobility safety, ADLs and community access. Status: Met Short-term Memory Goal: Pt will use compensatory strategies to encode and retrieve 4/4 new items after delay of 5 minutes, given Moderate skilled instruction and cueing. Status: Met WHALE FISHERMAN I'ly recalled two methods of attending to new information to encode and recall, as previously instructed. Patient I'ly verbalized the reading comprehension and retention strategy of briefly summarizing aloud after reading each 2- 3 sentences. Problem Solving Goals: Long-Term Goal: Pt will use compensatory strategies to solve moderately complex routine problems, with 100% accuracy, Independently, for personal safety and ADLs such as shopping, time and money management. Status: Met Short-Term Goal : Pt will use compensatory strategies to solve simple routine problems, with 80% accuracy, given Moderate skilled instruction and cueing, for personal safety and ADLs such as shopping, time and money management. Status: Met. WHALE FISHERMAN addressed visuospatial skills bu introducing the puzzle game of Hex. Hex requires patient to connect a line of Xs across a field of hexagonal spaces, while preventing her opponent from doong so first. Given 4 games on 3x3 and 4x4 salazar, patient quickly recognized and followed a winning strategy. When first advanced to a 4x4 game, patient placed Xs that allowed her opponent to win, but patient never repeated her errors and demonstrated the ability to win each time she moved first . Progression Toward Outcomes/Goals Progressing Discharge Planning - Improve/Maintain Start: 09/16/18 19:35 Freq: DAILY Status: Active Target: Protocol: Activity Type Activity Date Activity User E-Sign Co-Sign Detail Recorded Client Recorded Date Recorded By Document 10/01/18 03:37 [id number] 10/01/18 03:38 [id number] 10/01/18 03:37 PMRU Outcome: Discharge Planning Update Patient Family No Outcome/Goals Demonstrates Understanding of Discharge Plan Progression Toward Outcome/Goals Progressing Education-Improve/Maintain Start: 09/16/18 19:35 Freq: QSHIFT Status: Active Target: Protocol: Activity Type Activity Date Activity User E-Sign Co-Sign Detail Recorded Client Recorded Date Recorded By Document 10/01/18 03:37 [id number] [id number] 10/01/18 03:38 [id number] 10/01/18 03:37 PMRU Outcome: Education Outcome/Goals Demonstrate/ Verbalize Understanding of Written Discharge Instructions Demonstrates Skills Encourage Questions Progression Toward Outcome/Goals Progressing /GI-Improve/Maintain Start: 09/16/18 19:35 Freq: QSHIFT Status: Active Target: Protocol: Activity Type Activity Date Activity User E-Sign Co-Sign Detail Recorded Client Recorded Date Recorded By Document 10/01/18 03:37 [id number] [id number] 10/01/18 03:38 [id number] 10/01/18 03:37 PMRU Outcome: Genitourinary/ Gastrointestinal Genitourinary- Outcome/Goals Maintain/ Achieve Adequate Urinary Output Remain Free of Hospital- Acquired UTI Gastrointestinal-Outcome/Goals Maintain/ Achieve Bowel Regularity in Accordance with Pt's Baseline Prevent Constipation Progression Toward Outcome/Goals - Progressing Progression Toward Outcome/Goals - GI Progressing Outcome/Goals Met Comment pt up to BR Mobility- Improve/Maintain Start: 09/16/18 19:20 Freq: DAILY Status: Active Target: Protocol: Activity Type Activity Date Activity User E-Sign Co-Sign Detail Recorded Client Recorded Date Recorded By Document 09/16/18 19:20 [id number] 09/16/18 19:21 [id number] 09/16/18 19:20 PMRU Outcome: Mobility Physical Therapy Evaluation and Yes Treatment Activity OOB with Assistance Yes WBAT Yes Device Yes Assistance Yes Patient to be seen 5x/wk for 60-120 min/ Therex day for: Mobility Training Gait Training W/C Mobility Balance Outcome/Goals Maintain/ Achieve Baseline Mobility Status Improve Mobility Status Demonstrates Proper Use of Assistive Devices Free from Complications of Immobility Bed Mobility Yes: independent Transfers Yes: independent with rollign walker Gait x ft Yes: independent with rolling walker 150' Up/Down Stairs Yes: independent up down 5 stairs with 2 rails. Neurological- Improve/Maintain Start: 09/16/18 19:35 Freq: QSHIFT Status: Active Target: Protocol: Activity Type Activity Date Activity User E-Sign Co-Sign Detail Recorded Client Recorded Date Recorded By Document 10/01/18 03:37 [id number] 10/01/18 03:38 [id number] 10/01/18 03:37 PMRU Outcome: Neurological Weakness/Aphasia Weakness Outcome/Goals Improve Neurological Status Prevent Avoidable Neurological Decline Maintain/ Improve Strength/ROM Progression Toward Outcome/Goals Progressing Safety- Improve/Maintain Start: 09/16/18 19:35 Freq: QSHIFT Status: Active Target: Protocol: Activity Type Activity Date Activity User E-Sign Co-Sign Detail Recorded Client Recorded Date Recorded By Document 10/01/18 03:37 [id number] 10/01/18 03:38 [id number] 10/01/18 03:37 PMRU Outcome: Safety Outcome/Goals Remain Free of Injury or Harm Cooperates with Safety Measures for Least Restrictive Environment Prevent Falls/ Injury Progression Toward Outcome/Goals Progressing Medicine Note: Length of Stay: 2 weeks, 2 days Anticipated Discharge Destination: Home Tentative Discharge Date: 10/17/18 Discharged to: Home
--- NOTE | 2018-10-01 17:37 | PN ---
Progress Note Date of Service: 10/01/18 Note: JONH CAMARA was visited. Therapy notes read and reviewed. She was discussed in interdisciplinary team rounds. She is tolerating the Methadone. She is still having pain. Will increase to TID Current Medications: Active Medications Generic Name Dose Route Start Last Admin Trade Name Freq PRN Reason Stop Dose Admin Acetaminophen 650 mg 09/21/18 12:00 10/01/18 16:51 Tylenol Tab* PO 650 mg ,,, JUAN Administration Amlodipine Besylate 5 mg 09/17/18 09:00 10/01/18 08:30 Norvasc Tab* PO 5 mg DAILY JUAN Administration Cholecalciferol 1,000 units 09/26/18 09:00 10/01/18 08:29 Vitamin D Tab* PO 1,000 units DAILY JUAN Administration Cyclobenzaprine HCl 10 mg 09/23/18 17:19 10/01/18 14:20 Flexeril Tab* PO 10 mg Q8H PRN Administration SPASMS Docusate Sodium 100 mg 09/18/18 21:00 10/01/18 08:30 Colace Cap* PO 100 mg BID JUAN Administration Enoxaparin Sodium 40 mg 09/16/18 20:00 09/30/18 19:41 Lovenox(*) SUBCUT 40 mg Q24H JUAN Administration Famotidine 20 mg 09/16/18 21:00 10/01/18 08:30 Pepcid Tab* PO 20 mg BID JUAN Administration Gabapentin 600 mg 09/22/18 12:00 10/01/18 16:52 Neurontin Cap(*) PO 600 mg ,,, JUAN Administration Guaifenesin/Dextromethorphan 10 ml 09/16/18 16:29 09/21/18 02:28 Robitussin Dm Sugar Free* PO 10 ml Q6H PRN Administration COUGH Hydrocortisone 25 mg 09/16/18 19:16 09/17/18 21:38 Anusol Hc Supp* [place] 25 mg BID PRN Administration hemorrhoid Magnesium Oxide 400 mg 09/16/18 21:00 10/01/18 08:30 Magox 400 Tab* PO 400 mg BID JUAN Administration Methadone HCl 5 mg 09/29/18 21:00 10/01/18 08:31 Dolophine Tab* PO 5 mg BID JUAN Administration Nicotine 10 mg 09/16/18 19:16 09/16/18 20:31 Nicotine Inhaler* INH 10 mg Q2H PRN Administration CRAVING Nortriptyline HCl 50 mg 09/27/18 21:00 09/30/18 21:27 Pamelor Cap* PO 50 mg BEDTIME JUAN Administration Oxycodone HCl 5 mg 09/17/18 13:21 10/01/18 14:17 Roxycodone Tab* PO 5 mg Q4H PRN Administration PAIN - MODERATE TO SEVERE Polyethylene Glycol/Electrolytes 17 gm 09/19/18 09:00 10/01/18 08:32 Miralax* PO Not Given DAILY JUAN Pyridoxine HCl 100 mg 09/17/18 09:00 10/01/18 08:30 Vitamin B6 Tab* PO 100 mg DAILY JUAN Administration Sucralfate 1 gm 09/23/18 16:00 10/01/18 16:52 Carafate* PO 1 gm 0630,1100,1600,2100 JUAN Administration Thiamine HCl 100 mg 09/16/18 21:00 10/01/18 08:30 Vitamin B-1 Tab* PO 100 mg BID JUAN Administration Vital Signs: Vital Signs Temp Pulse Resp BP Pulse Ox 98.1 F 110 18 144/103 100 10/01/18 14:42 10/01/18 14:42 10/01/18 16:57 10/01/18 14:42 10/01/18 17:12 Exam: GENERAL: No acute distress. alert and appropriate. LUNGS: clear to auscultation bilaterally HEART: Regular rhythm and has been slightly tachy. ABDOMEN: + bowel sounds, soft, non-tender, non-distended EXTREMITIES: No edema. NEUROLOGIC: CN II-XII intact. Impaired sensation in hands and feet, ankles. Motor 4+/5 BUE and BLE. Assessment/Plan: 1. Vitamin B1 Deficiency Polyneuropathy: Daily Thiamine. Continue PT/OT 2. S/P Gastric Sleeve: Eating better 3. Analgesia: Oxycodone/Gabapentin/Tylenol. Methadone 5 BID 4. DVT Prophylaxis: Lovenox 5. Advance Directives: Full code 6. Constipation: Miralax and Colace 10/01/18 17:38
[2018-10-01] MEDS: Nortriptyline CAP* 25 MG PO SCH (20:14)
[2018-10-01] MEDS: Enoxaparin(*) 40 MG/0.4 ML SYR SUBCUT SCH (20:16)
[2018-10-02] MEDS: oxyCODONE TAB* 5 MG TAB PO PRN ×3 (03:35→23:37)
[2018-10-02] MEDS: Sucralfate TAB* 1 GM PO SCH ×4 (04:49→21:15)
[2018-10-02 05:17] LABS: ABS Basophils 0.1 10^3/ul (0-0.2); ABS Eosinophils 0.1 10^3/ul (0-0.6); ABS Lymphocytes 3.2 10^3/ul (1.0-4.8); ABS Monocytes 0.6 10^3/ul (0-0.8); ABS Neutrophils 4.7 10^3/ul (1.5-7.7); ABS Nucleated RBC 0 10^3/ul; Eosinophil % 1.1 %; Hematocrit 39 % (33-41); Hemoglobin 12.8 g/dL (12.0-16.0); Lymphocyte % 36.8 %; Mean Corpuscular HGB Conc 33 g/dL (31-36); Mean Corpuscular Hemoglobin 30 pg (27-31); Mean Corpuscular Volume 91 fL (80-97); Mean Platelet Volume 8.3 fL (7.4-10.4); Nucleated Red Blood Cells % 0.1; Platelet Count 365 10^3/uL (150-450); Red Blood Count 4.29 10^6 /uL (3.70-4.87); Red Cell Distribution Width 16 % (10.5-15); White Blood Count 8.7 10^3/uL (3.5-10.8)
[2018-10-02 05:33] LABS: Albumin 3.5 g/dL (3.2-5.2); Albumin/Globulin Ratio 1.2 (1-3); BUN/Creatinine Ratio 19.1 (8-20); Calcium 8.9 mg/dL (8.6-10.3); EGFR African American 171.9 (>60); Potassium 3.8 mmol/L (3.5-5.0); Total Bilirubin 0.5 mg/dL (0.2-1.0); Total Protein 6.5 g/dL (6.4-8.9)
[2018-10-02] MEDS: Cyclobenzaprine TAB* 10 MG PO PRN ×2 (06:20→23:38)
[2018-10-02] MEDS: Thiamine TAB* 100 MG TAB PO SCH ×2 (08:08→21:15)
[2018-10-02] MEDS: Docusate CAP* 100 MG PO SCH ×2 (08:08→21:15)
[2018-10-02] MEDS: amLODIPine TAB* 5 MG PO SCH (08:08)
[2018-10-02] MEDS: Magnesium Oxide TAB* 400 MG PO SCH ×2 (08:08→21:15)
[2018-10-02] MEDS: Famotidine TAB* 20 MG PO SCH ×2 (08:08→21:15)
[2018-10-02] MEDS: Pyridoxine TAB* 50 MG PO SCH (08:09)
[2018-10-02] MEDS: Cholecalciferol TAB* 1000 UNITS PO SCH (08:09)
[2018-10-02] MEDS: Gabapentin CAP(*) 300 MG PO SCH ×4 (08:10→22:09)
[2018-10-02] MEDS: Methadone TAB* 10 MG PO SCH ×3 (08:10→21:14)
[2018-10-02] MEDS: Acetaminophen TAB* 325 MG PO SCH ×4 (08:29→22:08)
[2018-10-02] MEDS: Polyethylene Glycol 3350* 17 GM PACKET PO SCH (08:30)
--- NOTE | 2018-10-02 20:30 | PN ---
Progress Note Date of Service: 10/02/18 Note: JONH CAMARA was visited. Therapy notes read and reviewed. She says she is still in pain but she seems to be doing better Current Medications: Active Medications Generic Name Dose Route Start Last Admin Trade Name Freq PRN Reason Stop Dose Admin Acetaminophen 650 mg 09/21/18 12:00 10/02/18 16:21 Tylenol Tab* PO 650 mg 08,,17,22 JUAN Administration Amlodipine Besylate 5 mg 09/17/18 09:00 10/02/18 08:08 Norvasc Tab* PO 5 mg DAILY JUAN Administration Cholecalciferol 1,000 units 09/26/18 09:00 10/02/18 08:09 Vitamin D Tab* PO 1,000 units DAILY JUAN Administration Cyclobenzaprine HCl 10 mg 09/23/18 17:19 10/02/18 06:20 Flexeril Tab* PO 10 mg Q8H PRN Administration SPASMS Docusate Sodium 100 mg 09/18/18 21:00 10/02/18 08:08 Colace Cap* PO 100 mg BID JUAN Administration Enoxaparin Sodium 40 mg 09/16/18 20:00 10/01/18 20:16 Lovenox(*) SUBCUT 40 mg Q24H JUAN Administration Famotidine 20 mg 09/16/18 21:00 10/02/18 08:08 Pepcid Tab* PO 20 mg BID JUAN Administration Gabapentin 600 mg 09/22/18 12:00 10/02/18 16:22 Neurontin Cap(*) PO 600 mg 08,,17,22 JUAN Administration Guaifenesin/Dextromethorphan 10 ml 09/16/18 16:29 09/21/18 02:28 Robitussin Dm Sugar Free* PO 10 ml Q6H PRN Administration COUGH Hydrocortisone 25 mg 09/16/18 19:16 09/17/18 21:38 Anusol Hc Supp* [place] 25 mg BID PRN Administration hemorrhoid Magnesium Oxide 400 mg 09/16/18 21:00 10/02/18 08:08 Magox 400 Tab* PO 400 mg BID JUAN Administration Methadone HCl 5 mg 10/01/18 21:00 10/02/18 14:20 Dolophine Tab* PO 5 mg TID JUAN Administration Nicotine 10 mg 09/16/18 19:16 09/16/18 20:31 Nicotine Inhaler* INH 10 mg Q2H PRN Administration CRAVING Nortriptyline HCl 50 mg 09/27/18 21:00 10/01/18 20:14 Pamelor Cap* PO 50 mg BEDTIME JUAN Administration Oxycodone HCl 5 mg 09/17/18 13:21 10/02/18 09:21 Roxycodone Tab* PO 5 mg Q4H PRN Administration PAIN - MODERATE TO SEVERE Polyethylene Glycol/Electrolytes 17 gm 09/19/18 09:00 10/02/18 08:30 Miralax* PO Not Given DAILY JUAN Pyridoxine HCl 100 mg 09/17/18 09:00 10/02/18 08:09 Vitamin B6 Tab* PO 100 mg DAILY JUAN Administration Sucralfate 1 gm 09/23/18 16:00 10/02/18 16:21 Carafate* PO 1 gm 0630,1100,1600,2100 JUAN Administration Thiamine HCl 100 mg 09/16/18 21:00 10/02/18 08:08 Vitamin B-1 Tab* PO 100 mg BID JUAN Administration Vital Signs: Vital Signs Temp Pulse Resp BP Pulse Ox 98.0 F 109 16 141/100 98 10/02/18 16:26 10/02/18 16:26 10/02/18 19:02 10/02/18 16:26 10/02/18 17:58 Lab Results: Laboratory Results - last 24 hr 10/02/18 10/02/18 04:43 04:43 WBC 8.7 RBC 4.29 Hgb 12.8 Hct 39 MCV 91 MCH 30 MCHC 33 RDW 16 H Plt Count 365 MPV 8.3 Neut % (Auto) 54.3 Lymph % (Auto) 36.8 Sharkey % (Auto) 7.1 Eos % (Auto) 1.1 Baso % (Auto) 0.7 Absolute Neuts (auto) 4.7 Absolute Lymphs (auto) 3.2 Absolute Monos (auto) 0.6 Absolute Eos (auto) 0.1 Absolute Basos (auto) 0.1 Absolute Nucleated RBC 0 Nucleated RBC % 0.1 Sodium 139 Potassium 3.8 Chloride 101 Carbon Dioxide 32 Anion Gap 6 BUN 9 Creatinine 0.47 L Est GFR ( Amer) 171.9 Est GFR (Non-Af Amer) 142.0 BUN/Creatinine Ratio 19.1 Glucose 125 H Calcium 8.9 Total Bilirubin 0.50 AST 25 ALT 24 Alkaline Phosphatase 72 Total Protein 6.5 Albumin 3.5 Globulin 3.0 Albumin/Globulin Ratio 1.2 Exam: GENERAL: No acute distress. alert and appropriate. LUNGS: clear to auscultation bilaterally HEART: Regular rhythm and has been slightly tachy. ABDOMEN: + bowel sounds, soft, non-tender, non-distended EXTREMITIES: No edema. NEUROLOGIC: CN II-XII intact. Impaired sensation in hands and feet, ankles. Motor 4+/5 BUE and BLE. Assessment/Plan: 1. Vitamin B1 Deficiency Polyneuropathy: Daily Thiamine. Continue PT/OT 2. S/P Gastric Sleeve: Eating better 3. Analgesia: Oxycodone/Gabapentin/Tylenol. Methadone 5 BID 4. DVT Prophylaxis: Lovenox 5. Advance Directives: Full code 6. Constipation: Miralax and Colace 10/02/18 20:31
[2018-10-02] MEDS: Nortriptyline CAP* 25 MG PO SCH (21:15)
[2018-10-02] MEDS: Enoxaparin(*) 40 MG/0.4 ML SYR SUBCUT SCH (21:17)
[2018-10-03] MEDS: Sucralfate TAB* 1 GM PO SCH ×4 (05:23→20:26)
[2018-10-03] MEDS: oxyCODONE TAB* 5 MG TAB PO PRN ×3 (05:23→20:26)
[2018-10-03] MEDS: amLODIPine TAB* 5 MG PO SCH (08:41)
[2018-10-03] MEDS: Pyridoxine TAB* 50 MG PO SCH (08:41)
[2018-10-03] MEDS: Docusate CAP* 100 MG PO SCH ×2 (08:41→20:24)
[2018-10-03] MEDS: Thiamine TAB* 100 MG TAB PO SCH ×2 (08:41→20:26)
[2018-10-03] MEDS: Cholecalciferol TAB* 1000 UNITS PO SCH (08:41)
[2018-10-03] MEDS: Magnesium Oxide TAB* 400 MG PO SCH ×2 (08:41→20:24)
[2018-10-03] MEDS: Famotidine TAB* 20 MG PO SCH ×2 (08:41→20:24)
[2018-10-03] MEDS: Acetaminophen TAB* 325 MG PO SCH ×3 (08:42→17:20)
[2018-10-03] MEDS: Gabapentin CAP(*) 300 MG PO SCH ×3 (08:44→17:19)
[2018-10-03] MEDS: Methadone TAB* 10 MG PO SCH ×3 (08:45→20:24)
[2018-10-03] MEDS: Polyethylene Glycol 3350* 17 GM PACKET PO SCH (08:48)
[2018-10-03] MEDS: Cyclobenzaprine TAB* 10 MG PO PRN (11:24)
[2018-10-03] MEDS: Enoxaparin(*) 40 MG/0.4 ML SYR SUBCUT SCH (20:23)
[2018-10-03] MEDS: Nortriptyline CAP* 25 MG PO SCH (20:25)
--- NOTE | 2018-10-03 22:06 | PN ---
Progress Note Date of Service: 10/03/18 Note: JONH CAMARA was visited. Therapy notes read and reviewed. She has been able to sleep better and her pain seems better controlled. Current Medications: Active Medications Generic Name Dose Route Start Last Admin Trade Name Freq PRN Reason Stop Dose Admin Acetaminophen 650 mg 09/21/18 12:00 10/03/18 17:20 Tylenol Tab* PO 650 mg 08,,17,22 JUAN Administration Amlodipine Besylate 5 mg 09/17/18 09:00 10/03/18 08:41 Norvasc Tab* PO 5 mg DAILY JUAN Administration Cholecalciferol 1,000 units 09/26/18 09:00 10/03/18 08:41 Vitamin D Tab* PO 1,000 units DAILY JUAN Administration Cyclobenzaprine HCl 10 mg 09/23/18 17:19 10/03/18 11:24 Flexeril Tab* PO 10 mg Q8H PRN Administration SPASMS Docusate Sodium 100 mg 09/18/18 21:00 10/03/18 20:24 Colace Cap* PO 100 mg BID JUAN Administration Enoxaparin Sodium 40 mg 09/16/18 20:00 10/03/18 20:23 Lovenox(*) SUBCUT 40 mg Q24H JUAN Administration Famotidine 20 mg 09/16/18 21:00 10/03/18 20:24 Pepcid Tab* PO 20 mg BID JUAN Administration Gabapentin 600 mg 09/22/18 12:00 10/03/18 17:19 Neurontin Cap(*) PO 600 mg 08,12,17,22 JUAN Administration Guaifenesin/Dextromethorphan 10 ml 09/16/18 16:29 09/21/18 02:28 Robitussin Dm Sugar Free* PO 10 ml Q6H PRN Administration COUGH Hydrocortisone 25 mg 09/16/18 19:16 09/17/18 21:38 Anusol Hc Supp* [place] 25 mg BID PRN Administration hemorrhoid Magnesium Oxide 400 mg 09/16/18 21:00 10/03/18 20:24 Magox 400 Tab* PO 400 mg BID JUAN Administration Methadone HCl 5 mg 10/01/18 21:00 10/03/18 20:24 Dolophine Tab* PO 5 mg TID JUAN Administration Nicotine 10 mg 09/16/18 19:16 09/16/18 20:31 Nicotine Inhaler* INH 10 mg Q2H PRN Administration CRAVING Nortriptyline HCl 50 mg 09/27/18 21:00 10/03/18 20:25 Pamelor Cap* PO 50 mg BEDTIME JUAN Administration Oxycodone HCl 5 mg 09/17/18 13:21 10/03/18 20:26 Roxycodone Tab* PO 5 mg Q4H PRN Administration PAIN - MODERATE TO SEVERE Polyethylene Glycol/Electrolytes 17 gm 09/19/18 09:00 10/03/18 08:48 Miralax* PO Not Given DAILY JUAN Pyridoxine HCl 100 mg 09/17/18 09:00 10/03/18 08:41 Vitamin B6 Tab* PO 100 mg DAILY JUAN Administration Sucralfate 1 gm 09/23/18 16:00 10/03/18 20:26 Carafate* PO 1 gm 0630,1100,1600,2100 JUAN Administration Thiamine HCl 100 mg 09/16/18 21:00 10/03/18 20:26 Vitamin B-1 Tab* PO 100 mg BID JUAN Administration Vital Signs: Vital Signs Temp Pulse Resp BP Pulse Ox 99.0 F 115 16 123/88 100 10/03/18 17:22 10/03/18 17:22 10/03/18 20:26 10/03/18 17:22 10/03/18 17:22 Exam: GENERAL: No acute distress. alert and appropriate. LUNGS: clear to auscultation bilaterally HEART: Regular rhythm and has been slightly tachy. ABDOMEN: + bowel sounds, soft, non-tender, non-distended EXTREMITIES: No edema. NEUROLOGIC: CN II-XII intact. Impaired sensation in hands and feet, ankles. Motor 4+/5 BUE and BLE. Assessment/Plan: 1. Vitamin B1 Deficiency Polyneuropathy: Daily Thiamine. Continue PT/OT 2. S/P Gastric Sleeve: Eating better 3. Analgesia: Oxycodone/Gabapentin/Tylenol. Methadone 5 TID 4. DVT Prophylaxis: Lovenox 5. Advance Directives: Full code 6. Constipation: Miralax and Colace 10/03/18 22:06
[2018-10-04] MEDS: Gabapentin CAP(*) 300 MG PO SCH ×5 (00:10→22:25)
[2018-10-04] MEDS: Acetaminophen TAB* 325 MG PO SCH ×4 (00:10→17:06)
[2018-10-04] MEDS: oxyCODONE TAB* 5 MG TAB PO PRN (06:10)
[2018-10-04] MEDS: Cyclobenzaprine TAB* 10 MG PO PRN ×2 (06:10→13:49)
[2018-10-04] MEDS: Sucralfate TAB* 1 GM PO SCH ×4 (06:10→22:25)
[2018-10-04] MEDS: Methadone TAB* 10 MG PO SCH ×3 (07:22→22:25)
[2018-10-04] MEDS: Pyridoxine TAB* 50 MG PO SCH (07:23)
[2018-10-04] MEDS: Docusate CAP* 100 MG PO SCH ×2 (07:24→20:06)
[2018-10-04] MEDS: amLODIPine TAB* 5 MG PO SCH (07:24)
[2018-10-04] MEDS: Famotidine TAB* 20 MG PO SCH ×2 (07:24→20:06)
[2018-10-04] MEDS: Cholecalciferol TAB* 1000 UNITS PO SCH (07:24)
[2018-10-04] MEDS: Thiamine TAB* 100 MG TAB PO SCH ×2 (07:24→20:06)
[2018-10-04] MEDS: Magnesium Oxide TAB* 400 MG PO SCH ×2 (07:24→20:07)
[2018-10-04] MEDS: Polyethylene Glycol 3350* 17 GM PACKET PO SCH (07:26)
--- NOTE | 2018-10-04 18:57 | PN ---
Progress Note Date of Service: 10/04/18 Note: JONH CAMARA was visited. Therapy notes read and reviewed. She states she got a full night of sleep last night but now her hands are burning. She says the routine tylenol is not helping. She would like Percocet instead of oxycodone Current Medications: Active Medications Generic Name Dose Route Start Last Admin Trade Name Freq PRN Reason Stop Dose Admin Amlodipine Besylate 5 mg 09/17/18 09:00 10/04/18 07:24 Norvasc Tab* PO 5 mg DAILY JUAN Administration Cholecalciferol 1,000 units 09/26/18 09:00 10/04/18 07:24 Vitamin D Tab* PO 1,000 units DAILY JUAN Administration Cyclobenzaprine HCl 10 mg 09/23/18 17:19 10/04/18 13:49 Flexeril Tab* PO 10 mg Q8H PRN Administration SPASMS Docusate Sodium 100 mg 09/18/18 21:00 10/04/18 07:24 Colace Cap* PO 100 mg BID JUAN Administration Enoxaparin Sodium 40 mg 09/16/18 20:00 10/03/18 20:23 Lovenox(*) SUBCUT 40 mg Q24H JUAN Administration Famotidine 20 mg 09/16/18 21:00 10/04/18 07:24 Pepcid Tab* PO 20 mg BID JUAN Administration Gabapentin 600 mg 09/22/18 12:00 10/04/18 17:06 Neurontin Cap(*) PO 600 mg 08,12,17,22 JUAN Administration Guaifenesin/Dextromethorphan 10 ml 09/16/18 16:29 09/21/18 02:28 Robitussin Dm Sugar Free* PO 10 ml Q6H PRN Administration COUGH Hydrocortisone 25 mg 09/16/18 19:16 09/17/18 21:38 Anusol Hc Supp* [place] 25 mg BID PRN Administration hemorrhoid Magnesium Oxide 400 mg 09/16/18 21:00 10/04/18 07:24 Magox 400 Tab* PO 400 mg BID JUAN Administration Methadone HCl 5 mg 10/01/18 21:00 10/04/18 13:49 Dolophine Tab* PO 5 mg TID JUAN Administration Nicotine 10 mg 09/16/18 19:16 09/16/18 20:31 Nicotine Inhaler* INH 10 mg Q2H PRN Administration CRAVING Nortriptyline HCl 50 mg 09/27/18 21:00 10/03/18 20:25 Pamelor Cap* PO 50 mg BEDTIME JUAN Administration Oxycodone/Acetaminophen 1 tab 10/04/18 18:56 Percocet 5/325 Tab* PO Q4H PRN PAIN Polyethylene Glycol/Electrolytes 17 gm 09/19/18 09:00 10/04/18 07:26 Miralax* PO Not Given DAILY JUAN Pyridoxine HCl 100 mg 09/17/18 09:00 10/04/18 07:23 Vitamin B6 Tab* PO 100 mg DAILY JUAN Administration Sucralfate 1 gm 09/23/18 16:00 10/04/18 16:03 Carafate* PO 1 gm 0630,1100,1600,2100 JUAN Administration Thiamine HCl 100 mg 09/16/18 21:00 10/04/18 07:24 Vitamin B-1 Tab* PO 100 mg BID JUAN Administration Vital Signs: Vital Signs Temp Pulse Resp BP Pulse Ox 100.3 F 110 16 131/85 98 10/04/18 06:00 10/04/18 06:15 10/04/18 17:06 10/04/18 06:00 10/04/18 06:00 Exam: GENERAL: No acute distress. alert and appropriate. LUNGS: clear to auscultation bilaterally HEART: Regular rhythm and has been slightly tachy. ABDOMEN: + bowel sounds, soft, non-tender, non-distended EXTREMITIES: No edema. NEUROLOGIC: CN II-XII intact. Impaired sensation in hands and feet, ankles. Motor 4+/5 BUE and BLE. Assessment/Plan: 1. Vitamin B1 Deficiency Polyneuropathy: Daily Thiamine. Continue PT/OT 2. S/P Gastric Sleeve: Eating better 3. Analgesia: Oxycodone/Gabapentin/Tylenol. Methadone 5 TID 4. DVT Prophylaxis: Lovenox 5. Advance Directives: Full code 6. Constipation: Miralax and Colace 10/04/18 18:58
[2018-10-04] MEDS: Enoxaparin(*) 40 MG/0.4 ML SYR SUBCUT SCH (20:02)
[2018-10-04] MEDS: Nortriptyline CAP* 25 MG PO SCH (20:07)
[2018-10-04] MEDS: oxyCODONE/Acetamin 5/325 MG* TAB PO PRN (22:25)
[2018-10-05] MEDS: oxyCODONE/Acetamin 5/325 MG* TAB PO PRN ×4 (05:05→20:26)
[2018-10-05] MEDS: Cyclobenzaprine TAB* 10 MG PO PRN ×2 (05:05→16:34)
[2018-10-05] MEDS: Sucralfate TAB* 1 GM PO SCH ×4 (06:18→20:24)
[2018-10-05] MEDS: Docusate CAP* 100 MG PO SCH ×2 (08:42→20:25)
[2018-10-05] MEDS: Pyridoxine TAB* 50 MG PO SCH (08:42)
[2018-10-05] MEDS: amLODIPine TAB* 5 MG PO SCH (08:43)
[2018-10-05] MEDS: Magnesium Oxide TAB* 400 MG PO SCH ×2 (08:43→20:26)
[2018-10-05] MEDS: Thiamine TAB* 100 MG TAB PO SCH ×2 (08:43→20:26)
[2018-10-05] MEDS: Famotidine TAB* 20 MG PO SCH ×2 (08:43→20:26)
[2018-10-05] MEDS: Cholecalciferol TAB* 1000 UNITS PO SCH (08:44)
[2018-10-05] MEDS: Methadone TAB* 10 MG PO SCH ×3 (08:44→22:46)
[2018-10-05] MEDS: Gabapentin CAP(*) 300 MG PO SCH ×4 (08:52→22:46)
[2018-10-05] MEDS: Polyethylene Glycol 3350* 17 GM PACKET PO SCH (09:12)
--- NOTE | 2018-10-05 13:50 | PN ---
Progress Note Date of Service: 10/05/18 Note: JONH CAMARA was visited. Therapy notes read and reviewed. She notes swelling in hands and feet. ? from gabapentin. Will lower dose to TID Current Medications: Active Medications Generic Name Dose Route Start Last Admin Trade Name Freq PRN Reason Stop Dose Admin Amlodipine Besylate 5 mg 09/17/18 09:00 10/05/18 08:43 Norvasc Tab* PO 5 mg DAILY JUAN Administration Cholecalciferol 1,000 units 09/26/18 09:00 10/05/18 08:44 Vitamin D Tab* PO 1,000 units DAILY JUAN Administration Cyclobenzaprine HCl 10 mg 09/23/18 17:19 10/05/18 05:05 Flexeril Tab* PO 10 mg Q8H PRN Administration SPASMS Docusate Sodium 100 mg 09/18/18 21:00 10/05/18 08:42 Colace Cap* PO 100 mg BID JUAN Administration Enoxaparin Sodium 40 mg 09/16/18 20:00 10/04/18 20:02 Lovenox(*) SUBCUT 40 mg Q24H JUAN Administration Famotidine 20 mg 09/16/18 21:00 10/05/18 08:43 Pepcid Tab* PO 20 mg BID JUAN Administration Gabapentin 600 mg 10/05/18 14:00 Neurontin Cap(*) PO TID JUAN Guaifenesin/Dextromethorphan 10 ml 09/16/18 16:29 09/21/18 02:28 Robitussin Dm Sugar Free* PO 10 ml Q6H PRN Administration COUGH Hydrocortisone 25 mg 09/16/18 19:16 09/17/18 21:38 Anusol Hc Supp* [place] 25 mg BID PRN Administration hemorrhoid Magnesium Oxide 400 mg 09/16/18 21:00 10/05/18 08:43 Magox 400 Tab* PO 400 mg BID JUAN Administration Methadone HCl 5 mg 10/01/18 21:00 10/05/18 08:44 Dolophine Tab* PO 5 mg TID JUAN Administration Nicotine 10 mg 09/16/18 19:16 09/16/18 20:31 Nicotine Inhaler* INH 10 mg Q2H PRN Administration CRAVING Nortriptyline HCl 50 mg 09/27/18 21:00 10/04/18 20:07 Pamelor Cap* PO 50 mg BEDTIME JUAN Administration Oxycodone/Acetaminophen 1 tab 10/04/18 18:56 10/05/18 11:20 Percocet 5/325 Tab* PO 1 tab Q4H PRN Administration PAIN Polyethylene Glycol/Electrolytes 17 gm 09/19/18 09:00 10/05/18 09:12 Miralax* PO Not Given DAILY JUAN Pyridoxine HCl 100 mg 09/17/18 09:00 10/05/18 08:42 Vitamin B6 Tab* PO 100 mg DAILY JUAN Administration Sucralfate 1 gm 09/23/18 16:00 10/05/18 11:10 Carafate* PO 1 gm 0630,1100,1600,2100 JUAN Administration Thiamine HCl 100 mg 09/16/18 21:00 10/05/18 08:43 Vitamin B-1 Tab* PO 100 mg BID JUAN Administration Vital Signs: Vital Signs Temp Pulse Resp BP Pulse Ox 98.8 F 115 19 128/85 93 10/05/18 05:01 10/05/18 08:31 10/05/18 13:26 10/05/18 08:31 10/05/18 08:00 Exam: GENERAL: No acute distress. alert and appropriate. LUNGS: clear to auscultation bilaterally HEART: Regular rhythm and has been slightly tachy. ABDOMEN: + bowel sounds, soft, non-tender, non-distended EXTREMITIES: No edema. NEUROLOGIC: CN II-XII intact. Impaired sensation in hands and feet, ankles. Motor 4+/5 BUE and BLE. Assessment/Plan: 1. Vitamin B1 Deficiency Polyneuropathy: Daily Thiamine. Continue PT/OT 2. S/P Gastric Sleeve: Eating better 3. Analgesia: Percocet/Gabapentin/Methadone. Lower gabapentin to TID 4. DVT Prophylaxis: Lovenox 5. Advance Directives: Full code 6. Constipation: Miralax and Colace 10/05/18 13:50
[2018-10-05] MEDS: Enoxaparin(*) 40 MG/0.4 ML SYR SUBCUT SCH (20:23)
[2018-10-05] MEDS: Nortriptyline CAP* 25 MG PO SCH (20:25)
[2018-10-06] MEDS: Cyclobenzaprine TAB* 10 MG PO PRN ×2 (00:57→10:37)
[2018-10-06] MEDS: oxyCODONE/Acetamin 5/325 MG* TAB PO PRN ×3 (00:58→16:07)
[2018-10-06] MEDS: Sucralfate TAB* 1 GM PO SCH ×4 (05:39→21:34)
[2018-10-06] MEDS ORDERED: Mouth Piece, Nicotine* 1 EACH CARTRIDGE ONE (06:51)
[2018-10-06] MEDS: Nicotine Inhaler* 10 MG AMP INH PRN ×2 (07:32→21:36)
[2018-10-06] MEDS: Pyridoxine TAB* 50 MG PO SCH (09:03)
[2018-10-06] MEDS: Gabapentin CAP(*) 300 MG PO SCH ×3 (09:03→21:11)
[2018-10-06] MEDS: Magnesium Oxide TAB* 400 MG PO SCH ×2 (09:05→21:09)
[2018-10-06] MEDS: Famotidine TAB* 20 MG PO SCH ×2 (09:05→21:12)
[2018-10-06] MEDS: Docusate CAP* 100 MG PO SCH ×2 (09:05→21:09)
[2018-10-06] MEDS: Cholecalciferol TAB* 1000 UNITS PO SCH (09:05)
[2018-10-06] MEDS: Methadone TAB* 10 MG PO SCH ×3 (09:06→21:10)
[2018-10-06] MEDS: amLODIPine TAB* 5 MG PO SCH (09:08)
[2018-10-06] MEDS: Thiamine TAB* 100 MG TAB PO SCH ×2 (09:08→21:34)
[2018-10-06] MEDS: Polyethylene Glycol 3350* 17 GM PACKET PO SCH (09:08)
--- NOTE | 2018-10-06 17:01 | PN ---
Progress Note Date of Service: 10/06/18 Note: JONH CAMARA was visited. Nursing notes read and reviewed. She feels like her hands are less swollen, and her feet are also, but they are still swollen. Percocet does not make her itch like oxycodone did. Current Medications: Active Medications Generic Name Dose Route Start Last Admin Trade Name Freq PRN Reason Stop Dose Admin Amlodipine Besylate 5 mg 09/17/18 09:00 10/06/18 09:08 Norvasc Tab* PO 5 mg DAILY JUAN Administration Cholecalciferol 1,000 units 09/26/18 09:00 10/06/18 09:05 Vitamin D Tab* PO 1,000 units DAILY JUAN Administration Cyclobenzaprine HCl 10 mg 09/23/18 17:19 10/06/18 10:37 Flexeril Tab* PO 10 mg Q8H PRN Administration SPASMS Docusate Sodium 100 mg 09/18/18 21:00 10/06/18 09:05 Colace Cap* PO 100 mg BID JUAN Administration Enoxaparin Sodium 40 mg 09/16/18 20:00 10/05/18 20:23 Lovenox(*) SUBCUT 40 mg Q24H JUAN Administration Famotidine 20 mg 09/16/18 21:00 10/06/18 09:05 Pepcid Tab* PO 20 mg BID JUAN Administration Gabapentin 600 mg 10/05/18 14:00 10/06/18 13:40 Neurontin Cap(*) PO 600 mg TID JUAN Administration Guaifenesin/Dextromethorphan 10 ml 09/16/18 16:29 09/21/18 02:28 Robitussin Dm Sugar Free* PO 10 ml Q6H PRN Administration COUGH Hydrocortisone 25 mg 09/16/18 19:16 09/17/18 21:38 Anusol Hc Supp* [place] 25 mg BID PRN Administration hemorrhoid Magnesium Oxide 400 mg 09/16/18 21:00 10/06/18 09:05 Magox 400 Tab* PO 400 mg BID JUAN Administration Methadone HCl 5 mg 10/01/18 21:00 10/06/18 13:39 Dolophine Tab* PO 5 mg TID JUAN Administration Nicotine 10 mg 09/16/18 19:16 10/06/18 07:32 Nicotine Inhaler* INH 10 mg Q2H PRN Administration CRAVING Nortriptyline HCl 50 mg 09/27/18 21:00 10/05/18 20:25 Pamelor Cap* PO 50 mg BEDTIME JUAN Administration Oxycodone/Acetaminophen 1 tab 10/04/18 18:56 10/06/18 16:07 Percocet 5/325 Tab* PO 1 tab Q4H PRN Administration PAIN Polyethylene Glycol/Electrolytes 17 gm 09/19/18 09:00 10/06/18 09:08 Miralax* PO Not Given DAILY JUAN Pyridoxine HCl 100 mg 09/17/18 09:00 10/06/18 09:03 Vitamin B6 Tab* PO 100 mg DAILY JUAN Administration Sucralfate 1 gm 09/23/18 16:00 10/06/18 16:05 Carafate* PO 1 gm 0630,1100,1600,2100 JUAN Administration Thiamine HCl 100 mg 09/16/18 21:00 10/06/18 09:08 Vitamin B-1 Tab* PO 100 mg BID JUAN Administration Vital Signs: Vital Signs Temp Pulse Resp BP Pulse Ox 99.3 F 106 18 145/107 93 10/06/18 15:19 10/06/18 15:19 10/06/18 16:07 10/06/18 15:19 10/06/18 15:19 Exam: GENERAL: No acute distress. alert and appropriate. LUNGS: clear to auscultation bilaterally HEART: Regular rhythm and has been slightly tachy. ABDOMEN: + bowel sounds, soft, non-tender, non-distended EXTREMITIES: No edema. NEUROLOGIC: CN II-XII intact. Impaired sensation in hands and feet, ankles. Motor 4+/5 BUE and BLE. Assessment/Plan: 1. Vitamin B1 Deficiency Polyneuropathy: Daily Thiamine. Continue PT/OT 2. S/P Gastric Sleeve: Eating better 3. Analgesia: Percocet/Gabapentin/Methadone. Lower gabapentin to TID due to swelling 4. DVT Prophylaxis: Lovenox 5. Advance Directives: Full code 6. Constipation: Miralax and Colace 10/06/18 17:01
[2018-10-06] MEDS: Enoxaparin(*) 40 MG/0.4 ML SYR SUBCUT SCH (21:06)
[2018-10-06] MEDS: Nortriptyline CAP* 25 MG PO SCH (21:32)
[2018-10-07] MEDS: Cyclobenzaprine TAB* 10 MG PO PRN ×3 (00:27→20:56)
[2018-10-07] MEDS: oxyCODONE/Acetamin 5/325 MG* TAB PO PRN ×4 (00:28→16:05)
[2018-10-07] MEDS: Sucralfate TAB* 1 GM PO SCH ×4 (05:32→20:55)
[2018-10-07] MEDS: Magnesium Oxide TAB* 400 MG PO SCH ×2 (08:49→20:56)
[2018-10-07] MEDS: Thiamine TAB* 100 MG TAB PO SCH (08:49)
[2018-10-07] MEDS: Famotidine TAB* 20 MG PO SCH ×2 (08:49→20:56)
[2018-10-07] MEDS: amLODIPine TAB* 5 MG PO SCH (08:49)
[2018-10-07] MEDS: Pyridoxine TAB* 50 MG PO SCH (08:49)
[2018-10-07] MEDS: Cholecalciferol TAB* 1000 UNITS PO SCH (08:50)
[2018-10-07] MEDS: Docusate CAP* 100 MG PO SCH ×2 (08:50→20:56)
[2018-10-07] MEDS: Gabapentin CAP(*) 300 MG PO SCH ×3 (08:50→20:57)
[2018-10-07] MEDS: Methadone TAB* 10 MG PO SCH ×3 (08:50→20:58)
[2018-10-07] MEDS: Polyethylene Glycol 3350* 17 GM PACKET PO SCH (08:54)
--- NOTE | 2018-10-07 18:53 | PN ---
Progress Note Date of Service: 10/07/18 Note: JONH CAMARA was visited. Therapy notes read and reviewed. She says the pain in her hands is worse since I lowered her gabapentin. She also complains of the swelling in her hands and feet. Current Medications: Active Medications Generic Name Dose Route Start Last Admin Trade Name Freq PRN Reason Stop Dose Admin Amlodipine Besylate 5 mg 09/17/18 09:00 10/07/18 08:49 Norvasc Tab* PO 5 mg DAILY JUAN Administration Cholecalciferol 1,000 units 09/26/18 09:00 10/07/18 08:50 Vitamin D Tab* PO 1,000 units DAILY JUAN Administration Cyclobenzaprine HCl 10 mg 09/23/18 17:19 10/07/18 09:36 Flexeril Tab* PO 10 mg Q8H PRN Administration SPASMS Docusate Sodium 100 mg 09/18/18 21:00 10/07/18 08:50 Colace Cap* PO 100 mg BID JUAN Administration Enoxaparin Sodium 40 mg 09/16/18 20:00 10/06/18 21:06 Lovenox(*) SUBCUT 40 mg Q24H JUAN Administration Famotidine 20 mg 09/16/18 21:00 10/07/18 08:49 Pepcid Tab* PO 20 mg BID JUAN Administration Gabapentin 600 mg 10/05/18 14:00 10/07/18 14:19 Neurontin Cap(*) PO 600 mg TID JUAN Administration Guaifenesin/Dextromethorphan 10 ml 09/16/18 16:29 09/21/18 02:28 Robitussin Dm Sugar Free* PO 10 ml Q6H PRN Administration COUGH Hydrocortisone 25 mg 09/16/18 19:16 09/17/18 21:38 Anusol Hc Supp* [place] 25 mg BID PRN Administration hemorrhoid Magnesium Oxide 400 mg 09/16/18 21:00 10/07/18 08:49 Magox 400 Tab* PO 400 mg BID JUAN Administration Methadone HCl 5 mg 10/01/18 21:00 10/07/18 14:18 Dolophine Tab* PO 5 mg TID JUAN Administration Nicotine 10 mg 09/16/18 19:16 10/06/18 21:36 Nicotine Inhaler* INH 10 mg Q2H PRN Administration CRAVING Nortriptyline HCl 50 mg 09/27/18 21:00 10/06/18 21:32 Pamelor Cap* PO 50 mg BEDTIME JUAN Administration Oxycodone/Acetaminophen 1 tab 10/04/18 18:56 10/07/18 16:05 Percocet 5/325 Tab* PO 1 tab Q4H PRN Administration PAIN Polyethylene Glycol/Electrolytes 17 gm 09/19/18 09:00 10/07/18 08:54 Miralax* PO Not Given DAILY JUAN Pyridoxine HCl 100 mg 09/17/18 09:00 10/07/18 08:49 Vitamin B6 Tab* PO 100 mg DAILY JUAN Administration Sucralfate 1 gm 09/23/18 16:00 10/07/18 16:05 Carafate* PO 1 gm 0630,1100,1600,2100 JUAN Administration Thiamine HCl 100 mg 09/16/18 21:00 10/07/18 08:49 Vitamin B-1 Tab* PO 100 mg BID JUAN Administration Vital Signs: Vital Signs Temp Pulse Resp BP Pulse Ox 99.0 F 114 16 138/87 98 10/07/18 05:34 10/07/18 05:34 10/07/18 16:05 10/07/18 05:34 10/07/18 16:09 Exam: GENERAL: No acute distress. alert and appropriate. LUNGS: clear to auscultation bilaterally HEART: Regular rhythm and has been slightly tachy. ABDOMEN: + bowel sounds, soft, non-tender, non-distended EXTREMITIES: No edema. NEUROLOGIC: CN II-XII intact. Impaired sensation in hands and feet, ankles. Motor 4+/5 BUE and BLE. Assessment/Plan: 1. Vitamin B1 Deficiency Polyneuropathy: Daily Thiamine. Continue PT/OT 2. S/P Gastric Sleeve: Eating better 3. Analgesia: Percocet/Gabapentin/Methadone. Lowered gabapentin to TID due to swelling 4. DVT Prophylaxis: Lovenox 5. Advance Directives: Full code 6. Constipation: Miralax and Colace 10/07/18 18:53
[2018-10-07] MEDS ORDERED: diPHENhydraMINE PO* 25 MG PO ONE (20:20)
[2018-10-07] MEDS: Enoxaparin(*) 40 MG/0.4 ML SYR SUBCUT SCH (20:57)
[2018-10-07] MEDS: Nortriptyline CAP* 25 MG PO SCH (20:58)
[2018-10-08] MEDS: Thiamine TAB* 100 MG TAB PO SCH ×3 (00:43→21:23)
[2018-10-08] MEDS: oxyCODONE/Acetamin 5/325 MG* TAB PO PRN ×4 (00:49→17:06)
[2018-10-08] MEDS: Cyclobenzaprine TAB* 10 MG PO PRN ×2 (05:57→17:06)
[2018-10-08] MEDS: Sucralfate TAB* 1 GM PO SCH ×4 (05:59→21:22)
[2018-10-08] MEDS: Pyridoxine TAB* 50 MG PO SCH (08:45)
[2018-10-08] MEDS: Docusate CAP* 100 MG PO SCH ×2 (08:45→21:18)
[2018-10-08] MEDS: amLODIPine TAB* 5 MG PO SCH (08:45)
[2018-10-08] MEDS: Cholecalciferol TAB* 1000 UNITS PO SCH (08:45)
[2018-10-08] MEDS: Famotidine TAB* 20 MG PO SCH ×2 (08:46→21:17)
[2018-10-08] MEDS: Gabapentin CAP(*) 300 MG PO SCH ×3 (08:47→21:17)
[2018-10-08] MEDS: Methadone TAB* 10 MG PO SCH ×3 (08:49→21:18)
[2018-10-08] MEDS: Magnesium Oxide TAB* 400 MG PO SCH ×2 (08:52→21:16)
[2018-10-08] MEDS: Polyethylene Glycol 3350* 17 GM PACKET PO SCH (09:58)
--- NOTE | 2018-10-08 13:00 | PMRUTEAM ---
PMRU: Team Meeting Current Status: Nursing: Current Status Skin Deviations [Chest Tele Rash rash] Skin Deviation Description [ resolving Chest Tele rash] Bladder Current Status Continent - Two assist to bathroom with wheelchair to follow Bowel Current Status Continent - Two assist to bathroom wheelchair to follow Nutrition Current Status Independent Medication Current Status Can verbalize information about medication schedule Physical Therapy: Current Status Bed Mobility Assistance Independent Transfer Mobility Assistance Supervision Transfer/Bed Mobility Rolling Walker Recommended Devices Transfer Mobility Comment min to mod A x 1 to 2 sit to stand Ambulation Assistance Supervision Ambulation Assistive Devices Rolling Walker Number of Feet Patient 150' Ambulated Ambulation Comment Ataxic modified reciprocal type gait. Stairs Assistance Supervision Stairs Recommended Devices Two Rails Number of Stairs 5 Curb Not Tested Wheelchair Distance (ft) 50 Objective Comments patient initiates stair training with step ups on exercise step (partial step) this date. patient has occasional unsteadyness but is self correctign. patient is quite excited about ability. Occupational Therapy: Current Status Upper Body Dressing Independent Lower Body Dressing Supervision Lower Body Dressing Progress Darryl supine, modA with assist x 2 in standing Bathing Min Assist Toileting Min Assist Toileting Progress assistance level varies Toilet Transfer Supervision,Contact Guard Assist Toilet Transfer Progress SPT to commode vs. walking to bathroom with w/c follow Shower Transfer Contact Guard Assist Shower Transfer Progress SPT w/c to/from shower bench Eating Independent Rec Therapy: Current Status Summary of Assessment and Pt. has been beading/crafting daily. Pt. has been Clinical Impression exceptionally motivated and talkative. Treatment Goals Pt. will con't engaging in recreation while on the unit. Treatment Plan Con't providing recreation services Social Work: Current Status Discharge Plan return home with home care svs and family support Potential for Family Training pt's daughter is involved and attentive Anticipated Discharge Home Destination Discharge With VNS and family support Nutrition: Current Status Monitoring Eating 75-100% of meals independently; regular BMS noted q2-3 days - last BM 09/29. Receives colace and Miralax daily; Miralax declined by pt this morning. Appears to be making progress/meeting goals - will continue to follow, but no changes to suggest at this time. Speech: Current Status Assessment Patient demonstrated verbal understanding and independent use of compensatory strategies to encode and recall new information; and to read, summarize, and later recall main points of written information. In initial testing, patient had demonstrated mild cognitive deficits in attention, memory, and visuospatial skills. Patient had generally been quick and accurate, but made intermittent errors related to impulsivity. During this week, patient has demonstrated the ability to show restraint, and learn and consistently follow safety precautions and sequences accurately. 3 days pf treatment were provided as per plan of care, and patient has met her goals. Discharge speech therapy. Speech Current Status Goal 1 Mild Goals: Physical Therapy: Initial Goals Bed Mobility Assistance Independent Transfer Mobility Assistance Independent Transfer/Bed Mobility Rolling Walker Recommended Devices Ambulation Independent Ambulation Recommended Devices Rolling Walker Ambulation Distance 150 Wheelchair Propulsion Ability Independent Stairs Assistance Independent Stair Recommended Devices Two Rails Number of Stairs 5 Physical Therapy: Updated Goals Bed Mobility Assistance Independent Transfer Mobility Assistance Independent Transfer/Bed Mobility Rolling Walker,EZ Stand Recommended Devices Ambulation Assistance Independent Ambulation Distance (ft) 150 Wheelchair Propulsion Ability Independent Stairs Assistance Independent Stairs Recommended Devices Two Rails Number of Stairs 5 Occupational Therapy: Initial Goals Goals to be Completed in (Days 21-28 ) Upper Body Bathing Routine Modified Independent with Lower Body Bathing Routine Supervision/Set Up Upper Body Dressing Routine Independent Lower Body Dressing Routine Minimal Contact Assist Toilet Hygeine and Clothing Minimal Contact Assist Management Routine Toilet Transfer Routine Supervision/Set Up Tub Transfer Routine Minimal Contact Assist Functional Transfers for ADL Supervision/Set Up Grooming Routine Modified Independent with Feeding Routine Modified Independent with Nursing: Goals Bladder Goal Independent Bowel Goal Independent Nutrition Goal Independent Medication Goal Independent with medications Nutrition: Goals Intervention Goals 1. pt will tolerate po intake without GI distress (N/V) 2. adequate po intake to support planned wt loss while meeting protein needs 3. achieve and maintain serum electrolytes WNL 4. regulated bowel pattern without constipation ( or diarrhea) Speech: Goals Speech Goal 1 Memory Speech Evaluation Status Goal Mild 1 Speech Current Status Goal 1 Mild Goal 1 Comments Memory Goals: Long-Term Memory Goal: Pt will use compensatory strategies to encode and retrieve 5/5 new items after delay of 30 minutes, Independently, for independence in mobility safety, ADLs and community access. Status: Met Short-term Memory Goal: Pt will use compensatory strategies to encode and retrieve 4/4 new items after delay of 5 minutes, given Moderate skilled instruction and cueing. Status: Met CLOTH CALENDER I'ly recalled two methods of attending to new information to encode and recall, as previously instructed. Patient I'ly verbalized the reading comprehension and retention strategy of briefly summarizing aloud after reading each 2-3 sentences . Speech Goal 2 Problem solving Speech Goal 2 Comments Problem Solving Goals: Long-Term Goal: Pt will use compensatory strategies to solve moderately complex routine problems, with 100% accuracy, Independently, for personal safety and ADLs such as shopping, time and money management. Status: Met Short-Term Goal: Pt will use compensatory strategies to solve simple routine problems, with 80% accuracy, given Moderate skilled instruction and cueing, for personal safety and ADLs such as shopping, time and money management. Status: Met. CLOTH CALENDER addressed visuospatial skills bu introducing the puzzle game of Hex. Hex requires patient to connect a line of Xs across a field of hexagonal spaces, while preventing her opponent from doong so first. Given 4 games on 3x3 and 4x4 salazar, patient quickly recognized and followed a winning strategy. When first advanced to a 4x4 game, patient placed Xs that allowed her opponent to win , but patient never repeated her errors and demonstrated the ability to win each time she moved first. Social Work: Goals Discharge Plan return home with home care svs and family support Potential for Family Training pt's daughter is involved and attentive Anticipated Discharge Home Destination Discharge With VNS and family support Care Plan: Care Plan ADL's - Improve/Maintain Start: 09/16/18 19:35 Freq: DAILY Status: Active Target: Protocol: Activity Type Activity Date Activity User E-Sign Co-Sign Detail Recorded Client Recorded Date Recorded By Document 10/07/18 14:50 [id number] [id number] 10/07/18 14:50 [id number] 10/07/18 14:50 PMRU Outcome: ADL's/ADL Transfers Orders/Interventions Occupational Therapy Evaluation & Treatment Communication Tool in Patient Room Device Yes Address Deficits Secondary To: neuropathy Patient to receive OT 5x/wk for 60-120 Therex min/day Self Care Management Group Therapy UE/LE ADL's with Assist Yes: setup UB, Darryl LB ADL Transfers with Assist Yes: supervision Toileting: Transfers,Clothing Management Yes: Darryl ,Hygeine w/Assist Light Kitchen/Laundry w/Assist No Progression Toward Outcome/Goals Progressing Outcome/Goals Met Pt participated well in treatment session, increasing FMC and ability to complete perfection and superfection, as well as able to complete all colors of graded clothespins this afternoon. Communication-Improve/Maintain Start: 09/21/18 14:59 Freq: DAILY Status: Active Target: Protocol: Activity Type Activity Date Activity User E-Sign Co-Sign Detail Recorded Client Recorded Date Recorded By Document 10/08/18 01:27 [id number] [id number] 10/08/18 01:27 [id number] 10/08/18 01:27 PMRU Outcome: Communication/Cognitive Status Outcome/Goals Makes Needs Known Effectively Progression Toward Outcomes/Goals Progressing Discharge Planning - Improve/Maintain Start: 09/16/18 19:35 Freq: DAILY Status: Active Target: Protocol: Activity Type Activity Date Activity User E-Sign Co-Sign Detail Recorded Client Recorded Date Recorded By Document 10/08/18 01:27 [id number] [email or web address] 10/08/18 01:27 [id number] 10/08/18 01:27 PMRU Outcome: Discharge Planning Update Patient Family No Outcome/Goals Demonstrates Understanding of Discharge Plan Progression Toward Outcome/Goals Progressing Education-Improve/Maintain Start: 09/16/18 19:35 Freq: QSHIFT Status: Active Target: Protocol: Activity Type Activity Date Activity User E-Sign Co-Sign Detail Recorded Client Recorded Date Recorded By Document 10/07/18 20:00 [id number] [id number] 10/07/18 23:54 [id number] 10/07/18 20:00 PMRU Outcome: Education Outcome/Goals Demonstrates Skills Encourage Questions Progression Toward Outcome/Goals Progressing /GI-Improve/Maintain Start: 09/16/18 19:35 Freq: QSHIFT Status: Active Target: Protocol: Activity Type Activity Date Activity User E-Sign Co-Sign Detail Recorded Client Recorded Date Recorded By Document 10/07/18 20:00 [id number] [id number] 10/07/18 23:54 [id number] 10/07/18 20:00 PMRU Outcome: Genitourinary/ Gastrointestinal Genitourinary- Outcome/Goals Maintain/ Achieve Adequate Urinary Output Remain Free of Hospital- Acquired UTI Gastrointestinal-Outcome/Goals Maintain/ Achieve Bowel Regularity in Accordance with Pt's Baseline Prevent Constipation Progression Toward Outcome/Goals - Progressing Progression Toward Outcome/Goals - GI Progressing Mobility- Improve/Maintain Start: 09/16/18 19:20 Freq: DAILY Status: Active Target: Protocol: Activity Type Activity Date Activity User E-Sign Co-Sign Detail Recorded Client Recorded Date Recorded By Document 09/16/18 19:20 [id number] [email or web address] 09/16/18 19:21 [id number] 09/16/18 19:20 PMRU Outcome: Mobility Physical Therapy Evaluation and Yes Treatment Activity OOB with Assistance Yes WBAT Yes Device Yes Assistance Yes Patient to be seen 5x/wk for 60-120 min/ Therex day for: Mobility Training Gait Training W/C Mobility Balance Outcome/Goals Maintain/ Achieve Baseline Mobility Status Improve Mobility Status Demonstrates Proper Use of Assistive Devices Free from Complications of Immobility Bed Mobility Yes: independent Transfers Yes: independent with rollign walker Gait x ft Yes: independent with rolling walker 150' Up/Down Stairs Yes: independent up down 5 stairs with 2 rails. Neurological- Improve/Maintain Start: 09/16/18 19:35 Freq: QSHIFT Status: Active Target: Protocol: Activity Type Activity Date Activity User E-Sign Co-Sign Detail Recorded Client Recorded Date Recorded By Document 10/07/18 20:00 [id number] [id number] 10/07/18 23:54 [id number] 10/07/18 20:00 PMRU Outcome: Neurological Weakness/Aphasia Weakness Outcome/Goals Improve Neurological Status Prevent Avoidable Neurological Decline Maintain/ Improve Strength/ROM Progression Toward Outcome/Goals Progressing Safety- Improve/Maintain Start: 09/16/18 19:35 Freq: QSHIFT Status: Active Target: Protocol: Activity Type Activity Date Activity User E-Sign Co-Sign Detail Recorded Client Recorded Date Recorded By Document 10/07/18 20:00 [id number] 10/07/18 23:54 [id number] 10/07/18 20:00 PMRU Outcome: Safety Outcome/Goals Remain Free of Injury or Harm Cooperates with Safety Measures for Least Restrictive Environment Prevent Falls/ Injury Progression Toward Outcome/Goals Progressing Medicine Note: Length of Stay: 9 days Anticipated Discharge Destination: Home Tentative Discharge Date: 10/17/18 Discharged to: Home
--- NOTE | 2018-10-08 18:38 | PN ---
Progress Note Date of Service: 10/08/18 Note: JONH CAMARA was visited. Therapy notes read and reviewed. She was discussed in interdisciplinary team rounds. She is doing better overall. I think the Methadone may be affecting her mood. Will cut back to BID. Current Medications: Active Medications Generic Name Dose Route Start Last Admin Trade Name Freq PRN Reason Stop Dose Admin Amlodipine Besylate 5 mg 09/17/18 09:00 10/08/18 08:45 Norvasc Tab* PO 5 mg DAILY JUAN Administration Cholecalciferol 1,000 units 09/26/18 09:00 10/08/18 08:45 Vitamin D Tab* PO 1,000 units DAILY JUAN Administration Cyclobenzaprine HCl 10 mg 09/23/18 17:19 10/08/18 17:06 Flexeril Tab* PO 10 mg Q8H PRN Administration SPASMS Docusate Sodium 100 mg 09/18/18 21:00 10/08/18 08:45 Colace Cap* PO 100 mg BID JUAN Administration Enoxaparin Sodium 40 mg 09/16/18 20:00 10/07/18 20:57 Lovenox(*) SUBCUT 40 mg Q24H JUAN Administration Famotidine 20 mg 09/16/18 21:00 10/08/18 08:46 Pepcid Tab* PO 20 mg BID JUAN Administration Gabapentin 600 mg 10/05/18 14:00 10/08/18 14:39 Neurontin Cap(*) PO 600 mg TID JUAN Administration Guaifenesin/Dextromethorphan 10 ml 09/16/18 16:29 09/21/18 02:28 Robitussin Dm Sugar Free* PO 10 ml Q6H PRN Administration COUGH Hydrocortisone 25 mg 09/16/18 19:16 09/17/18 21:38 Anusol Hc Supp* MD 25 mg BID PRN Administration hemorrhoid Magnesium Oxide 400 mg 09/16/18 21:00 10/08/18 08:52 Magox 400 Tab* PO 400 mg BID JUAN Administration Methadone HCl 5 mg 10/08/18 21:00 Dolophine Tab* PO Q12H JUAN Nicotine 10 mg 09/16/18 19:16 10/06/18 21:36 Nicotine Inhaler* INH 10 mg Q2H PRN Administration CRAVING Nortriptyline HCl 50 mg 09/27/18 21:00 10/07/18 20:58 Pamelor Cap* PO 50 mg BEDTIME JUAN Administration Oxycodone/Acetaminophen 1 tab 10/04/18 18:56 10/08/18 17:06 Percocet 5/325 Tab* PO 1 tab Q4H PRN Administration PAIN Polyethylene Glycol/Electrolytes 17 gm 09/19/18 09:00 10/08/18 09:58 Miralax* PO Not Given DAILY JUAN Pyridoxine HCl 100 mg 09/17/18 09:00 10/08/18 08:45 Vitamin B6 Tab* PO 100 mg DAILY JUAN Administration Sucralfate 1 gm 09/23/18 16:00 10/08/18 16:54 Carafate* PO 1 gm 0630,1100,1600,2100 JUAN Administration Thiamine HCl 100 mg 09/16/18 21:00 10/08/18 08:46 Vitamin B-1 Tab* PO 100 mg BID JUAN Administration Vital Signs: Vital Signs Temp Pulse Resp BP Pulse Ox 99.0 F 104 18 148/113 100 10/08/18 15:48 10/08/18 15:48 10/08/18 18:25 10/08/18 15:48 10/08/18 15:48 Exam: GENERAL: No acute distress. alert and appropriate. LUNGS: clear to auscultation bilaterally HEART: Regular rhythm and has been slightly tachy. ABDOMEN: + bowel sounds, soft, non-tender, non-distended EXTREMITIES: No edema. NEUROLOGIC: CN II-XII intact. Impaired sensation in hands and feet, ankles. Motor 4+/5 BUE and BLE. Assessment/Plan: 1. Vitamin B1 Deficiency Polyneuropathy: Daily Thiamine. Continue PT/OT, check Thiamine level 2. S/P Gastric Sleeve: Eating better 3. Analgesia: Percocet/Gabapentin/Methadone. Lowered gabapentin to TID due to swelling 4. DVT Prophylaxis: Lovenox 5. Advance Directives: Full code 6. Constipation: Miralax and Colace 10/08/18 18:38
[2018-10-08] MEDS: diPHENhydraMINE PO* 25 MG PO PRN (19:17)
[2018-10-08] MEDS: Enoxaparin(*) 40 MG/0.4 ML SYR SUBCUT SCH (21:18)
[2018-10-08] MEDS: Nortriptyline CAP* 25 MG PO SCH (21:22)
[2018-10-09] MEDS: diPHENhydraMINE PO* 25 MG PO PRN ×2 (01:10→20:20)
[2018-10-09] MEDS: oxyCODONE/Acetamin 5/325 MG* TAB PO PRN ×5 (01:10→20:20)
[2018-10-09] MEDS: Cyclobenzaprine TAB* 10 MG PO PRN ×2 (05:20→16:14)
[2018-10-09] MEDS: Sucralfate TAB* 1 GM PO SCH ×4 (06:13→21:30)
[2018-10-09] MEDS: Gabapentin CAP(*) 300 MG PO SCH ×3 (08:09→21:32)
[2018-10-09] MEDS: Docusate CAP* 100 MG PO SCH ×2 (08:09→21:30)
[2018-10-09] MEDS: Cholecalciferol TAB* 1000 UNITS PO SCH (08:09)
[2018-10-09] MEDS: amLODIPine TAB* 5 MG PO SCH (08:09)
[2018-10-09] MEDS: Famotidine TAB* 20 MG PO SCH ×2 (08:09→21:30)
[2018-10-09] MEDS: Thiamine TAB* 100 MG TAB PO SCH ×2 (08:10→21:30)
[2018-10-09] MEDS: Magnesium Oxide TAB* 400 MG PO SCH ×2 (08:10→21:31)
[2018-10-09] MEDS: Polyethylene Glycol 3350* 17 GM PACKET PO SCH ×2 (08:10→16:12)
[2018-10-09] MEDS: Methadone TAB* 10 MG PO SCH ×2 (08:11→21:33)
[2018-10-09] MEDS: Pyridoxine TAB* 50 MG PO SCH (08:15)
[2018-10-09 08:22] LABS: ABS Basophils 0.1 10^3/ul (0-0.2); ABS Eosinophils 0.2 10^3/ul (0-0.6); ABS Lymphocytes 4.4 10^3/ul (1.0-4.8); ABS Monocytes 0.7 10^3/ul (0-0.8); ABS Neutrophils 4.3 10^3/ul (1.5-7.7); ABS Nucleated RBC 0 10^3/ul; Eosinophil % 1.7 %; Hematocrit 38 % (33-41); Hemoglobin 12.6 g/dL (12.0-16.0); Lymphocyte % 45.7 %; Mean Corpuscular HGB Conc 33 g/dL (31-36); Mean Corpuscular Hemoglobin 30 pg (27-31); Mean Corpuscular Volume 91 fL (80-97); Mean Platelet Volume 8.8 fL (7.4-10.4); Nucleated Red Blood Cells % 0; Platelet Count 390 10^3/uL (150-450); Red Blood Count 4.19 10^6 /uL (3.70-4.87); Red Cell Distribution Width 16 % (10.5-15); White Blood Count 9.6 10^3/uL (3.5-10.8)
[2018-10-09 08:47] LABS: Albumin 3.4 g/dL (3.2-5.2); Albumin/Globulin Ratio 1.1 (1-3); Calcium 9.1 mg/dL (8.6-10.3); EGFR African American 171.9 (>60); Globulin 3.2 g/dL (2-4); Potassium 3.8 mmol/L (3.5-5.0); Total Bilirubin 0.4 mg/dL (0.2-1.0); Total Protein 6.6 g/dL (6.4-8.9)
--- NOTE | 2018-10-09 20:08 | PN ---
Progress Note Date of Service: 10/09/18 Note: JONH CAMARA was visited. Therapy notes read and reviewed. While walking with therapy today, her right leg buckled and she was lowered to the ground by the therapist and staff. She was assisted up and there were no complaints of pain. Current Medications: Active Medications Generic Name Dose Route Start Last Admin Trade Name Freq PRN Reason Stop Dose Admin Amlodipine Besylate 5 mg 09/17/18 09:00 10/09/18 08:09 Norvasc Tab* PO 5 mg DAILY JUAN Administration Cholecalciferol 1,000 units 09/26/18 09:00 10/09/18 08:09 Vitamin D Tab* PO 1,000 units DAILY JUAN Administration Cyclobenzaprine HCl 10 mg 09/23/18 17:19 10/09/18 16:14 Flexeril Tab* PO 10 mg Q8H PRN Administration SPASMS Diphenhydramine HCl 25 mg 10/08/18 18:39 10/09/18 01:10 Benadryl Po* PO 25 mg Q6H PRN Administration ITCHING Docusate Sodium 100 mg 09/18/18 21:00 10/09/18 08:09 Colace Cap* PO 100 mg BID JUAN Administration Enoxaparin Sodium 40 mg 09/16/18 20:00 10/08/18 21:18 Lovenox(*) SUBCUT 40 mg Q24H JUAN Administration Famotidine 20 mg 09/16/18 21:00 10/09/18 08:09 Pepcid Tab* PO 20 mg BID JUAN Administration Gabapentin 600 mg 10/05/18 14:00 10/09/18 14:17 Neurontin Cap(*) PO 600 mg TID JUAN Administration Guaifenesin/Dextromethorphan 10 ml 09/16/18 16:29 09/21/18 02:28 Robitussin Dm Sugar Free* PO 10 ml Q6H PRN Administration COUGH Hydrocortisone 25 mg 09/16/18 19:16 09/17/18 21:38 Anusol Hc Supp* [place] 25 mg BID PRN Administration hemorrhoid Magnesium Oxide 400 mg 09/16/18 21:00 10/09/18 08:10 Magox 400 Tab* PO 400 mg BID JUAN Administration Methadone HCl 5 mg 10/08/18 21:00 10/09/18 08:11 Dolophine Tab* PO 5 mg Q12H JUAN Administration Nicotine 10 mg 09/16/18 19:16 10/06/18 21:36 Nicotine Inhaler* INH 10 mg Q2H PRN Administration CRAVING Nortriptyline HCl 50 mg 09/27/18 21:00 10/08/18 21:22 Pamelor Cap* PO 50 mg BEDTIME JUAN Administration Oxycodone/Acetaminophen 1 tab 10/04/18 18:56 10/09/18 16:14 Percocet 5/325 Tab* PO 1 tab Q4H PRN Administration PAIN Polyethylene Glycol/Electrolytes 17 gm 09/19/18 09:00 10/09/18 16:12 Miralax* PO 17 gm DAILY JUAN Administration Pyridoxine HCl 100 mg 09/17/18 09:00 10/09/18 08:15 Vitamin B6 Tab* PO 100 mg DAILY JUAN Administration Sucralfate 1 gm 09/23/18 16:00 10/09/18 15:56 Carafate* PO 1 gm 0630,1100,1600,2100 JUAN Administration Thiamine HCl 100 mg 09/16/18 21:00 10/09/18 08:10 Vitamin B-1 Tab* PO 100 mg BID JUAN Administration Vital Signs: Vital Signs Temp Pulse Resp BP Pulse Ox 98.5 F 109 18 136/89 98 10/09/18 15:10 10/09/18 15:10 10/09/18 19:43 10/09/18 15:10 10/09/18 19:47 Lab Results: Laboratory Results - last 24 hr 10/09/18 10/09/18 07:29 07:29 WBC 9.6 RBC 4.19 Hgb 12.6 Hct 38 MCV 91 MCH 30 MCHC 33 RDW 16 H Plt Count 390 MPV 8.8 Neut % (Auto) 44.4 Lymph % (Auto) 45.7 Powell % (Auto) 7.3 Eos % (Auto) 1.7 Baso % (Auto) 0.9 Absolute Neuts (auto) 4.3 Absolute Lymphs (auto) 4.4 Absolute Monos (auto) 0.7 Absolute Eos (auto) 0.2 Absolute Basos (auto) 0.1 Absolute Nucleated RBC 0 Nucleated RBC % 0 Sodium 139 Potassium 3.8 Chloride 100 L Carbon Dioxide 32 Anion Gap 7 BUN 8 Creatinine 0.47 L Est GFR ( Amer) 171.9 Est GFR (Non-Af Amer) 142.0 BUN/Creatinine Ratio 17.0 Glucose 102 H Calcium 9.1 Total Bilirubin 0.40 AST 18 ALT 14 Alkaline Phosphatase 84 Total Protein 6.6 Albumin 3.4 Globulin 3.2 Albumin/Globulin Ratio 1.1 Exam: GENERAL: No acute distress. alert and appropriate. LUNGS: clear to auscultation bilaterally HEART: Regular rhythm and has been slightly tachy. ABDOMEN: + bowel sounds, soft, non-tender, non-distended EXTREMITIES: No edema. NEUROLOGIC: CN II-XII intact. Impaired sensation in hands and feet, ankles. Motor 4+/5 BUE and BLE. Assessment/Plan: 1. Vitamin B1 Deficiency Polyneuropathy: Daily Thiamine. Continue PT/OT, check Thiamine level 2. S/P Gastric Sleeve: Eating better 3. Analgesia: Percocet/Gabapentin/Methadone. Lowered gabapentin to TID due to swelling, lowered methadone to BID 4. DVT Prophylaxis: Lovenox 5. Advance Directives: Full code 6. Constipation: Miralax and Colace 10/09/18 20:08
[2018-10-09] MEDS: Enoxaparin(*) 40 MG/0.4 ML SYR SUBCUT SCH (20:23)
[2018-10-09] MEDS: Nortriptyline CAP* 25 MG PO SCH (21:30)
[2018-10-10] MEDS: Cyclobenzaprine TAB* 10 MG PO PRN ×2 (00:27→12:29)
[2018-10-10] MEDS: oxyCODONE/Acetamin 5/325 MG* TAB PO PRN ×5 (00:27→22:03)
[2018-10-10] MEDS: Sucralfate TAB* 1 GM PO SCH ×4 (05:54→20:16)
[2018-10-10] MEDS: diPHENhydraMINE PO* 25 MG PO PRN ×3 (05:55→22:04)
[2018-10-10] MEDS: Thiamine TAB* 100 MG TAB PO SCH ×2 (08:56→20:16)
[2018-10-10] MEDS: Cholecalciferol TAB* 1000 UNITS PO SCH (08:56)
[2018-10-10] MEDS: Docusate CAP* 100 MG PO SCH ×2 (08:57→20:16)
[2018-10-10] MEDS: Pyridoxine TAB* 50 MG PO SCH (08:57)
[2018-10-10] MEDS: amLODIPine TAB* 5 MG PO SCH (08:57)
[2018-10-10] MEDS: Magnesium Oxide TAB* 400 MG PO SCH ×2 (08:57→20:16)
[2018-10-10] MEDS: Famotidine TAB* 20 MG PO SCH ×2 (08:57→20:16)
[2018-10-10] MEDS: Gabapentin CAP(*) 300 MG PO SCH ×3 (08:58→20:17)
[2018-10-10] MEDS: Methadone TAB* 10 MG PO SCH (08:59)
[2018-10-10] MEDS: Polyethylene Glycol 3350* 17 GM PACKET PO SCH (09:02)
[2018-10-10] MEDS: Nortriptyline CAP* 25 MG PO SCH (20:16)
[2018-10-10] MEDS: Enoxaparin(*) 40 MG/0.4 ML SYR SUBCUT SCH (20:18)
[2018-10-10] MEDS ORDERED: Methadone TAB* 10 MG PO SCH (21:00)
--- NOTE | 2018-10-10 21:30 | PN ---
Progress Note Date of Service: 10/10/18 Note: JONH CAMARA was visited. Therapy notes read and reviewed. She thinks she is doing okay overall. Have cut her Methadone to once a day. She thinks she may be having more memory problems. May eliminate Methadone. She is on several medicines that can impact memory Current Medications: Active Medications Generic Name Dose Route Start Last Admin Trade Name Freq PRN Reason Stop Dose Admin Amlodipine Besylate 5 mg 09/17/18 09:00 10/10/18 08:57 Norvasc Tab* PO 5 mg DAILY JUAN Administration Cholecalciferol 1,000 units 09/26/18 09:00 10/10/18 08:56 Vitamin D Tab* PO 1,000 units DAILY JUAN Administration Cyclobenzaprine HCl 10 mg 09/23/18 17:19 10/10/18 12:29 Flexeril Tab* PO 10 mg Q8H PRN Administration SPASMS Diphenhydramine HCl 25 mg 10/08/18 18:39 10/10/18 15:58 Benadryl Po* PO 25 mg Q6H PRN Administration ITCHING Docusate Sodium 100 mg 09/18/18 21:00 10/10/18 20:16 Colace Cap* PO 100 mg BID JUAN Administration Enoxaparin Sodium 40 mg 09/16/18 20:00 10/10/18 20:18 Lovenox(*) SUBCUT 40 mg Q24H JUAN Administration Famotidine 20 mg 09/16/18 21:00 10/10/18 20:16 Pepcid Tab* PO 20 mg BID JUAN Administration Gabapentin 600 mg 10/05/18 14:00 10/10/18 20:17 Neurontin Cap(*) PO 600 mg TID JUAN Administration Guaifenesin/Dextromethorphan 10 ml 09/16/18 16:29 09/21/18 02:28 Robitussin Dm Sugar Free* PO 10 ml Q6H PRN Administration COUGH Hydrocortisone 25 mg 09/16/18 19:16 09/17/18 21:38 Anusol Hc Supp* DC 25 mg BID PRN Administration hemorrhoid Magnesium Oxide 400 mg 09/16/18 21:00 10/10/18 20:16 Magox 400 Tab* PO 400 mg BID JUAN Administration Methadone HCl 5 mg 10/10/18 21:00 10/10/18 20:15 Dolophine Tab* PO 5 mg BEDTIME JUAN Administration Nicotine 10 mg 09/16/18 19:16 10/06/18 21:36 Nicotine Inhaler* INH 10 mg Q2H PRN Administration CRAVING Nortriptyline HCl 50 mg 09/27/18 21:00 10/10/18 20:16 Pamelor Cap* PO 50 mg BEDTIME JUAN Administration Oxycodone/Acetaminophen 1 tab 10/04/18 18:56 10/10/18 17:51 Percocet 5/325 Tab* PO 1 tab Q4H PRN Administration PAIN Polyethylene Glycol/Electrolytes 17 gm 09/19/18 09:00 10/10/18 09:02 Miralax* PO Not Given DAILY JUAN Pyridoxine HCl 100 mg 09/17/18 09:00 10/10/18 08:57 Vitamin B6 Tab* PO 100 mg DAILY JUAN Administration Sucralfate 1 gm 09/23/18 16:00 10/10/18 20:16 Carafate* PO 1 gm 0630,1100,1600,2100 JUAN Administration Thiamine HCl 100 mg 09/16/18 21:00 10/10/18 20:16 Vitamin B-1 Tab* PO 100 mg BID JUAN Administration Vital Signs: Vital Signs Temp Pulse Resp BP Pulse Ox 98.5 F 110 18 127/97 100 10/10/18 15:58 10/10/18 15:58 10/10/18 20:17 10/10/18 15:58 10/10/18 18:55 Exam: GENERAL: No acute distress. alert and appropriate. LUNGS: clear to auscultation bilaterally HEART: Regular rhythm and has been slightly tachy. ABDOMEN: + bowel sounds, soft, non-tender, non-distended EXTREMITIES: No edema. NEUROLOGIC: CN II-XII intact. Impaired sensation in hands and feet, ankles. Motor 4+/5 BUE and BLE. Assessment/Plan: 1. Vitamin B1 Deficiency Polyneuropathy: Daily Thiamine. Continue PT/OT, Thiamine level pending 2. S/P Gastric Sleeve: Eating better 3. Analgesia: Percocet/Gabapentin/Methadone. Lowered gabapentin to TID due to swelling, lowered methadone to Bedtime 4. DVT Prophylaxis: Lovenox 5. Advance Directives: Full code 6. Constipation: Miralax and Colace 10/10/18 21:30
[2018-10-11] MEDS: oxyCODONE/Acetamin 5/325 MG* TAB PO PRN ×5 (02:09→21:14)
[2018-10-11] MEDS: Cyclobenzaprine TAB* 10 MG PO PRN ×2 (02:10→14:08)
[2018-10-11] MEDS: diPHENhydraMINE PO* 25 MG PO PRN (05:16)
[2018-10-11] MEDS: Sucralfate TAB* 1 GM PO SCH ×4 (05:17→21:13)
[2018-10-11] MEDS: Thiamine TAB* 100 MG TAB PO SCH ×2 (09:33→20:02)
[2018-10-11] MEDS: Cholecalciferol TAB* 1000 UNITS PO SCH (09:33)
[2018-10-11] MEDS: amLODIPine TAB* 5 MG PO SCH (09:34)
[2018-10-11] MEDS: Famotidine TAB* 20 MG PO SCH ×2 (09:34→20:01)
[2018-10-11] MEDS: Docusate CAP* 100 MG PO SCH ×2 (09:34→20:02)
[2018-10-11] MEDS: Gabapentin CAP(*) 300 MG PO SCH ×3 (09:34→20:01)
[2018-10-11] MEDS: Magnesium Oxide TAB* 400 MG PO SCH ×2 (09:34→20:02)
[2018-10-11] MEDS: Pyridoxine TAB* 50 MG PO SCH (09:34)
[2018-10-11] MEDS: Polyethylene Glycol 3350* 17 GM PACKET PO SCH (09:36)
--- NOTE | 2018-10-11 09:48 | PN ---
Progress Note Date of Service: 10/11/18 Note: ALLY CAMARA was visited. Nursing and therapy notes read and reviewed. Patient, daughter and OT raise issue of memory and confusion. This has been ongoing the last few weeks but daughter is more appreciative now. Daughter reports Ally thinking she was . I advised her methadone has been weaning down as well as gabapentin, which can contribute. No chest pain, shortness of breath or abdominal pain. Current Medications: Active Medications Generic Name Dose Route Start Last Admin Trade Name Freq PRN Reason Stop Dose Admin Amlodipine Besylate 5 mg 09/17/18 09:00 10/11/18 09:34 Norvasc Tab* PO 5 mg DAILY JUAN Administration Cholecalciferol 1,000 units 09/26/18 09:00 10/11/18 09:33 Vitamin D Tab* PO 1,000 units DAILY JUAN Administration Cyclobenzaprine HCl 10 mg 09/23/18 17:19 10/11/18 02:10 Flexeril Tab* PO 10 mg Q8H PRN Administration SPASMS Diphenhydramine HCl 25 mg 10/08/18 18:39 10/11/18 05:16 Benadryl Po* PO 25 mg Q6H PRN Administration ITCHING Docusate Sodium 100 mg 09/18/18 21:00 10/11/18 09:34 Colace Cap* PO 100 mg BID JUAN Administration Enoxaparin Sodium 40 mg 09/16/18 20:00 10/10/18 20:18 Lovenox(*) SUBCUT 40 mg Q24H JUAN Administration Famotidine 20 mg 09/16/18 21:00 10/11/18 09:34 Pepcid Tab* PO 20 mg BID JUAN Administration Gabapentin 600 mg 10/05/18 14:00 10/11/18 09:34 Neurontin Cap(*) PO 600 mg TID JUAN Administration Guaifenesin/Dextromethorphan 10 ml 09/16/18 16:29 09/21/18 02:28 Robitussin Dm Sugar Free* PO 10 ml Q6H PRN Administration COUGH Hydrocortisone 25 mg 09/16/18 19:16 09/17/18 21:38 Anusol Hc Supp* [place] 25 mg BID PRN Administration hemorrhoid Magnesium Oxide 400 mg 09/16/18 21:00 10/11/18 09:34 Magox 400 Tab* PO 400 mg BID JUAN Administration Methadone HCl 2.5 mg 10/11/18 21:00 Dolophine Tab* PO BEDTIME JUAN Nicotine 10 mg 09/16/18 19:16 10/06/18 21:36 Nicotine Inhaler* INH 10 mg Q2H PRN Administration CRAVING Nortriptyline HCl 50 mg 09/27/18 21:00 10/10/18 20:16 Pamelor Cap* PO 50 mg BEDTIME JUAN Administration Oxycodone/Acetaminophen 1 tab 10/04/18 18:56 10/11/18 06:08 Percocet 5/325 Tab* PO 1 tab Q4H PRN Administration PAIN Polyethylene Glycol/Electrolytes 17 gm 09/19/18 09:00 10/11/18 09:36 Miralax* PO Not Given DAILY JUAN Pyridoxine HCl 100 mg 09/17/18 09:00 10/11/18 09:34 Vitamin B6 Tab* PO 100 mg DAILY JUAN Administration Sucralfate 1 gm 09/23/18 16:00 10/11/18 05:17 Carafate* PO 1 gm 0630,1100,1600,2100 JUAN Administration Thiamine HCl 100 mg 09/16/18 21:00 10/11/18 09:33 Vitamin B-1 Tab* PO 100 mg BID JUAN Administration Vital Signs: Vital Signs Temp Pulse Resp BP Pulse Ox 98.4 F 107 16 144/90 98 10/11/18 04:48 10/11/18 04:48 10/11/18 09:34 10/11/18 04:48 10/11/18 04:48 Exam: GENERAL: No acute distress. alert and appropriate. LUNGS: clear to auscultation bilaterally HEART: Regular rhythm and has been slightly tachy. ABDOMEN: + bowel sounds, soft, non-tender, non-distended EXTREMITIES: No edema. NEUROLOGIC: CN II-XII intact. Impaired sensation in hands and feet, ankles. Motor 4+/5 BUE and BLE. Assessment/Plan: 1. Vitamin B1 Deficiency Polyneuropathy: Daily Thiamine. Continue PT/OT, Thiamine level pending which may also impact cognition. 2. S/P Gastric Sleeve: Eating better 3. Analgesia: Percocet/Gabapentin/Methadone/Nortriptyline. Gabapentin TID due to swelling, lowered methadone to 2.5mg at Bedtime and may d/c tomorrow as meds may contribute to some confusion and memory loss. 4. DVT Prophylaxis: Lovenox 5. Advance Directives: Full code 6. Constipation: Miralax and Colace 7. Impaired cognition: will have speech come back to reassess. 10/11/18 09:46
[2018-10-11] MEDS: Enoxaparin(*) 40 MG/0.4 ML SYR SUBCUT SCH (19:59)
[2018-10-11] MEDS: Nortriptyline CAP* 25 MG PO SCH (20:01)
[2018-10-11] MEDS ORDERED: Methadone TAB* 5 MG PO SCH (21:00)
[2018-10-12] MEDS: oxyCODONE/Acetamin 5/325 MG* TAB PO PRN ×5 (02:18→21:17)
[2018-10-12] MEDS: Cyclobenzaprine TAB* 10 MG PO PRN ×3 (02:18→20:30)
[2018-10-12] MEDS: diPHENhydraMINE PO* 25 MG PO PRN ×3 (05:50→21:19)
[2018-10-12] MEDS: Sucralfate TAB* 1 GM PO SCH ×4 (05:50→21:11)
[2018-10-12] MEDS: Gabapentin CAP(*) 300 MG PO SCH ×3 (09:12→21:12)
[2018-10-12] MEDS: Cholecalciferol TAB* 1000 UNITS PO SCH (09:13)
[2018-10-12] MEDS: Famotidine TAB* 20 MG PO SCH ×2 (09:13→21:11)
[2018-10-12] MEDS: Magnesium Oxide TAB* 400 MG PO SCH ×2 (09:13→21:11)
[2018-10-12] MEDS: Docusate CAP* 100 MG PO SCH ×2 (09:13→21:10)
[2018-10-12] MEDS: amLODIPine TAB* 5 MG PO SCH (09:14)
[2018-10-12] MEDS: Polyethylene Glycol 3350* 17 GM PACKET PO SCH (09:23)
[2018-10-12] MEDS: Pyridoxine TAB* 50 MG PO SCH (09:52)
[2018-10-12] MEDS: Thiamine TAB* 100 MG TAB PO SCH ×2 (09:53→21:11)
[2018-10-12] MEDS: Nicotine Inhaler* 10 MG AMP INH PRN (09:54)
--- NOTE | 2018-10-12 10:26 | PN ---
Progress Note Date of Service: 10/12/18 Note: JONH CAMARA was visited. Nursing and therapy notes read and reviewed. No chest pain, shortness of breath or abdominal pain. She agrees with stopping methadone tonight. Still has pain, but methadone has not made much difference which staff agrees. She seems to sleep at night. She is stressed today since her mother is coming to visit from [place] and she has not seen her in 9 months. Current Medications: Active Medications Generic Name Dose Route Start Last Admin Trade Name Freq PRN Reason Stop Dose Admin Amlodipine Besylate 5 mg 09/17/18 09:00 10/12/18 09:14 Norvasc Tab* PO 5 mg DAILY JUAN Administration Cholecalciferol 1,000 units 09/26/18 09:00 10/12/18 09:13 Vitamin D Tab* PO 1,000 units DAILY JUAN Administration Cyclobenzaprine HCl 10 mg 09/23/18 17:19 10/12/18 02:18 Flexeril Tab* PO 10 mg Q8H PRN Administration SPASMS Diphenhydramine HCl 25 mg 10/08/18 18:39 10/12/18 05:50 Benadryl Po* PO 25 mg Q6H PRN Administration ITCHING Docusate Sodium 100 mg 09/18/18 21:00 10/12/18 09:13 Colace Cap* PO 100 mg BID JUAN Administration Enoxaparin Sodium 40 mg 09/16/18 20:00 10/11/18 19:59 Lovenox(*) SUBCUT 40 mg Q24H JUAN Administration Famotidine 20 mg 09/16/18 21:00 10/12/18 09:13 Pepcid Tab* PO 20 mg BID JUAN Administration Gabapentin 600 mg 10/05/18 14:00 10/12/18 09:12 Neurontin Cap(*) PO 600 mg TID JUAN Administration Guaifenesin/Dextromethorphan 10 ml 09/16/18 16:29 09/21/18 02:28 Robitussin Dm Sugar Free* PO 10 ml Q6H PRN Administration COUGH Hydrocortisone 25 mg 09/16/18 19:16 09/17/18 21:38 Anusol Hc Supp* [place] 25 mg BID PRN Administration hemorrhoid Magnesium Oxide 400 mg 09/16/18 21:00 10/12/18 09:13 Magox 400 Tab* PO 400 mg BID JUAN Administration Methadone HCl 2.5 mg 10/11/18 21:00 10/11/18 20:03 Dolophine Tab* PO 2.5 mg BEDTIME JUAN Administration Nicotine 10 mg 09/16/18 19:16 10/12/18 09:54 Nicotine Inhaler* INH 10 mg Q2H PRN Administration CRAVING Nortriptyline HCl 50 mg 09/27/18 21:00 10/11/18 20:01 Pamelor Cap* PO 50 mg BEDTIME JUAN Administration Oxycodone/Acetaminophen 1 tab 10/04/18 18:56 10/12/18 06:18 Percocet 5/325 Tab* PO 1 tab Q4H PRN Administration PAIN Polyethylene Glycol/Electrolytes 17 gm 09/19/18 09:00 10/12/18 09:23 Miralax* PO Not Given DAILY JUAN Pyridoxine HCl 100 mg 09/17/18 09:00 10/12/18 09:52 Vitamin B6 Tab* PO 100 mg DAILY JUAN Administration Sucralfate 1 gm 09/23/18 16:00 10/12/18 05:50 Carafate* PO 1 gm 0630,1100,1600,2100 JUAN Administration Thiamine HCl 100 mg 09/16/18 21:00 10/12/18 09:53 Vitamin B-1 Tab* PO 100 mg BID JUAN Administration Vital Signs: Vital Signs Temp Pulse Resp BP Pulse Ox 98.4 F 104 18 148/85 98 10/12/18 05:15 10/12/18 05:15 10/12/18 09:53 10/12/18 05:15 10/12/18 05:15 Lab Results: Laboratory Results - last 24 hr 10/09/18 07:29 Whole Bld Vitamin B1 209 H Exam: GENERAL: No acute distress. alert and appropriate. LUNGS: clear to auscultation bilaterally HEART: Regular rhythm and slightly tachy (baseline). ABDOMEN: + bowel sounds, soft, non-tender, non-distended EXTREMITIES: No edema. NEUROLOGIC: CN II-XII intact. Impaired sensation in hands and feet, ankles. Motor 4+/5 BUE and BLE. Assessment/Plan: 1. Vitamin B1 Deficiency Polyneuropathy: Daily Thiamine. No longer deficient in thiamine. I advised time will tell how much the nerves heal and it is a slow process. Continue PT/OT. 2. S/P Gastric Sleeve: Eating better 3. Analgesia: Percocet/Gabapentin/Nortriptyline. Gabapentin TID due to swelling. d/c methadone as may contribute to some confusion and memory loss. 4. DVT Prophylaxis: Lovenox 5. Advance Directives: Full code 6. Constipation: Miralax and Colace 7. Impaired cognition: speech ordered to come back to reassess. 10/12/18 10:23
[2018-10-12] MEDS: Enoxaparin(*) 40 MG/0.4 ML SYR SUBCUT SCH (20:27)
[2018-10-12] MEDS: Nortriptyline CAP* 25 MG PO SCH (21:11)
[2018-10-13] MEDS: oxyCODONE/Acetamin 5/325 MG* TAB PO PRN ×4 (03:30→20:05)
[2018-10-13] MEDS: diPHENhydraMINE PO* 25 MG PO PRN ×2 (03:30→20:05)
[2018-10-13] MEDS: Cyclobenzaprine TAB* 10 MG PO PRN ×2 (04:50→17:18)
[2018-10-13] MEDS: Sucralfate TAB* 1 GM PO SCH ×4 (06:21→20:54)
[2018-10-13] MEDS: Gabapentin CAP(*) 300 MG PO SCH ×3 (09:18→20:55)
[2018-10-13] MEDS: Docusate CAP* 100 MG PO SCH ×2 (09:18→20:55)
[2018-10-13] MEDS: Famotidine TAB* 20 MG PO SCH ×2 (09:18→20:54)
[2018-10-13] MEDS: amLODIPine TAB* 5 MG PO SCH (09:18)
[2018-10-13] MEDS: Cholecalciferol TAB* 1000 UNITS PO SCH (09:18)
[2018-10-13] MEDS: Thiamine TAB* 100 MG TAB PO SCH ×2 (09:19→20:55)
[2018-10-13] MEDS: Magnesium Oxide TAB* 400 MG PO SCH ×2 (09:19→20:54)
[2018-10-13] MEDS: Polyethylene Glycol 3350* 17 GM PACKET PO SCH (09:19)
[2018-10-13] MEDS: Pyridoxine TAB* 50 MG PO SCH (09:19)
--- NOTE | 2018-10-13 09:20 | PN ---
Progress Note Date of Service: 10/13/18 Note: ALLY CAMARA was visited. Nursing notes read and reviewed. No chest pain, shortness of breath or abdominal pain. Her mother was here visiting overnight. Ally would like to review with her pain medications. She sleeps well. Current Medications: Active Medications Generic Name Dose Route Start Last Admin Trade Name Freq PRN Reason Stop Dose Admin Amlodipine Besylate 5 mg 09/17/18 09:00 10/12/18 09:14 Norvasc Tab* PO 5 mg DAILY JUAN Administration Cholecalciferol 1,000 units 09/26/18 09:00 10/12/18 09:13 Vitamin D Tab* PO 1,000 units DAILY JUAN Administration Cyclobenzaprine HCl 10 mg 09/23/18 17:19 10/13/18 04:50 Flexeril Tab* PO 10 mg Q8H PRN Administration SPASMS Diphenhydramine HCl 25 mg 10/08/18 18:39 10/13/18 03:30 Benadryl Po* PO 25 mg Q6H PRN Administration ITCHING Docusate Sodium 100 mg 09/18/18 21:00 10/12/18 21:10 Colace Cap* PO 100 mg BID JUAN Administration Enoxaparin Sodium 40 mg 09/16/18 20:00 10/12/18 20:27 Lovenox(*) SUBCUT 40 mg Q24H JUAN Administration Famotidine 20 mg 09/16/18 21:00 10/12/18 21:11 Pepcid Tab* PO 20 mg BID JUAN Administration Gabapentin 600 mg 10/05/18 14:00 10/12/18 21:12 Neurontin Cap(*) PO 600 mg TID JUAN Administration Guaifenesin/Dextromethorphan 10 ml 09/16/18 16:29 09/21/18 02:28 Robitussin Dm Sugar Free* PO 10 ml Q6H PRN Administration COUGH Hydrocortisone 25 mg 09/16/18 19:16 09/17/18 21:38 Anusol Hc Supp* [place] 25 mg BID PRN Administration hemorrhoid Magnesium Oxide 400 mg 09/16/18 21:00 10/12/18 21:11 Magox 400 Tab* PO 400 mg BID JUAN Administration Nicotine 10 mg 09/16/18 19:16 10/12/18 09:54 Nicotine Inhaler* INH 10 mg Q2H PRN Administration CRAVING Nortriptyline HCl 50 mg 09/27/18 21:00 10/12/18 21:11 Pamelor Cap* PO 50 mg BEDTIME JUAN Administration Oxycodone/Acetaminophen 1 tab 10/04/18 18:56 10/13/18 03:30 Percocet 5/325 Tab* PO 1 tab Q4H PRN Administration PAIN Polyethylene Glycol/Electrolytes 17 gm 09/19/18 09:00 10/12/18 09:23 Miralax* PO Not Given DAILY JUAN Pyridoxine HCl 100 mg 09/17/18 09:00 10/12/18 09:52 Vitamin B6 Tab* PO 100 mg DAILY JUAN Administration Sucralfate 1 gm 09/23/18 16:00 10/13/18 06:21 Carafate* PO 1 gm 0630,1100,1600,2100 JUAN Administration Thiamine HCl 100 mg 09/16/18 21:00 10/12/18 21:11 Vitamin B-1 Tab* PO 100 mg BID JUAN Administration Vital Signs: Vital Signs Temp Pulse Resp BP Pulse Ox 98.9 F 108 18 135/99 98 10/13/18 06:39 10/13/18 06:39 10/13/18 06:39 10/13/18 06:39 10/13/18 06:39 Exam: GENERAL: No acute distress. alert and appropriate. LUNGS: clear to auscultation bilaterally HEART: Regular rhythm and slightly tachy (baseline). ABDOMEN: + bowel sounds, soft, non-tender, non-distended EXTREMITIES: No edema. NEUROLOGIC: CN II-XII intact. Impaired sensation in hands and feet, ankles. Motor 4+/5 BUE and BLE. Assessment/Plan: 1. Vitamin B1 Deficiency Polyneuropathy: Daily Thiamine. No longer deficient in thiamine. I advised time will tell how much the nerves heal and it is a slow process. Continue PT/OT. 2. S/P Gastric Sleeve: Eating better 3. Analgesia: I reviewed with her scheduled and prn medications. Percocet/ Gabapentin/Nortriptyline/cyclobenzaprine. Gabapentin TID due to swelling. Off methadone as of 10/12. 4. DVT Prophylaxis: Lovenox 5. Advance Directives: Full code 6. Constipation: Miralax and Colace 7. Impaired cognition: speech ordered to come back to reassess. 8. Anticipated discharge: 10/17/18. 10/13/18 09:19
[2018-10-13] MEDS ORDERED: GuaiFENesin DM* 5 ML UDC PO PRN (13:00)
[2018-10-13] MEDS: Enoxaparin(*) 40 MG/0.4 ML SYR SUBCUT SCH (20:08)
[2018-10-13] MEDS: Nortriptyline CAP* 25 MG PO SCH (20:56)
[2018-10-14] MEDS: Cyclobenzaprine TAB* 10 MG PO PRN ×2 (03:40→18:46)
[2018-10-14] MEDS: oxyCODONE/Acetamin 5/325 MG* TAB PO PRN ×4 (03:40→21:18)
[2018-10-14] MEDS: diPHENhydraMINE PO* 25 MG PO PRN (05:35)
[2018-10-14] MEDS: Sucralfate TAB* 1 GM PO SCH ×4 (06:18→21:18)
[2018-10-14] MEDS: Gabapentin CAP(*) 300 MG PO SCH ×3 (08:48→21:03)
[2018-10-14] MEDS: Famotidine TAB* 20 MG PO SCH ×2 (08:50→21:02)
[2018-10-14] MEDS: Thiamine TAB* 100 MG TAB PO SCH ×2 (08:50→21:04)
[2018-10-14] MEDS: Magnesium Oxide TAB* 400 MG PO SCH ×2 (08:50→21:02)
[2018-10-14] MEDS: amLODIPine TAB* 5 MG PO SCH (08:51)
[2018-10-14] MEDS: Cholecalciferol TAB* 1000 UNITS PO SCH (08:51)
[2018-10-14] MEDS: Docusate CAP* 100 MG PO SCH ×2 (08:51→21:03)
[2018-10-14] MEDS: Pyridoxine TAB* 50 MG PO SCH (08:51)
[2018-10-14] MEDS: Polyethylene Glycol 3350* 17 GM PACKET PO SCH (08:52)
[2018-10-14] MEDS ORDERED: Nicotine GUM* 2 MG PO PRN (14:40)
[2018-10-14] MEDS ORDERED: Gabapentin CAP(*) 100 MG PO ONE (18:57)
--- NOTE | 2018-10-14 18:59 | PN ---
Progress Note Date of Service: 10/14/18 Note: JONH CAMARA was visited. Therapy notes read and reviewed. She is complaining of more burning in hands and feet since Methadone stopped, but she may be clearer. She still has some gaps in memory with different members of the rehab team Current Medications: Active Medications Generic Name Dose Route Start Last Admin Trade Name Freq PRN Reason Stop Dose Admin Amlodipine Besylate 5 mg 09/17/18 09:00 10/14/18 08:51 Norvasc Tab* PO 5 mg DAILY JUAN Administration Cholecalciferol 1,000 units 09/26/18 09:00 10/14/18 08:51 Vitamin D Tab* PO 1,000 units DAILY JUAN Administration Cyclobenzaprine HCl 10 mg 09/23/18 17:19 10/14/18 18:46 Flexeril Tab* PO 10 mg Q8H PRN Administration SPASMS Diphenhydramine HCl 25 mg 10/08/18 18:39 10/14/18 05:35 Benadryl Po* PO 25 mg Q6H PRN Administration ITCHING Docusate Sodium 100 mg 09/18/18 21:00 10/14/18 08:51 Colace Cap* PO 100 mg BID JUAN Administration Enoxaparin Sodium 40 mg 09/16/18 20:00 10/13/18 20:08 Lovenox(*) SUBCUT 40 mg Q24H JUAN Administration Famotidine 20 mg 09/16/18 21:00 10/14/18 08:50 Pepcid Tab* PO 20 mg BID JUAN Administration Gabapentin 600 mg 10/05/18 14:00 10/14/18 14:33 Neurontin Cap(*) PO 600 mg TID JUAN Administration Guaifenesin/Dextromethorphan 10 ml 10/13/18 13:00 Robitussin Dm* PO Q6H PRN COUGH Hydrocortisone 25 mg 09/16/18 19:16 09/17/18 21:38 Anusol Hc Supp* [place] 25 mg BID PRN Administration hemorrhoid Magnesium Oxide 400 mg 09/16/18 21:00 10/14/18 08:50 Magox 400 Tab* PO 400 mg BID JUAN Administration Nicotine 10 mg 09/16/18 19:16 10/12/18 09:54 Nicotine Inhaler* INH 10 mg Q2H PRN Administration CRAVING Nicotine Polacrilex 2 mg 10/14/18 14:40 Nicotine Gum* PO Q2H PRN NICOTINE CRAVINGS Nortriptyline HCl 50 mg 09/27/18 21:00 10/13/18 20:56 Pamelor Cap* PO 50 mg BEDTIME JUAN Administration Oxycodone/Acetaminophen 1 tab 10/04/18 18:56 10/14/18 16:03 Percocet 5/325 Tab* PO 1 tab Q4H PRN Administration PAIN Polyethylene Glycol/Electrolytes 17 gm 09/19/18 09:00 10/14/18 08:52 Miralax* PO 17 gm DAILY JUAN Administration Pyridoxine HCl 100 mg 09/17/18 09:00 10/14/18 08:51 Vitamin B6 Tab* PO 100 mg DAILY JUAN Administration Sucralfate 1 gm 09/23/18 16:00 10/14/18 16:03 Carafate* PO 1 gm 0630,1100,1600,2100 JUAN Administration Thiamine HCl 100 mg 09/16/18 21:00 10/14/18 08:50 Vitamin B-1 Tab* PO 100 mg BID JUAN Administration Vital Signs: Vital Signs Temp Pulse Resp BP Pulse Ox 98.7 F 102 18 129/87 99 10/14/18 15:16 10/14/18 15:16 10/14/18 18:46 10/14/18 15:16 10/14/18 15:16 Exam: GENERAL: No acute distress. alert and appropriate. LUNGS: clear to auscultation bilaterally HEART: Regular rhythm and slightly tachy (baseline). ABDOMEN: + bowel sounds, soft, non-tender, non-distended EXTREMITIES: No edema. NEUROLOGIC: CN II-XII intact. Impaired sensation in hands and feet, ankles. Motor 4+/5 BUE and BLE. Assessment/Plan: 1. Vitamin B1 Deficiency Polyneuropathy: Daily Thiamine. No longer deficient in thiamine. Continue PT/OT. 2. S/P Gastric Sleeve: Eating better 3. Analgesia: I reviewed with her scheduled and prn medications. Percocet/ Gabapentin/Nortriptyline/cyclobenzaprine. Gabapentin TID due to swelling. Off methadone as of 10/12. 4. DVT Prophylaxis: Lovenox 5. Advance Directives: Full code 6. Constipation: Miralax and Colace 7. Impaired cognition: speech ordered to come back to reassess. 8. Anticipated discharge: 10/17/18. 10/14/18 18:59
[2018-10-14] MEDS: Enoxaparin(*) 40 MG/0.4 ML SYR SUBCUT SCH (21:01)
[2018-10-14] MEDS: Nortriptyline CAP* 25 MG PO SCH (21:03)
[2018-10-15] MEDS: oxyCODONE/Acetamin 5/325 MG* TAB PO PRN ×5 (01:31→20:51)
[2018-10-15] MEDS: Sucralfate TAB* 1 GM PO SCH ×4 (06:40→20:51)
[2018-10-15] MEDS: Cyclobenzaprine TAB* 10 MG PO PRN ×2 (06:41→16:24)
[2018-10-15] MEDS: Cholecalciferol TAB* 1000 UNITS PO SCH (09:44)
[2018-10-15] MEDS: amLODIPine TAB* 5 MG PO SCH (09:44)
[2018-10-15] MEDS: Famotidine TAB* 20 MG PO SCH ×2 (09:44→20:52)
[2018-10-15] MEDS: Docusate CAP* 100 MG PO SCH ×2 (09:44→20:51)
[2018-10-15] MEDS: Magnesium Oxide TAB* 400 MG PO SCH ×2 (09:44→20:51)
[2018-10-15] MEDS: Thiamine TAB* 100 MG TAB PO SCH ×2 (09:44→20:51)
[2018-10-15] MEDS: Pyridoxine TAB* 50 MG PO SCH (09:44)
[2018-10-15] MEDS: Polyethylene Glycol 3350* 17 GM PACKET PO SCH (09:45)
[2018-10-15] MEDS: Gabapentin CAP(*) 300 MG PO SCH ×3 (09:45→20:53)
--- NOTE | 2018-10-15 12:26 | PMRUTEAM ---
PMRU: Team Meeting Current Status: Nursing: Current Status Skin Deviations [Chest Tele Rash rash] Skin Deviation Description [ - Chest Tele rash] Bladder Current Status voiding without difficulty Bowel Current Status colace given and miralax given. last bm / Nutrition Current Status Independent Medication Current Status routine neurontin given this am. percocet 1 tab also given Physical Therapy: Current Status Bed Mobility Assistance Supervision Transfer Mobility Assistance Contact Guard Assist Transfer/Bed Mobility Rolling Walker Recommended Devices Transfer Mobility Comment min to mod A x 1 to 2 sit to stand Ambulation Assistance Contact Guard Assist Ambulation Assistive Devices Rolling Walker Number of Feet Patient 100 Ambulated Ambulation Comment Ataxic modified reciprocal type gait. Stairs Assistance Supervision Stairs Recommended Devices Two Rails Number of Stairs 2 x 2 Curb Not Tested Manual Wheelchair Control/ Bilateral UE/Bilateral LE Technique Wheelchair Propulsion Ability Standby Assistance Wheelchair Distance (ft) 50' Objective Comments patient initiates stair training with step ups on exercise step (partial step) this date. patient has occasional unsteadyness but is self correctign. patient is quite excited about ability. Occupational Therapy: Current Status Upper Body Dressing Supervision Lower Body Dressing Supervision Lower Body Dressing Progress Darryl supine, modA with assist x 2 in standing Bathing Supervision,Min Assist Bathing Progress S in bed, Darryl for rear hygiene if standing Toileting Supervision,Min Assist Toileting Progress assistance level varies Toilet Transfer Supervision Toilet Transfer Progress with FWW and gait belt +grab bars Shower Transfer Supervision Shower Transfer Progress SPT w/c to/from shower bench Eating Independent Rec Therapy: Current Status Summary of Assessment and Pt. has engaged in beading, organizing a craft/ Clinical Impression bake sale event, visiting with friends and family , coloring, and going outside for fresh air. Pt. has been talkative, friendly, and motivated during interactions. Pt. has gotten frustrated/agitated at times - moderately redirectable. Treatment Goals Pt. will continue to engage in leisure while on the unit. Treatment Plan Continue to offer recreation services. Social Work: Current Status Discharge Plan return home with home care svs and family support Potential for Family Training pt's daughter is involved and supportive Anticipated Discharge Home Destination Discharge With home care svs and family support Nutrition: Current Status Monitoring Intake variable, although overall appears to be meeting needs. Continues regular diet (no shellfish d/t allergy). Last BM 4/3 - appropriate bowel meds ordered and pt currently accepting them. Continues thiamin supplementation - B1 had been high but improving (10/09 209, 09/14 365) so change in dose not currently indicated. Speech: Current Status Assessment Orders were received to reasssess cognitive- linguistic skills. On the [place] Cognitive Assessment (MOCA) Jonn. 7.1, patient scored 25/30, where 26 is considered normal. Subscores for MoCA task domains: Visuospatial/Executive: /5 Namin/3 Attention: 6* Language: /3* Abstraction: 08/10 Delayed Recall: 08/13* Orientation: 6 Patient had reported that she was tired and in pain, and required encouragement to participate. Patient solved visuospatial/executive, mental math , and reasoning problems quickly and accurately. For sustained attention task, patient inappropriately tapped for every letter, laughing "to make sure I didn't miss any." After instruction and delay, patient retrieved 2/5 words , and recalled 2/5 more given category cues. In the judgment of this technical writer and editor, the patient has intact cognitive-linguistic skills but did not approach the late afternoon testing task with a sense of responsibility and seriousness. COAL DUMPING EQUIPMENT OPERATOR had previously provided instructionin memory and problem solving strategies, and patient had met all goals. Further cogntive-linguistic treatment is not indicated at this time. Speech Current Status Goal 1 Mild Goals: Physical Therapy: Initial Goals Bed Mobility Assistance Independent Transfer Mobility Assistance Independent Transfer/Bed Mobility Rolling Walker Recommended Devices Ambulation Independent Ambulation Recommended Devices Rolling Walker Ambulation Distance 150 Wheelchair Propulsion Ability Independent Stairs Assistance Independent Stair Recommended Devices Two Rails Number of Stairs 5 Physical Therapy: Updated Goals Bed Mobility Assistance Independent Transfer Mobility Assistance Independent Transfer/Bed Mobility Rolling Walker,EZ Stand Recommended Devices Ambulation Assistance Independent Ambulation Distance (ft) 150 Wheelchair Propulsion Ability Independent Stairs Assistance Independent Stairs Recommended Devices Two Rails Number of Stairs 5 Occupational Therapy: Initial Goals Goals to be Completed in (Days 21-28 ) Upper Body Bathing Routine Modified Independent with Lower Body Bathing Routine Supervision/Set Up Upper Body Dressing Routine Independent Lower Body Dressing Routine Minimal Contact Assist Toilet Hygeine and Clothing Minimal Contact Assist Management Routine Toilet Transfer Routine Supervision/Set Up Tub Transfer Routine Minimal Contact Assist Functional Transfers for ADL Supervision/Set Up Grooming Routine Modified Independent with Feeding Routine Modified Independent with Nursing: Goals Bladder Goal Independent Bowel Goal Independent Nutrition Goal Independent Medication Goal Independent with medications Nutrition: Goals Intervention Goals 1. pt will tolerate po intake without GI distress (N/V) 2. adequate po intake to support planned wt loss while meeting protein needs 3. achieve and maintain serum electrolytes WNL 4. regulated bowel pattern without constipation ( or diarrhea) Speech: Goals Speech Goal 1 Memory Speech Evaluation Status Goal Mild 1 Speech Current Status Goal 1 Mild Goal 1 Comments Memory Goals: Long-Term Memory Goal: Pt will use compensatory strategies to encode and retrieve 5/5 new items after delay of 30 minutes, Independently, for independence in mobility safety, ADLs and community access. Status: Met Short-term Memory Goal: Pt will use compensatory strategies to encode and retrieve 4/4 new items after delay of 5 minutes, given Moderate skilled instruction and cueing. Status: Met COAL DUMPING EQUIPMENT OPERATOR I'ly recalled two methods of attending to new information to encode and recall, as previously instructed. Patient I'ly verbalized the reading comprehension and retention strategy of briefly summarizing aloud after reading each 2-3 sentences . Speech Goal 2 Problem solving Speech Goal 2 Comments Problem Solving Goals: Long-Term Goal: Pt will use compensatory strategies to solve moderately complex routine problems, with 100% accuracy, Independently, for personal safety and ADLs such as shopping, time and money management. Status: Met Short-Term Goal: Pt will use compensatory strategies to solve simple routine problems, with 80% accuracy, given Moderate skilled instruction and cueing, for personal safety and ADLs such as shopping, time and money management. Status: Met. COAL DUMPING EQUIPMENT OPERATOR addressed visuospatial skills bu introducing the puzzle game of Hex. Hex requires patient to connect a line of Xs across a field of hexagonal spaces, while preventing her opponent from doong so first. Given 4 games on 3x3 and 4x4 salazar, patient quickly recognized and followed a winning strategy. When first advanced to a 4x4 game, patient placed Xs that allowed her opponent to win , but patient never repeated her errors and demonstrated the ability to win each time she moved first. Social Work: Goals Discharge Plan return home with home care svs and family support Potential for Family Training pt's daughter is involved and supportive Anticipated Discharge Home Destination Discharge With home care svs and family support Care Plan: Care Plan ADL's - Improve/Maintain Start: 09/16/18 19:35 Freq: DAILY Status: Active Target: Protocol: Activity Type Activity Date Activity User E-Sign Co-Sign Detail Recorded Client Recorded Date Recorded By Document 10/14/18 13:55 [id number] 10/14/18 13:55 [id number] 10/14/18 13:55 PMRU Outcome: ADL's/ADL Transfers Orders/Interventions Occupational Therapy Evaluation & Treatment Communication Tool in Patient Room Device Yes Address Deficits Secondary To: neuropathy Patient to receive OT 5x/wk for 60-120 Therex min/day Self Care Management Group Therapy UE/LE ADL's with Assist Yes: setup UB, Darryl LB ADL Transfers with Assist Yes: supervision Toileting: Transfers,Clothing Management Yes: Darryl ,Hygeine w/Assist Light Kitchen/Laundry w/Assist No Progression Toward Outcome/Goals Progressing Outcome/Goals Met Pt participated well in treatment session, improvement in [place] UEs with 9 hole peg test, pt much better able to hold things, although continues to occasional drop things, but much less frequently, pt now able to open toothpaste without assistance or use of another object to push lid open. Communication-Improve/Maintain Start: 09/21/18 14:59 Freq: DAILY Status: Active Target: Protocol: Activity Type Activity Date Activity User E-Sign Co-Sign Detail Recorded Client Recorded Date Recorded By Document 10/15/18 01:37 [id number] 10/15/18 01:37 [id number] 10/15/18 01:37 PMRU Outcome: Communication/Cognitive Status Outcome/Goals Makes Needs Known Effectively Progression Toward Outcomes/Goals Progressing Discharge Planning - Improve/Maintain Start: 09/16/18 19:35 Freq: DAILY Status: Active Target: Protocol: Activity Type Activity Date Activity User E-Sign Co-Sign Detail Recorded Client Recorded Date Recorded By Document 10/15/18 01:37 [id number] [id number] 10/15/18 01:37 [id number] 10/15/18 01:37 PMRU Outcome: Discharge Planning Update Patient Family No Outcome/Goals Demonstrates Understanding of Discharge Plan Progression Toward Outcome/Goals Progressing Education-Improve/Maintain Start: 09/16/18 19:35 Freq: QSHIFT Status: Active Target: Protocol: Activity Type Activity Date Activity User E-Sign Co-Sign Detail Recorded Client Recorded Date Recorded By Document 10/15/18 01:38 [id number] 10/15/18 01:38 [id number] 10/15/18 01:38 PMRU Outcome: Education Outcome/Goals Encourage Questions Progression Toward Outcome/Goals Progressing /GI-Improve/Maintain Start: 09/16/18 19:35 Freq: QSHIFT Status: Active Target: Protocol: Activity Type Activity Date Activity User E-Sign Co-Sign Detail Recorded Client Recorded Date Recorded By Document 10/15/18 01:38 [id number] 10/15/18 01:38 [id number] 10/15/18 01:38 PMRU Outcome: Genitourinary/ Gastrointestinal Genitourinary- Outcome/Goals Maintain/ Achieve Adequate Urinary Output Remain Free of Hospital- Acquired UTI Gastrointestinal-Outcome/Goals Maintain/ Achieve Bowel Regularity in Accordance with Pt's Baseline Prevent Constipation Progression Toward Outcome/Goals - Progressing Progression Toward Outcome/Goals - GI Progressing Outcome/Goals Met Comment pt up to BR Mobility- Improve/Maintain Start: 09/16/18 19:20 Freq: DAILY Status: Active Target: Protocol: Activity Type Activity Date Activity User E-Sign Co-Sign Detail Recorded Client Recorded Date Recorded By Document 09/16/18 19:20 [id number] 09/16/18 19:21 [id number] 09/16/18 19:20 PMRU Outcome: Mobility Physical Therapy Evaluation and Yes Treatment Activity OOB with Assistance Yes WBAT Yes Device Yes Assistance Yes Patient to be seen 5x/wk for 60-120 min/ Therex day for: Mobility Training Gait Training W/C Mobility Balance Outcome/Goals Maintain/ Achieve Baseline Mobility Status Improve Mobility Status Demonstrates Proper Use of Assistive Devices Free from Complications of Immobility Bed Mobility Yes: independent Transfers Yes: independent with rollign walker Gait x ft Yes: independent with rolling walker 150' Up/Down Stairs Yes: independent up down 5 stairs with 2 rails. Neurological- Improve/Maintain Start: 09/16/18 19:35 Freq: QSHIFT Status: Active Target: Protocol: Activity Type Activity Date Activity User E-Sign Co-Sign Detail Recorded Client Recorded Date Recorded By Document 10/15/18 01:38 [id number] 10/15/18 01:38 [id number] 10/15/18 01:38 PMRU Outcome: Neurological Weakness/Aphasia Weakness Outcome/Goals Improve Neurological Status Prevent Avoidable Neurological Decline Maintain/ Improve Strength/ROM Progression Toward Outcome/Goals Progressing Safety- Improve/Maintain Start: 09/16/18 19:35 Freq: QSHIFT Status: Active Target: Protocol: Activity Type Activity Date Activity User E-Sign Co-Sign Detail Recorded Client Recorded Date Recorded By Document 10/15/18 01:38 [id number] 10/15/18 01:38 [id number] 10/15/18 01:38 PMRU Outcome: Safety Outcome/Goals Remain Free of Injury or Harm Cooperates with Safety Measures for Least Restrictive Environment Prevent Falls/ Injury Progression Toward Outcome/Goals Progressing Outcome/Goals Met Comment PRINCE armed Medicine Note: Length of Stay: 2 days Anticipated Discharge Destination: Home Tentative Discharge Date: 10/17/18 Discharged to: Home
--- NOTE | 2018-10-15 17:07 | PN ---
Progress Note Date of Service: 10/15/18 Note: JONH CAMARA was visited. Therapy notes read and reviewed. She was discussed in interdisciplinary team rounds. She is preparing for discharge . Pain better today Current Medications: Active Medications Generic Name Dose Route Start Last Admin Trade Name Freq PRN Reason Stop Dose Admin Amlodipine Besylate 5 mg 09/17/18 09:00 10/15/18 09:44 Norvasc Tab* PO 5 mg DAILY JUAN Administration Cholecalciferol 1,000 units 09/26/18 09:00 10/15/18 09:44 Vitamin D Tab* PO 1,000 units DAILY JUAN Administration Cyclobenzaprine HCl 10 mg 09/23/18 17:19 10/15/18 16:24 Flexeril Tab* PO 10 mg Q8H PRN Administration SPASMS Diphenhydramine HCl 25 mg 10/08/18 18:39 10/14/18 05:35 Benadryl Po* PO 25 mg Q6H PRN Administration ITCHING Docusate Sodium 100 mg 09/18/18 21:00 10/15/18 09:44 Colace Cap* PO 100 mg BID JUAN Administration Enoxaparin Sodium 40 mg 09/16/18 20:00 10/14/18 21:01 Lovenox(*) SUBCUT 40 mg Q24H JUAN Administration Famotidine 20 mg 09/16/18 21:00 10/15/18 09:44 Pepcid Tab* PO 20 mg BID JUAN Administration Gabapentin 600 mg 10/05/18 14:00 10/15/18 13:55 Neurontin Cap(*) PO 600 mg TID JUAN Administration Guaifenesin/Dextromethorphan 10 ml 10/13/18 13:00 Robitussin Dm* PO Q6H PRN COUGH Hydrocortisone 25 mg 09/16/18 19:16 09/17/18 21:38 Anusol Hc Supp* [place] 25 mg BID PRN Administration hemorrhoid Magnesium Oxide 400 mg 09/16/18 21:00 10/15/18 09:44 Magox 400 Tab* PO 400 mg BID JUAN Administration Nicotine 10 mg 09/16/18 19:16 10/12/18 09:54 Nicotine Inhaler* INH 10 mg Q2H PRN Administration CRAVING Nicotine Polacrilex 2 mg 10/14/18 14:40 Nicotine Gum* PO Q2H PRN NICOTINE CRAVINGS Nortriptyline HCl 50 mg 09/27/18 21:00 10/14/18 21:03 Pamelor Cap* PO 50 mg BEDTIME JUAN Administration Oxycodone/Acetaminophen 1 tab 10/04/18 18:56 10/15/18 15:33 Percocet 5/325 Tab* PO 1 tab Q4H PRN Administration PAIN Polyethylene Glycol/Electrolytes 17 gm 09/19/18 09:00 10/15/18 09:45 Miralax* PO 17 gm DAILY JUAN Administration Pyridoxine HCl 100 mg 09/17/18 09:00 10/15/18 09:44 Vitamin B6 Tab* PO 100 mg DAILY JUAN Administration Sucralfate 1 gm 09/23/18 16:00 10/15/18 16:24 Carafate* PO 1 gm 0630,1100,1600,2100 JUAN Administration Thiamine HCl 100 mg 09/16/18 21:00 10/15/18 09:44 Vitamin B-1 Tab* PO 100 mg BID JUAN Administration Vital Signs: Vital Signs Temp Pulse Resp BP Pulse Ox 98.9 F 100 18 155/97 98 10/15/18 17:04 10/15/18 17:04 10/15/18 17:04 10/15/18 17:04 10/15/18 17:04 Exam: GENERAL: No acute distress. alert and appropriate. LUNGS: clear to auscultation bilaterally HEART: Regular rhythm and slightly tachy (baseline). ABDOMEN: + bowel sounds, soft, non-tender, non-distended EXTREMITIES: No edema. NEUROLOGIC: CN II-XII intact. Impaired sensation in hands and feet, ankles. Motor 4+/5 BUE and BLE. Assessment/Plan: 1. Vitamin B1 Deficiency Polyneuropathy: Daily Thiamine. No longer deficient in thiamine. Continue PT/OT. 2. S/P Gastric Sleeve: Eating better 3. Analgesia: I reviewed with her scheduled and prn medications. Percocet/ Gabapentin/Nortriptyline/cyclobenzaprine. Off methadone 4. DVT Prophylaxis: Lovenox 5. Advance Directives: Full code 6. Constipation: Miralax and Colace 7. Impaired cognition: speech reassess: MOCA 25/30. 8. Anticipated discharge: 10/17/18. 10/15/18 17:08 10/15/18 17:09
[2018-10-15] MEDS ORDERED: Gabapentin CAP(*) 100 MG PO ONE (18:48)
[2018-10-15] MEDS: Nortriptyline CAP* 25 MG PO SCH (20:53)
[2018-10-15] MEDS: Enoxaparin(*) 40 MG/0.4 ML SYR SUBCUT SCH (20:56)
[2018-10-16] MEDS: oxyCODONE/Acetamin 5/325 MG* TAB PO PRN ×5 (01:24→22:25)
[2018-10-16] MEDS: Cyclobenzaprine TAB* 10 MG PO PRN ×3 (01:25→18:18)
[2018-10-16] MEDS ORDERED: Gabapentin CAP(*) 300 MG PO ONE (03:00)
[2018-10-16] MEDS: Sucralfate TAB* 1 GM PO SCH ×4 (06:17→21:06)
[2018-10-16 06:56] LABS: Albumin 3.4 g/dL (3.2-5.2); BUN/Creatinine Ratio 13.3 (8-20); Calcium 9.2 mg/dL (8.6-10.3); EGFR African American 180.7 (>60); EGFR Non-African American 149.3 (>60); Globulin 3.3 g/dL (2-4); Potassium 3.6 mmol/L (3.5-5.0); Total Bilirubin 0.5 mg/dL (0.2-1.0); Total Protein 6.7 g/dL (6.4-8.9)
[2018-10-16 07:25] LABS: ABS Basophils 0.1 10^3/ul (0-0.2); ABS Eosinophils 0.1 10^3/ul (0-0.6); ABS Lymphocytes 4.1 10^3/ul (1.0-4.8); ABS Monocytes 0.7 10^3/ul (0-0.8); ABS Neutrophils 3.5 10^3/ul (1.5-7.7); ABS Nucleated RBC 0 10^3/ul; Eosinophil % 1.4 %; Hematocrit 41 % (33-41); Hemoglobin 13.3 g/dL (12.0-16.0); Mean Corpuscular HGB Conc 33 g/dL (31-36); Mean Corpuscular Hemoglobin 30 pg (27-31); Mean Corpuscular Volume 91 fL (80-97); Mean Platelet Volume 8.4 fL (7.4-10.4); Nucleated Red Blood Cells % 0.1; Platelet Count 347 10^3/uL (150-450); Red Blood Count 4.48 10^6 /uL (3.70-4.87); Red Cell Distribution Width 16 % (10.5-15); White Blood Count 8.4 10^3/uL (3.5-10.8)
[2018-10-16] MEDS: Magnesium Oxide TAB* 400 MG PO SCH ×2 (09:17→20:55)
[2018-10-16] MEDS: Famotidine TAB* 20 MG PO SCH ×2 (09:17→20:56)
[2018-10-16] MEDS: amLODIPine TAB* 5 MG PO SCH (09:17)
[2018-10-16] MEDS: Pyridoxine TAB* 50 MG PO SCH (09:17)
[2018-10-16] MEDS: Thiamine TAB* 100 MG TAB PO SCH ×2 (09:17→20:56)
[2018-10-16] MEDS: Docusate CAP* 100 MG PO SCH ×2 (09:17→20:56)
[2018-10-16] MEDS: Cholecalciferol TAB* 1000 UNITS PO SCH (09:17)
[2018-10-16] MEDS: Gabapentin CAP(*) 300 MG PO SCH ×3 (09:19→20:55)
[2018-10-16] MEDS: Polyethylene Glycol 3350* 17 GM PACKET PO SCH (09:21)
[2018-10-16] MEDS ORDERED: Gabapentin CAP(*) 300 MG PO PRN (18:23)
--- NOTE | 2018-10-16 18:24 | PN ---
Progress Note Date of Service: 10/16/18 Note: JONH CAMARA was visited. Therapy notes read and reviewed. For discharge tomorrow. She feels ready to go home. Still has nerve pain Current Medications: Active Medications Generic Name Dose Route Start Last Admin Trade Name Freq PRN Reason Stop Dose Admin Amlodipine Besylate 5 mg 09/17/18 09:00 10/16/18 09:17 Norvasc Tab* PO 5 mg DAILY JUAN Administration Cholecalciferol 1,000 units 09/26/18 09:00 10/16/18 09:17 Vitamin D Tab* PO 1,000 units DAILY JUAN Administration Cyclobenzaprine HCl 10 mg 09/23/18 17:19 10/16/18 18:18 Flexeril Tab* PO 10 mg Q8H PRN Administration SPASMS Diphenhydramine HCl 25 mg 10/08/18 18:39 10/14/18 05:35 Benadryl Po* PO 25 mg Q6H PRN Administration ITCHING Docusate Sodium 100 mg 09/18/18 21:00 10/16/18 09:17 Colace Cap* PO 100 mg BID JUAN Administration Enoxaparin Sodium 40 mg 09/16/18 20:00 10/15/18 20:56 Lovenox(*) SUBCUT 40 mg Q24H JUAN Administration Famotidine 20 mg 09/16/18 21:00 10/16/18 09:17 Pepcid Tab* PO 20 mg BID JUAN Administration Gabapentin 600 mg 10/05/18 14:00 10/16/18 15:08 Neurontin Cap(*) PO 600 mg TID JUAN Administration Guaifenesin/Dextromethorphan 10 ml 10/13/18 13:00 Robitussin Dm* PO Q6H PRN COUGH Hydrocortisone 25 mg 09/16/18 19:16 09/17/18 21:38 Anusol Hc Supp* [place] 25 mg BID PRN Administration hemorrhoid Magnesium Oxide 400 mg 09/16/18 21:00 10/16/18 09:17 Magox 400 Tab* PO 400 mg BID JUAN Administration Nicotine 10 mg 09/16/18 19:16 10/12/18 09:54 Nicotine Inhaler* INH 10 mg Q2H PRN Administration CRAVING Nicotine Polacrilex 2 mg 10/14/18 14:40 Nicotine Gum* PO Q2H PRN NICOTINE CRAVINGS Nortriptyline HCl 50 mg 09/27/18 21:00 10/15/18 20:53 Pamelor Cap* PO 50 mg BEDTIME JUAN Administration Oxycodone/Acetaminophen 1 tab 10/04/18 18:56 10/16/18 17:40 Percocet 5/325 Tab* PO 1 tab Q4H PRN Administration PAIN Polyethylene Glycol/Electrolytes 17 gm 09/19/18 09:00 10/16/18 09:21 Miralax* PO Not Given DAILY JUAN Pyridoxine HCl 100 mg 09/17/18 09:00 10/16/18 09:17 Vitamin B6 Tab* PO 100 mg DAILY JUAN Administration Sucralfate 1 gm 09/23/18 16:00 10/16/18 17:41 Carafate* PO 1 gm 0630,1100,1600,2100 JUAN Administration Thiamine HCl 100 mg 09/16/18 21:00 10/16/18 09:17 Vitamin B-1 Tab* PO 100 mg BID JUAN Administration Vital Signs: Vital Signs Temp Pulse Resp BP Pulse Ox 98.3 F 107 19 130/86 93 10/16/18 15:58 10/16/18 15:58 10/16/18 18:18 10/16/18 15:58 10/16/18 15:58 Lab Results: Laboratory Results - last 24 hr 10/16/18 10/16/18 06:09 06:09 WBC 8.4 RBC 4.48 Hgb 13.3 Hct 41 MCV 91 MCH 30 MCHC 33 RDW 16 H Plt Count 347 MPV 8.4 Neut % (Auto) 42.0 Lymph % (Auto) 48.0 [place] % (Auto) 7.9 Eos % (Auto) 1.4 Baso % (Auto) 0.7 Absolute Neuts (auto) 3.5 Absolute Lymphs (auto) 4.1 Absolute Monos (auto) 0.7 Absolute Eos (auto) 0.1 Absolute Basos (auto) 0.1 Absolute Nucleated RBC 0 Nucleated RBC % 0.1 Sodium 139 Potassium 3.6 Chloride 101 Carbon Dioxide 31 Anion Gap 7 BUN 6 Creatinine 0.45 L Est GFR ( Amer) 180.7 Est GFR (Non-Af Amer) 149.3 BUN/Creatinine Ratio 13.3 Glucose 94 Calcium 9.2 Total Bilirubin 0.50 AST 16 ALT 14 Alkaline Phosphatase 76 Total Protein 6.7 Albumin 3.4 Globulin 3.3 Albumin/Globulin Ratio 1.0 Exam: GENERAL: No acute distress. alert and appropriate. LUNGS: clear to auscultation bilaterally HEART: Regular rhythm and slightly tachy (baseline). ABDOMEN: + bowel sounds, soft, non-tender, non-distended EXTREMITIES: No edema. NEUROLOGIC: CN II-XII intact. Impaired sensation in hands and feet, ankles. Motor 4+/5 BUE and BLE. Assessment/Plan: 1. Vitamin B1 Deficiency Polyneuropathy: Daily Thiamine. No longer deficient in thiamine. Continue PT/OT. 2. S/P Gastric Sleeve: Eating better 3. Analgesia: I reviewed with her scheduled and prn medications. Percocet/ Gabapentin/Nortriptyline/cyclobenzaprine. 4. DVT Prophylaxis: Lovenox 5. Advance Directives: Full code 6. Constipation: Miralax and Colace 7. Impaired cognition: speech reassessed: MOCA 25/30. 8. Anticipated discharge: Tomorrow. 10/16/18 18:25
[2018-10-16] MEDS: Nortriptyline CAP* 25 MG PO SCH (20:55)
[2018-10-16] MEDS: Enoxaparin(*) 40 MG/0.4 ML SYR SUBCUT SCH (20:59)
[2018-10-17] MEDS: Sucralfate TAB* 1 GM PO SCH ×2 (04:50→10:47)
[2018-10-17] MEDS: Cyclobenzaprine TAB* 10 MG PO PRN (04:50)
[2018-10-17] MEDS: oxyCODONE/Acetamin 5/325 MG* TAB PO PRN ×2 (04:51→09:27)
[2018-10-17 05:11] VITALS: BP 142/97
[2018-10-17] MEDS: amLODIPine TAB* 5 MG PO SCH (09:26)
[2018-10-17] MEDS: Thiamine TAB* 100 MG TAB PO SCH (09:26)
[2018-10-17] MEDS: Docusate CAP* 100 MG PO SCH (09:26)
[2018-10-17] MEDS: Magnesium Oxide TAB* 400 MG PO SCH (09:26)
[2018-10-17] MEDS: Famotidine TAB* 20 MG PO SCH (09:26)
[2018-10-17] MEDS: Cholecalciferol TAB* 1000 UNITS PO SCH (09:26)
[2018-10-17] MEDS: Pyridoxine TAB* 50 MG PO SCH (09:26)
[2018-10-17] MEDS: Gabapentin CAP(*) 300 MG PO SCH (09:27)
[2018-10-17] MEDS: Polyethylene Glycol 3350* 17 GM PACKET PO SCH (09:38)
--- NOTE | 2018-10-18 23:12 | DS ---
CC: Dr. Torre. * DISCHARGE SUMMARY: DATE OF ADMISSION: 09/16/18 DATE OF DISCHARGE: 10/17/18 DISCHARGE DIAGNOSES: 1. B1 deficiency neuropathy. 2. Status post laparoscopic sleeve gastrectomy. 3. Obesity. 4. Obstructive sleep apnea. 5. Osteoarthritis of both knees. 6. Back pain. HISTORY OF PRESENT ILLNESS AND HOSPITAL COURSE: For complete history of the events leading up to her rehab stay, please see the history and physical dictated by me on 09/16/18. While on the rehab unit, the patient had a great difficulty with pain control. She was initially put on Percocet 3 times a day and this was slowly increased to 1 Percocet every 4 hours. Later, methadone was added to try to control her pain. The patient seemed to have difficulties with changes in her mood and possibly cognition as a result of methadone. As a result, her methadone was tapered off. She was also put on Pamelor or nortriptyline. She was initially on 10 mg at bedtime and this was slowly increased to 250 mg at bedtime. She seems to be tolerate this fairly well. The patient also received gabapentin for her pain. It was a nerve type pain at her hands and feet. Her gabapentin dose was 600 mg 4 times a day, later decreased to 600 mg 3 times a day and 300 mg twice a day as needed for breakthrough. The patient initially had difficulties with eating. She was nauseated and had some vomiting, but as time wore on, the patient gradually became able to eat a regular diet. The patient received B1 supplementation while on the rehab unit. She did have a vitamin B1 level checked while on the rehab unit. Her whole blood vitamin B1 level was 209 or slightly high on . The patient otherwise was medically stable while on the rehab unit. She was seen by both Physical and Occupational Therapy and made good gains with both disciplines. With physical therapy at the time of admission, the patient was dependent for transfers. She was unable to ambulate. With occupational therapy, she was supervision for upper body dressing, mod assist for lower body dressing, dependent for toileting and toilet transfers. By the time of discharge, the patient was supervision for transfer, supervision ambulating 150 feet, to min assist going up and down 3 stairs. She was independent eating, independent dressing in bed, supervision while standing. She required supervision toileting and toilet transfers with a walker. The patient was discharged home with her daughter on 10/17/18. DISCHARGE DIET: Regular. DISCHARGE MEDICATIONS: Included, 1. Amlodipine 5 mg daily. 2. Vitamin D 1000 units daily. 3. Flexeril 10 mg every 8 hours. 4. Colace 100 mg twice daily. 5. Pepcid 20 mg twice daily. 6. Gabapentin 300 mg twice daily as needed. 7. Gabapentin 600 mg orally 3 times daily. 8. Magnesium oxide 400 mg twice daily. 9. Nortriptyline 50 mg at bedtime. 10. Percocet 1 tablet every 4 hours as needed, not to exceed 6 per day. 11. Vitamin B6 100 mg daily. 12. Vitamin B1 100 mg twice daily. 13. Carafate 1 g orally before meals and at bedtime. 14. MiraLAX 17 g daily as needed. SERVICES AFTER DISCHARGE: Through visiting nurse services, she will have home nursing, home physical therapy, home health aide, and home social work. FOLLOWUP: Follow up with her rn recruitment, Dr. Goncalves in [place]. She will also follow up with her primary care doctor, Dr. Torre in [place]. TIME SPENT: Time for this discharge was approximately 50 minutes, greater than half of that was spent with the patient and her daughter discussing post-rehab medications, discharge plans, and therapies. We also discussed bariatric surgery followup. [id number]/[facility] #: [id number] AJAY
== END 2018-10-17 11:30 | disposition home health service (06) | DRG 74 ==
LOC: PMRU 11:21
PROVIDERS: ADMIT Physical Medicine & Rehabilitation; ATTEND Physical Medicine & Rehabilitation
PROC: F07Z5ZZ Bed Mobility Treatment (ICD-10-PCS; principal; 2018-09-16)
PROC: F07Z9ZZ Gait Training/Functional Ambulation Treatment (ICD-10-PCS; 2018-09-16)
PROC: F07Z8ZZ Transfer Training Treatment (ICD-10-PCS; 2018-09-16)
PROC: F07Z4ZZ Wheelchair Mobility Treatment (ICD-10-PCS; 2018-09-16)
PROC: F08Z0ZZ Bathing/Showering Techniques Treatment (ICD-10-PCS; 2018-09-16)
PROC: F08Z1ZZ Dressing Techniques Treatment (ICD-10-PCS; 2018-09-16)
PROC: F08Z3ZZ Feeding/Eating Treatment (ICD-10-PCS; 2018-09-16)
PROC: F06Z6ZZ Communicative/Cognitive Integration Skills Treatment (ICD-10-PCS; 2018-09-16)
DX: G62.9 Polyneuropathy, unspecified (principal); E51.8 Other manifestations of thiamine deficiency; Z68.41 Body mass index [BMI] 40.0-44.9, adult; R53.1 Weakness; E66.9 Obesity, unspecified; G47.33 Obstructive sleep apnea (adult) (pediatric); M17.0 Bilateral primary osteoarthritis of knee; G31.84 Mild cognitive impairment of uncertain or unknown etiology; M54.9 Dorsalgia, unspecified; G89.29 Other chronic pain; M79.89 Other specified soft tissue disorders; M25.562 Pain in left knee; M25.561 Pain in right knee; K59.00 Constipation, unspecified; R73.03 Prediabetes; F17.210 Nicotine dependence, cigarettes, uncomplicated; Z90.3 Acquired absence of stomach [part of]; Z79.891 Long term (current) use of opiate analgesic; Z79.899 Other long term (current) drug therapy; Z88.0 Allergy status to penicillin; Z88.8 Allergy status to other drugs, medicaments and biological substances
CPT/HCPCS: 36415; 71045; 80053; 84425; 85025; A9270-GY; G0515-GO; J1650

== ENCOUNTER 2018-12-25 17:13 | Emergency (ER) | payer MEDICARE ==
--- OUTSIDE RECORDS SUMMARY | 2018-12-25 17:38 | XMS REPORT | Continuity of Care Document ---
:1970 External Reference #:[id number] Author Name José Miguel Jenkins Care Team Providers Name Role Phone Corey Torre MD Primary Care Physician Unavailable Payers Date Identification Numbers Payment Provider Subscriber Effective: Policy Number: [id number] Medicare Ally Elias 2015 PayID: [id number] [facility] [address] [place] [address] Problems Active Problems Provider Date Dyssomnia Naomy Miles MD Onset: 06/01/2014 Morbid obesity Naomy Miles MD Onset: 06/01/2014 Gastroesophageal reflux disease Kemar Leong MD, FACS Onset: 05/25/2016 Asthma Kemar Leong MD, FACS Onset: 05/25/2016 Prediabetes Kemar Leong MD, FACS Onset: 05/25/2016 Irregular periods Kemar Leong MD, FACS Onset: 05/25/2016 Note: heavy Urinary incontinence Kemar Leong MD, FACS Onset: 05/25/2016 Note: stress Anxiety Kemar Leong MD, FACS Onset: 05/25/2016 Multiple joint pain Kemar Leong MD, FACS Onset: 05/25/2016 Sleep apnea Kemar Leong MD, FACS Onset: 05/25/2016 Note: uses CPAP Essential hypertension Kemar Leong MD, FACS Onset: 05/25/2016 Radial styloid tenosynovitis Livia Jones M.D. Onset: 10/16/2016 Family History Date Family Member(s) Observation Comments General Diabetes General Obesity General Hypertension General Prostate Cancer father Father Congestive Heart Failure (CHF) Mother Congestive Heart Failure (CHF) Mother Coronary Artery Disease (CAD) stents Social History Type Date Description Comments Sex Unknown Marital Status Lives With Daughter Occupation Disabled Tobacco Use Start: Unknown Light tobacco smoker (10 or fewer cigarettes/day) Smoking Status Reviewed: 02/26/17 Light tobacco smoker (10 or fewer cigarettes/day) ETOH Use Occasionally consumes alcohol Tobacco Use Start: Unknown Patient is a current down to 4 cigs a day smoker, smokes every day Recreational Drug Use Current Drug User marijuana use, states uses for pain Exercise Type/Frequency Exercises regularly walking Allergies, Adverse Reactions, Alerts Active Allergies Reaction Severity Comments Date Penicillin throat closes 06/01/2014 Shellfish-derived Products Anaphylaxis 06/01/2014 Tramadol 07/27/2015 Inactive Allergies NKDA 04/07/2014 Medications Active Medications SIG Qnty Indications Ordering Date Provider Meloxicam 1 by mouth each 60tabs M17.11 Jareth Cates, 06/12/2016 15mg Tablets day M.D. Loratadine 1 by mouth 30tabs Unknown 03/17/2014 10mg Tablets every day Lisinopril 1 by mouth 90tabs Unknown 01/20/2014 20mg Tablets every day Trazodone HCL 1 tablet at 30tabs Unknown 01/20/2014 50mg Tablets bedtime as needed Albuterol Sulfate 1 vial via 100units Unknown 01/20/2014 (2.5mg/3ML) nebulizer 4 0.083% Nebulizer times daily as needed Amlodipine Besylate 1 and 1/2 tabs 30tabs Unknown 12/18/2013 10mg by mouth every Tablets day Buspirone HCL 1 by mouth Unknown 12/18/2013 7.5mg Tablets twice a day Vicoprofen 1 by mouth 30tabs Unknown 12/18/2013 7.5-200mg Tablets every 8 hours as needed pain Hydrocodone/Acetaminophen 1 tab by mouth Unknown 500-300 MG every 4 hours as needed Tizanidine HCL 1 three times a Unknown 4mg Capsules day as needed Rozerem 1 tab by mouth Unknown 8mg Tablets every day every night Miralax 17 gm every day Unknown [id number] Powder mixed w/ 8 oz water/juice prn Lotrisone as directed prn Unknown 1-0.05% Cream Lexapro 1 by mouth Unknown 20mg Tablets every day Lexapro 1 by mouth Unknown 10mg Tablets every day Ibuprofen 1 by mouth Unknown 600mg Tablets three times a day as needed Epipen 2-Bhavin use as directed Unknown 0.3mg/0.3ML Solution Auto-Inject Anoro Ellipta 1 puff every Unknown 62.5-25mcg/Inh day Aerosol Hydrochlorothiazide 1 by mouth 30tabs Unknown 25mg every day Tablets History Medications Meloxicam 1 by mouth each 60units M17.11 Jareth Cates, 06/12/2016 - 15mg day M.DBacilio 09/04/2016 Mometasone Furoate as needed every 30g Unknown 03/17/2014 - day topically to 07/27/2015 0.1% Ointment hands Sulfamethoxazole/Tri 1 by mouth twice Unknown 01/20/2014 - methoprim DS a day 05/31/2014 800-160mg Tablets Ventolin HFA 2 puffs by mouth 1units Unknown 01/20/2014 - four times a day 07/27/2015 108(90Base) mcg/Act as needed Aerosol Potassium Chloride 1 by mouth every 60caps Unknown 01/20/2014 - ER day 05/31/2014 8Meq Capsules ER Doxycycline Hyclate 1 by mouth twice Unknown - a day 05/31/[address] Ibuprofen by mouth three 90tabs Unknown - 800mg times a day as 06/01/2014 Tablets needed Percocet 1-2 by mouth 60tabs Unknown - 5-325mg every 4 to 6 05/31/2014 Tablets hours as needed pain Misoprostol as directed Unknown - 200mcg 07/27/2015 Tablets Tranexamic Acid as directed Unknown - 650mg 07/27/2015 Tablets Zolpidem Tartrate at bedtime as Unknown - needed 07/27/2015 10mg Tablets Medications Administered in Office Medication SIG Qnty Indications Ordering Provider Date Depomedrol 40MG Jareth Cates M.D. 02/26/2017 Injection Depomedrol 40MG Jareth Cates M.D. 02/26/2017 Injection Depomedrol 40MG Dircyrus Cates M.D. 09/27/2016 Injection Depomedrol 40MG Jareth Cates M.D. 09/27/2016 Injection Depomedrol 40MG Karlene TAMIKA Mcghee-Genna 06/21/2016 Injection Depomedrol 40MG Jareth Cates M.D. 06/12/2016 Injection Depomedrol 40MG Jareth Cates M.D. 06/12/2016 Injection Depomedrol 40MG Jareth Cates M.D. 07/19/2015 Injection Depomedrol 40MG Jareth Cates, [place] 07/19/2015 Injection Depomedrol 80MG Jareth Cates M.D. 01/06/2015 Injection Depomedrol 80MG k Victorino Cates 06/15/2014 Injection Vital Signs Date Vital Result Comment 02/26/2017 2:41pm Height 69.75 inches 5'9.75" Weight 435.00 lb BP Systolic 176 mmHg BP Diastolic 96 mmHg Respiratory Rate 20 /min Body Temperature 97.6 F Pain Level 7 BMI (Body Mass Index) 62.9 kg/m2 10/16/2016 8:30am Height 69.75 inches 5'9.75" Weight 444.00 lb Respiratory Rate 24 /min Body Temperature 97.0 F Pain Level 0 BMI (Body Mass Index) 64.2 kg/m2 09/28/2016 9:13am Height 69.75 inches 5'9.75" Weight 444.00 lb Heart Rate 100 /min BP Systolic 140 mmHg BP Diastolic 92 mmHg Respiratory Rate 24 /min Body Temperature 97.9 F BMI (Body Mass Index) 64.2 kg/m2 09/27/2016 9:03am Height 69.75 inches 5'9.75" Weight 435.00 lb Heart Rate 100 /min BP Systolic 140 mmHg BP Diastolic 95 mmHg Respiratory Rate 24 /min Pain Level 7 BMI (Body Mass Index) 62.9 kg/m2 09/05/2016 9:24am Height 69.75 inches 5'9.75" Weight 443.00 lb Heart Rate 90 /min BP Systolic 168 mmHg BP Diastolic 70 mmHg Respiratory Rate 14 /min O2 % BldC Oximetry 97 % BMI (Body Mass Index) 64.0 kg/m2 07/13/2016 9:16am Height 69.75 inches 5'9.75" Weight 441.00 lb Pain Level 5 BMI (Body Mass Index) 63.7 kg/m2 06/21/2016 9:56am Height 69 inches 5'9" Weight 447.00 lb Heart Rate 78 /min Respiratory Rate 19 /min Pain Level 6 BMI (Body Mass Index) 66.0 kg/m2 06/12/2016 8:03am Height 69 inches 5'9" Weight 447.00 lb Respiratory Rate 20 /min Pain Level 3 BMI (Body Mass Index) 66.0 kg/m2 06/08/2016 1:23pm Height 69 inches 5'9" Weight 447.00 lb Respiratory Rate 20 /min Body Temperature 97.8 F Pain Level 6 BMI (Body Mass Index) 66.0 kg/m2 05/25/2016 11:45am Height 69 inches 5'9" Weight 449.00 lb Heart Rate 88 /min BP Systolic 170 mmHg BP Diastolic 100 mmHg Respiratory Rate 20 /min Body Temperature 97.7 F BMI (Body Mass Index) 66.3 kg/m2 11/25/2015 9:31am Height 69 inches 5'9" Weight 461.00 lb BMI (Body Mass Index) 68.1 kg/m2 07/28/2015 8:38am Height 69 inches 5'9" Weight 424.00 lb Heart Rate 88 /min 94 BP Systolic 170 mmHg right arm, XL cuff BP Diastolic 96 mmHg right arm, XL cuff BP Systolic Sitting 162 mmHg left arm, XL cuff BP Diastolic Sitting 98 mmHg left arm, XL cuff BP Systolic Standing 144 mmHg left arm, XL cuff BP Diastolic Standing 98 mmHg left arm, XL cuff Respiratory Rate 20 /min BMI (Body Mass Index) 62.6 kg/m2 07/19/2015 9:30am Height 69 inches 5'9" Weight 414.00 lb BMI (Body Mass Index) 61.1 kg/m2 01/06/2015 2:44pm Height 69 inches 5'9" Weight 414.00 lb Pain Level 6 BMI (Body Mass Index) 61.1 kg/m2 06/15/2014 3:37pm Height 69 inches 5'9" Weight 414.00 lb Heart Rate 84 /min BMI (Body Mass Index) 61.1 kg/m2 06/01/2014 9:01am Height 69.75 inches 5'9.75" Weight 415.00 lb Heart Rate 84 /min BP Systolic Sitting 130 mmHg left arm, large cuff BP Diastolic Sitting 84 mmHg left arm, large cuff Respiratory Rate 20 /min O2 % BldC Oximetry 95 % Room air BMI (Body Mass Index) 60.0 kg/m2 Neck Circumference in inches 19 Results Test Date Facility Test Result H/L Range Note Laboratory test 09/09/2018 [facility] Troponin-I 0.00 ng/mL < 0.[address] (TnI) [place] [address] [phone] Laboratory test 12/26/2017 [facility] Surgical SEE RESULT [address] [place] [address] [phone] CBC No Diff 12/19/2017 [facility] White Blood 9.1 10^3/uL N 3.5-10.[address] [place] [address] [phone] Red Blood Count 5.37 10^6/uL N 4.00-5.40 Hemoglobin 15.7 g/dL N 12.0-16.0 Hematocrit 48 % High 35-47 Mean Corpuscular Volume 89 fL N 80-97 Mean Corpuscular Hemoglobin 29 pg N 27-31 Mean Corpuscular HGB Conc 33 g/dL N 31-36 Red Cell Distribution Width 14 % N 10.5-15 Platelet Count 317 10^3/uL N 150-450 Mean Platelet Volume 8.8 um3 N 7.4-10.4 Basic Metabolic 12/19/2017 [facility] Sodium 137 mmol/L Low 139-[address] [place] [address] [phone] Potassium 4.7 mmol/L N 3.5-5.0 Chloride 101 mmol/L N 101-111 Co2 Carbon Dioxide 33 mmol/L High 22-32 Anion Gap 3 mmol/L N 2-11 Glucose 95 mg/dL N 70-100 Blood Urea Nitrogen 9 mg/dL N 6-24 Creatinine 0.75 mg/dL N 0.51-0.95 BUN/Creatinine Ratio 12.0 N 8-20 Calcium 9.4 mg/dL N 8.6-10.3 Egfr Non- 83.2 >60 Egfr 107.0 >60 3 Bariatric Panel 03/15/2017 [facility] Ferritin 93.0 ng/mL N 11 -307 4 Pre-Op [address] [place] [address] [phone] Vitamin B12 292 pg/mL N 180-914 5 Folic Acid (Folate) 14.48 ng/mL N >3.99 6 Vitamin D Total 25(Oh) 12.1 ng/mL Low 30-50 7 Vitamin B1 (Whole Blood) 126 nmol/L N 70-180 8 Vitamin E Level 7.2 mg/L N 5.5 - 17.0 9 TSH (Thyroid Stim Horm) 0.86 mcIU/mL N 0.34-5.60 10 Cortisol 5.02 g/dL N 11 Comp Metabolic Panel 03/15/2017 [facility] Sodium 139 mmol/L N 133-[address] [place] [address] [phone] Potassium 4.0 mmol/L N 3.5-5.0 Chloride 104 mmol/L N 101-111 Co2 Carbon Dioxide 29 mmol/L N 22-32 Anion Gap 6 mmol/L N 2-11 Glucose 107 mg/dL High 70-100 Blood Urea Nitrogen 5 mg/dL Low 6-24 Creatinine 0.64 mg/dL N 0.51-0.95 BUN/Creatinine Ratio 7.8 Low 8-20 Calcium 8.9 mg/dL N 8.6-10.3 Total Protein 7.0 g/dL N 6.4-8.9 Albumin 3.7 g/dL N 3.2-5.2 Globulin 3.3 g/dL N 2-4 Albumin/Globulin Ratio 1.1 N 1-3 Total Bilirubin 0.50 mg/dL N 0.2-1.0 Alkaline Phosphatase 87 U/L N 34-104 Alt 11 U/L N 7-52 Ast 14 U/L N 13-39 Egfr Non- 100.3 N >60 Egfr 129.1 N >60 12 CBC Auto Diff 03/15/2017 [facility] White Blood 8.3 10^3/uL N 3.5-10.[address] [place] [address] [phone] Red Blood Count 5.05 10^6/uL N 4.0-5.4 Hemoglobin 15.0 g/dL N 12.0-16.0 Hematocrit 45 % N 35-47 Mean Corpuscular Volume 89 fL N 80-97 Mean Corpuscular Hemoglobin 30 pg N 27-31 Mean Corpuscular HGB Conc 33 g/dL N 31-36 Red Cell Distribution Width 15 % N 10.5-15 Platelet Count 313 10^3/uL N 150-450 Mean Platelet Volume 9 um3 N 7.4-10.4 Abs Neutrophils 3.4 10^3/uL N 1.5-7.7 Abs Lymphocytes 4.2 10^3/uL N 1.0-4.8 Abs Monocytes 0.4 10^3/uL N 0-0.8 Abs Eosinophils 0.3 10^3/uL N 0-0.6 Abs Basophils 0 10^3/uL N 0-0.2 Abs Nucleated RBC 0.01 10^3/uL N Granulocyte % 40.4 % N 38-83 Lymphocyte % 50.8 % High 25-47 Monocyte % 5.4 % N 1-9 Eosinophil % 3.1 % N 0-6 Basophil % 0.3 % N 0-2 Nucleated Red Blood Cells % 0.1 N Iron & Iron Binding 03/15/2017 [facility] Iron 39 g/dL Low 50-[address] [place] [address] [phone] Unsaturated Iron Binding 234 g/dL N Total Iron Binding Capacity 273 g/dL N 250-450 % Iron Saturation 14 % Low 15-55 Laboratory test 03/15/2017 [facility] Hemoglobin A1c 5.8 % N Less than [address] (Glyco HGB) 6.0 [place] [address] [phone] 1 Troponin-I testing on Plasma Separator Tubes (PST) has a known false positive rate of 0.20-0.40%. All positive troponins reflex immediate secondary confirmatory testing. 2 SEE RESULT BELOW Name: ALLY COLEMAN : [address]: Kemar Leong MD Acct: [id number] Unit: [id number] AGE: 47 Location: [place] [address] Re12/26/17 SEX: F Status: ADM IN SPEC: [id number] ZANE: 12/26/17- SUBM DR: Kemar Leong MD REQ: [id number] RECD: 12/26/17 STATUS: SOUT _ ORDERED: LEVEL 5 FINAL DIAGNOSIS Stomach, partial gastrectomy: -- Benign gastric tissue with no significant pathologic abnormalities. PRE-OPERATIVE DIAGNOSIS Morbid obesity GROSS DESCRIPTION The specimen is received in formalin labeled, Portion of Stomach, and consists of a 22.5 x 4.9 x 4.1 cm previously disrupted portion of gastric tissue with a prominent staple line. The serosa is smooth to shaggy dover russo with multiple disruptions and scant adherent red-brown blood clot and fat. The mucosa is glistening dover to red with normal rugal folds and a focally disrupted possible sessile polyp measuring up to 0.5 cm. Finishing Lab Technician sections, one cassette following decalcification. Signed by and Reported on: Olamide Sethi MD 12/28/17 1315 END OF REPORT DEPARTMENT OF PATHOLOGY, [address] [place] [address] Roderick Gilbert M.D. Director [facility] # [id number] 3 Because ethnic data is not always readily available, this report includes an eGFR for both -Americans and non- Americans. The National Kidney Disease Education Program (NKDEP) does not endorse the use of the MDRD equation for patients that are not between the ages of 18 and 70, are , have extremes of body size, muscle mass, or nutritional status, or are non- or non-. According to the National Kidney Foundation, irrespective of diagnosis, the stage of the disease is based on the level of kidney function: Stage Description GFR(mL/min/1.73 m(2)) 1 Kidney damage with normal or decreased GFR 90 2 Kidney damage with mild decrease in GFR 60-89 3 Moderate decrease in GFR 30-59 4 Severe decrease in GFR 15-29 5 Kidney failure <15 (or dialysis) 4 FASTING 5 Normal Range 180 to 914 Indeterminate Range 145 to 180 Deficient Range <145 6 FASTING 7 FASTING 8 ADDITIONAL INFORMATION This test was developed and its performance characteristics determined by [facility] in a manner consistent with CLIA requirements. This test has not been cleared or approved by the U.S. Food and Drug Administration. Test Performed by: [facility] - [address] [address] 9 ADDITIONAL INFORMATION This test was developed and its performance characteristics determined by [facility] in a manner consistent with CLIA requirements. This test has not been cleared or approved by the U.S. Food and Drug Administration. Test Performed by: [facility] - [address] [address] 10 FASTING 11 AM 8.7-22.4 PM <10 12 Because ethnic data is not always readily available, this report includes an eGFR for both -Americans and non- Americans. The National Kidney Disease Education Program (NKDEP) does not endorse the use of the MDRD equation for patients that are not between the ages of 18 and 70, are , have extremes of body size, muscle mass, or nutritional status, or are non- or non-. According to the National Kidney Foundation, irrespective of diagnosis, the stage of the disease is based on the level of kidney function: Stage Description GFR(mL/min/1.73 m(2)) 1 Kidney damage with normal or decreased GFR 90 2 Kidney damage with mild decrease in GFR 60-89 3 Moderate decrease in GFR 30-59 4 Severe decrease in GFR 15-29 5 Kidney failure <15 (or dialysis) 13 Therapeutic target for the treatment of diabetes Mellitus patients is <7% HBA1C, and in selective patients <6.0%.Please refer to [employer] Association Diabetic care guidelines for further information. Procedures Date Code Description Status 09/11/2018 69150 Nerve Conduction 11-12 Studies Completed 06/11/2018 89724 Endoscopy Upper GI Biopsy Completed 02/26/201718263 Inject/Drain Joint/Bursa Major W/O US Completed 12/20/2016 35550 Polysomnography Sleep Staging 4+ Parameters W/Cpap Completed 10/06/2016 19694 Dequervains-Tendon Sheath Incision/Extensor Sheath,Wrist Completed 10/06/2016 03613 Dequervains-Tendon Sheath Incision/Extensor Sheath,Wrist Completed 09/27/201645339 Inject/Drain Joint/Bursa Major W/O US Completed 09/07/2016 16132 Sleep Study Unattended,HRT Rate,Oxygen Sat,Resp Completed Effort/Airflow 06/21/2016 Injection, Carpal Tunnel Completed 06/12/201628285 Inject/Drain Joint/Bursa Major W/O US Completed 07/28/2015 29372 EKG Tracing & Interpretation Completed 07/19/2015 Inject/Drain Joint/Bursa Major W/O US Completed 07/19/201580870 Inject/Drain Joint/Bursa Major W/O US Completed 01/06/2015 Inject/Drain Joint/Bursa Major W/O US Completed 08/16/2014 48137 Polysomnography Sleep Staging 4+ Parameters W/Cpap Completed 06/15/2014 Inject/Drain Joint/Bursa Major W/O US Completed Encounters Type Date Location Provider Dx Diagnosis Office Visit 09/16/2018 [facility] Raquel Henry MD 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 9:48a Hospitalists K91.2 Postsurgical malabsorption, not elsewhere classified E83.42 Hypomagnesemia E87.6 Hypokalemia Office Visit 09/15/2018 9:48a [facility] Raquel Henry, K91.2 Postsurgical Assoc,andrew EARL malabsorption, not Hospitalists elsewhere classified 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 E83.42 Hypomagnesemia E87.6 Hypokalemia R20.2 Paresthesia of skin F41.9 Anxiety disorder, unspecified R10.9 Unspecified abdominal pain G47.33 Obstructive sleep apnea (adult) (pediatric) Office 09/14/2018 Neurohospitalist Vinicio G62.89 Other specified Visit 7:00a Ebony Rondon MD polyneuropathies E64.8 Sequelae of other nutritional deficiencies Office Visit 09/14/2018 9:48a [facility] Shamika Louise, E51.11 andrew Phillips MD Hospitalists R26.2 Difficulty in walking, not elsewhere classified R10.9 Unspecified abdominal pain K90.89 Other intestinal malabsorption E87.6 Hypokalemia E66.01 Morbid (severe) obesity due to excess calories G47.33 Obstructive sleep apnea (adult) (pediatric) Office 09/13/2018 Neurohospitalist Shashank Frederick G62.89 Other specified Visit 7:00a gonzales Montero M.D. E64.8 Sequelae of other nutritional deficiencies Office Visit 09/13/2018 9:47a [facility] Shamkia Louise, E51.11 andrew Phillips MD Hospitalists R26.2 Difficulty in walking, not elsewhere classified R10.9 Unspecified abdominal pain K90.89 Other intestinal malabsorption E87.6 Hypokalemia E66.01 Morbid (severe) obesity due to excess calories R11.2 Nausea with vomiting, unspecified G47.33 Obstructive sleep apnea (adult) (pediatric) Office 09/12/2018 Neurohospitalist Vinicio G62.89 Other specified Visit 7:00a Ebony Rondon MD polyneuropathies E64.8 Sequelae of other nutritional deficiencies M48.061 Spinal stenosis, lumbar region without neurogenic ruben R79.82 Elevated C-reactive protein (CRP) Office Visit 09/12/2018 9:47a [facility] Shamika Dani, 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 Assoc,pc Hospitalists R26.2 Difficulty in walking, not elsewhere classified R10.9 Unspecified abdominal pain E87.6 Hypokalemia E83.42 Hypomagnesemia R11.2 Nausea with vomiting, unspecified G47.33 Obstructive sleep apnea (adult) (pediatric) E66.01 Morbid (severe) obesity due to excess calories K90.89 Other intestinal malabsorption Office Visit 09/11/2018 Neurosurgery Alice Williamson, M48.062 Spinal stenosis, 3:22p [facility] lumbar region with neurogenic claudication Office Visit 09/11/2018 [facility] Khalif Parikh, 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 9:47a Assoc,pc Hospitalists M54.9 Dorsalgia, unspecified E83.42 Hypomagnesemia E87.6 Hypokalemia K91.2 Postsurgical malabsorption, not elsewhere classified R11.2 Nausea with vomiting, unspecified R29.6 Repeated falls E66.01 Morbid (severe) obesity due to excess calories G47.33 Obstructive sleep apnea (adult) (pediatric) F41.9 Anxiety disorder, unspecified R10.9 Unspecified abdominal pain Office 09/11/2018 Neurohospitalist Vinicio G62.89 Other specified Visit 7:00a Ebony Rondon MD polyneuropathies E64.8 Sequelae of other nutritional deficiencies M48.061 Spinal stenosis, lumbar region without neurogenic ruben R79.82 Elevated C-reactive protein (CRP) Office 09/10/2018 Neurohospitalist Vinicio G62.89 Other specified Visit 7:00a Ebony Rondon MD polyneuropathies E64.8 Sequelae of other nutritional deficiencies M48.061 Spinal stenosis, lumbar region without neurogenic ruben Office Visit 09/10/2018 3:20p Neurosurgery Alice Williamson, R20.2 Paresthesia of [facility] skin R53.1 Weakness R29.6 Repeated falls Office Visit 09/09/2018 9:46a [facility] Khalif Parikh MD R29.6 Repeated falls Assoc, Hospitalists R11.2 Nausea with vomiting, unspecified M62.81 Muscle weakness (generalized) R06.02 Shortness of breath Office Visit 09/27/2016 Orthopedic Dirk Darryn, M17.11 Unilateral primary 9:15a Services Of [place] osteoarthritis, right C.M.A. knee M17.12 Unilateral primary osteoarthritis, left knee Office Visit 09/05/2016 Pulmonology And Dennise G47.33 Obstructive sleep 9:30a Sleep Services Of SHALONDA [place], RN, apnea (adult) [employer] (pediatric) G47.14 Hypersomnia due to medical condition E66.01 Morbid (severe) obesity due to excess calories Z68.44 Body mass index (BMI) 60.0-69.9, adult Office Visit 07/13/2016 Orthopedic Livia M65.4 Radial styloid 9:30a [facility] [place] Jones tenosynovitis [de C.M.ABacilio Lopez] Office Visit 06/21/2016 Orthopedic Karlene Mcghee, G56.02 Carpal tunnel 10:20a Services Of [facility] syndrome, left C.M.A. upper limb G56.22 Lesion of ulnar nerve, left upper limb Office Visit 06/12/2016 Orthopedic Jareth Cates, M17.11 Unilateral primary 8:00a [facility] Of [place] osteoarthritis, right C.M.A. knee M17.12 Unilateral primary osteoarthritis, left knee Office Visit 06/08/2016 1:30p Orthopedic Livia Jones, G56.01 Carpal tunnel Services Of MBacilioD. syndrome, right C.M.A. upper limb G56.02 Carpal tunnel syndrome, left upper limb G56.22 Lesion of ulnar nerve, left upper limb G56.21 Lesion of ulnar nerve, right upper limb R20.0 Anesthesia of skin R20.2 Paresthesia of skin Office Visit 05/25/2016 11:30a Surgical Kemar Rome E66.01 Morbid (severe) Associates Of Hattie Leong MD, obesity due to FACS excess calories Z71.3 Dietary counseling and surveillance Office Visit 07/28/2015 Gabi Lanier94.31 Abnormal 9:00a Cardiology Of MD Praveen, electrocardiogram Police Magistrate [facility] FACC, FSCAI [ECG] [EKG] I10 Essential (primary) hypertension G47.33 Obstructive sleep apnea (adult) (pediatric) Office Visit 07/19/2015 9:45a Orthopedic Jareth Cates M17.0 Bilateral primary Services Of [place] osteoarthritis of C.M.A. knee M25.562 Pain in left knee M25.561 Pain in right knee Office Visit 06/15/2014 3:00p Orthopedic Jareth Cates, 716.86 Arthropathy Other Services Of [place] Spec Lower Leg C.M.A. 716.96 Arthropathy Unspec Lower Leg Office Visit 06/01/2014 11:30a Pulmonology And Naomy 780.59 Sleep Disturbances Sleep Services Of MD Ginger Other Police Magistrate 278.01 Obesity Morbid V15.82 History Personal Tobacco Use Plan of Treatment 02/26/2017 - Jareth Cates M.D.M17.12 Unilateral primary osteoarthritis, left kneeFollow up:Follow up: 4 months or as needed OK to use [id number] Unilateral primary osteoarthritis, right kneeM17.0 Bilateral primary osteoarthritis of knee
--- NOTE | 2018-12-25 19:31 | ED ---
Complex/Multi-Sys Presentation - HPI Summary HPI Summary: A 48 y/o female presents to [facility] with a chief complaint of pain, mostly muscle spasms, since she ran out of Gabapentin yesterday. She rated her pain as a 10/ 10 in severity, and claims that her pain has been constant. She notes that she has nerve damage because of a Vitamin B deficiency. The patient reports that she has not been able to walk for the past month, has a hernia, says her skin hurts, and notes that she was also tachycardic at 115 bpm, according to her visiting nurse today. The patient reports that she has been admitted for her pain and states that she usually takes hydrocodone for her pain. The patient claims that she came to the ED because she did not want to spend tonight another night in pain. - History Of Current Complaint Chief Complaint: EDGeneral Time Seen by Provider: 12/25/18 19:21 Hx Obtained From: Patient Onset/Duration: Sudden Onset, Lasting Days, Still Present Timing: Constant, Days Severity Currently: Severe Severity Initially: Severe Location: Pain At: - muslce aches, nerve pain Character: Unable To Describe Aggravating Factor(s): nothing Alleviating Factor(s): nothing Associated Signs And Symptoms: Positive: Other - positive: muscle aches, nerve pain. Negative: Fever - Allergies/Home Medications Allergies/Adverse Reactions: Allergies Allergy/AdvReac Type Severity Reaction Status Date / Time shrimp Allergy Severe Swelling Verified 12/25/18 17:27 Of Face,Lips,& Throat tramadol Allergy Severe Swelling Verified 12/25/18 17:27 Penicillins Allergy Difficulty Verified 12/25/18 17:27 Breathing PMH/Surg Hx/FS Hx/Imm Hx Endocrine/Hematology History: Reports: Hx Diabetes - PRE- NO MEDS, Hx Sickle Cell Disease - TRATE Denies: Hx Anticoagulant Therapy, Hx Thyroid Disease - being checked Cardiovascular History: Reports: Hx Hypercholesterolemia, Hx Hypertension - ON DAILY MED Denies: Hx Cardiac Arrest, Hx Pacemaker/ICD, Other Cardiovascular Problems/ Disorders Respiratory History: Reports: Hx Asthma - ON DAILY & PRN INHALERS, Hx Sleep Apnea - BEEN TESTED, NO EQUIPMENT YET Denies: Other Respiratory Problems/Disorders GI History: Denies: Other GI Disorders History: Reports: Other Problems/Disorders - Microscopic hematuria Denies: Hx Dialysis, Hx Renal Disease Musculoskeletal History: Reports: Hx Arthritis - GENERALIZED, Hx Back Problems - cervical , lumbar, Hx Tendonitis - left wrist, Other Musculoskeletal History - osteoarthritis Sensory History: Reports: Hx Contacts or Glasses Denies: Hx Deafness, Hx Hearing Aid Opthamlomology History: Reports: Hx Contacts or Glasses Neurological History: Reports: Hx Headaches - with high bp, Hx Migraine - with high bp, Other Neuro Impairments/Disorders - opthalmoparesis, severe neuropathy Psychiatric History: Reports: Hx Anxiety, Hx Depression, Other Psychiatric Issues/Disorders - in [facility] [place] son was killed, see psychiatrist Denies: Hx Panic Disorder - Surgical History Surgery Procedure, Year, and Place: EARLY CYST OF VAGINA, LEFT WRIST- carpal tunnel, gastric sleeve 12/2017 Hx Anesthesia Reactions: No - Immunization History Date of Tetanus Vaccine: Unknown Date of Influenza Vaccine: None Infectious Disease History: Yes Infectious Disease History: Reports: 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, last one 3 years ago, Hx Shingles - x2 Denies: Traveled Outside the [place] in Last 30 Days - Family History Known Family History: Negative: Blood Disorder - Social History Alcohol Use: None Substance Use Type: Reports: Marijuana Substance Use Comment - Amount & Last Used: Marijuana for pain control and appetite Smoking Status (MU): Light Every Day Tobacco Smoker Type: Cigarettes Amount Used/How Often: ABOUT 3-5 cigarettes per day Have You Smoked in the Last Year: Yes Review of Systems Negative: Fever Positive: Other - positive: muscle spasms Positive: Other - positive: pain All Other Systems Reviewed And Are Negative: Yes Physical Exam - Summary Physical Exam Summary: VITAL SIGNS: Reviewed. GENERAL: Patient is a well-developed and nourished FEMALE who is lying comfortable in the stretcher. Patient is not in any acute respiratory distress. HEAD AND FACE: No signs of trauma. No ecchymosis, hematomas or skull depressions. No sinus tenderness. EYES: PERRLA, EOMI x 2, No injected conjunctiva, no nystagmus. EARS: Hearing grossly intact. Ear canals and tympanic membranes are within normal limits. MOUTH: Oropharynx within normal limits. NECK: Supple, trachea is midline, no adenopathy, no JVD, no carotid bruit, no c- spine tenderness, neck with full ROM CHEST: Symmetric, no tenderness at palpation LUNGS: Clear to auscultation bilaterally. No wheezing or crackles. CVS: Regular rate and rhythm, S1 and S2 present, no murmurs or gallops appreciated. ABDOMEN: Soft, non-tender. No signs of distention. No rebound no guarding, and no masses palpated. Bowel sounds are normal. EXTREMITIES: FROM in all major joints, no edema, no cyanosis or clubbing. NEURO: Alert and oriented x 3. No acute neurological deficits. Speech is normal and follows commands. SKIN: Dry and warm Triage Information Reviewed: Yes Vital Signs On Initial Exam: Initial Vitals Temp Pulse Resp BP Pulse Ox 97.4 F 127 16 135/95 99 12/25/18 17:23 12/25/18 17:23 12/25/18 17:23 12/25/18 17:23 12/25/18 17:23 Vital Signs Reviewed: Yes Diagnostics - Vital Signs Vital Signs Temp Pulse Resp BP Pulse Ox 12/25/18 17:23 97.4 F 127 16 135/95 99 - Laboratory Lab Statement: Any lab studies that have been ordered have been reviewed, and results considered in the medical decision making process. Complex Multi-Symp Course/Dx Course Of Treatment: A 48 y/o female presents to [facility] with a chief complaint of pain, mostly muscle spasms, since she ran out of Gabapentin yesterday. The patient reports that she has been admitted for her pain and states that she usually takes hydrocodone for her pain. The physical exam was unremarkable. In the ED course the patient was given Hydrocodone PO and Gabapentin PO. The patient will be discharged with prescriptions for Neurontin and [place] and will follow up with her PCP and the pain clinic. The patient is agreeable with this plan. - Diagnoses Provider Diagnoses: Chronic pain Discharge - Sign-Out/Discharge Documenting (check all that apply): Patient Departure - DC Patient Received Moderate/Deep Sedation with Procedure: No - Discharge Plan Condition: Stable Disposition: HOME Prescriptions: Gabapentin CAP(*) [Neurontin 300 CAP(*)] 600 mg PO TID #60 cap HYDROcodone/ACETAMIN 5-325 MG* [[place] 5-325 TAB*] 1 tab PO Q6H PRN #30 tab MDD 4 PRN Reason: Pain Patient Education Materials: Chronic Pain (ED) Referrals: Corey Torre MD [Primary Care Provider] - (2-3 days) Additional Instructions: Follow up with your PCP and the pain clinic. PLEASE RETURN TO THE ED IMMEDIATELY FOR WORSENING OR CONCERNING SYMPTOMS. - Billing Disposition and Condition Condition: STABLE Disposition: Home - Attestation Statements Document Initiated by Guillermo: Yes Documenting Scribe: Ehsan Hyatt Provider For Whom Guillermo is Documenting (Include Credential): Viktor Gaston MD Scribestela Attestation: Ehsan Youssef, scribed for Viktor Gaston MD on 12/26/18 at 0637. Scribe Documentation Reviewed: Yes Provider Attestation: The documentation as recorded by the Ehsan renner accurately reflects the service I personally performed and the decisions made by Luh valdes MD Status of Scribe Document: Viewed
[2018-12-25] MEDS ORDERED: Gabapentin TAB(NF) 600 MG PO ONE (19:44)
[2018-12-25] MEDS ORDERED: HYDROcodone/ACETAMIN 5-325 MG* 1 TAB PO ONE (19:45)
[2018-12-25] MEDS ORDERED: Gabapentin CAP(*) 300 MG PO ONE (20:51)
[2018-12-25 21:07] VITALS: BP 138/111
== END 2018-12-25 21:06 | disposition home or self-care (01) ==
LOC: ED 17:13
DX: G89.29 Other chronic pain (principal); R73.03 Prediabetes; I10 Essential (primary) hypertension; J45.909 Unspecified asthma, uncomplicated; Z88.5 Allergy status to narcotic agent; Z88.0 Allergy status to penicillin; Z91.013 Allergy to seafood; F17.210 Nicotine dependence, cigarettes, uncomplicated
CPT/HCPCS: 99282